=== PATIENT | male | born 1975 | race American Indian/Alaskan Native ===

== ENCOUNTER 2017-03-27 14:13 | Emergency (ER) | payer OTHER ==
[2017-03-27 14:26] VITALS: BP 176/108
--- NOTE | 2017-03-27 14:57 | Emergency Department Report ---
Chief Complaint: Chest Pain Stated Complaint: CP Time Seen by Provider: 03/27/17 14:56 - HPI History of Present Illness: Patient reports that he is having left sided chest pain that feels sharp that's worsening this morning. He said this is been going on for months. Patient said that he is out of his blood pressure medication for 6 months and he just moved here. I asked patient if he is here to have his blood pressure medication refill or if he is having chest pain and he laughed. Denies any nausea or vomiting. Denies any shortness of breath. Blood pressure today is 176/108 and denies any shortness of breath, swelling to lower extremities or recent travel for more than 3 hours. Denies any headache, blurred vision or dizziness. Pain to the chest is sharp and 5 out of 10. No radiation. - ROS Review of Systems: All systems are negative unless stated in HPI above - Exam Vital Signs: Vital Signs 03/27/17 14:22 Temperature 98.6 F Pulse Rate 49 L Respiratory 18 Rate Blood Pressure 176/108 O2 Sat by Pulse 98 Oximetry Physical Exam: Gen.: 41-year-old male well-nourished well-developed in no acute distress. CV: S1, S2. Regular rate and rhythm. No murmur. No chest wall tenderness. Blood pressure 176/108 EXT: No clubbing, cyanosis or edema. +2 pulses to all extremities. Lungs:CTAB. NL WOB MSE screening note: Focused history and physical exam performed. Due to findings the following was ordered: ED Medical Decision Making - Medical Decision Making MDM: Patient screened by provider in triage area. Appropriate protocol initiated and patient to be seen in main ED by ED Disposition for MSE Condition: Stable
[2017-03-27 15:36] LABS: Basophils % (Auto) 0.7 % (0.0-1.8); Eosinophils % (Auto) 4.3 % (0.0-4.3); Hematocrit 47.9 % (35.5-45.6); Hemoglobin 16.6 gm/dl (11.8-15.2); Mean Corpuscular HGB Conc 35 % (32-34); Mean Corpuscular Hemoglobin 30 pg (28-32); Mean Corpuscular Volume 86 fl (84-94); Platelet Count 243 K/mm3 (140-440); Red Blood Count 5.58 M/mm3 (3.65-5.03); White Blood Count 7.4 K/mm3 (4.5-11.0)
[2017-03-27 16:00] LABS: Alanine Aminotransferase 22 units/L (7-56); Albumin 4.4 g/dL (3.9-5); Albumin/Globulin Ratio 1.4 %; Alkaline Phosphatase 86 units/L (35-129); Anion Gap 19 mmol/L; BUN/Creatinine Ratio 8; Blood Urea Nitrogen 8 mg/dL (9-20); Calcium 9.2 mg/dL (8.4-10.2); Carbon Dioxide 26 mmol/L (22-30); Chloride 100.9 mmol/L (98-107); Glucose 95 mg/dL (75-100); Potassium 4.3 mmol/L (3.6-5.0); Sodium 142 mmol/L (137-145); Total Protein 7.5 g/dL (6.3-8.2)
[2017-03-27 16:01] LABS: Bilirubin,Direct < 0.2 mg/dL (0-0.2); Bilirubin,Indirect 0.3 mg/dL
== END 2017-03-27 17:00 | disposition left against medical advice (07) ==
LOC: ED 14:13
DX: R07.9 Chest pain, unspecified (principal); Z53.21 Procedure and treatment not carried out due to patient leaving prior to being seen by health care provider
CPT/HCPCS: 36415; 80048; 80074; 84484; 85025; 93005; 93010

== ENCOUNTER 2017-10-17 03:52 | Inpatient (IN) | payer OTHER ==
--- NOTE | 2017-10-17 04:12 | Cat Scan Report ---
FINAL REPORT EXAM: CT HEAD/BRAIN WO CON HISTORY: neuro deficits < 6hrs or sx present upon awakening TECHNIQUE: Routine axial imaging was obtained of the brain without IV contrast. FINDINGS: The ventricular system is appropriate in size and is symmetric. There is no evidence of acute stroke or hemorrhage. There are no extra-axial fluid collections. The basal cisterns appear normal. The sinuses reveal patchy mucosal thickening in the ethmoid air cells and left sphenoid sinus. The mastoid air cells are well pneumatized. The calvarium appears intact. IMPRESSION: No acute intracranial process. Mild sinusitis as described.
[2017-10-17] MEDS ORDERED: NACL 0.9% 1000 ML 1,000 ML IV ONE (04:14)
[2017-10-17 04:21] LABS: Basophils % (Auto) 0.5 % (0.0-1.8); Eosinophils # (Auto) 0.2 K/mm3 (0.0-0.4); Eosinophils % (Auto) 2.4 % (0.0-4.3); Hematocrit 48.1 % (35.5-45.6); Hemoglobin 16.7 gm/dl (11.8-15.2); Lymphocytes # (Auto) 2.6 K/mm3 (1.2-5.4); Lymphocytes % (Auto) 30.7 % (13.4-35.0); Mean Corpuscular HGB Conc 35 % (32-34); Mean Corpuscular Hemoglobin 30 pg (28-32); Mean Corpuscular Volume 87 fl (84-94); Monocytes # (Auto) 0.6 K/mm3 (0.0-0.8); Platelet Count 218 K/mm3 (140-440); Red Blood Count 5.56 M/mm3 (3.65-5.03)
[2017-10-17] MEDS ORDERED: ASPIRIN PR ONE (04:23)
--- NOTE | 2017-10-17 04:29 | Emergency Department Report ---
HPI - General Chief Complaint: Neuro Symptoms/Deficit Time Seen by Provider: 10/17/17 04:12 - HPI HPI: The patient is a 42-year-old male who presents for evaluation of strokelike symptoms. The patient arrives with his significant other, whom provides history present illness. She states that the patient awoke approximately one hour prior to arrival complaining of neuro deficits. The patient states that when he awoke he felt numbness of the right arm and leg, weakness in the right arm and leg, right facial droop, and difficulty swallowing. They approximate that the patient was last normal and went to sleep between 11-11:30 pm earlier tonight, approximately 5 hours prior to arrival, but they are unsure of the exact time that the patient was last normal. The patient also complains of a mild achy right-sided headache for the past one hours well. The patient denies fever, neck pain, chest pain, dyspnea, abdominal pain, seizure-like activity. ED Past Medical Hx - Past Medical History Previous Medical History?: Yes Hx Hypertension: Yes - Social History Smoking Status: Unknown if ever smoked Substance Use Type: None ED Review of Systems ROS: Stated complaint: POSSIBLE STROKE Other details as noted in HPI Constitutional: denies: fever ENT: denies: throat or neck pain Respiratory: denies: cough, shortness of breath Cardiovascular: denies: chest pain Endocrine: denies unexplained weight loss or gain Gastrointestinal: denies: abdominal pain, nausea Genitourinary: denies: dysuria Musculoskeletal: denies: leg swelling Skin: denies: rash Neurological: reports weakness and numbness Hematological/Lymphatic: denies: easy bleeding or easy bruising Psych: denies sadness or hopelessness Physical Exam - Physical Exam Vital Signs: Vital Signs 10/17/17 10/17/17 04:01 04:07 Pulse Rate 74 Respiratory 16 16 Rate Blood Pressure 131/81 O2 Sat by Pulse 96 96 Oximetry Physical Exam: General: well-nourished, well-developed, no acute distress Head: Normocephalic, atraumatic Eyes: normal sclera ENT: Mucous membranes are pale and dry Neck: trachea midline, neck supple, No neck stiffness, no cervical adenopathy Respiratory: Breath sounds equal bilaterally, no wheezing, rales, or rhonchi Cardio: S1 and S2 present, no murmurs, rubs, gallops, capillary refill is delayed Abdomen: Normoactive bowel sounds, soft abdomen, no rigidity, no guarding or rebound tenderness Chest WALL/Back: No tenderness to palpation of the chest wall, no CVA tenderness with percussion Musc: No pitting edema Skin: No rash Neuro: Alert oriented 3, gag reflex intact, minor right upper and lower facial drooping present, right upper extremity coordination deficit present, numbness to the right arm and leg present, no other appreciable motor deficits, reflexes 2+ symmetric on DTR testing, Babinski is downgoing Psych: Normal affect ED Course Vital Signs 10/17/17 10/17/17 04:01 04:07 Pulse Rate 74 Respiratory 16 16 Rate Blood Pressure 131/81 O2 Sat by Pulse 96 96 Oximetry ED Medical Decision Making - Lab Data Result diagrams: 10/17/17 04:06 10/17/17 04:06 - Medical Decision Making The patient was seen and examined by myself. The patient is placed on a cardiac nurse specialist and continuous pulse ox. On initial evaluation, the patient was found to be in no distress. Evaluation orders were placed and cultures stroke was called. The on-call telemetry neurologist Dr. Ramirez was contacted. She submitted that the patient is not a candidate for TPA as his last known normal is unknown, and at best, 5hours prior to arrival. CT scan the head is negative for acute ischemic stroke or intercranial hemorrhage. The patient is given rectal aspirin. Lab results reveal elevated RBC, hemoglobin, hematocrit, consistent with exam findings of dehydration, low pH, 7.2, and elevated PCO2 of 69. The patient was reevaluated and he remains responsive to verbal stimuli, oriented 3, and with intact gag reflex. The patient is placed on BiPAP for treatment of respiratory acidosis. The on-call hospitalist service was contacted. They agreed to admit the patient for further treatment and close monitoring. The ED admit order was placed. The patient was admitted in guarded condition. Critical Care Time: Yes Critical care time in (mins) excluding proc time.: 35 (35min) Critical care attestation.: Due to the critical nature of this patients presentation, which necessitated multiple bedside assessments, manipulation and supportive measures to prevent further life threatening deterioration, I would like to bill for a total of 35 minutes of critical care time. This was exclusive of any separately billable procedures. Critical Care Time: 35 min ED Disposition Clinical Impression: Acute ischemic stroke, Dehydration Respiratory failure with hypercapnia Qualifiers: Chronicity: acute Qualified Code(s): J96.02 - Acute respiratory failure with hypercapnia Disposition: OP ADMIT IP TO THIS HOSP Is pt being admited?: Yes Does the pt Need Aspirin: Yes Condition: Critical Referrals: PRIMARY CARE, [Primary Care Provider] - 3-5 Days Time of Disposition: 04:33 - Assessment Assessment Interval: Baseline - Level of Consciousness 1a. Level of Consciousness: alert - LOC Questions 1b. LOC Questions: answers correctly - LOC Command 1c. LOC Commands: performs tasks correctly - Best Gaze 2. Best Gaze: normal - Visual 3. Visual: no visual loss - Facial Palsy 4. Facial Palsy: minor paralysis - Motor Arm 5b. Motor Arm Right: drift 5a. Motor Arm Left: no drift - Motor Leg 6a. Motor Leg Left: no drift 6b. Motor Leg Right: no drift - Limb Ataxia 7. Limb Ataxia: present 1 limb - Sensory 8. Sensory: mild/moderate sensory loss - Best Language 9. Best Language: no aphasia - Dysarthria 10. Dysarthria: normal - Extinction and Inattention 11. Extinction/Inattention: no abnormality - Scoring Total Score: 4 Stroke Severity: Minor Stroke
[2017-10-17] MEDS ORDERED: ZOFRAN IV ONE ×2 (04:30→05:22)
[2017-10-17 04:34] LABS: INR 0.95 (0.87-1.13)
[2017-10-17 04:35] LABS: BUN/Creatinine Ratio 11; Blood Urea Nitrogen 12 mg/dL (9-20); Calcium 8.7 mg/dL (8.4-10.2); Hemolysis Index 19; Partial Thromboplastin Time 27.7 Sec. (24.2-36.6)
[2017-10-17] MEDS ORDERED: ZOFRAN ONE (04:36)
[2017-10-17] MEDS ORDERED: APRESOLINE ONE (05:37)
--- NOTE | 2017-10-17 05:38 | XRay Report ---
FINAL REPORT EXAM: XR CHEST 1V AP HISTORY: chest pain TECHNIQUE: A portable view of the chest was obtained. FINDINGS: The heart size is at the upper limits of normal. The lungs are not overtly congested. There are no localized infiltrates. There elevation the right hemidiaphragm. The skeletal structures do not show any acute changes. IMPRESSION: No acute process in the chest
[2017-10-17] MEDS ORDERED: APRESOLINE IV ONE (05:42)
[2017-10-17] MEDS ORDERED: PROTONIX IV ONE ×2 (06:00→10:29)
[2017-10-17 06:01] LABS: Bacteria,Urine 1+ /HPF (Negative); Bilirubin,Urine NEG (Negative); Blood,Urine NEG (Negative); Color,Urine Yellow (Yellow); Protein,Urine <15 mg/dL mg/dL (Negative); Urobilinogen,Urine < 2.0 mg/dL (<2.0)
--- NOTE | 2017-10-17 06:02 | History and Physical Report ---
History of Present Illness Date of examination: 10/17/17 History of present illness: 42-year-old man admitted history of hypertension, noncompliant with medication over the last 1 month comes emergency room with complaints of right-sided weakness. His last well-known time was 11:30, he woke up at 2:30 to use the bathroom, he fell to the floor a few times with several attempts. He also complained of slurred speech and decreased sensation on the right side. Patient also had episodes of nausea vomiting, [place] examining the patient, he had 1 episode of coffee-ground emesis. Her friend bedside stating he's been taking Motrin for tooth pain Review of systems Constitutional: no weight loss, chills, fever Ears, eyes, nose, mouth and throat: no nasal congestion, no nasal discharge, no sinus pressure, no vision change, no red eye. Neck: No neck pain or rigidity. Cardiovascular: no chest pain, palpitations Respiratory: no cough, shortness of breath Gastrointestinal: no abdominal pain hematochezia Genitourinary : no frequency , no hematuria Musculoskeletal: no joint swelling or muscle ache Integumentary: no rash, no pruritis Neurological:+ parathesias, focal weakness Endocrine: no cold or heat intolerance, no polyuria or polydipsia Hematologic/Lymphatic: no easy bruising, no easy bleeding, no gland swelling Allergic/Immunologic: no urticaria, no angioedema. PAST MEDICAL HISTORY: Hypertension PAST SURGICAL HISTORY: None SOCIAL HISTORY: No alcohol, no drugs, smokes half pack a day FAMILY HISTORY: Hypertension Medications and Allergies Allergies Allergy/AdvReac Type Severity Reaction Status Date / Time No Known Allergies Allergy Unverified 03/27/17 14:25 Home Medications Medication Instructions Recorded Confirmed Last Taken Type Ibuprofen [Ibuprofen Ib] 200 mg PO DAILY 10/17/17 10/17/17 10/16/17 History Lisinopril/Hydrochlorothiazide 1 mg PO DAILY 10/17/17 10/17/17 Unknown History [Zestoretic 20-12.5 mg] Active Meds: Active Medications Pantoprazole Sodium (Protonix) 40 mg IV ONCE ONE Stop: 10/17/17 06:01 Exam - Physical Exam Narrative exam: Gen. appearance: Patient lying in bed, no apparent distress HEENT: Normocephalic, atraumatic, pupils equally round and reactive to light, extraocular movement intact, and no sclericterus,. No JVD or thyromegaly or nodule,neck supple, no carotid bruit ,mucous membranes moist, no exudate or erythema Heart: S1, S2, regular rate and rhythm Lungs: Clear bilaterally, breathing comfortable Abdomen: Positive bowel sounds, non-tender, nondistended, no organomegaly Extremity:no edema cyanosis, clubbing Skin: no rash, dry, warm Neuro: Oriented 3, cranial nerves II-12 intact, speech is slurred, motor - right sidee 3/5, and decrease sensation on the right - Constitutional Vitals: Temp Pulse Resp BP Pulse Ox 97.7 F 72 32 H 176/105 94 10/17/17 04:28 10/17/17 05:43 10/17/17 05:30 10/17/17 05:43 10/17/17 05:30 Results - Labs CBC & Chem 7: 10/27/17 10:13 10/26/17 05:09 Labs: Abnormal lab results 10/17/17 10/17/17 10/17/17 Range/Units 04:06 04:06 04:23 RBC 5.56 H (3.65-5.03) M/mm3 Hgb 16.7 H (11.8-15.2) gm/dl Hct 48.1 H (35.5-45.6) % MCHC 35 H (32-34) % RDW 13.0 L (13.2-15.2) % POC ABG pH (7.35-7.45) POC ABG pCO2 (35-45) Glucose 141 H (75-100) mg/dL POC Glucose (70-105) Total Creatine Kinase 301 H (55-170) units/L 10/17/17 10/17/17 Range/Units 04:24 05:49 RBC (3.65-5.03) M/mm3 Hgb (11.8-15.2) gm/dl Hct (35.5-45.6) % MCHC (32-34) % RDW (13.2-15.2) % POC ABG pH 7.207 L (7.35-7.45) POC ABG pCO2 62.6 H (35-45) Glucose (75-100) mg/dL POC Glucose 132 H (70-105) Total Creatine Kinase (55-170) units/L - Imaging and Cardiology Chest x-ray: report reviewed CT Scan - head: report reviewed Assessment and Plan Assessment Acute CVA Upper GI bleed Hypertension Noncompliant Plan Admit to medicine Obtain MRI of the head, echo CTA is pending Consult neurology, physical, occupational speech therapy Hold aspirin, GIB, hold statin, is unable to swallow Gentle IV fluid, consult GI, serial hemoglobin DVT prophylaxis
[2017-10-17] MEDS ORDERED: APRESOLINE IV PRN (06:03)
[2017-10-17 06:04] LABS: Amphetamine Screen,Urine PRESUMPTIVE NEGATIVE; Benzodiazepines Screen,Urine PRESUMPTIVE NEGATIVE; Cannabinoid Screen,Urine PRESUMPTIVE NEGATIVE; Cocaine Screen,Urine PRESUMPTIVE NEGATIVE; Methadone Screen,Urine PRESUMPTIVE NEGATIVE; Opiate Screen,Urine PRESUMPTIVE NEGATIVE
[2017-10-17 06:05] LABS: RBC,Urine < 1.0 /HPF (0.0-6.0)
[2017-10-17] MEDS: REGLAN IV PRN (06:13)
[2017-10-17 06:46] LABS: Hematocrit 48.3 % (35.5-45.6); Hemoglobin 16.6 gm/dl (11.8-15.2)
[2017-10-17] MEDS ORDERED: NACL 0.45% 1000 ML 1,000 ML IV SCH (07:00)
--- NOTE | 2017-10-17 07:35 | Cat Scan Report ---
FINAL REPORT EXAM: CT ANGIO HEAD HISTORY: right sided numbness, weakness, and dysphagia TECHNIQUE: A CT angiogram was obtained of the neck and head following the intravenous injection of 100 cc of Omnipaque 350. MIP rotational, sagittal and coronal reconstructions were reviewed. FINDINGS: In the neck both common carotid arteries are widely patent with normal bifurcation into the internal and external carotid arteries. There is no evidence of plaque formation, stenosis, or dissection. Both vertebral arteries are also widely patent with the left being dominant. Intracranially both vertebral arteries are widely patent with normal visualization of the basilar artery. The basilar artery bifurcates normally into both posterior cerebral arteries. In the anterior circulation both cavernous and supraclinoid internal carotid arteries are widely patent with normal bifurcation into the anterior and middle cerebral arteries bilaterally. There is no evidence of arterial stenosis, thrombosis or aneurysm. The dural venous sinuses opacify normally. In the neck there is no evidence of adenopathy or soft tissue masses. The lung apices are clear. The thyroid gland appears normal. The airway is unremarkable. The sinuses reveal mild mucosal thickening in both maxillary sinuses. Additional mucosal thickening is seen the left sphenoid sinus. IMPRESSION: Normal CT angiogram of the arteries in the neck and head Mild sinusitis as described.
--- NOTE | 2017-10-17 07:41 | Cat Scan Report ---
FINAL REPORT EXAM: CT ANGIO NECK HISTORY: right sided numbness, weakness, and dysphagia TECHNIQUE: A CT angiogram was obtained of the arteries of the neck following the intravenous injection of 100 cc of Omnipaque 350. Rotational, sagittal, and coronal MIP reconstructions were reviewed. FINDINGS: Both common carotid arteries are widely patent with normal bifurcation into the internal and external carotid arteries bilaterally. Both vertebral arteries are widely patent with the left being dominant. There is no evidence of arterial stenosis, thrombosis or dissection within the neck. Lung apices are clear. The thyroid gland appears normal. The airway appears normal. There is no evidence of lymphadenopathy or masses. Along the skullbase there is mild mucosal thickening in the maxillary sinuses. The mastoid air cells are well pneumatized. The skeletal structures do not show any acute changes. IMPRESSION: Normal CTA of the neck. Very mild mucosal thickening in the maxillary sinuses noted.
[2017-10-17] MEDS ORDERED: VASELINE LIP THERAPY TP PRN (10:23)
[2017-10-17] MEDS ORDERED: ARTIFICIAL TEARS OPHTH OINT OU PRN (10:23)
[2017-10-17] MEDS ORDERED: NORMODYNE IV ONE ×2 (10:29→10:31)
--- NOTE | 2017-10-17 10:37 | Emergency Department Report ---
ED CPR HPI - General Chief Complaint: Neuro Symptoms/Deficit Stated Complaint: POSSIBLE STROKE Time Seen by Provider: 10/17/17 04:12 Source: EMS Mode of arrival: Stretcher Limitations: No Limitations - History of Present Illness Initial Comments: This is a 42-year-old admitted patient was previously unknown to me. I was summoned to the room when he vomited into his BiPAP mask. He had been admitted for a stroke workup and respiratory failure. I did briefly check his CT studies to include plain CT of the head CT angio of the head and neck which were interpreted as normal by the radiologist. A chest x-ray looked to me like it did have some diffusely increased markings but I believe they were nonspecific and also read as nondiagnostic by the radiologist. The patient was found in an obtunded condition with miotic pupils. Therefore nurses were instructed to obtain RSI medications and respiratory prepared for sedation. Physical examination Briefly this is an obtunded patient with miotic pupils which are roving. He is minimally responsive to stimuli. His sclerae is nonicteric. His airway is patent but there is secretions in his oropharynx. Bilaterally he has very loud and coarse rales. Abdomen is nondistended. Neurological exam is limited secondary to stupor. MD Complaint: found unresponsive Associated Symptoms: other (admitted for a neurological workup) - Related Data Allergies Allergy/AdvReac Type Severity Reaction Status Date / Time No Known Allergies Allergy Unverified 03/27/17 14:25 ED Review of Systems ROS: Stated complaint: POSSIBLE STROKE Other details as noted in HPI Comment: Unobtainable due to pts medical conditions ED Past Medical Hx - Past Medical History Previous Medical History?: Yes Hx Hypertension: Yes - Social History Smoking Status: Unknown if ever smoked Substance Use Type: None ED Physical Exam - General Limitations: Altered Mental Status General appearance: obtunded - Head Head exam: Present: atraumatic - Eye Eye exam: Absent: scleral icterus Pupils: Present: miosis - ENT ENT exam: Present: other (blood-tinged fluid in the oropharynx). Absent: normal exam (patient is partially edentulous with sharp upper incisor) - Neck Neck exam: Present: full ROM - Respiratory Respiratory exam: Present: rales - Cardiovascular Cardiovascular Exam: Present: regular rate - GI/Abdominal GI/Abdominal exam: Present: soft. Absent: distended - Extremities Exam Extremities exam: Present: normal inspection - Neurological Exam Neurological exam: Present: other (stuporous) - Skin Skin exam: Present: warm ED Course Vital Signs 10/17/17 10/17/17 10/17/17 04:01 04:07 04:15 Temperature Pulse Rate 74 56 L Respiratory 16 16 17 Rate Blood Pressure 131/81 139/95 Blood Pressure [Left] O2 Sat by Pulse 96 96 97 Oximetry 10/17/17 10/17/17 10/17/17 04:28 04:30 04:46 Temperature 97.7 F Pulse Rate 67 81 76 Respiratory 19 14 16 Rate Blood Pressure 132/106 132/106 Blood Pressure 139/95 [Left] O2 Sat by Pulse 95 99 92 Oximetry 10/17/17 10/17/17 10/17/17 05:00 05:16 05:30 Temperature Pulse Rate 63 56 L 65 Respiratory 10 L 26 H 32 H Rate Blood Pressure 153/106 161/94 176/105 Blood Pressure [Left] O2 Sat by Pulse 92 91 94 Oximetry 10/17/17 10/17/17 10/17/17 05:43 05:45 06:15 Temperature Pulse Rate 72 79 Respiratory 34 H Rate Blood Pressure 176/105 143/88 Blood Pressure [Left] O2 Sat by Pulse 95 94 Oximetry 10/17/17 10/17/17 06:16 06:30 Temperature Pulse Rate 89 93 H Respiratory 41 H 37 H Rate Blood Pressure 162/83 124/73 Blood Pressure [Left] O2 Sat by Pulse 94 90 Oximetry - Reevaluation(s) Reevaluation #1: I was successful under direct laryngoscopy single attempt. Pulse oximetry improved. Blood pressure was noted to be significantly elevated. A dose of labetalol was given. Patient will be worked up for possible sepsis. Empiric antibiotics. Repeat CT of the head. It did not appear that the patient obviously aspirated on passage of the endotracheal tube as there were no secretions forthcoming. Patient placed on a ventilator. I discussed this case with Dr. Herr who has seen the patient as well as Dr. Morel the position classification specialist. 10/17/17 10:42 ED Medical Decision Making - Lab Data Result diagrams: 10/17/17 06:26 10/17/17 04:06 Laboratory Results - last 24 hr 10/17/17 10/17/17 10/17/17 04:06 04:06 04:06 WBC 8.5 RBC 5.56 H Hgb 16.7 H Hct 48.1 H MCV 87 MCH 30 MCHC 35 H RDW 13.0 L Plt Count 218 Lymph % (Auto) 30.7 [place] % (Auto) 7.0 Eos % (Auto) 2.4 Baso % (Auto) 0.5 Lymph # 2.6 [place] # 0.6 Eos # 0.2 Baso # 0.0 Seg Neutrophils % 59.4 Seg Neutrophils # 5.0 PT 13.1 INR 0.95 APTT 27.7 Thrombin Time POC ABG pH POC ABG pCO2 POC ABG pO2 POC ABG HCO3 POC ABG Total CO2 POC ABG O2 Sat POC ABG Base Excess FiO2 Sodium 141 Potassium 3.7 Chloride 104.0 Carbon Dioxide 23 Anion Gap 18 BUN 12 Creatinine 1.1 Estimated GFR > 60 BUN/Creatinine Ratio 11 Glucose 141 H POC Glucose Calcium 8.7 Total Creatine Kinase Troponin T < 0.010 NT-Pro-B Natriuret Pep Urine Color Urine Turbidity Urine pH Ur Specific [place] Urine Protein Urine Glucose (UA) Urine Ketones Urine Blood Urine Nitrite Urine Bilirubin Urine Urobilinogen Ur Leukocyte Esterase Urine WBC (Auto) Urine RBC (Auto) U Epithel Cells (Auto) Urine Bacteria (Auto) Salicylates Urine Opiates Screen Urine Methadone Screen Ur Barbiturates Screen Ur Phencyclidine Scrn Ur Amphetamines Screen U Benzodiazepines Scrn Urine Cocaine Screen U Marijuana (THC) Screen Drugs of Abuse Note Plasma/Serum Alcohol 10/17/17 10/17/17 10/17/17 04:06 04:23 04:23 WBC RBC Hgb Hct MCV MCH MCHC RDW Plt Count Lymph % (Auto) [place] % (Auto) Eos % (Auto) Baso % (Auto) Lymph # [place] # Eos # Baso # Seg Neutrophils % Seg Neutrophils # PT INR APTT Thrombin Time 17.0 POC ABG pH POC ABG pCO2 POC ABG pO2 POC ABG HCO3 POC ABG Total CO2 POC ABG O2 Sat POC ABG Base Excess FiO2 Sodium Potassium Chloride Carbon Dioxide Anion Gap BUN Creatinine Estimated GFR BUN/Creatinine Ratio Glucose POC Glucose Calcium Total Creatine Kinase 301 H Troponin T NT-Pro-B Natriuret Pep 46.29 Urine Color Urine Turbidity Urine pH Ur Specific [place] Urine Protein Urine Glucose (UA) Urine Ketones Urine Blood Urine Nitrite Urine Bilirubin Urine Urobilinogen Ur Leukocyte Esterase Urine WBC (Auto) Urine RBC (Auto) U Epithel Cells (Auto) Urine Bacteria (Auto) Salicylates Urine Opiates Screen Urine Methadone Screen Ur Barbiturates Screen Ur Phencyclidine Scrn Ur Amphetamines Screen U Benzodiazepines Scrn Urine Cocaine Screen U Marijuana (THC) Screen Drugs of Abuse Note Plasma/Serum Alcohol < 0.01 10/17/17 10/17/17 10/17/17 04:23 04:24 04:35 WBC RBC Hgb Hct MCV MCH MCHC RDW Plt Count Lymph % (Auto) [place] % (Auto) Eos % (Auto) Baso % (Auto) Lymph # [place] # Eos # Baso # Seg Neutrophils % Seg Neutrophils # PT INR APTT Thrombin Time POC ABG pH POC ABG pCO2 POC ABG pO2 POC ABG HCO3 POC ABG Total CO2 POC ABG O2 Sat POC ABG Base Excess FiO2 Sodium Potassium Chloride Carbon Dioxide Anion Gap BUN Creatinine Estimated GFR BUN/Creatinine Ratio Glucose POC Glucose 132 H Calcium Total Creatine Kinase Troponin T NT-Pro-B Natriuret Pep Urine Color Yellow Urine Turbidity Clear Urine pH 8.0 H Ur Specific [place] 1.013 Urine Protein <15 mg/dl Urine Glucose (UA) 50 Urine Ketones Neg Urine Blood Neg Urine Nitrite Neg Urine Bilirubin Neg Urine Urobilinogen < 2.0 Ur Leukocyte Esterase Neg Urine WBC (Auto) 3.0 Urine RBC (Auto) < 1.0 U Epithel Cells (Auto) 1.0 Urine Bacteria (Auto) 1+ Salicylates < 0.3 L Urine Opiates Screen Urine Methadone Screen Ur Barbiturates Screen Ur Phencyclidine Scrn Ur Amphetamines Screen U Benzodiazepines Scrn Urine Cocaine Screen U Marijuana (THC) Screen Drugs of Abuse Note Plasma/Serum Alcohol 10/17/17 10/17/17 10/17/17 04:35 05:49 06:26 WBC RBC Hgb 16.6 H Hct 48.3 H MCV MCH MCHC RDW Plt Count Lymph % (Auto) [place] % (Auto) Eos % (Auto) Baso % (Auto) Lymph # [place] # Eos # Baso # Seg Neutrophils % Seg Neutrophils # PT INR APTT Thrombin Time POC ABG pH 7.207 L POC ABG pCO2 62.6 H POC ABG pO2 103 POC ABG HCO3 24.8 POC ABG Total CO2 27 POC ABG O2 Sat 96 POC ABG Base Excess -3 FiO2 100 Sodium Potassium Chloride Carbon Dioxide Anion Gap BUN Creatinine Estimated GFR BUN/Creatinine Ratio Glucose POC Glucose Calcium Total Creatine Kinase Troponin T NT-Pro-B Natriuret Pep Urine Color Urine Turbidity Urine pH Ur Specific [place] Urine Protein Urine Glucose (UA) Urine Ketones Urine Blood Urine Nitrite Urine Bilirubin Urine Urobilinogen Ur Leukocyte Esterase Urine WBC (Auto) Urine RBC (Auto) U Epithel Cells (Auto) Urine Bacteria (Auto) Salicylates Urine Opiates Screen Presumptive negative Urine Methadone Screen Presumptive negative Ur Barbiturates Screen Presumptive negative Ur Phencyclidine Scrn Presumptive negative Ur Amphetamines Screen Presumptive negative U Benzodiazepines Scrn Presumptive negative Urine Cocaine Screen Presumptive negative U Marijuana (THC) Screen Presumptive negative Drugs of Abuse Note Disclamer Plasma/Serum Alcohol Critical Care Time: Yes Critical care time in (mins) excluding proc time.: 60 Critical care attestation.: If time is entered above; I have spent that time in minutes in the direct care of this critically ill patient, excluding procedure time. ED Disposition Clinical Impression: Acute ischemic stroke, Dehydration Respiratory failure with hypercapnia Qualifiers: Chronicity: acute Qualified Code(s): J96.02 - Acute respiratory failure with hypercapnia Disposition: 09 OP ADMIT IP TO THIS HOSP Is pt being admited?: Yes Does the pt Need Aspirin: No (repeat CT will have to be cleared first) Condition: Critical Referrals: PRIMARY CARE, [Primary Care Provider] - 3-5 Days Time of Disposition: 10:45
[2017-10-17] MEDS: DIPRIVAN 10 MG/ML 1,000 MG/100 ML BOTTLE IV SCH ×2 (10:45→16:45)
--- NOTE | 2017-10-17 10:50 | Event Note ---
Date: 10/17/17 Patient admitted this morning, but was still in ED waiting for Tele bed. To r/o stroke, GI bleed. Patient vomited became more short of breath, therefore intubated. Upgrade to ICU.
--- NOTE | 2017-10-17 10:56 | Gastroenterology Consultation ---
History of Present Illness - Reason for Consult Consult date: 10/17/17 coffee ground emesis Requesting physician: SKY BLAKELY - History of Present Illness Mr Dickerson is a 42 yo AAM who presents from home following respiratory distress, ams, and weakness. History gathered from pt's fiance at bedside, chart review, and pt's nurse. pt's fiance reports symptoms started in the middle of the night as pt awoke from sleeping. He was brought to the ED after which he had multiple emesis episodes while on cpap with concern for aspiration which led to intubation. he reportedly had coffee ground emesis with output in NG tube. At the time of exam, pt intubated/sedated with NG tube which shows dark brown aspirate without juan blood. H/H normal on admission. No known prior h/o gi bleeding. Past History Past Medical History: other (unable to obtain) Past Surgical History: Other (unable to obtain) Social history: other (unable to obtain) Family history: other (unable to obtain) Medications and Allergies Allergies Allergy/AdvReac Type Severity Reaction Status Date / Time No Known Allergies Allergy Unverified 03/27/17 14:25 Active Meds: Active Medications Acetaminophen (Tylenol) 650 mg PO Q4H PRN PRN Reason: Pain, Mild (1-3) Etomidate (Amidate) 16 mg IV ONCE ONE Stop: 10/17/17 10:49 Hydralazine HCl (Apresoline) 5 mg IV Q6H PRN PRN Reason: Keep SBP between 160-185 mm Hg Hydrophilic Ointment (Vaseline Lip Therapy) 1 applic TP Q2HR PRN PRN Reason: Dry Lips Sodium Chloride (Nacl 0.45% 1000 Ml) 1,000 mls @ 75 mls/hr IV DIRECT JOSE MANUEL Propofol (Diprivan 10 Mg/Ml) 1,000 mg in 100 mls @ 2.574 mls/hr IV TITR JOSE MANUEL; Protocol Piperacillin Sod/Tazobactam Sod (Zosyn/Ns 4.5gm/100ml) 4.5 gm in 100 mls @ 200 mls/hr IV ONCE ONE Stop: 10/17/17 11:49 Metoclopramide HCl (Reglan) 10 mg IV Q6H PRN PRN Reason: Nausea And Vomiting Last Admin: 10/17/17 06:13 Dose: 10 mg Multi-Ingred Cream/Lotion/Oil/Oint (Artificial Tears Ophth Oint) 1 applic OU Q4HR PRN PRN Reason: Dry Eye(s) Ondansetron HCl (Zofran) 4 mg IV Q4H PRN PRN Reason: N/V unrelieved by Reglan Sodium Chloride (Sodium Chloride Flush Syringe 10 Ml) 10 ml IV PRN PRN PRN Reason: LINE FLUSH Sodium Chloride (Nacl 0.9% 500 Ml) 1 ml IV DIRECT JOSE MANUEL Succinylcholine Chloride (Quelicin) 200 mg IV ONCE ONE Stop: 10/17/17 10:49 Review of Systems - Review of Systems ROS unobtainable: due to endotracheal tube, due to mental status Exam - Exam Narrative Exam: Gen: intubated/sedated Head: nc/at Nose: + NG tube with dark brown output Mouth: + ET tube Heart: tachycardic, s1 and s2 Lungs: coarse bs bilaterally, non labored Abd: soft, nd, +bs Ext: no edema Neuro: intubated/sedated - Constitutional Vital Signs: Temp Pulse Resp BP Pulse Ox 97.7 F 93 H 37 H 124/73 90 10/17/17 04:28 10/17/17 06:30 10/17/17 06:30 10/17/17 06:30 10/17/17 06:30 - Labs CBC & Chem 7: 10/17/17 06:26 10/17/17 04:06 Lab Results: Laboratory Results - last 24 hr 10/17/17 10/17/17 10/17/17 04:06 04:06 04:06 WBC 8.5 RBC 5.56 H Hgb 16.7 H Hct 48.1 H MCV 87 MCH 30 MCHC 35 H RDW 13.0 L Plt Count 218 Lymph % (Auto) 30.7 [place] % (Auto) 7.0 Eos % (Auto) 2.4 Baso % (Auto) 0.5 Lymph # 2.6 [place] # 0.6 Eos # 0.2 Baso # 0.0 Seg Neutrophils % 59.4 Seg Neutrophils # 5.0 PT 13.1 INR 0.95 APTT 27.7 Thrombin Time POC ABG pH POC ABG pCO2 POC ABG pO2 POC ABG HCO3 POC ABG Total CO2 POC ABG O2 Sat POC ABG Base Excess FiO2 Sodium 141 Potassium 3.7 Chloride 104.0 Carbon Dioxide 23 Anion Gap 18 BUN 12 Creatinine 1.1 Estimated GFR > 60 BUN/Creatinine Ratio 11 Glucose 141 H POC Glucose Calcium 8.7 Total Creatine Kinase Troponin T < 0.010 NT-Pro-B Natriuret Pep Urine Color Urine Turbidity Urine pH Ur Specific [place] Urine Protein Urine Glucose (UA) Urine Ketones Urine Blood Urine Nitrite Urine Bilirubin Urine Urobilinogen Ur Leukocyte Esterase Urine WBC (Auto) Urine RBC (Auto) U Epithel Cells (Auto) Urine Bacteria (Auto) Salicylates Urine Opiates Screen Urine Methadone Screen Ur Barbiturates Screen Ur Phencyclidine Scrn Ur Amphetamines Screen U Benzodiazepines Scrn Urine Cocaine Screen U Marijuana (THC) Screen Drugs of Abuse Note Plasma/Serum Alcohol 10/17/17 10/17/17 10/17/17 04:06 04:23 04:23 WBC RBC Hgb Hct MCV MCH MCHC RDW Plt Count Lymph % (Auto) [place] % (Auto) Eos % (Auto) Baso % (Auto) Lymph # [place] # Eos # Baso # Seg Neutrophils % Seg Neutrophils # PT INR APTT Thrombin Time 17.0 POC ABG pH POC ABG pCO2 POC ABG pO2 POC ABG HCO3 POC ABG Total CO2 POC ABG O2 Sat POC ABG Base Excess FiO2 Sodium Potassium Chloride Carbon Dioxide Anion Gap BUN Creatinine Estimated GFR BUN/Creatinine Ratio Glucose POC Glucose Calcium Total Creatine Kinase 301 H Troponin T NT-Pro-B Natriuret Pep 46.29 Urine Color Urine Turbidity Urine pH Ur Specific [place] Urine Protein Urine Glucose (UA) Urine Ketones Urine Blood Urine Nitrite Urine Bilirubin Urine Urobilinogen Ur Leukocyte Esterase Urine WBC (Auto) Urine RBC (Auto) U Epithel Cells (Auto) Urine Bacteria (Auto) Salicylates Urine Opiates Screen Urine Methadone Screen Ur Barbiturates Screen Ur Phencyclidine Scrn Ur Amphetamines Screen U Benzodiazepines Scrn Urine Cocaine Screen U Marijuana (THC) Screen Drugs of Abuse Note Plasma/Serum Alcohol < 0.01 10/17/17 10/17/17 10/17/17 04:23 04:24 04:35 WBC RBC Hgb Hct MCV MCH MCHC RDW Plt Count Lymph % (Auto) [place] % (Auto) Eos % (Auto) Baso % (Auto) Lymph # [place] # Eos # Baso # Seg Neutrophils % Seg Neutrophils # PT INR APTT Thrombin Time POC ABG pH POC ABG pCO2 POC ABG pO2 POC ABG HCO3 POC ABG Total CO2 POC ABG O2 Sat POC ABG Base Excess FiO2 Sodium Potassium Chloride Carbon Dioxide Anion Gap BUN Creatinine Estimated GFR BUN/Creatinine Ratio Glucose POC Glucose 132 H Calcium Total Creatine Kinase Troponin T NT-Pro-B Natriuret Pep Urine Color Yellow Urine Turbidity Clear Urine pH 8.0 H Ur Specific [place] 1.013 Urine Protein <15 mg/dl Urine Glucose (UA) 50 Urine Ketones Neg Urine Blood Neg Urine Nitrite Neg Urine Bilirubin Neg Urine Urobilinogen < 2.0 Ur Leukocyte Esterase Neg Urine WBC (Auto) 3.0 Urine RBC (Auto) < 1.0 U Epithel Cells (Auto) 1.0 Urine Bacteria (Auto) 1+ Salicylates < 0.3 L Urine Opiates Screen Urine Methadone Screen Ur Barbiturates Screen Ur Phencyclidine Scrn Ur Amphetamines Screen U Benzodiazepines Scrn Urine Cocaine Screen U Marijuana (THC) Screen Drugs of Abuse Note Plasma/Serum Alcohol 10/17/17 10/17/17 10/17/17 04:35 05:49 06:26 WBC RBC Hgb 16.6 H Hct 48.3 H MCV MCH MCHC RDW Plt Count Lymph % (Auto) [place] % (Auto) Eos % (Auto) Baso % (Auto) Lymph # [place] # Eos # Baso # Seg Neutrophils % Seg Neutrophils # PT INR APTT Thrombin Time POC ABG pH 7.207 L POC ABG pCO2 62.6 H POC ABG pO2 103 POC ABG HCO3 24.8 POC ABG Total CO2 27 POC ABG O2 Sat 96 POC ABG Base Excess -3 FiO2 100 Sodium Potassium Chloride Carbon Dioxide Anion Gap BUN Creatinine Estimated GFR BUN/Creatinine Ratio Glucose POC Glucose Calcium Total Creatine Kinase Troponin T NT-Pro-B Natriuret Pep Urine Color Urine Turbidity Urine pH Ur Specific [place] Urine Protein Urine Glucose (UA) Urine Ketones Urine Blood Urine Nitrite Urine Bilirubin Urine Urobilinogen Ur Leukocyte Esterase Urine WBC (Auto) Urine RBC (Auto) U Epithel Cells (Auto) Urine Bacteria (Auto) Salicylates Urine Opiates Screen Presumptive negative Urine Methadone Screen Presumptive negative Ur Barbiturates Screen Presumptive negative Ur Phencyclidine Scrn Presumptive negative Ur Amphetamines Screen Presumptive negative U Benzodiazepines Scrn Presumptive negative Urine Cocaine Screen Presumptive negative U Marijuana (THC) Screen Presumptive negative Drugs of Abuse Note Disclamer Plasma/Serum Alcohol Assessment and Plan 1. ? UGI bleed - pt with dark brown output from NG without obvious blood/old appearing blood. H/H normal. Low suspicion for GI bleed at this time. He has other acute medical issues that are of priority at this time. Would place pt on PPI BID dosing for ppx purposes. If he develops signs of overt bleeding, can re-examine for possible egd. otherwise, conservative management from gi stand point. 2. Altered mental status 3. Respiratory failure Will s/o, please call as needed or with questions.
[2017-10-17] MEDS ORDERED: AMIDATE IV ONE (11:00)
[2017-10-17] MEDS ORDERED: QUELICIN IV ONE (11:00)
[2017-10-17] MEDS ORDERED: NACL 0.9% 500 ML IV SCH (11:00)
--- NOTE | 2017-10-17 11:11 | XRay Report ---
AP CHEST: HISTORY: Endotracheal tube placement Compared to 10/17/17 at 0515 hours. An endotracheal tube has been inserted which terminates 6.5 cm superior to the mavis. A nasogastric tube has been inserted which is followed to the mid to distal stomach. Heart and mediastinal structures remain unremarkable. There is a hazy opacity in the left lower lobe behind the heart which appears to be new since the exam earlier today. This probably represents segmental atelectasis. The remainder of the lungs are clear. No pleural effusion or pneumothorax. IMPRESSION: Endotracheal tube and nasogastric tube as described. Left lower lobe opacity. I favor segmental atelectasis.
[2017-10-17] MEDS ORDERED: VANCOMYCIN 1,750 MG in NACL 0.9% 500 ML 500 ML IV ONE (11:16)
[2017-10-17] MEDS ORDERED: ZOSYN/NS 4.5GM/100ML 4.5 GM/100 ML VIAL IV ONE (11:20)
--- NOTE | 2017-10-17 11:41 | Cat Scan Report ---
CT HEAD WITHOUT CONTRAST: HISTORY: Change in mental status, recent TPA therapy. TECHNIQUE: Sequential 2.5mm CT images. COMPARISON: CT head without contrast performed earlier today at 0350 hours. FINDINGS: Cerebral Parenchyma: Within normal limits. Cerebellum: Within normal limits. Brainstem: Within normal limits. Ventricles: Normal. [place]: Normal. Extra-axial spaces: Normal. Basal Cisterns: Normal. Intracranial Hemorrhage: None. Midline Shift: None. Calvarium: Normal. Sinuses: Normal. Mastoid Air Cells: Normal. Visualized Orbits: Normal. IMPRESSION: Cranial CT scan within normal limits. No change is demonstrated since earlier today at 0350 hours.
[2017-10-17] MEDS: PEPCID IV SCH ×2 (12:06→23:19)
[2017-10-17] MEDS: VANCOMYCIN 1,500 MG in NACL 0.9% 500 ML 500 ML IV SCH (13:15)
--- NOTE | 2017-10-17 15:00 | Consultation ---
History of Present Illness Consult date: 10/17/17 Requesting physician: BARTOLOME THOMSON Reason for Consult: Acute ischemic stroke History of present illness: This 42 year old right handed male presented to ER about 3 a.m. after awakening from sleep an noting weakness and numbness in the lower extremities. He attempted to walk to the bathroom several times and fell. On arrival to ER, CT and CT angio were performed, both unremarkable. On exam weakness involved right arm and leg. While in ER he developed nausea and vomiting. For this reason he was intubated. Risk factors include smoking and hypertension. The patient's significant other claims that he stopped taking lisinopril because he felt it was causing chest pain. He has not been taking it for a month. Past History Past Medical History: hypertension, other (unable to obtain) Past Surgical History: Other (unable to obtain) Social history: other (unable to obtain) Family history: diabetes, hypertension, other (unable to obtain) Medications and Allergies Allergies Allergy/AdvReac Type Severity Reaction Status Date / Time No Known Allergies Allergy Unverified 03/27/17 14:25 Home Medications Medication Instructions Recorded Confirmed Last Taken Type Ibuprofen [Ibuprofen Ib] 200 mg PO DAILY 10/17/17 10/17/17 10/16/17 History Lisinopril/Hydrochlorothiazide 1 mg PO DAILY 10/17/17 10/17/17 Unknown History [Zestoretic 20-12.5 mg] Active Meds: Active Medications Acetaminophen (Tylenol) 650 mg PO Q4H PRN PRN Reason: Pain, Mild (1-3) Famotidine (Pepcid) 20 mg IV BID JOSE MANUEL Last Admin: 10/17/17 12:06 Dose: 20 mg Hydralazine HCl (Apresoline) 5 mg IV Q6H PRN PRN Reason: Keep SBP between 160-185 mm Hg Hydrophilic Ointment (Vaseline Lip Therapy) 1 applic TP Q2HR PRN PRN Reason: Dry Lips Sodium Chloride (Nacl 0.45% 1000 Ml) 1,000 mls @ 75 mls/hr IV DIRECT JOSE MANUEL Propofol (Diprivan 10 Mg/Ml) 1,000 mg in 100 mls @ 2.574 mls/hr IV TITR JOSE MANUEL; Protocol Last Titration: 10/17/17 14:00 Dose: 35 mcg/kg/min, 18.018 mls/hr Dextrose/Sodium Chloride (D5/0.45ns) 1,000 mls @ 75 mls/hr IV DIRECT JOSE MANUEL Piperacillin Sod/Tazobactam Sod (Zosyn/Ns 4.5gm/100ml) 4.5 gm in 100 mls @ 200 mls/hr IV Q8HR JOSE MANUEL; Protocol Vancomycin HCl 1,500 mg/ (Sodium Chloride) 515 mls @ 257.5 mls/hr IV Q12H JOSE MANUEL Last Admin: 10/17/17 13:15 Dose: 257.5 mls/hr Metoclopramide HCl (Reglan) 10 mg IV Q6H PRN PRN Reason: Nausea And Vomiting Last Admin: 10/17/17 06:13 Dose: 10 mg Multi-Ingred Cream/Lotion/Oil/Oint (Artificial Tears Ophth Oint) 1 applic OU Q4HR PRN PRN Reason: Dry Eye(s) Ondansetron HCl (Zofran) 4 mg IV Q4H PRN PRN Reason: N/V unrelieved by Reglan Sodium Chloride (Sodium Chloride Flush Syringe 10 Ml) 10 ml IV PRN PRN PRN Reason: LINE FLUSH Sodium Chloride (Nacl 0.9% 500 Ml) 1 ml IV DIRECT JOSE MANUEL Review of Systems ROS unobtainable: due to endotracheal tube Physical Examination - Vital Signs Vital Signs: Vital Signs Pulse Resp BP Pulse Ox 74 16 131/81 96 10/17/17 04:01 10/17/17 04:01 10/17/17 04:01 10/17/17 04:01 - Physical Exam Narrative exam: HEENT - no evidence of inflammation or lesions. Sclera clear. Chest - clear to auscultation. Heart - reg. rate nl S-1 and S-2. Abdomen - soft, nontender. Extremities - without CCE. Neurological exam - Patient is sedated on the ventilator. tier in - eyes are midline Motor - flaccid, on propofol Sensation - not withdrawing because of sedation. - Assessment Assessment Interval: Baseline - Level of Consciousness 1a. Level of Consciousness: alert - LOC Questions 1b. LOC Questions: answers correctly - LOC Command 1c. LOC Commands: performs tasks correctly - Best Gaze 2. Best Gaze: normal - Visual 3. Visual: no visual loss - Facial Palsy 4. Facial Palsy: minor paralysis - Motor Arm 5b. Motor Arm Right: drift - Motor Leg 6a. Motor Leg Left: no drift - Limb Ataxia 7. Limb Ataxia: present 1 limb - Sensory 8. Sensory: mild/moderate sensory loss - Best Language 9. Best Language: no aphasia - Dysarthria 10. Dysarthria: normal - Extinction and Inattention 11. Extinction/Inattention: no abnormality Results - Laboratory Findings CBC and BMP: 10/17/17 06:26 10/17/17 04:06 Abnormal Lab Findings: Abnormal Labs 10/17/17 10/17/17 10/17/17 04:06 04:06 04:23 RBC 5.56 H Hgb 16.7 H Hct 48.1 H MCHC 35 H RDW 13.0 L POC ABG pH POC ABG pCO2 POC ABG pO2 Glucose 141 H POC Glucose Total Creatine Kinase 301 H Urine pH Salicylates 10/17/17 10/17/17 10/17/17 04:23 04:24 04:35 RBC Hgb Hct MCHC RDW POC ABG pH POC ABG pCO2 POC ABG pO2 Glucose POC Glucose 132 H Total Creatine Kinase Urine pH 8.0 H Salicylates < 0.3 L 10/17/17 10/17/17 10/17/17 05:49 06:26 10:39 RBC Hgb 16.6 H Hct 48.3 H MCHC RDW POC ABG pH 7.207 L 7.155 L POC ABG pCO2 62.6 H 72.8 H POC ABG pO2 155 H Glucose POC Glucose Total Creatine Kinase Urine pH Salicylates Assessment and Plan 42 year old male with hypertension and smoking history, presents with acute right sided weakness. He is intubated for airway protection after a spell of nausea and vomiting. CT is unremarkable. MRI is pending. This is most likely a subcortical small vessel ischemic event. Plan - lipid panel is ordered. Pt will require ASA daily and atorvastatin. If he continues on the ventilator, a dobhoff tube may be necessary. Echocardiogram is pending.
[2017-10-17 16:01] LABS: Hematocrit TNR % (35.5-45.6); Hemoglobin TNR gm/dl (11.8-15.2); Mean Corpuscular HGB Conc TNR % (32-34); Mean Corpuscular Hemoglobin TNR pg (28-32); Mean Corpuscular Volume TNR fl (84-94); Mean Platelet Volume TNR fl (6-12); Platelet Count TNR K/mm3 (140-440); Red Blood Count TNR M/mm3 (3.65-5.03); Red Cell Distribution Width TNR % (13.2-15.2)
[2017-10-17 16:03] LABS: Eosinophils % (Auto) TNR % (0.0-4.3); Lymphocytes % (Auto) TNR % (13.4-35.0); Monocytes % (Auto) TNR % (0.0-7.3)
[2017-10-17 16:04] LABS: Basophils # (Auto) TNR K/mm3 (0.0-0.1); Basophils % (Auto) TNR % (0.0-1.8); Eosinophils # (Auto) TNR K/mm3 (0.0-0.4); Lymphocytes # (Auto) TNR K/mm3 (1.2-5.4); Monocytes # (Auto) TNR K/mm3 (0.0-0.8)
[2017-10-17 16:13] LABS: BUN/Creatinine Ratio 11; Blood Urea Nitrogen 10 mg/dL (9-20); Calcium 8.3 mg/dL (8.4-10.2); Hemolysis Index 13
[2017-10-17 16:14] LABS: Creatine Kinase MB 6.8 ng/mL (0.0-4.0)
[2017-10-17 16:42] LABS: Basophils # (Auto) 0.1 K/mm3 (0.0-0.1); Basophils % (Auto) 0.3 % (0.0-1.8); Hematocrit 48.2 % (35.5-45.6); Hemoglobin 16.3 gm/dl (11.8-15.2); Lymphocytes # (Auto) 1.1 K/mm3 (1.2-5.4); Mean Corpuscular HGB Conc 34 % (32-34); Mean Corpuscular Hemoglobin 29 pg (28-32); Mean Corpuscular Volume 87 fl (84-94); Monocytes # (Auto) 1.1 K/mm3 (0.0-0.8); Monocytes % (Auto) 5.8 % (0.0-7.3); Platelet Count 233 K/mm3 (140-440); Red Blood Count 5.55 M/mm3 (3.65-5.03); Red Cell Distribution Width 12.9 % (13.2-15.2)
[2017-10-17 16:51] LABS: HDL Cholesterol 47 mg/dL (40-59); LDL Cholesterol,Direct 84 mg/dL (50-130)
[2017-10-17] MEDS: ZOSYN/NS 4.5GM/100ML 4.5 GM/100 ML VIAL IV SCH (23:48)
[2017-10-18] MEDS: VANCOMYCIN 1,500 MG in NACL 0.9% 500 ML 500 ML IV SCH (00:33)
[2017-10-18] MEDS: DIPRIVAN 10 MG/ML 1,000 MG/100 ML BOTTLE IV SCH ×2 (02:42→19:37)
--- NOTE | 2017-10-18 03:16 | XRay Report ---
FINAL REPORT EXAM: XR CHEST 1V AP HISTORY: follow up respiratory failure pt in 251 TECHNIQUE: A portable view of the chest was obtained and compared to the study of 10/17/2017. FINDINGS: There is now an NG tube in place with the tip directed well into the stomach. There an ET tube in place with the tip 5.5 cm above the mavis. The heart size is normal. The lungs are not overtly congested. There is mild atelectatic changes left lung base. Pleural fluid is not seen. The skeletal structures otherwise do not show any acute changes. IMPRESSION: Mild atelectatic changes left lung base. No evidence of congestion or effusion.
[2017-10-18] MEDS: ZOSYN/NS 4.5GM/100ML 4.5 GM/100 ML VIAL IV SCH (05:49)
--- NOTE | 2017-10-18 08:31 | Progress Note ---
Assessment and Plan Assessment and plan: Acute resp failure, Intubated,sedated GI bleed. GI following H/H stable Conservative management for now. Encephalopathy. to r/o stroke. MRI Brain ordered, not yet done because patient unstable. Elevated troponin. Cardiology consulted. Full code status Discussed with melvin at bedside History Interval history: Acute resp distress, intubated yesterday, still intubated, no fever Hospitalist Physical - Physical exam Narrative exam: Constitutional; Not in acute distress, intubated HEENT: Atraumatic, normocephalic Neck: supple, no lymphadenopathy, JVD or thyromegaly Lungs: Bilateral crackles CVS; S1-S2 regular, no murmurs, rubs or gallop, Abdomen; soft, non-tender, non distended,bowel sounds are normal, Musculoskeletal; No edema, no clubbing, no cyanosis REHABILITATION THERAPIST: Intubated, sedated - Constitutional Vitals: Temp Pulse Resp BP Pulse Ox 97.9 F 110 H 22 124/81 98 10/18/17 08:00 10/18/17 07:30 10/18/17 07:30 10/18/17 07:30 10/18/17 06:00 Results - Labs CBC & Chem 7: 10/18/17 10:39 10/17/17 15:01 Labs: Laboratory Last Values WBC 18.6 K/mm3 (4.5-11.0) H 10/17/17 16:30 RBC 5.55 M/mm3 (3.65-5.03) H 10/17/17 16:30 Hgb 16.3 gm/dl (11.8-15.2) H 10/17/17 16:30 Hct 48.2 % (35.5-45.6) H 10/17/17 16:30 MCV 87 fl (84-94) 10/17/17 16:30 MCH 29 pg (28-32) 10/17/17 16:30 MCHC 34 % (32-34) 10/17/17 16:30 RDW 12.9 % (13.2-15.2) L 10/17/17 16:30 Plt Count 233 K/mm3 (140-440) 10/17/17 16:30 Lymph % (Auto) 6.0 % (13.4-35.0) L 10/17/17 16:30 [place] % (Auto) 5.8 % (0.0-7.3) 10/17/17 16:30 Eos % (Auto) 0.0 % (0.0-4.3) 10/17/17 16:30 Baso % (Auto) 0.3 % (0.0-1.8) 10/17/17 16:30 Lymph # 1.1 K/mm3 (1.2-5.4) L 10/17/17 16:30 [place] # 1.1 K/mm3 (0.0-0.8) H 10/17/17 16:30 Eos # 0.0 K/mm3 (0.0-0.4) 10/17/17 16:30 Baso # 0.1 K/mm3 (0.0-0.1) 10/17/17 16:30 Add Manual Diff TNR 10/17/17 15:01 Seg Neutrophils % 87.9 % (40.0-70.0) H 10/17/17 16:30 Seg Neutrophils # 16.4 K/mm3 (1.8-7.7) H 10/17/17 16:30 PT 13.1 Sec. (12.2-14.9) 10/17/17 04:06 INR 0.95 (0.87-1.13) 10/17/17 04:06 APTT 27.7 Sec. (24.2-36.6) 10/17/17 04:06 Thrombin Time 17.0 Sec. (15.1-19.6) 10/17/17 04:06 POC ABG pH 7.354 (7.35-7.45) 10/18/17 05:33 POC ABG pCO2 46.9 (35-45) H 10/18/17 05:33 POC ABG pO2 107 (80-105) H 10/18/17 05:33 POC ABG HCO3 26.2 10/18/17 05:33 POC ABG Total CO2 28 10/18/17 05:33 POC ABG O2 Sat 98 10/18/17 05:33 POC ABG Base Excess 1 10/18/17 05:33 FiO2 50 % 10/18/17 05:33 Sodium 141 mmol/L (137-145) 10/17/17 15:01 Potassium 3.6 mmol/L (3.6-5.0) 10/17/17 15:01 Chloride 104.5 mmol/L (98-107) 10/17/17 15:01 Carbon Dioxide 21 mmol/L (22-30) L 10/17/17 15:01 Anion Gap 19 mmol/L 10/17/17 15:01 BUN 10 mg/dL (9-20) 10/17/17 15:01 Creatinine 0.9 mg/dL (0.8-1.5) 10/17/17 15:01 Estimated GFR > 60 ml/min 10/17/17 15:01 BUN/Creatinine Ratio 11 % 10/17/17 15:01 Glucose 134 mg/dL (75-100) H 10/17/17 15:01 POC Glucose 157 (70-105) H 10/18/17 05:46 Lactic Acid 1.70 mmol/L (0.7-2.0) 10/17/17 22:43 Calcium 8.3 mg/dL (8.4-10.2) L 10/17/17 15:01 Total Creatine Kinase 464 units/L (55-170) H 10/17/17 15:01 CK-MB (CK-2) 6.8 ng/mL (0.0-4.0) H 10/17/17 15:01 CK-MB (CK-2) Rel Index 1.4 (0-4) 10/17/17 15:01 Troponin T < 0.010 ng/mL (0.00-0.029) 10/17/17 22:43 NT-Pro-B Natriuret Pep 604.7 pg/mL (0-450) H 10/17/17 15:01 Triglycerides 57 mg/dL (2-149) 10/17/17 15:01 Cholesterol 132 mg/dL (50-199) 10/17/17 15:01 LDL Cholesterol Direct 84 mg/dL (50-130) 10/17/17 15:01 HDL Cholesterol 47 mg/dL (40-59) 10/17/17 15:01 Cholesterol/HDL Ratio 2.80 % 10/17/17 15:01 Urine Color Yellow (Yellow) 10/17/17 04:35 Urine Turbidity Clear (Clear) 10/17/17 04:35 Urine pH 8.0 (5.0-7.0) H 10/17/17 04:35 Ur Specific [place] 1.013 (1.003-1.030) 10/17/17 04:35 Urine Protein <15 mg/dl mg/dL (Negative) 10/17/17 04:35 Urine Glucose (UA) 50 mg/dL (Negative) 10/17/17 04:35 Urine Ketones Neg mg/dL (Negative) 10/17/17 04:35 Urine Blood Neg (Negative) 10/17/17 04:35 Urine Nitrite Neg (Negative) 10/17/17 04:35 Urine Bilirubin Neg (Negative) 10/17/17 04:35 Urine Urobilinogen < 2.0 mg/dL (<2.0) 10/17/17 04:35 Ur Leukocyte Esterase Neg (Negative) 10/17/17 04:35 Urine WBC (Auto) 3.0 /HPF (0.0-6.0) 10/17/17 04:35 Urine RBC (Auto) < 1.0 /HPF (0.0-6.0) 10/17/17 04:35 U Epithel Cells (Auto) 1.0 /HPF (0-13.0) 10/17/17 04:35 Urine Bacteria (Auto) 1+ /HPF (Negative) 10/17/17 04:35 Salicylates < 0.3 mg/dL (2.8-20.0) L 10/17/17 04:23 Urine Opiates Screen Presumptive negative 10/17/17 04:35 Urine Methadone Screen Presumptive negative 10/17/17 04:35 Ur Barbiturates Screen Presumptive negative 10/17/17 04:35 Ur Phencyclidine Scrn Presumptive negative 10/17/17 04:35 Ur Amphetamines Screen Presumptive negative 10/17/17 04:35 U Benzodiazepines Scrn Presumptive negative 10/17/17 04:35 Urine Cocaine Screen Presumptive negative 10/17/17 04:35 U Marijuana (THC) Screen Presumptive negative 10/17/17 04:35 Drugs of Abuse Note Disclamer 10/17/17 04:35 Plasma/Serum Alcohol < 0.01 % (0-0.07) 10/17/17 04:23
[2017-10-18 10:55] LABS: Basophils % (Auto) 0.1 % (0.0-1.8); Hematocrit 44.4 % (35.5-45.6); Hemoglobin 15.7 gm/dl (11.8-15.2); Lymphocytes # (Auto) 1.2 K/mm3 (1.2-5.4); Mean Corpuscular HGB Conc 35 % (32-34); Mean Corpuscular Hemoglobin 31 pg (28-32); Mean Corpuscular Volume 87 fl (84-94); Monocytes # (Auto) 0.8 K/mm3 (0.0-0.8); Monocytes % (Auto) 5.4 % (0.0-7.3); Platelet Count 230 K/mm3 (140-440); Red Blood Count 5.13 M/mm3 (3.65-5.03); Red Cell Distribution Width 13.5 % (13.2-15.2)
[2017-10-18] MEDS: PEPCID IV SCH (11:10)
--- NOTE | 2017-10-18 11:25 | Consultation ---
History of Present Illness Consult date: 10/18/17 Requesting physician: BRIDGET CAPONE Reason for consult: hypoxemia, other (Acute respiratory failure requiring intubation) History of present illness: 42 y/o male, originally admitted to through the ED with weakness and stroke like symptoms. Had some respiratory distress so was placed on bipap. Fiancee at bedside said that patient was having difficulty swallowing and not able to cough up mucous. Suction took place orally, and from there the patient began to vomit. There was concern for aspiration and given his mental status, he was electively intubated. Currently sedated with family at bedside. Past History Past Medical History: hypertension, other (unable to obtain) Past Surgical History: Other (unable to obtain) Social history: other (unable to obtain) Family history: diabetes, hypertension, other (unable to obtain) Medications and Allergies Allergies Allergy/AdvReac Type Severity Reaction Status Date / Time No Known Allergies Allergy Unverified 03/27/17 14:25 Home Medications Medication Instructions Recorded Confirmed Last Taken Type Ibuprofen [Ibuprofen Ib] 200 mg PO DAILY 10/17/17 10/17/17 10/16/17 History Lisinopril/Hydrochlorothiazide 1 mg PO DAILY 10/17/17 10/17/17 Unknown History [Zestoretic 20-12.5 mg] Active Meds: Active Medications Acetaminophen (Tylenol) 650 mg PO Q4H PRN PRN Reason: Pain, Mild (1-3) Aspirin (Aspirin) 325 mg PO QDAY@2200 JOSE MANUEL Atorvastatin Calcium (Lipitor) 40 mg PO QHS JOSE MANUEL Famotidine (Pepcid) 20 mg IV BID JOSE MANUEL Last Admin: 10/18/17 11:10 Dose: 20 mg Heparin Sodium (Porcine) (Heparin) 5,000 unit SUB-Q Q12HR JOSE MANUEL Hydralazine HCl (Apresoline) 5 mg IV Q6H PRN PRN Reason: Keep SBP between 160-185 mm Hg Hydrophilic Ointment (Vaseline Lip Therapy) 1 applic TP Q2HR PRN PRN Reason: Dry Lips Sodium Chloride (Nacl 0.45% 1000 Ml) 1,000 mls @ 75 mls/hr IV DIRECT JOSE MANUEL Propofol (Diprivan 10 Mg/Ml) 1,000 mg in 100 mls @ 2.574 mls/hr IV TITR JOSE MANUEL; Protocol Last Titration: 10/18/17 10:45 Dose: Infused Dextrose/Sodium Chloride (D5/0.45ns) 1,000 mls @ 75 mls/hr IV DIRECT JOSE MANUEL Metoclopramide HCl (Reglan) 10 mg IV Q6H PRN PRN Reason: Nausea And Vomiting Last Admin: 10/17/17 06:13 Dose: 10 mg Multi-Ingred Cream/Lotion/Oil/Oint (Artificial Tears Ophth Oint) 1 applic OU Q4HR PRN PRN Reason: Dry Eye(s) Ondansetron HCl (Zofran) 4 mg IV Q4H PRN PRN Reason: N/V unrelieved by Reglan Sodium Chloride (Sodium Chloride Flush Syringe 10 Ml) 10 ml IV PRN PRN PRN Reason: LINE FLUSH Sodium Chloride (Nacl 0.9% 500 Ml) 1 ml IV DIRECT JOSE MANUEL Review of Systems ROS unobtainable: due to endotracheal tube, due to mental status Physical Examination Vital signs: Vital Signs Pulse Resp BP Pulse Ox 74 16 131/81 96 10/17/17 04:01 10/17/17 04:01 10/17/17 04:01 10/17/17 04:01 General appearance: no acute distress, asleep Eyes: non-icteric ENT: other (orally intubated and sedated) Neck: supple Ascultation: Bilateral: clear, diminished breath sounds Percussion: Bilateral: not dull Cardiovascular: regular rate and rhythm Gastrointestinal: soft, non-tender Extremities: no cyanosis, no edema, pink and warm unable to assess Results - Laboratory Findings CBC and BMP: 10/18/17 10:39 10/17/17 15:01 ABG POC ABG pH 7.354 (7.35-7.45) 10/18/17 05:33 POC ABG pCO2 46.9 (35-45) H 10/18/17 05:33 POC ABG pO2 107 (80-105) H 10/18/17 05:33 POC ABG HCO3 26.2 10/18/17 05:33 POC ABG Total CO2 28 10/18/17 05:33 POC ABG O2 Sat 98 10/18/17 05:33 PT/INR, D-dimer PT 13.1 Sec. (12.2-14.9) 10/17/17 04:06 INR 0.95 (0.87-1.13) 10/17/17 04:06 Abnormal lab findings: Abnormal Labs 10/17/17 10/17/17 10/17/17 04:06 04:06 04:23 WBC RBC 5.56 H Hgb 16.7 H Hct 48.1 H MCHC 35 H RDW 13.0 L Lymph % (Auto) Lymph # [place] # Seg Neutrophils % Seg Neutrophils # POC ABG pH POC ABG pCO2 POC ABG pO2 Carbon Dioxide Glucose 141 H POC Glucose Lactic Acid Calcium Total Creatine Kinase 301 H CK-MB (CK-2) Troponin T NT-Pro-B Natriuret Pep Urine pH Salicylates 10/17/17 10/17/17 10/17/17 04:23 04:24 04:35 WBC RBC Hgb Hct MCHC RDW Lymph % (Auto) Lymph # [place] # Seg Neutrophils % Seg Neutrophils # POC ABG pH POC ABG pCO2 POC ABG pO2 Carbon Dioxide Glucose POC Glucose 132 H Lactic Acid Calcium Total Creatine Kinase CK-MB (CK-2) Troponin T NT-Pro-B Natriuret Pep Urine pH 8.0 H Salicylates < 0.3 L 10/17/17 10/17/17 10/17/17 05:49 06:26 10:39 WBC RBC Hgb 16.6 H Hct 48.3 H MCHC RDW Lymph % (Auto) Lymph # [place] # Seg Neutrophils % Seg Neutrophils # POC ABG pH 7.207 L 7.155 L POC ABG pCO2 62.6 H 72.8 H POC ABG pO2 155 H Carbon Dioxide Glucose POC Glucose Lactic Acid Calcium Total Creatine Kinase CK-MB (CK-2) Troponin T NT-Pro-B Natriuret Pep Urine pH Salicylates 10/17/17 10/17/17 10/17/17 15:01 15:01 16:26 WBC RBC Hgb Hct MCHC RDW Lymph % (Auto) Lymph # [place] # Seg Neutrophils % Seg Neutrophils # POC ABG pH POC ABG pCO2 POC ABG pO2 Carbon Dioxide 21 L Glucose 134 H POC Glucose Lactic Acid 2.60 H* 2.50 H* Calcium 8.3 L Total Creatine Kinase 464 H CK-MB (CK-2) 6.8 H Troponin T 0.102 H* D NT-Pro-B Natriuret Pep 604.7 H Urine pH Salicylates 10/17/17 10/17/17 10/17/17 16:30 18:36 18:51 WBC 18.6 H RBC 5.55 H Hgb 16.3 H Hct 48.2 H MCHC RDW 12.9 L Lymph % (Auto) 6.0 L Lymph # 1.1 L [place] # 1.1 H Seg Neutrophils % 87.9 H Seg Neutrophils # 16.4 H POC ABG pH POC ABG pCO2 POC ABG pO2 202 H Carbon Dioxide Glucose POC Glucose Lactic Acid 2.20 H* Calcium Total Creatine Kinase CK-MB (CK-2) Troponin T NT-Pro-B Natriuret Pep Urine pH Salicylates 10/17/17 10/18/17 10/18/17 22:06 02:31 05:33 WBC RBC Hgb Hct MCHC RDW Lymph % (Auto) Lymph # [place] # Seg Neutrophils % Seg Neutrophils # POC ABG pH POC ABG pCO2 46.9 H POC ABG pO2 107 H Carbon Dioxide Glucose POC Glucose 139 H 180 H Lactic Acid Calcium Total Creatine Kinase CK-MB (CK-2) Troponin T NT-Pro-B Natriuret Pep Urine pH Salicylates 10/18/17 10/18/17 05:46 10:39 WBC 14.5 H RBC 5.13 H Hgb 15.7 H Hct MCHC 35 H RDW Lymph % (Auto) 8.0 L Lymph # [place] # Seg Neutrophils % 86.5 H Seg Neutrophils # 12.6 H POC ABG pH POC ABG pCO2 POC ABG pO2 Carbon Dioxide Glucose POC Glucose 157 H Lactic Acid Calcium Total Creatine Kinase CK-MB (CK-2) Troponin T NT-Pro-B Natriuret Pep Urine pH Salicylates - Diagnostic Findings Chest x-ray: image reviewed (essentially clear, no lower lobe lung disease noted ) Assessment and Plan 42 y/o male, originally admitted with stroke like symptoms, subsequently had emesis and acute respiratory failure on bipap therapy. 1. Decrease PEEP 2. Stop sedation 3. Attempt PSV trial as tolerated 4. Stat CBC as last one was from yesterday, HgB was 16 5. If extubated will need speech evaluation, may need feeding tube for nutrition 6. Stop abx therapy for now with no fever, elevation in white count most likely stress related. CCT 31 minutes.
--- NOTE | 2017-10-18 11:41 | Consultation ---
History of Present Illness Consult date: 10/18/17 Consult reason: elevated troponin History of present illness: This is a 41yr old male with a history of hypertension who presented with right sided weakness, nausea, vomiting, subsequently requiring intubatation for airway protection. Head CT scan reports no acute intracranial abnormalities. Laboratory values shows a WBC of 18 and a lactic acid of 2.6. His cardiac enzymes were measured which resulted a troponin of 0.1 thus this cardiac consultation. Patient remains intubated and sedated on the vent. History is unobtainable. His 12 lead ECG is a sinus rhythm, no acute ischemic changes. Further evaluation with an echocardiogram documents a normal left ventricular systolic function, ejection fraction 55-60%. Past History Family history: diabetes, hypertension Medications and Allergies Allergies Allergy/AdvReac Type Severity Reaction Status Date / Time No Known Allergies Allergy Unverified 03/27/17 14:25 Home Medications Medication Instructions Recorded Confirmed Last Taken Type Ibuprofen [Ibuprofen Ib] 200 mg PO DAILY 10/17/17 10/17/17 10/16/17 History Lisinopril/Hydrochlorothiazide 1 mg PO DAILY 10/17/17 10/17/17 Unknown History [Zestoretic 20-12.5 mg] Active Meds: Active Medications Acetaminophen (Tylenol) 650 mg PO Q4H PRN PRN Reason: Pain, Mild (1-3) Aspirin (Aspirin) 325 mg PO QDAY@2200 JOSE MANUEL Atorvastatin Calcium (Lipitor) 40 mg PO QHS [facility] Famotidine (Pepcid) 20 mg IV BID [facility] Last Admin: 10/18/17 11:10 Dose: 20 mg Heparin Sodium (Porcine) (Heparin) 5,000 unit SUB-Q Q12HR JOSE MANUEL Hydralazine HCl (Apresoline) 5 mg IV Q6H PRN PRN Reason: Keep SBP between 160-185 mm Hg Hydrophilic Ointment (Vaseline Lip Therapy) 1 applic TP Q2HR PRN PRN Reason: Dry Lips Sodium Chloride (Nacl 0.45% 1000 Ml) 1,000 mls @ 75 mls/hr IV DIRECT JOSE MANUEL Propofol (Diprivan 10 Mg/Ml) 1,000 mg in 100 mls @ 2.574 mls/hr IV TITR JOSE MANUEL; Protocol Last Titration: 10/18/17 10:45 Dose: Infused Dextrose/Sodium Chloride (D5/0.45ns) 1,000 mls @ 75 mls/hr IV DIRECT JOSE MANUEL Metoclopramide HCl (Reglan) 10 mg IV Q6H PRN PRN Reason: Nausea And Vomiting Last Admin: 10/17/17 06:13 Dose: 10 mg Multi-Ingred Cream/Lotion/Oil/Oint (Artificial Tears Ophth Oint) 1 applic OU Q4HR PRN PRN Reason: Dry Eye(s) Ondansetron HCl (Zofran) 4 mg IV Q4H PRN PRN Reason: N/V unrelieved by Reglan Sodium Chloride (Sodium Chloride Flush Syringe 10 Ml) 10 ml IV PRN PRN PRN Reason: LINE FLUSH Sodium Chloride (Nacl 0.9% 500 Ml) 1 ml IV DIRECT JOSE MANUEL Physical Examination Vital Signs Pulse Resp BP Pulse Ox 74 16 131/81 96 10/17/17 04:01 10/17/17 04:01 10/17/17 04:01 10/17/17 04:01 General appearance: other (intubated on the vent) Cardiac: Positive: Reg Rate and Rhythm Results 10/18/17 10:39 10/17/17 15:01 Cardiac Enzymes 10/17/17 Range/Units 15:01 CK-MB (CK-2) 6.8 H (0.0-4.0) ng/mL Lipids 10/17/17 Range/Units 15:01 Triglycerides 57 (2-149) mg/dL Cholesterol 132 (50-199) mg/dL HDL Cholesterol 47 (40-59) mg/dL Cholesterol/HDL Ratio 2.80 % CBC 10/17/17 10/17/17 10/18/17 Range/Units 15:01 16:30 10:39 WBC TNR 18.6 H 14.5 H RBC TNR 5.55 H 5.13 H Hgb TNR 16.3 H 15.7 H Hct TNR 48.2 H 44.4 Plt Count TNR 233 230 Lymph # TNR 1.1 L 1.2 [place] # TNR 1.1 H 0.8 Eos # TNR 0.0 0.0 Baso # TNR 0.1 0.0 Comprehensive Metabolic Panel 10/17/17 Range/Units 15:01 Sodium 141 (137-145) mmol/L Potassium 3.6 (3.6-5.0) mmol/L Chloride 104.5 (98-107) mmol/L Carbon Dioxide 21 L (22-30) mmol/L BUN 10 (9-20) mg/dL Creatinine 0.9 (0.8-1.5) mg/dL Glucose 134 H (75-100) mg/dL Calcium 8.3 L (8.4-10.2) mg/dL Assessment and Plan Right sided weakness head CT reports no acute abnormalities Respiratory failure intubated on the vent Hypertension Elevated troponin, nonspecific Lactic acidosis Normal LVEF by echocardiogram
[2017-10-18] MEDS: TYLENOL PO PRN (12:37)
--- NOTE | 2017-10-18 14:18 | Progress Note ---
Assessment and Plan 42 year old with history of hypertension and smoking, presented with acute onset of right arm and leg weakness. CT, CTA head and neck unremarkable. Plan - MRI brain awaiting lipid panel results. TFTs Subjective Date of service: 10/18/17 Principal diagnosis: acute stroke Interval history: 42 year old male with history of acute onset of weakness on right side. Hx of hypertension and smoking. He has been extubated and is awake and alert. Objective - Exam Narrative Exam: Responding appropriately and following commands. 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 Motor - moving right lower and upper extremity spontaneously and to command. Sensory - still decreased on riight side. Echo with normal ejection fraction. - Vital Sign Vital Signs - 12hr 10/18/17 10/18/17 10/18/17 02:20 02:30 02:40 Temperature Pulse Rate 99 H 103 H 107 H Pulse Rate [ From Monitor] Respiratory 18 22 21 Rate Blood Pressure 137/82 130/83 130/83 O2 Sat by Pulse 98 99 Oximetry 10/18/17 10/18/17 10/18/17 03:00 03:30 04:00 Temperature 98.5 F Pulse Rate 107 H 110 H 112 H Pulse Rate [ From Monitor] Respiratory 22 22 22 Rate Blood Pressure 149/91 133/88 131/85 O2 Sat by Pulse 97 Oximetry 10/18/17 10/18/17 10/18/17 04:30 05:00 05:28 Temperature Pulse Rate 105 H 110 H 114 H Pulse Rate [ From Monitor] Respiratory 22 22 Rate Blood Pressure 137/82 130/84 130/89 O2 Sat by Pulse 97 99 Oximetry 10/18/17 10/18/17 10/18/17 05:30 06:00 06:30 Temperature Pulse Rate 103 H 107 H 106 H Pulse Rate [ 105 H From Monitor] Respiratory 22 22 22 Rate Blood Pressure 137/87 142/92 120/78 O2 Sat by Pulse 98 Oximetry 10/18/17 10/18/17 10/18/17 07:00 07:30 08:00 Temperature 97.9 F Pulse Rate 106 H 110 H 107 H Pulse Rate [ From Monitor] Respiratory 22 22 21 Rate Blood Pressure 121/78 124/81 128/87 O2 Sat by Pulse 99 Oximetry 10/18/17 10/18/17 10/18/17 08:30 08:36 08:45 Temperature Pulse Rate 106 H 104 H Pulse Rate [ 111 H From Monitor] Respiratory 21 22 Rate Blood Pressure 136/94 O2 Sat by Pulse 97 97 Oximetry 10/18/17 10/18/17 10/18/17 08:54 09:00 09:30 Temperature Pulse Rate 109 H 108 H 113 H Pulse Rate [ From Monitor] Respiratory 24 24 Rate Blood Pressure 128/87 133/85 126/79 O2 Sat by Pulse 99 96 Oximetry 10/18/17 10/18/17 10/18/17 10:00 10:30 11:00 Temperature Pulse Rate 120 H 115 H 111 H Pulse Rate [ 114 H 107 H From Monitor] Respiratory 24 23 11 L Rate Blood Pressure 126/83 114/82 132/93 O2 Sat by Pulse 97 97 96 Oximetry 10/18/17 10/18/17 11:30 11:45 Temperature 100.0 F H Pulse Rate 112 H Pulse Rate [ From Monitor] Respiratory 31 H Rate Blood Pressure 166/106 O2 Sat by Pulse 95 Oximetry - Laboratory Findings CBC and BMP: 10/18/17 10:39 10/17/17 15:01 Abnormal Lab Findings: Abnormal Labs 10/17/17 10/17/17 10/17/17 04:06 04:06 04:23 WBC RBC 5.56 H Hgb 16.7 H Hct 48.1 H MCHC 35 H RDW 13.0 L Lymph % (Auto) Lymph # [place] # Seg Neutrophils % Seg Neutrophils # POC ABG pH POC ABG pCO2 POC ABG pO2 Carbon Dioxide Glucose 141 H POC Glucose Lactic Acid Calcium Total Creatine Kinase 301 H CK-MB (CK-2) Troponin T NT-Pro-B Natriuret Pep Urine pH Salicylates 10/17/17 10/17/17 10/17/17 04:23 04:24 04:35 WBC RBC Hgb Hct MCHC RDW Lymph % (Auto) Lymph # [place] # Seg Neutrophils % Seg Neutrophils # POC ABG pH POC ABG pCO2 POC ABG pO2 Carbon Dioxide Glucose POC Glucose 132 H Lactic Acid Calcium Total Creatine Kinase CK-MB (CK-2) Troponin T NT-Pro-B Natriuret Pep Urine pH 8.0 H Salicylates < 0.3 L 10/17/17 10/17/17 10/17/17 05:49 06:26 10:39 WBC RBC Hgb 16.6 H Hct 48.3 H MCHC RDW Lymph % (Auto) Lymph # [place] # Seg Neutrophils % Seg Neutrophils # POC ABG pH 7.207 L 7.155 L POC ABG pCO2 62.6 H 72.8 H POC ABG pO2 155 H Carbon Dioxide Glucose POC Glucose Lactic Acid Calcium Total Creatine Kinase CK-MB (CK-2) Troponin T NT-Pro-B Natriuret Pep Urine pH Salicylates 10/17/17 10/17/17 10/17/17 15:01 15:01 16:26 WBC RBC Hgb Hct MCHC RDW Lymph % (Auto) Lymph # [place] # Seg Neutrophils % Seg Neutrophils # POC ABG pH POC ABG pCO2 POC ABG pO2 Carbon Dioxide 21 L Glucose 134 H POC Glucose Lactic Acid 2.60 H* 2.50 H* Calcium 8.3 L Total Creatine Kinase 464 H CK-MB (CK-2) 6.8 H Troponin T 0.102 H* D NT-Pro-B Natriuret Pep 604.7 H Urine pH Salicylates 10/17/17 10/17/17 10/17/17 16:30 18:36 18:51 WBC 18.6 H RBC 5.55 H Hgb 16.3 H Hct 48.2 H MCHC RDW 12.9 L Lymph % (Auto) 6.0 L Lymph # 1.1 L [place] # 1.1 H Seg Neutrophils % 87.9 H Seg Neutrophils # 16.4 H POC ABG pH POC ABG pCO2 POC ABG pO2 202 H Carbon Dioxide Glucose POC Glucose Lactic Acid 2.20 H* Calcium Total Creatine Kinase CK-MB (CK-2) Troponin T NT-Pro-B Natriuret Pep Urine pH Salicylates 10/17/17 10/18/17 10/18/17 22:06 02:31 05:33 WBC RBC Hgb Hct MCHC RDW Lymph % (Auto) Lymph # [place] # Seg Neutrophils % Seg Neutrophils # POC ABG pH POC ABG pCO2 46.9 H POC ABG pO2 107 H Carbon Dioxide Glucose POC Glucose 139 H 180 H Lactic Acid Calcium Total Creatine Kinase CK-MB (CK-2) Troponin T NT-Pro-B Natriuret Pep Urine pH Salicylates 10/18/17 10/18/17 10/18/17 05:46 10:17 10:39 WBC 14.5 H RBC 5.13 H Hgb 15.7 H Hct MCHC 35 H RDW Lymph % (Auto) 8.0 L Lymph # [place] # Seg Neutrophils % 86.5 H Seg Neutrophils # 12.6 H POC ABG pH POC ABG pCO2 POC ABG pO2 Carbon Dioxide Glucose POC Glucose 157 H 128 H Lactic Acid Calcium Total Creatine Kinase CK-MB (CK-2) Troponin T NT-Pro-B Natriuret Pep Urine pH Salicylates
[2017-10-18] MEDS ORDERED: QUELICIN ONE (14:42)
[2017-10-18] MEDS ORDERED: AMIDATE IV ONE (14:42)
[2017-10-18] MEDS ORDERED: LASIX IV ONE (15:11)
[2017-10-18] MEDS: PROVENTIL IH SCH ×4 (15:18→20:25)
[2017-10-18 16:58] LABS: Free T4 (Free Thyroxine) 1.1 ng/dL (0.76-1.46)
[2017-10-18] MEDS ORDERED: NITRO-BID 2% TP ONE (18:01)
[2017-10-18] MEDS ORDERED: NORMODYNE IV ONE (18:05)
--- NOTE | 2017-10-18 19:41 | Progress Note ---
Subjective Date of service: 10/18/17 Principal diagnosis: acute stroke Interval history: Called to bedside for emergency intubation. Patient was a know difficult intubation. [employer] ASA monitors in place and after preoxygenation with 100% 150 mg of propofol administered, followed by 100 mg of anectine. Glidescope used with a grade 1 view. ET tube placed with out diffuculty on first attempt. ET CO2 confirmed. B/L BS heard and equal. VSS throughout. Tube taped at 24 lip. Objective - Constitutional Vitals: Vital Signs - 12hr 10/18/17 10/18/17 10/18/17 08:00 08:30 08:36 Temperature 97.9 F Pulse Rate 107 H 106 H Pulse Rate [ Anterior Throughout] Pulse Rate [ 111 H From Monitor] Respiratory 21 21 22 Rate Respiratory Rate [Anterior Throughout] Blood Pressure 128/87 136/94 O2 Sat by Pulse 99 97 97 Oximetry 10/18/17 10/18/17 10/18/17 08:45 08:54 09:00 Temperature Pulse Rate 104 H 109 H 108 H Pulse Rate [ Anterior Throughout] Pulse Rate [ From Monitor] Respiratory 24 Rate Respiratory Rate [Anterior Throughout] Blood Pressure 128/87 133/85 O2 Sat by Pulse 99 Oximetry 10/18/17 10/18/17 10/18/17 09:30 10:00 10:30 Temperature Pulse Rate 113 H 120 H 115 H Pulse Rate [ Anterior Throughout] Pulse Rate [ 114 H From Monitor] Respiratory 24 24 23 Rate Respiratory Rate [Anterior Throughout] Blood Pressure 126/79 126/83 114/82 O2 Sat by Pulse 96 97 97 Oximetry 10/18/17 10/18/17 10/18/17 11:00 11:30 11:45 Temperature 100.0 F H Pulse Rate 111 H 112 H Pulse Rate [ Anterior Throughout] Pulse Rate [ 107 H From Monitor] Respiratory 11 L 31 H Rate Respiratory Rate [Anterior Throughout] Blood Pressure 132/93 166/106 O2 Sat by Pulse 96 95 Oximetry 10/18/17 10/18/17 10/18/17 12:00 12:30 13:00 Temperature Pulse Rate 107 H 103 H 95 H Pulse Rate [ Anterior Throughout] Pulse Rate [ From Monitor] Respiratory 30 H 30 H 28 H Rate Respiratory Rate [Anterior Throughout] Blood Pressure 172/105 178/112 167/109 O2 Sat by Pulse 97 97 98 Oximetry 10/18/17 10/18/17 10/18/17 13:30 14:01 14:31 Temperature Pulse Rate 96 H 108 H 100 H Pulse Rate [ Anterior Throughout] Pulse Rate [ From Monitor] Respiratory 34 H 20 22 Rate Respiratory Rate [Anterior Throughout] Blood Pressure 168/100 165/106 159/108 O2 Sat by Pulse 87 93 87 Oximetry 10/18/17 10/18/17 10/18/17 15:00 15:22 15:26 Temperature Pulse Rate 104 H 108 H Pulse Rate [ 95 H Anterior Throughout] Pulse Rate [ 115 H From Monitor] Respiratory 32 H 30 H Rate Respiratory 21 Rate [Anterior Throughout] Blood Pressure 165/104 164/108 O2 Sat by Pulse 78 L 98 Oximetry 10/18/17 10/18/17 10/18/17 15:30 16:00 16:20 Temperature 99.1 F Pulse Rate 111 H 118 H 119 H Pulse Rate [ Anterior Throughout] Pulse Rate [ From Monitor] Respiratory 26 H 26 H Rate Respiratory Rate [Anterior Throughout] Blood Pressure 164/112 177/112 178/118 O2 Sat by Pulse 93 97 Oximetry 10/18/17 10/18/17 10/18/17 16:30 17:00 18:39 Temperature Pulse Rate 127 H 120 H 128 H Pulse Rate [ Anterior Throughout] Pulse Rate [ From Monitor] Respiratory 29 H 23 Rate Respiratory Rate [Anterior Throughout] Blood Pressure 176/113 170/106 148/100 O2 Sat by Pulse 89 Oximetry - Labs CBC & Chem 7: 10/18/17 10:39 10/17/17 15:01 Labs: Abnormal lab results 10/17/17 10/18/17 10/18/17 Range/Units 22:06 02:31 05:33 WBC (4.5-11.0) K/mm3 RBC (3.65-5.03) M/mm3 Hgb (11.8-15.2) gm/dl MCHC (32-34) % Lymph % (Auto) (13.4-35.0) % Seg Neutrophils % (40.0-70.0) % Seg Neutrophils # (1.8-7.7) K/mm3 POC ABG pCO2 46.9 H (35-45) POC ABG pO2 107 H (80-105) POC Glucose 139 H 180 H (70-105) TSH (0.270-4.200) mlU/mL 10/18/17 10/18/17 10/18/17 Range/Units 05:46 10:17 10:39 WBC 14.5 H (4.5-11.0) K/mm3 RBC 5.13 H (3.65-5.03) M/mm3 Hgb 15.7 H (11.8-15.2) gm/dl MCHC 35 H (32-34) % Lymph % (Auto) 8.0 L (13.4-35.0) % Seg Neutrophils % 86.5 H (40.0-70.0) % Seg Neutrophils # 12.6 H (1.8-7.7) K/mm3 POC ABG pCO2 (35-45) POC ABG pO2 (80-105) POC Glucose 157 H 128 H (70-105) TSH (0.270-4.200) mlU/mL 10/18/17 10/18/17 10/18/17 Range/Units 14:32 15:58 17:47 WBC (4.5-11.0) K/mm3 RBC (3.65-5.03) M/mm3 Hgb (11.8-15.2) gm/dl MCHC (32-34) % Lymph % (Auto) (13.4-35.0) % Seg Neutrophils % (40.0-70.0) % Seg Neutrophils # (1.8-7.7) K/mm3 POC ABG pCO2 (35-45) POC ABG pO2 (80-105) POC Glucose 122 H 156 H (70-105) TSH 0.105 L (0.270-4.200) mlU/mL
--- NOTE | 2017-10-18 21:19 | XRay Report ---
FINAL REPORT EXAM: XR CHEST 1V AP HISTORY: ETT placement TECHNIQUE: AP portable view of the chest PRIORS: CXR 10/18/2017 at 652 hours FINDINGS: Lines, tubes, and devices: Endotracheal tube has been placed terminating 7.5 cm above the mavis in satisfactory position. Lungs and pleura: Trachea is normal in position. Mild linear atelectasis in the left base remains. Lungs are otherwise clear of consolidation, pleural effusion, vascular congestion, or pneumothorax. No change. Cardiomediastinal silhouette: Cardiac and mediastinal silhouettes are unremarkable. Other: Bony structures are intact. IMPRESSION: Satisfactory ETT placement. Left basilar atelectasis again noted
[2017-10-19] MEDS: PROVENTIL IH SCH ×8 (00:19→23:36)
--- NOTE | 2017-10-19 03:04 | XRay Report ---
FINAL REPORT EXAM: XR CHEST 1V AP HISTORY: follow up respiratory failure TECHNIQUE: A portable semi-upright view the chest was obtained and compared to the study of 10/18/2017. FINDINGS: The tip of the ET tube is 5.8 cm above the mavis. The lungs are hyperinflated. There is stable atelectatic changes left lung base. The heart size is normal. The lungs are not congested. Pleural fluid is not seen. The bones and soft tissues otherwise are unchanged. IMPRESSION: Stable mild atelectatic changes left lung base. Hyperinflation.
[2017-10-19] MEDS: ASPIRIN PO SCH ×2 (05:41→23:36)
[2017-10-19] MEDS: NORMODYNE IV SCH ×4 (05:42→17:44)
[2017-10-19] MEDS: D5/0.45NS 1,000 ML IV SCH ×2 (06:13→20:56)
[2017-10-19] MEDS: PEPCID IV SCH ×3 (06:18→23:36)
[2017-10-19] MEDS: HEPARIN SUB-Q SCH ×3 (06:19→23:37)
[2017-10-19 07:09] LABS: Hematocrit 45.3 % (35.5-45.6); Hemoglobin 15.4 gm/dl (11.8-15.2); Mean Corpuscular HGB Conc 34 % (32-34); Mean Corpuscular Hemoglobin 30 pg (28-32); Mean Corpuscular Volume 88 fl (84-94); Platelet Count 236 K/mm3 (140-440); Red Blood Count 5.14 M/mm3 (3.65-5.03); Red Cell Distribution Width 13.4 % (13.2-15.2)
[2017-10-19 07:31] LABS: Calcium 8.7 mg/dL (8.4-10.2)
--- NOTE | 2017-10-19 08:11 | Progress Note ---
Assessment and Plan Assessment and plan: Acute respiratory failure, Patient was extubated yesterday but re-Intubated later in evening. Still on ventilator Pulmonology following GI bleed. GI following H/H stable Conservative management for now. Encephalopathy. to r/o stroke. MRI Brain ordered, not yet done because patient unstable. Elevated troponin. Cardiology consulted. Full code status Discussed with melvin at bedside yesterday. 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 - Constitutional Vitals: Temp Pulse Resp BP Pulse Ox 100.4 F H 98 H 26 H 130/79 96 10/19/17 04:00 10/19/17 08:09 10/19/17 08:09 10/19/17 07:40 10/19/17 07:40 General appearance: Present: other (intubated on the vent) Results - Labs CBC & Chem 7: 10/19/17 06:51 10/19/17 06:51 Labs: Laboratory Last Values WBC 15.7 K/mm3 (4.5-11.0) H 10/19/17 06:51 RBC 5.14 M/mm3 (3.65-5.03) H 10/19/17 06:51 Hgb 15.4 gm/dl (11.8-15.2) H 10/19/17 06:51 Hct 45.3 % (35.5-45.6) 10/19/17 06:51 MCV 88 fl (84-94) 10/19/17 06:51 MCH 30 pg (28-32) 10/19/17 06:51 MCHC 34 % (32-34) 10/19/17 06:51 RDW 13.4 % (13.2-15.2) 10/19/17 06:51 Plt Count 236 K/mm3 (140-440) 10/19/17 06:51 Lymph % (Auto) 8.0 % (13.4-35.0) L 10/18/17 10:39 [place] % (Auto) 5.4 % (0.0-7.3) 10/18/17 10:39 Eos % (Auto) 0.0 % (0.0-4.3) 10/18/17 10:39 Baso % (Auto) 0.1 % (0.0-1.8) 10/18/17 10:39 Lymph # 1.2 K/mm3 (1.2-5.4) 10/18/17 10:39 [place] # 0.8 K/mm3 (0.0-0.8) 10/18/17 10:39 Eos # 0.0 K/mm3 (0.0-0.4) 10/18/17 10:39 Baso # 0.0 K/mm3 (0.0-0.1) 10/18/17 10:39 Add Manual Diff TNR 10/17/17 15:01 Seg Neutrophils % 86.5 % (40.0-70.0) H 10/18/17 10:39 Seg Neutrophils # 12.6 K/mm3 (1.8-7.7) H 10/18/17 10:39 PT 13.1 Sec. (12.2-14.9) 10/17/17 04:06 INR 0.95 (0.87-1.13) 10/17/17 04:06 APTT 27.7 Sec. (24.2-36.6) 10/17/17 04:06 Thrombin Time 17.0 Sec. (15.1-19.6) 10/17/17 04:06 POC ABG pH 7.329 (7.35-7.45) L 10/19/17 04:34 POC ABG pCO2 56.9 (35-45) H 10/19/17 04:34 POC ABG pO2 163 (80-105) H 10/19/17 04:34 POC ABG HCO3 29.9 10/19/17 04:34 POC ABG Total CO2 32 10/19/17 04:34 POC ABG O2 Sat 99 10/19/17 04:34 POC ABG Base Excess 4 10/19/17 04:34 FiO2 60 % 10/19/17 04:34 Sodium 144 mmol/L (137-145) 10/19/17 06:51 Potassium 4.2 mmol/L (3.6-5.0) 10/19/17 06:51 Chloride 100.8 mmol/L (98-107) 10/19/17 06:51 Carbon Dioxide 27 mmol/L (22-30) 10/19/17 06:51 Anion Gap 20 mmol/L 10/19/17 06:51 BUN 28 mg/dL (9-20) H 10/19/17 06:51 Creatinine 1.9 mg/dL (0.8-1.5) H D 10/19/17 06:51 Estimated GFR 47 ml/min 10/19/17 06:51 BUN/Creatinine Ratio 15 % 10/19/17 06:51 Glucose 182 mg/dL (75-100) H 10/19/17 06:51 POC Glucose 155 (70-105) H 10/19/17 06:55 Lactic Acid 1.70 mmol/L (0.7-2.0) 10/17/17 22:43 Calcium 8.7 mg/dL (8.4-10.2) 10/19/17 06:51 Total Creatine Kinase 464 units/L (55-170) H 10/17/17 15:01 CK-MB (CK-2) 6.8 ng/mL (0.0-4.0) H 10/17/17 15:01 CK-MB (CK-2) Rel Index 1.4 (0-4) 10/17/17 15:01 Troponin T < 0.010 ng/mL (0.00-0.029) 10/17/17 22:43 NT-Pro-B Natriuret Pep 604.7 pg/mL (0-450) H 10/17/17 15:01 Triglycerides 57 mg/dL (2-149) 10/17/17 15:01 Cholesterol 132 mg/dL (50-199) 10/17/17 15:01 LDL Cholesterol Direct 84 mg/dL (50-130) 10/17/17 15:01 HDL Cholesterol 47 mg/dL (40-59) 10/17/17 15:01 Cholesterol/HDL Ratio 2.80 % 10/17/17 15:01 TSH 0.105 mlU/mL (0.270-4.200) L 07/19/18 15:58 Free T4 1.10 ng/dL (0.76-1.46) 10/18/17 15:58 Urine Color Yellow (Yellow) 10/17/17 04:35 Urine Turbidity Clear (Clear) 10/17/17 04:35 Urine pH 8.0 (5.0-7.0) H 10/17/17 04:35 Ur Specific [place] 1.013 (1.003-1.030) 10/17/17 04:35 Urine Protein <15 mg/dl mg/dL (Negative) 10/17/17 04:35 Urine Glucose (UA) 50 mg/dL (Negative) 10/17/17 04:35 Urine Ketones Neg mg/dL (Negative) 10/17/17 04:35 Urine Blood Neg (Negative) 10/17/17 04:35 Urine Nitrite Neg (Negative) 10/17/17 04:35 Urine Bilirubin Neg (Negative) 10/17/17 04:35 Urine Urobilinogen < 2.0 mg/dL (<2.0) 10/17/17 04:35 Ur Leukocyte Esterase Neg (Negative) 10/17/17 04:35 Urine WBC (Auto) 3.0 /HPF (0.0-6.0) 10/17/17 04:35 Urine RBC (Auto) < 1.0 /HPF (0.0-6.0) 10/17/17 04:35 U Epithel Cells (Auto) 1.0 /HPF (0-13.0) 10/17/17 04:35 Urine Bacteria (Auto) 1+ /HPF (Negative) 10/17/17 04:35 Salicylates < 0.3 mg/dL (2.8-20.0) L 10/17/17 04:23 Urine Opiates Screen Presumptive negative 10/17/17 04:35 Urine Methadone Screen Presumptive negative 10/17/17 04:35 Ur Barbiturates Screen Presumptive negative 10/17/17 04:35 Ur Phencyclidine Scrn Presumptive negative 10/17/17 04:35 Ur Amphetamines Screen Presumptive negative 10/17/17 04:35 U Benzodiazepines Scrn Presumptive negative 10/17/17 04:35 Urine Cocaine Screen Presumptive negative 10/17/17 04:35 U Marijuana (THC) Screen Presumptive negative 10/17/17 04:35 Drugs of Abuse Note Disclamer 10/17/17 04:35 Plasma/Serum Alcohol < 0.01 % (0-0.07) 10/17/17 04:23
[2017-10-19] MEDS: DIPRIVAN 10 MG/ML 1,000 MG/100 ML BOTTLE IV SCH ×2 (10:22→17:49)
[2017-10-19] MEDS ORDERED: D50W (25GM) Syringe IV PRN (11:13)
[2017-10-19] MEDS: SODIUM CHLORIDE FLUSH SYRINGE 10 ML IV PRN ×3 (11:56→17:52)
[2017-10-19] MEDS: HumuLIN R SUB-Q SCH ×2 (12:29→17:53)
[2017-10-19] MEDS ORDERED: PANCREAZE DR 10,500 UNIT FEEDTUBE PRN (13:09)
[2017-10-19] MEDS ORDERED: SODIUM BICARBONATE FEEDTUBE PRN (13:09)
[2017-10-19] MEDS ORDERED: SIMPLE SYRUP FEEDTUBE PRN ×2 (13:09)
--- NOTE | 2017-10-19 14:51 | Magnetic Resonance Report ---
MRI OF THE BRAIN WITHOUT CONTRAST: HISTORY: CVA PROCEDURE: Multiplanar, multisequence MR imaging of the brain without IV contrast was performed. FINDINGS: Compared to the CT head dated 10/17/17. MRI reveals an approximate 1.3 cm area of diffusion restriction in the right side of the medulla oblongata. This area of ischemia appears to extend to the right inferior cerebellar peduncle. No other areas of diffusion restriction are identified. There is mild edema in these areas on the T2-weighted sequences but no evidence for mass effect, hemorrhage or mass. The remaining brain parenchyma is within normal limits on all sequences. The midline structures are central. The basal cisterns are patent. Normal ventricular size. The orbital cavities and sella turcica demonstrate no abnormality. The visualized paranasal sinuses and mastoid air cells are well aerated. IMPRESSION: 1.3 cm area of subacute ischemia in the right medulla oblongata as described.
--- NOTE | 2017-10-19 18:44 | XRay Report ---
FINAL REPORT EXAM: XR ABDOMEN 1V AP HISTORY: dobhoff placement TECHNIQUE: Supine views of the abdomen PRIORS: None. FINDINGS: Feeding tube terminates in the stomach. The bowel gas pattern is nonspecific. No free air is identified. Soft tissues have no evidence for mass shadows or calcifications. The bony structures are intact. IMPRESSION: Feeding tube terminates in the stomach.
[2017-10-20] MEDS: PROVENTIL IH SCH ×6 (04:04→23:32)
--- NOTE | 2017-10-20 04:04 | XRay Report ---
FINAL REPORT EXAM: XR CHEST 1V AP HISTORY: follow up respiratory failure TECHNIQUE: A portable semi-erect view of the chest was obtained and compared to the previous study 10/19/2017. FINDINGS: The tip of the ET tube is 4 cm above the mavis. There is now an NG tube placed with the tip deep into the stomach. The lungs reveal patchy airspace disease in left lung base. The lungs are not congested. The heart size is normal. The skeletal structures do not show any acute changes. IMPRESSION: Satisfactory position of the ET tube and NG tube. Stable patchy airspace disease in left lung base.
[2017-10-20 05:36] LABS: Hematocrit 43.8 % (35.5-45.6); Mean Corpuscular HGB Conc 34 % (32-34); Mean Corpuscular Hemoglobin 30 pg (28-32); Mean Corpuscular Volume 88 fl (84-94); Platelet Count 231 K/mm3 (140-440); Red Blood Count 4.99 M/mm3 (3.65-5.03); Red Cell Distribution Width 13.2 % (13.2-15.2)
[2017-10-20 05:54] LABS: BUN/Creatinine Ratio 23; Blood Urea Nitrogen 34 mg/dL (9-20); Hemolysis Index 8
[2017-10-20] MEDS: NORMODYNE IV SCH ×3 (05:56→19:24)
[2017-10-20] MEDS: HumuLIN R SUB-Q SCH ×3 (06:03→19:17)
[2017-10-20] MEDS: DIPRIVAN 10 MG/ML 1,000 MG/100 ML BOTTLE IV SCH (08:29)
[2017-10-20] MEDS: HEPARIN SUB-Q SCH ×2 (09:27→22:50)
[2017-10-20] MEDS: PEPCID IV SCH ×2 (09:34→22:47)
--- NOTE | 2017-10-20 10:02 | Progress Note ---
Assessment and Plan Assessment and plan: Acute respiratory failure, Patient was extubated 10/18 but re-Intubated later in evening. Still on ventilator Pulmonology following GI bleed. GI following H/H stable Conservative management for now. Acute to subacute ischemic stroke right medulla oblongata. Aspirin Neuro following. Fever. Will repeat blood cultures, r Elevated troponin. Cardiology following. Full code status Discussed with melvin at bedside today. 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 - Constitutional Vitals: Temp Pulse Resp BP Pulse Ox 98.3 F 65 21 162/96 96 10/20/17 08:00 10/20/17 09:00 10/20/17 09:00 10/20/17 09:00 10/20/17 09:00 General appearance: Present: other (intubated on the vent) Results - Labs CBC & Chem 7: 10/20/17 04:17 10/20/17 04:17 Labs: Laboratory Last Values WBC 13.2 K/mm3 (4.5-11.0) H 10/20/17 04:17 RBC 4.99 M/mm3 (3.65-5.03) 10/20/17 04:17 Hgb 15.0 gm/dl (11.8-15.2) 10/20/17 04:17 Hct 43.8 % (35.5-45.6) 10/20/17 04:17 MCV 88 fl (84-94) 10/20/17 04:17 MCH 30 pg (28-32) 10/20/17 04:17 MCHC 34 % (32-34) 10/20/17 04:17 RDW 13.2 % (13.2-15.2) 10/20/17 04:17 Plt Count 231 K/mm3 (140-440) 10/20/17 04:17 Lymph % (Auto) 8.0 % (13.4-35.0) L 10/18/17 10:39 [place] % (Auto) 5.4 % (0.0-7.3) 10/18/17 10:39 Eos % (Auto) 0.0 % (0.0-4.3) 10/18/17 10:39 Baso % (Auto) 0.1 % (0.0-1.8) 10/18/17 10:39 Lymph # 1.2 K/mm3 (1.2-5.4) 10/18/17 10:39 [place] # 0.8 K/mm3 (0.0-0.8) 10/18/17 10:39 Eos # 0.0 K/mm3 (0.0-0.4) 10/18/17 10:39 Baso # 0.0 K/mm3 (0.0-0.1) 10/18/17 10:39 Add Manual Diff TNR 10/17/17 15:01 Seg Neutrophils % 86.5 % (40.0-70.0) H 10/18/17 10:39 Seg Neutrophils # 12.6 K/mm3 (1.8-7.7) H 10/18/17 10:39 PT 13.1 Sec. (12.2-14.9) 10/17/17 04:06 INR 0.95 (0.87-1.13) 10/17/17 04:06 APTT 27.7 Sec. (24.2-36.6) 10/17/17 04:06 Thrombin Time 17.0 Sec. (15.1-19.6) 10/17/17 04:06 POC ABG pH 7.398 (7.35-7.45) 10/20/17 03:39 POC ABG pCO2 48.3 (35-45) H 10/20/17 03:39 POC ABG pO2 93 (80-105) 10/20/17 03:39 POC ABG HCO3 29.8 10/20/17 03:39 POC ABG Total CO2 31 10/20/17 03:39 POC ABG O2 Sat 97 10/20/17 03:39 POC ABG Base Excess 5 10/20/17 03:39 FiO2 40 % 10/20/17 03:39 Sodium 143 mmol/L (137-145) 10/20/17 04:17 Potassium 4.1 mmol/L (3.6-5.0) 10/20/17 04:17 Chloride 100.2 mmol/L (98-107) 10/20/17 04:17 Carbon Dioxide 27 mmol/L (22-30) 10/20/17 04:17 Anion Gap 20 mmol/L 10/20/17 04:17 BUN 34 mg/dL (9-20) H 10/20/17 04:17 Creatinine 1.5 mg/dL (0.8-1.5) 10/20/17 04:17 Estimated GFR > 60 ml/min 10/20/17 04:17 BUN/Creatinine Ratio 23 % 10/20/17 04:17 Glucose 230 mg/dL (75-100) H 10/20/17 04:17 POC Glucose 243 (70-105) H 10/20/17 05:36 Lactic Acid 1.70 mmol/L (0.7-2.0) 10/17/17 22:43 Calcium 9.0 mg/dL (8.4-10.2) 10/20/17 04:17 Total Creatine Kinase 464 units/L (55-170) H 10/17/17 15:01 CK-MB (CK-2) 6.8 ng/mL (0.0-4.0) H 10/17/17 15:01 CK-MB (CK-2) Rel Index 1.4 (0-4) 10/17/17 15:01 Troponin T < 0.010 ng/mL (0.00-0.029) 10/17/17 22:43 NT-Pro-B Natriuret Pep 604.7 pg/mL (0-450) H 10/17/17 15:01 Triglycerides 57 mg/dL (2-149) 10/17/17 15:01 Cholesterol 132 mg/dL (50-199) 10/17/17 15:01 LDL Cholesterol Direct 84 mg/dL (50-130) 10/17/17 15:01 HDL Cholesterol 47 mg/dL (40-59) 10/17/17 15:01 Cholesterol/HDL Ratio 2.80 % 10/17/17 15:01 TSH 0.105 mlU/mL (0.270-4.200) L 10/18/17 15:58 Free T4 1.10 ng/dL (0.76-1.46) 10/18/17 15:58 Urine Color Yellow (Yellow) 10/17/17 04:35 Urine Turbidity Clear (Clear) 10/17/17 04:35 Urine pH 8.0 (5.0-7.0) H 10/17/17 04:35 Ur Specific [place] 1.013 (1.003-1.030) 10/17/17 04:35 Urine Protein <15 mg/dl mg/dL (Negative) 10/17/17 04:35 Urine Glucose (UA) 50 mg/dL (Negative) 10/17/17 04:35 Urine Ketones Neg mg/dL (Negative) 10/17/17 04:35 Urine Blood Neg (Negative) 10/17/17 04:35 Urine Nitrite Neg (Negative) 10/17/17 04:35 Urine Bilirubin Neg (Negative) 10/17/17 04:35 Urine Urobilinogen < 2.0 mg/dL (<2.0) 10/17/17 04:35 Ur Leukocyte Esterase Neg (Negative) 10/17/17 04:35 Urine WBC (Auto) 3.0 /HPF (0.0-6.0) 10/17/17 04:35 Urine RBC (Auto) < 1.0 /HPF (0.0-6.0) 10/17/17 04:35 U Epithel Cells (Auto) 1.0 /HPF (0-13.0) 10/17/17 04:35 Urine Bacteria (Auto) 1+ /HPF (Negative) 10/17/17 04:35 Salicylates < 0.3 mg/dL (2.8-20.0) L 10/17/17 04:23 Urine Opiates Screen Presumptive negative 10/17/17 04:35 Urine Methadone Screen Presumptive negative 10/17/17 04:35 Ur Barbiturates Screen Presumptive negative 10/17/17 04:35 Ur Phencyclidine Scrn Presumptive negative 10/17/17 04:35 Ur Amphetamines Screen Presumptive negative 10/17/17 04:35 U Benzodiazepines Scrn Presumptive negative 10/17/17 04:35 Urine Cocaine Screen Presumptive negative 10/17/17 04:35 U Marijuana (THC) Screen Presumptive negative 10/17/17 04:35 Drugs of Abuse Note Disclamer 10/17/17 04:35 Plasma/Serum Alcohol < 0.01 % (0-0.07) 10/17/17 04:23
--- NOTE | 2017-10-20 10:56 | Progress Note ---
Assessment and Plan - Patient Problems (1) Accelerated hypertension Current Visit: Yes Status: Acute (2) Acute ischemic stroke Current Visit: Yes Status: Acute (3) Respiratory failure with hypercapnia Current Visit: Yes Status: Acute Qualifiers: Chronicity: acute Qualified Code(s): J96.02 - Acute respiratory failure with hypercapnia Subjective Date of service: 10/20/17 Principal diagnosis: acute stroke Interval history: ALERT,,,VENT' Objective Vital Signs Temp Pulse Pulse Pulse Resp Resp BP 10/20/17 09:00 65 21 162/96 10/20/17 08:30 62 22 126/80 10/20/17 08:00 98.3 F 67 22 143/86 10/20/17 07:58 64 22 10/20/17 07:49 63 164/98 10/20/17 07:48 63 22 10/20/17 07:30 75 21 164/98 10/20/17 07:00 74 64 22 130/76 10/20/17 06:30 65 22 130/76 10/20/17 06:00 65 22 123/77 10/20/17 05:56 64 118/74 10/20/17 05:30 66 22 118/74 10/20/17 05:00 68 22 128/75 10/20/17 04:30 77 18 145/84 10/20/17 04:20 72 26 H 10/20/17 04:07 69 22 10/20/17 04:00 67 18 134/81 10/20/17 03:30 76 20 145/84 10/20/17 03:13 99.7 F H 10/20/17 03:00 73 73 18 155/89 10/20/17 02:30 81 16 130/75 10/20/17 02:00 67 22 130/75 10/20/17 01:30 63 22 132/73 10/20/17 01:00 62 22 134/76 10/20/17 00:30 62 22 122/71 10/20/17 00:00 60 70 22 24 139/83 10/19/17 23:41 67 22 10/19/17 23:30 68 22 136/72 10/19/17 23:00 68 69 22 139/79 10/19/17 22:48 99.3 F 10/19/17 22:30 69 22 147/80 10/19/17 22:00 67 22 138/81 0718 21:30 68 22 136/82 18 21:20 67 22 18 21:00 68 22 160/92 18 20:30 66 16 139/88 18 20:00 65 22 135/75 18 19:57 100.6 F H 10/19/17 19:50 68 22 10/19/17 19:30 67 22 148/79 10/19/17 19:23 68 22 18 19:16 65 126/77 18 19:00 65 69 26 H 126/77 18 18:30 65 22 126/72 10/19/17 18:00 62 22 121/72 10/19/17 17:44 66 145/85 10/19/17 17:30 68 22 145/85 10/19/17 17:00 67 22 141/80 10/19/17 16:30 71 22 133/77 10/19/17 16:00 98.1 F 73 71 22 22 129/76 18 15:49 76 22 10/19/17 15:42 76 150/92 18 15:30 79 22 150/92 10/19/17 15:18 94 H 21 10/19/17 15:00 94 H 22 10/19/17 13:30 77 23 126/73 10/19/17 13:00 77 22 111/72 10/19/17 12:46 76 22 10/19/17 12:38 76 96 H 22 91/44 10/19/17 12:30 82 22 91/44 10/19/17 12:00 100.4 F H 88 25 H 113/68 10/19/17 11:54 99 H 135/93 10/19/17 11:30 96 H 23 135/93 10/19/17 11:00 105 H 105 H 26 H 112/66 Pulse Ox 10/20/17 09:00 96 10/20/17 08:30 97 10/20/17 08:00 95 10/20/17 07:58 10/20/17 07:49 98 10/20/17 07:48 10/20/17 07:30 99 10/20/17 07:00 98 10/20/17 06:30 96 07/21/18 06:00 96 10/20/17 05:56 10/20/17 05:30 95 10/20/17 05:00 95 10/20/17 04:30 98 10/20/17 04:20 10/20/17 04:07 10/20/17 04:00 98 10/20/17 03:30 98 10/20/17 03:13 10/20/17 03:00 98 10/20/17 02:30 99 10/20/17 02:00 98 10/20/17 01:30 97 10/20/17 01:00 97 10/20/17 00:30 96 10/20/17 00:00 97 10/19/17 23:41 10/19/17 23:30 97 10/19/17 23:00 97 10/19/17 22:48 10/19/17 22:30 98 10/19/17 22:00 98 10/19/17 21:30 99 10/19/17 21:20 98 10/19/17 21:00 99 10/19/17 20:30 98 10/19/17 20:00 98 10/19/17 19:57 10/19/17 19:50 10/19/17 19:30 99 10/19/17 19:23 10/19/17 19:16 95 10/19/17 19:00 99 10/19/17 18:30 96 10/19/17 18:00 95 10/19/17 17:44 10/19/17 17:30 96 10/19/17 17:00 97 10/19/17 16:30 97 10/19/17 16:00 95 10/19/17 15:49 10/19/17 15:42 98 10/19/17 15:30 98 10/19/17 15:18 10/19/17 15:00 98 10/19/17 13:30 96 10/19/17 13:00 96 10/19/17 12:46 10/19/17 12:38 97 10/19/17 12:30 97 10/19/17 12:00 96 10/19/17 11:54 10/19/17 11:30 96 10/19/17 11:00 95 - Physical Examination General: Other (VENT) Neck: Positive: neck supple Cardiac: Positive: Regular Rhythm Lungs: Positive: clear to auscultation Abdomen: Positive: Soft Skin: Positive: Clear Extremities: Present: edema (NO) - Labs and Meds CBC 10/20/17 Range/Units 04:17 WBC 13.2 H (4.5-11.0) K/mm3 RBC 4.99 (3.65-5.03) M/mm3 Hgb 15.0 (11.8-15.2) gm/dl Hct 43.8 (35.5-45.6) % Plt Count 231 (140-440) K/mm3 Comprehensive Metabolic Panel 10/20/17 Range/Units 04:17 Sodium 143 (137-145) mmol/L Potassium 4.1 (3.6-5.0) mmol/L Chloride 100.2 (98-107) mmol/L Carbon Dioxide 27 (22-30) mmol/L BUN 34 H (9-20) mg/dL Creatinine 1.5 (0.8-1.5) mg/dL Glucose 230 H (75-100) mg/dL Calcium 9.0 (8.4-10.2) mg/dL
[2017-10-20] MEDS: NACL 0.45% 1000 ML 1,000 ML IV SCH (11:33)
[2017-10-20] MEDS: SODIUM CHLORIDE FLUSH SYRINGE 10 ML IV PRN (11:51)
--- NOTE | 2017-10-20 13:40 | Progress Note ---
Assessment and Plan 42 y/o male, originally admitted with stroke like symptoms, subsequently had emesis and acute respiratory failure on bipap therapy. 1. Continue same vent settings 2. Stop sedation 3. Attempt PSV trial as tolerated 4. Patient does not have pneumonia, cardiology note is incorrect. 5. Need to discuss superintendent container terminal prognosis with neurology. Fear is that patient will be have exactly as he did on first attempt at extubation and require re- intubation. Trach and peg may be best step if oropharyngeal dysphagia and weakness are expected given area of brain effected. CCT 31 minutes. Subjective Date of service: 10/20/17 Principal diagnosis: acute stroke Interval history: Awake and alert, orally intubated. Fiancee at bedside. Follows commands. Minimal vent support. MRI shows stroke in the Medulla. Neuro, to my knowledge has not evaluated patient or seen the MRI yet. BP elevated but better. Objective Vital Signs - 12hr 10/20/17 10/20/17 10/20/17 02:00 02:30 03:00 Temperature Pulse Rate 67 81 73 Pulse Rate [ Anterior Throughout] Pulse Rate [ 73 From Monitor] Respiratory 22 16 18 Rate Respiratory Rate [Anterior Throughout] Blood Pressure 130/75 130/75 155/89 O2 Sat by Pulse 98 99 98 Oximetry 10/20/17 10/20/17 10/20/17 03:13 03:30 04:00 Temperature 99.7 F H Pulse Rate 76 67 Pulse Rate [ Anterior Throughout] Pulse Rate [ From Monitor] Respiratory 20 18 Rate Respiratory Rate [Anterior Throughout] Blood Pressure 145/84 134/81 O2 Sat by Pulse 98 98 Oximetry 10/20/17 10/20/17 10/20/17 04:07 04:20 04:30 Temperature Pulse Rate 77 Pulse Rate [ 69 72 Anterior Throughout] Pulse Rate [ From Monitor] Respiratory 18 Rate Respiratory 22 26 H Rate [Anterior Throughout] Blood Pressure 145/84 O2 Sat by Pulse 98 Oximetry 10/20/17 10/20/17 10/20/17 05:00 05:30 05:56 Temperature Pulse Rate 68 66 64 Pulse Rate [ Anterior Throughout] Pulse Rate [ From Monitor] Respiratory 22 22 Rate Respiratory Rate [Anterior Throughout] Blood Pressure 128/75 118/74 118/74 O2 Sat by Pulse 95 95 Oximetry 10/20/17 10/20/17 10/20/17 06:00 06:30 07:00 Temperature Pulse Rate 65 65 74 Pulse Rate [ Anterior Throughout] Pulse Rate [ 64 From Monitor] Respiratory 22 22 22 Rate Respiratory Rate [Anterior Throughout] Blood Pressure 123/77 130/76 130/76 O2 Sat by Pulse 96 96 98 Oximetry 10/20/17 10/20/17 10/20/17 07:30 07:48 07:49 Temperature Pulse Rate 75 63 Pulse Rate [ 63 Anterior Throughout] Pulse Rate [ From Monitor] Respiratory 21 Rate Respiratory 22 Rate [Anterior Throughout] Blood Pressure 164/98 164/98 O2 Sat by Pulse 99 98 Oximetry 10/20/17 10/20/17 10/20/17 07:58 08:00 08:30 Temperature 98.3 F Pulse Rate 67 62 Pulse Rate [ 64 Anterior Throughout] Pulse Rate [ From Monitor] Respiratory 22 22 Rate Respiratory 22 Rate [Anterior Throughout] Blood Pressure 143/86 126/80 O2 Sat by Pulse 95 97 Oximetry 10/20/17 10/20/17 10/20/17 09:00 09:30 10:00 Temperature Pulse Rate 65 59 L 63 Pulse Rate [ Anterior Throughout] Pulse Rate [ From Monitor] Respiratory 21 22 22 Rate Respiratory Rate [Anterior Throughout] Blood Pressure 162/96 151/83 153/79 O2 Sat by Pulse 96 93 93 Oximetry 10/20/17 10/20/17 10/20/17 10:30 11:00 11:30 Temperature Pulse Rate 69 66 64 Pulse Rate [ Anterior Throughout] Pulse Rate [ 64 From Monitor] Respiratory 21 19 22 Rate Respiratory Rate [Anterior Throughout] Blood Pressure 153/79 159/95 153/81 O2 Sat by Pulse 97 96 95 Oximetry 10/20/17 10/20/17 10/20/17 11:50 11:54 12:00 Temperature 99.0 F Pulse Rate 62 63 60 Pulse Rate [ 60 Anterior Throughout] Pulse Rate [ From Monitor] Respiratory 22 Rate Respiratory 22 Rate [Anterior Throughout] Blood Pressure 153/81 153/81 142/81 O2 Sat by Pulse 95 95 Oximetry 10/20/17 10/20/17 12:30 13:00 Temperature Pulse Rate 68 72 Pulse Rate [ Anterior Throughout] Pulse Rate [ From Monitor] Respiratory 16 15 Rate Respiratory Rate [Anterior Throughout] Blood Pressure 158/92 166/93 O2 Sat by Pulse 95 97 Oximetry Constitutional: no acute distress, alert Eyes: non-icteric ENT: other (orally intubated and sedated) Neck: supple Ascultation: Bilateral: clear, diminished breath sounds Percussion: Bilateral: not dull Cardiovascular: regular rate and rhythm Gastrointestinal: soft, non-tender Extremities: no cyanosis, no edema, pink and warm Neurologic: unable to assess CBC and BMP: 10/20/17 04:17 10/20/17 04:17 ABG, PT/INR, D-dimer: ABG POC ABG pH 7.398 (7.35-7.45) 10/20/17 03:39 POC ABG pCO2 48.3 (35-45) H 10/20/17 03:39 POC ABG pO2 93 (80-105) 10/20/17 03:39 POC ABG HCO3 29.8 10/20/17 03:39 POC ABG Total CO2 31 10/20/17 03:39 POC ABG O2 Sat 97 10/20/17 03:39 PT/INR, D-dimer PT 13.1 Sec. (12.2-14.9) 10/17/17 04:06 INR 0.95 (0.87-1.13) 10/17/17 04:06 Abnormal lab findings: Abnormal Labs 10/17/17 10/17/17 10/17/17 04:06 04:06 04:23 WBC RBC 5.56 H Hgb 16.7 H Hct 48.1 H MCHC 35 H RDW 13.0 L Lymph % (Auto) Lymph # [place] # Seg Neutrophils % Seg Neutrophils # POC ABG pH POC ABG pCO2 POC ABG pO2 Carbon Dioxide BUN Creatinine Glucose 141 H POC Glucose Hemoglobin A1c Lactic Acid Calcium Total Creatine Kinase 301 H CK-MB (CK-2) Troponin T NT-Pro-B Natriuret Pep TSH Urine pH Salicylates 10/17/17 10/17/17 10/17/17 04:23 04:24 04:35 WBC RBC Hgb Hct MCHC RDW Lymph % (Auto) Lymph # [place] # Seg Neutrophils % Seg Neutrophils # POC ABG pH POC ABG pCO2 POC ABG pO2 Carbon Dioxide BUN Creatinine Glucose POC Glucose 132 H Hemoglobin A1c Lactic Acid Calcium Total Creatine Kinase CK-MB (CK-2) Troponin T NT-Pro-B Natriuret Pep TSH Urine pH 8.0 H Salicylates < 0.3 L 10/17/17 10/17/17 10/17/17 05:49 06:26 10:39 WBC RBC Hgb 16.6 H Hct 48.3 H MCHC RDW Lymph % (Auto) Lymph # [place] # Seg Neutrophils % Seg Neutrophils # POC ABG pH 7.207 L 7.155 L POC ABG pCO2 62.6 H 72.8 H POC ABG pO2 155 H Carbon Dioxide BUN Creatinine Glucose POC Glucose Hemoglobin A1c Lactic Acid Calcium Total Creatine Kinase CK-MB (CK-2) Troponin T NT-Pro-B Natriuret Pep TSH Urine pH Salicylates 10/17/17 10/17/17 10/17/17 15:01 15:01 16:26 WBC RBC Hgb Hct MCHC RDW Lymph % (Auto) Lymph # [place] # Seg Neutrophils % Seg Neutrophils # POC ABG pH POC ABG pCO2 POC ABG pO2 Carbon Dioxide 21 L BUN Creatinine Glucose 134 H POC Glucose Hemoglobin A1c Lactic Acid 2.60 H* 2.50 H* Calcium 8.3 L Total Creatine Kinase 464 H CK-MB (CK-2) 6.8 H Troponin T 0.102 H* D NT-Pro-B Natriuret Pep 604.7 H TSH Urine pH Salicylates 10/17/17 10/17/17 10/17/17 16:30 18:36 18:51 WBC 18.6 H RBC 5.55 H Hgb 16.3 H Hct 48.2 H MCHC RDW 12.9 L Lymph % (Auto) 6.0 L Lymph # 1.1 L [place] # 1.1 H Seg Neutrophils % 87.9 H Seg Neutrophils # 16.4 H POC ABG pH POC ABG pCO2 POC ABG pO2 202 H Carbon Dioxide BUN Creatinine Glucose POC Glucose Hemoglobin A1c Lactic Acid 2.20 H* Calcium Total Creatine Kinase CK-MB (CK-2) Troponin T NT-Pro-B Natriuret Pep TSH Urine pH Salicylates 10/17/17 10/18/17 10/18/17 22:06 02:31 05:33 WBC RBC Hgb Hct MCHC RDW Lymph % (Auto) Lymph # [place] # Seg Neutrophils % Seg Neutrophils # POC ABG pH POC ABG pCO2 46.9 H POC ABG pO2 107 H Carbon Dioxide BUN Creatinine Glucose POC Glucose 139 H 180 H Hemoglobin A1c Lactic Acid Calcium Total Creatine Kinase CK-MB (CK-2) Troponin T NT-Pro-B Natriuret Pep TSH Urine pH Salicylates 0710/18/17 10/18/17 05:46 10:17 10:39 WBC 14.5 H RBC 5.13 H Hgb 15.7 H Hct MCHC 35 H RDW Lymph % (Auto) 8.0 L Lymph # [place] # Seg Neutrophils % 86.5 H Seg Neutrophils # 12.6 H POC ABG pH POC ABG pCO2 POC ABG pO2 Carbon Dioxide BUN Creatinine Glucose POC Glucose 157 H 128 H Hemoglobin A1c Lactic Acid Calcium Total Creatine Kinase CK-MB (CK-2) Troponin T NT-Pro-B Natriuret Pep TSH Urine pH Salicylates 10/18/17 10/18/17 10/18/17 14:32 15:58 17:47 WBC RBC Hgb Hct MCHC RDW Lymph % (Auto) Lymph # [place] # Seg Neutrophils % Seg Neutrophils # POC ABG pH POC ABG pCO2 POC ABG pO2 Carbon Dioxide BUN Creatinine Glucose POC Glucose 122 H 156 H Hemoglobin A1c Lactic Acid Calcium Total Creatine Kinase CK-MB (CK-2) Troponin T NT-Pro-B Natriuret Pep TSH 0.105 L Urine pH Salicylates 10/18/17 10/19/17 10/19/17 22:34 02:57 04:34 WBC RBC Hgb Hct MCHC RDW Lymph % (Auto) Lymph # [place] # Seg Neutrophils % Seg Neutrophils # POC ABG pH 7.329 L POC ABG pCO2 56.9 H POC ABG pO2 163 H Carbon Dioxide BUN Creatinine Glucose POC Glucose 154 H 155 H Hemoglobin A1c Lactic Acid Calcium Total Creatine Kinase CK-MB (CK-2) Troponin T NT-Pro-B Natriuret Pep TSH Urine pH Salicylates 10/19/17 10/19/17 10/19/17 06:51 06:51 06:55 WBC 15.7 H RBC 5.14 H Hgb 15.4 H Hct MCHC RDW Lymph % (Auto) Lymph # [place] # Seg Neutrophils % Seg Neutrophils # POC ABG pH POC ABG pCO2 POC ABG pO2 Carbon Dioxide BUN 28 H Creatinine 1.9 H D Glucose 182 H POC Glucose 155 H Hemoglobin A1c Lactic Acid Calcium Total Creatine Kinase CK-MB (CK-2) Troponin T NT-Pro-B Natriuret Pep TSH Urine pH Salicylates 10/19/17 10/19/17 10/19/17 10:19 12:26 17:15 WBC RBC Hgb Hct MCHC RDW Lymph % (Auto) Lymph # [place] # Seg Neutrophils % Seg Neutrophils # POC ABG pH POC ABG pCO2 POC ABG pO2 Carbon Dioxide BUN Creatinine Glucose POC Glucose 169 H 172 H 132 H Hemoglobin A1c Lactic Acid Calcium Total Creatine Kinase CK-MB (CK-2) Troponin T NT-Pro-B Natriuret Pep TSH Urine pH Salicylates 10/20/17 10/20/17 10/20/17 00:03 03:39 04:17 WBC 13.2 H RBC Hgb Hct MCHC RDW Lymph % (Auto) Lymph # [place] # Seg Neutrophils % Seg Neutrophils # POC ABG pH POC ABG pCO2 48.3 H POC ABG pO2 Carbon Dioxide BUN Creatinine Glucose POC Glucose 238 H Hemoglobin A1c Lactic Acid Calcium Total Creatine Kinase CK-MB (CK-2) Troponin T NT-Pro-B Natriuret Pep TSH Urine pH Salicylates 10/20/17 10/20/17 10/20/17 04:17 04:18 05:36 WBC RBC Hgb Hct MCHC RDW Lymph % (Auto) Lymph # [place] # Seg Neutrophils % Seg Neutrophils # POC ABG pH POC ABG pCO2 POC ABG pO2 Carbon Dioxide BUN 34 H Creatinine Glucose 230 H POC Glucose 243 H Hemoglobin A1c 6.4 H Lactic Acid Calcium Total Creatine Kinase CK-MB (CK-2) Troponin T NT-Pro-B Natriuret Pep TSH Urine pH Salicylates
[2017-10-20] MEDS: ASPIRIN PO SCH (22:48)
[2017-10-21] MEDS: PROVENTIL IH SCH ×6 (03:27→23:01)
--- NOTE | 2017-10-21 03:59 | XRay Report ---
FINAL REPORT EXAM: XR CHEST 1V AP HISTORY: follow up respiratory failure TECHNIQUE: A portable semi-upright view the chest was obtained and compared to the study of 10/20/2017. FINDINGS: The tip of the ET tube is 5 cm above the mavis. The NG tube is in good position in the stomach. The heart size is normal. There is stable patchy airspace disease in the left lung base. The lungs are not overtly congested. The bones and soft tissues otherwise are unchanged. IMPRESSION: Stable patchy airspace disease in left lung base. No evidence of congestion or effusion.
[2017-10-21 05:12] LABS: Hematocrit 43.2 % (35.5-45.6); Hemoglobin 14.6 gm/dl (11.8-15.2); Mean Corpuscular HGB Conc 34 % (32-34); Mean Corpuscular Hemoglobin 30 pg (28-32); Mean Corpuscular Volume 88 fl (84-94); Platelet Count 249 K/mm3 (140-440); Red Blood Count 4.92 M/mm3 (3.65-5.03)
[2017-10-21 05:36] LABS: BUN/Creatinine Ratio 32; Blood Urea Nitrogen 38 mg/dL (9-20); Calcium 9.1 mg/dL (8.4-10.2); Hemolysis Index 14
[2017-10-21] MEDS: HumuLIN R SUB-Q SCH ×4 (06:33→18:11)
[2017-10-21] MEDS: NACL 0.45% 1000 ML 1,000 ML IV SCH (06:35)
--- NOTE | 2017-10-21 08:30 | Progress Note ---
Assessment and Plan - Patient Problems (1) Accelerated hypertension Current Visit: Yes Status: Acute (2) Acute ischemic stroke Current Visit: Yes Status: Acute (3) Respiratory failure with hypercapnia Current Visit: Yes Status: Acute Qualifiers: Chronicity: acute Qualified Code(s): J96.02 - Acute respiratory failure with hypercapnia (4) Diabetes Current Visit: Yes Status: Acute Subjective Date of service: 10/21/17 Principal diagnosis: acute stroke Interval history: VENT' Objective Vital Signs Temp Pulse Pulse Pulse Resp Resp BP 10/21/17 07:30 55 L 56 L 22 155/97 10/21/17 07:01 52 L 21 175/82 10/21/17 07:00 56 L 20 10/21/17 06:31 52 L 12 158/89 10/21/17 06:00 165/102 10/21/17 05:30 53 L 22 165/102 10/21/17 05:00 58 L 12 165/102 10/21/17 04:30 56 L 18 175/90 10/21/17 04:00 98.2 F 55 L 18 175/90 10/21/17 03:34 55 L 22 10/21/17 03:30 61 20 148/97 10/21/17 03:27 55 L 22 10/21/17 03:11 54 L 148/97 10/21/17 03:00 53 L 63 23 147/94 10/21/17 02:30 58 L 22 147/87 10/21/17 02:00 55 L 22 147/87 10/21/17 01:30 57 L 22 145/80 10/21/17 01:00 60 21 161/93 10/21/17 00:30 66 20 175/97 10/21/17 00:00 99.2 F 64 16 185/98 10/20/17 23:42 73 22 10/20/17 23:32 60 22 10/20/17 23:30 61 23 152/90 10/20/17 23:00 60 67 22 152/90 10/20/17 22:30 61 22 155/87 10/20/17 22:00 63 22 173/98 10/20/17 21:30 64 15 182/99 10/20/17 21:00 66 23 179/98 10/20/17 20:30 62 15 174/98 10/20/17 20:14 70 22 07/21/18 20:04 64 22 10/20/17 20:01 64 171/95 10/20/17 20:00 97.2 F L 62 22 143/90 10/20/17 19:44 63 22 171/95 10/20/17 19:30 64 22 171/95 10/20/17 19:24 66 170/94 10/20/17 19:00 64 61 20 165/98 10/20/17 18:30 62 16 170/100 10/20/17 18:00 74 14 177/101 10/20/17 17:50 66 15 141/84 10/20/17 17:30 70 12 141/84 10/20/17 17:13 69 172/98 10/20/17 17:00 66 23 172/98 10/20/17 16:30 71 20 156/90 10/20/17 16:00 66 16 166/93 10/20/17 15:55 98.9 F 10/20/17 15:32 71 24 10/20/17 15:30 63 22 157/95 10/20/17 15:22 69 22 10/20/17 15:00 62 70 22 143/79 10/20/17 14:30 67 21 139/84 10/20/17 14:00 60 21 157/87 10/20/17 13:30 62 22 155/90 10/20/17 13:00 72 15 166/93 10/20/17 12:30 68 16 158/92 10/20/17 12:00 99.0 F 60 62 22 23 142/81 10/20/17 11:54 63 153/81 10/20/17 11:50 62 60 22 153/81 10/20/17 11:30 64 22 153/81 10/20/17 11:00 66 64 19 159/95 10/20/17 10:30 69 21 153/79 10/20/17 10:00 63 22 153/79 10/20/17 09:30 59 L 22 151/83 10/20/17 09:00 65 21 162/96 10/20/17 08:30 62 22 126/80 Pulse Ox 10/21/17 07:30 98 10/21/17 07:01 99 10/21/17 07:00 96 10/21/17 06:31 97 10/21/17 06:00 97 10/21/17 05:30 99 10/21/17 05:00 99 10/21/17 04:30 99 10/21/17 04:00 98 10/21/17 03:34 10/21/17 03:30 99 10/21/17 03:27 10/21/17 03:11 98 10/21/17 03:00 97 10/21/17 02:30 95 10/21/17 02:00 95 10/21/17 01:30 94 10/21/17 01:00 94 10/21/17 00:30 96 10/21/17 00:00 96 10/20/17 23:42 10/20/17 23:32 10/20/17 23:30 99 10/20/17 23:00 96 10/20/17 22:30 96 10/20/17 22:00 96 10/20/17 21:30 96 10/20/17 21:00 96 10/20/17 20:30 95 10/20/17 20:14 10/20/17 20:04 10/20/17 20:01 94 10/20/17 20:00 93 10/20/17 19:44 94 10/20/17 19:30 94 10/20/17 19:24 10/20/17 19:00 96 10/20/17 18:30 97 10/20/17 18:00 99 10/20/17 17:50 96 10/20/17 17:30 96 10/20/17 17:13 95 10/20/17 17:00 97 10/20/17 16:30 95 10/20/17 16:00 96 10/20/17 15:55 10/20/17 15:32 10/20/17 15:30 99 10/20/17 15:22 10/20/17 15:00 93 10/20/17 14:30 93 10/20/17 14:00 97 10/20/17 13:30 95 10/20/17 13:00 97 10/20/17 12:30 95 10/20/17 12:00 95 10/20/17 11:54 10/20/17 11:50 95 10/20/17 11:30 95 10/20/17 11:00 96 07/21/18 10:30 97 10/20/17 10:00 93 10/20/17 09:30 93 10/20/17 09:00 96 10/20/17 08:30 97 - Physical Examination General: Other (VENT) Neck: Positive: neck supple Cardiac: Positive: Regular Rhythm Lungs: Positive: clear to auscultation Abdomen: Positive: Soft Skin: Positive: Clear Extremities: Present: edema (NO) - Labs and Meds CBC 10/21/17 Range/Units 04:15 WBC 15.1 H (4.5-11.0) K/mm3 RBC 4.92 (3.65-5.03) M/mm3 Hgb 14.6 (11.8-15.2) gm/dl Hct 43.2 (35.5-45.6) % Plt Count 249 (140-440) K/mm3 Comprehensive Metabolic Panel 10/21/17 Range/Units 04:15 Sodium 143 (137-145) mmol/L Potassium 3.8 (3.6-5.0) mmol/L Chloride 100.7 (98-107) mmol/L Carbon Dioxide 26 (22-30) mmol/L BUN 38 H (9-20) mg/dL Creatinine 1.2 (0.8-1.5) mg/dL Glucose 248 H (75-100) mg/dL Calcium 9.1 (8.4-10.2) mg/dL
--- NOTE | 2017-10-21 09:01 | Progress Note ---
Assessment and Plan Assessment and plan: Acute respiratory failure, Patient was extubated 10/18 but re-Intubated later in evening. Still on ventilator Pulmonology following GI bleed. GI following H/H stable Conservative management for now. Acute to subacute ischemic stroke right medulla oblongata. Aspirin. Neuro following. Acute kidney injury, Improved, Cr 1.2 today Fever, low grade, 100.6 yesterday Repeat blood cultures, drawn Elevated troponin. Cardiology following. Encephalopathy. Now alert,follows commands Full code status Discussed with karen and melvin at bedside today. History Interval history: Acute resp distress, Still intubated More alert, mild right sided weakness Hospitalist Physical - Physical exam Narrative exam: Constitutional; Not in acute distress, intubated HEENT: Atraumatic, normocephalic Neck: supple, no lymphadenopathy, JVD or thyromegaly Lungs: Bilateral crackles CVS; S1-S2 regular, no murmurs, rubs or gallop, Abdomen; soft, non-tender, non distended,bowel sounds are normal, Musculoskeletal; No edema, no clubbing, no cyanosis MARKETING DESIGNER: Intubated, awake,alert,follows commands,moves all ext, mild weak on right - Constitutional Vitals: Temp Pulse Resp BP Pulse Ox 98.5 F 56 L 22 155/97 98 10/21/17 08:00 10/21/17 07:30 10/21/17 07:30 10/21/17 07:30 10/21/17 07:30 General appearance: Present: other (intubated on the vent) Results - Labs CBC & Chem 7: 10/21/17 04:15 10/21/17 04:15 Labs: Laboratory Last Values WBC 15.1 K/mm3 (4.5-11.0) H 10/21/17 04:15 RBC 4.92 M/mm3 (3.65-5.03) 10/21/17 04:15 Hgb 14.6 gm/dl (11.8-15.2) 10/21/17 04:15 Hct 43.2 % (35.5-45.6) 10/21/17 04:15 MCV 88 fl (84-94) 10/21/17 04:15 MCH 30 pg (28-32) 10/21/17 04:15 MCHC 34 % (32-34) 10/21/17 04:15 RDW 13.0 % (13.2-15.2) L 10/21/17 04:15 Plt Count 249 K/mm3 (140-440) 10/21/17 04:15 Lymph % (Auto) 8.0 % (13.4-35.0) L 10/18/17 10:39 [place] % (Auto) 5.4 % (0.0-7.3) 10/18/17 10:39 Eos % (Auto) 0.0 % (0.0-4.3) 10/18/17 10:39 Baso % (Auto) 0.1 % (0.0-1.8) 10/18/17 10:39 Lymph # 1.2 K/mm3 (1.2-5.4) 10/18/17 10:39 [place] # 0.8 K/mm3 (0.0-0.8) 10/18/17 10:39 Eos # 0.0 K/mm3 (0.0-0.4) 10/18/17 10:39 Baso # 0.0 K/mm3 (0.0-0.1) 10/18/17 10:39 Add Manual Diff TNR 10/17/17 15:01 Seg Neutrophils % 86.5 % (40.0-70.0) H 10/18/17 10:39 Seg Neutrophils # 12.6 K/mm3 (1.8-7.7) H 10/18/17 10:39 PT 13.1 Sec. (12.2-14.9) 10/17/17 04:06 INR 0.95 (0.87-1.13) 10/17/17 04:06 APTT 27.7 Sec. (24.2-36.6) 10/17/17 04:06 Thrombin Time 17.0 Sec. (15.1-19.6) 10/17/17 04:06 POC ABG pH 7.458 (7.35-7.45) H 10/21/17 03:36 POC ABG pCO2 42.4 (35-45) 10/21/17 03:36 POC ABG pO2 62 (80-105) L 10/21/17 03:36 POC ABG HCO3 30.0 10/21/17 03:36 POC ABG Total CO2 31 10/21/17 03:36 POC ABG O2 Sat 92 10/21/17 03:36 POC ABG Base Excess 6 10/21/17 03:36 FiO2 30 % 10/21/17 03:36 Sodium 143 mmol/L (137-145) 10/21/17 04:15 Potassium 3.8 mmol/L (3.6-5.0) 10/21/17 04:15 Chloride 100.7 mmol/L (98-107) 10/21/17 04:15 Carbon Dioxide 26 mmol/L (22-30) 10/21/17 04:15 Anion Gap 20 mmol/L 10/21/17 04:15 BUN 38 mg/dL (9-20) H 10/21/17 04:15 Creatinine 1.2 mg/dL (0.8-1.5) 10/21/17 04:15 Estimated GFR > 60 ml/min 10/21/17 04:15 BUN/Creatinine Ratio 32 % 10/21/17 04:15 Glucose 248 mg/dL (75-100) H 10/21/17 04:15 POC Glucose 225 (70-105) H 10/21/17 06:22 Hemoglobin A1c 6.4 % (4-6) H 10/20/17 04:18 Lactic Acid 1.70 mmol/L (0.7-2.0) 10/17/17 22:43 Calcium 9.1 mg/dL (8.4-10.2) 10/21/17 04:15 Total Creatine Kinase 464 units/L (55-170) H 10/17/17 15:01 CK-MB (CK-2) 6.8 ng/mL (0.0-4.0) H 10/17/17 15:01 CK-MB (CK-2) Rel Index 1.4 (0-4) 10/17/17 15:01 Troponin T < 0.010 ng/mL (0.00-0.029) 10/17/17 22:43 NT-Pro-B Natriuret Pep 604.7 pg/mL (0-450) H 10/17/17 15:01 Triglycerides 57 mg/dL (2-149) 10/17/17 15:01 Cholesterol 132 mg/dL (50-199) 10/17/17 15:01 LDL Cholesterol Direct 84 mg/dL (50-130) 10/17/17 15:01 HDL Cholesterol 47 mg/dL (40-59) 10/17/17 15:01 Cholesterol/HDL Ratio 2.80 % 10/17/17 15:01 TSH 0.105 mlU/mL (0.270-4.200) L 10/18/17 15:58 Free T4 1.10 ng/dL (0.76-1.46) 10/18/17 15:58 Urine Color Yellow (Yellow) 10/17/17 04:35 Urine Turbidity Clear (Clear) 10/17/17 04:35 Urine pH 8.0 (5.0-7.0) H 10/17/17 04:35 Ur Specific [place] 1.013 (1.003-1.030) 10/17/17 04:35 Urine Protein <15 mg/dl mg/dL (Negative) 10/17/17 04:35 Urine Glucose (UA) 50 mg/dL (Negative) 10/17/17 04:35 Urine Ketones Neg mg/dL (Negative) 10/17/17 04:35 Urine Blood Neg (Negative) 10/17/17 04:35 Urine Nitrite Neg (Negative) 10/17/17 04:35 Urine Bilirubin Neg (Negative) 10/17/17 04:35 Urine Urobilinogen < 2.0 mg/dL (<2.0) 10/17/17 04:35 Ur Leukocyte Esterase Neg (Negative) 10/17/17 04:35 Urine WBC (Auto) 3.0 /HPF (0.0-6.0) 10/17/17 04:35 Urine RBC (Auto) < 1.0 /HPF (0.0-6.0) 10/17/17 04:35 U Epithel Cells (Auto) 1.0 /HPF (0-13.0) 10/17/17 04:35 Urine Bacteria (Auto) 1+ /HPF (Negative) 10/17/17 04:35 Salicylates < 0.3 mg/dL (2.8-20.0) L 10/17/17 04:23 Urine Opiates Screen Presumptive negative 10/17/17 04:35 Urine Methadone Screen Presumptive negative 10/17/17 04:35 Ur Barbiturates Screen Presumptive negative 10/17/17 04:35 Ur Phencyclidine Scrn Presumptive negative 10/17/17 04:35 Ur Amphetamines Screen Presumptive negative 10/17/17 04:35 U Benzodiazepines Scrn Presumptive negative 10/17/17 04:35 Urine Cocaine Screen Presumptive negative 10/17/17 04:35 U Marijuana (THC) Screen Presumptive negative 10/17/17 04:35 Drugs of Abuse Note Disclamer 10/17/17 04:35 Plasma/Serum Alcohol < 0.01 % (0-0.07) 10/17/17 04:23
[2017-10-21] MEDS ORDERED: APRESOLINE IV PRN (09:05)
[2017-10-21] MEDS: HEPARIN SUB-Q SCH ×2 (09:25→22:27)
[2017-10-21] MEDS: PEPCID IV SCH ×2 (09:25→22:27)
[2017-10-21] MEDS: SODIUM CHLORIDE FLUSH SYRINGE 10 ML IV PRN ×3 (09:27→12:29)
--- NOTE | 2017-10-21 10:06 | Progress Note ---
Assessment and Plan 42 y/o male, originally admitted with stroke like symptoms, subsequently had emesis and acute respiratory failure on bipap therapy. 1. Continue same vent settings 2. Based upon neuro note, they request systolics be 160-180 3. Attempt PSV trial as tolerated, currently on 01/05 and tolerating. Awake and alert following commands. Nursing ask for scope patch to help with secretions 4. Patient does not have pneumonia, cardiology note is incorrect. 5. Need to discuss terminal operations manager prognosis with neurology. Fear is that patient will behave exactly as he did on first attempt at extubation and require re- intubation. Trach and peg may be best step if oropharyngeal dysphagia and weakness are expected given area of brain effected. No neurology over the weekend so please discuss this with them the first part of the week. Most likely he is going to need a trach and peg. CCT 31 minutes. Subjective Date of service: 10/21/17 Principal diagnosis: acute stroke Interval history: no acute changes overnight. CXR is stable. ABG is stable. No neurology follow up on yesterday. Objective Vital Signs - 12hr 10/20/17 10/20/17 10/20/17 22:30 23:00 23:30 Temperature Pulse Rate 61 60 61 Pulse Rate [ Anterior Throughout] Pulse Rate [ 67 From Monitor] Respiratory 22 22 23 Rate Respiratory Rate [Anterior Throughout] Blood Pressure 155/87 152/90 152/90 O2 Sat by Pulse 96 96 99 Oximetry 10/20/17 10/20/17 10/21/17 23:32 23:42 00:00 Temperature 99.2 F Pulse Rate 64 Pulse Rate [ 60 73 Anterior Throughout] Pulse Rate [ From Monitor] Respiratory 16 Rate Respiratory 22 22 Rate [Anterior Throughout] Blood Pressure 185/98 O2 Sat by Pulse 96 Oximetry 10/21/17 10/21/17 10/21/17 00:30 01:00 01:30 Temperature Pulse Rate 66 60 57 L Pulse Rate [ Anterior Throughout] Pulse Rate [ From Monitor] Respiratory 20 21 22 Rate Respiratory Rate [Anterior Throughout] Blood Pressure 175/97 161/93 145/80 O2 Sat by Pulse 96 94 94 Oximetry 10/21/17 10/21/17 10/21/17 02:00 02:30 03:00 Temperature Pulse Rate 55 L 58 L 53 L Pulse Rate [ Anterior Throughout] Pulse Rate [ 63 From Monitor] Respiratory 22 22 23 Rate Respiratory Rate [Anterior Throughout] Blood Pressure 147/87 147/87 147/94 O2 Sat by Pulse 95 95 97 Oximetry 10/21/17 10/21/17 10/21/17 03:11 03:27 03:30 Temperature Pulse Rate 54 L 61 Pulse Rate [ 55 L Anterior Throughout] Pulse Rate [ From Monitor] Respiratory 20 Rate Respiratory 22 Rate [Anterior Throughout] Blood Pressure 148/97 148/97 O2 Sat by Pulse 98 99 Oximetry 10/21/17 10/21/17 10/21/17 03:34 04:00 04:30 Temperature 98.2 F Pulse Rate 55 L 56 L Pulse Rate [ 55 L Anterior Throughout] Pulse Rate [ From Monitor] Respiratory 18 18 Rate Respiratory 22 Rate [Anterior Throughout] Blood Pressure 175/90 175/90 O2 Sat by Pulse 98 99 Oximetry 10/21/17 10/21/17 10/21/17 05:00 05:30 06:00 Temperature Pulse Rate 58 L 53 L Pulse Rate [ Anterior Throughout] Pulse Rate [ From Monitor] Respiratory 12 22 Rate Respiratory Rate [Anterior Throughout] Blood Pressure 165/102 165/102 165/102 O2 Sat by Pulse 99 99 97 Oximetry 10/21/17 10/21/17 10/21/17 06:31 07:00 07:01 Temperature Pulse Rate 52 L 52 L Pulse Rate [ Anterior Throughout] Pulse Rate [ 56 L From Monitor] Respiratory 12 20 21 Rate Respiratory Rate [Anterior Throughout] Blood Pressure 158/89 175/82 O2 Sat by Pulse 97 96 99 Oximetry 10/21/17 10/21/17 10/21/17 07:30 08:00 09:40 Temperature 98.5 F Pulse Rate 55 L 56 L Pulse Rate [ 56 L Anterior Throughout] Pulse Rate [ From Monitor] Respiratory 22 Rate Respiratory 22 Rate [Anterior Throughout] Blood Pressure 155/97 178/93 O2 Sat by Pulse 98 98 Oximetry Constitutional: no acute distress, alert Eyes: non-icteric ENT: other (orally intubated and sedated) Neck: supple Ascultation: Bilateral: clear, diminished breath sounds Percussion: Bilateral: not dull Cardiovascular: regular rate and rhythm Gastrointestinal: soft, non-tender Extremities: no cyanosis, no edema, pink and warm Neurologic: unable to assess CBC and BMP: 10/21/17 04:15 10/21/17 04:15 ABG, PT/INR, D-dimer: ABG POC ABG pH 7.458 (7.35-7.45) H 10/21/17 03:36 POC ABG pCO2 42.4 (35-45) 10/21/17 03:36 POC ABG pO2 62 (80-105) L 10/21/17 03:36 POC ABG HCO3 30.0 10/21/17 03:36 POC ABG Total CO2 31 10/21/17 03:36 POC ABG O2 Sat 92 10/21/17 03:36 PT/INR, D-dimer PT 13.1 Sec. (12.2-14.9) 10/17/17 04:06 INR 0.95 (0.87-1.13) 10/17/17 04:06 Abnormal lab findings: Abnormal Labs 10/17/17 10/17/17 10/17/17 04:06 04:06 04:23 WBC RBC 5.56 H Hgb 16.7 H Hct 48.1 H MCHC 35 H RDW 13.0 L Lymph % (Auto) Lymph # [place] # Seg Neutrophils % Seg Neutrophils # POC ABG pH POC ABG pCO2 POC ABG pO2 Carbon Dioxide BUN Creatinine Glucose 141 H POC Glucose Hemoglobin A1c Lactic Acid Calcium Total Creatine Kinase 301 H CK-MB (CK-2) Troponin T NT-Pro-B Natriuret Pep TSH Urine pH Salicylates 10/17/17 10/17/17 10/17/17 04:23 04:24 04:35 WBC RBC Hgb Hct MCHC RDW Lymph % (Auto) Lymph # [place] # Seg Neutrophils % Seg Neutrophils # POC ABG pH POC ABG pCO2 POC ABG pO2 Carbon Dioxide BUN Creatinine Glucose POC Glucose 132 H Hemoglobin A1c Lactic Acid Calcium Total Creatine Kinase CK-MB (CK-2) Troponin T NT-Pro-B Natriuret Pep TSH Urine pH 8.0 H Salicylates < 0.3 L 10/17/17 10/17/17 10/17/17 05:49 06:26 10:39 WBC RBC Hgb 16.6 H Hct 48.3 H MCHC RDW Lymph % (Auto) Lymph # [place] # Seg Neutrophils % Seg Neutrophils # POC ABG pH 7.207 L 7.155 L POC ABG pCO2 62.6 H 72.8 H POC ABG pO2 155 H Carbon Dioxide BUN Creatinine Glucose POC Glucose Hemoglobin A1c Lactic Acid Calcium Total Creatine Kinase CK-MB (CK-2) Troponin T NT-Pro-B Natriuret Pep TSH Urine pH Salicylates 10/17/17 10/17/17 10/17/17 15:01 15:01 16:26 WBC RBC Hgb Hct MCHC RDW Lymph % (Auto) Lymph # [place] # Seg Neutrophils % Seg Neutrophils # POC ABG pH POC ABG pCO2 POC ABG pO2 Carbon Dioxide 21 L BUN Creatinine Glucose 134 H POC Glucose Hemoglobin A1c Lactic Acid 2.60 H* 2.50 H* Calcium 8.3 L Total Creatine Kinase 464 H CK-MB (CK-2) 6.8 H Troponin T 0.102 H* D NT-Pro-B Natriuret Pep 604.7 H TSH Urine pH Salicylates 10/17/17 10/17/17 10/17/17 16:30 18:36 18:51 WBC 18.6 H RBC 5.55 H Hgb 16.3 H Hct 48.2 H MCHC RDW 12.9 L Lymph % (Auto) 6.0 L Lymph # 1.1 L [place] # 1.1 H Seg Neutrophils % 87.9 H Seg Neutrophils # 16.4 H POC ABG pH POC ABG pCO2 POC ABG pO2 202 H Carbon Dioxide BUN Creatinine Glucose POC Glucose Hemoglobin A1c Lactic Acid 2.20 H* Calcium Total Creatine Kinase CK-MB (CK-2) Troponin T NT-Pro-B Natriuret Pep TSH Urine pH Salicylates 10/17/17 10/18/17 10/18/17 22:06 02:31 05:33 WBC RBC Hgb Hct MCHC RDW Lymph % (Auto) Lymph # [place] # Seg Neutrophils % Seg Neutrophils # POC ABG pH POC ABG pCO2 46.9 H POC ABG pO2 107 H Carbon Dioxide BUN Creatinine Glucose POC Glucose 139 H 180 H Hemoglobin A1c Lactic Acid Calcium Total Creatine Kinase CK-MB (CK-2) Troponin T NT-Pro-B Natriuret Pep TSH Urine pH Salicylates 10/18/17 10/18/17 10/18/17 05:46 10:17 10:39 WBC 14.5 H RBC 5.13 H Hgb 15.7 H Hct MCHC 35 H RDW Lymph % (Auto) 8.0 L Lymph # [place] # Seg Neutrophils % 86.5 H Seg Neutrophils # 12.6 H POC ABG pH POC ABG pCO2 POC ABG pO2 Carbon Dioxide BUN Creatinine Glucose POC Glucose 157 H 128 H Hemoglobin A1c Lactic Acid Calcium Total Creatine Kinase CK-MB (CK-2) Troponin T NT-Pro-B Natriuret Pep TSH Urine pH Salicylates 10/18/17 10/18/17 10/18/17 14:32 15:58 17:47 WBC RBC Hgb Hct MCHC RDW Lymph % (Auto) Lymph # [place] # Seg Neutrophils % Seg Neutrophils # POC ABG pH POC ABG pCO2 POC ABG pO2 Carbon Dioxide BUN Creatinine Glucose POC Glucose 122 H 156 H Hemoglobin A1c Lactic Acid Calcium Total Creatine Kinase CK-MB (CK-2) Troponin T NT-Pro-B Natriuret Pep TSH 0.105 L Urine pH Salicylates 10/18/17 10/19/17 10/19/17 22:34 02:57 04:34 WBC RBC Hgb Hct MCHC RDW Lymph % (Auto) Lymph # [place] # Seg Neutrophils % Seg Neutrophils # POC ABG pH 7.329 L POC ABG pCO2 56.9 H POC ABG pO2 163 H Carbon Dioxide BUN Creatinine Glucose POC Glucose 154 H 155 H Hemoglobin A1c Lactic Acid Calcium Total Creatine Kinase CK-MB (CK-2) Troponin T NT-Pro-B Natriuret Pep TSH Urine pH Salicylates 10/19/17 10/19/17 10/19/17 06:51 06:51 06:55 WBC 15.7 H RBC 5.14 H Hgb 15.4 H Hct MCHC RDW Lymph % (Auto) Lymph # [place] # Seg Neutrophils % Seg Neutrophils # POC ABG pH POC ABG pCO2 POC ABG pO2 Carbon Dioxide BUN 28 H Creatinine 1.9 H D Glucose 182 H POC Glucose 155 H Hemoglobin A1c Lactic Acid Calcium Total Creatine Kinase CK-MB (CK-2) Troponin T NT-Pro-B Natriuret Pep TSH Urine pH Salicylates 10/19/17 10/19/17 10/19/17 10:19 12:26 17:15 WBC RBC Hgb Hct MCHC RDW Lymph % (Auto) Lymph # [place] # Seg Neutrophils % Seg Neutrophils # POC ABG pH POC ABG pCO2 POC ABG pO2 Carbon Dioxide BUN Creatinine Glucose POC Glucose 169 H 172 H 132 H Hemoglobin A1c Lactic Acid Calcium Total Creatine Kinase CK-MB (CK-2) Troponin T NT-Pro-B Natriuret Pep TSH Urine pH Salicylates 10/20/17 10/20/17 10/20/17 00:03 03:39 04:17 WBC 13.2 H RBC Hgb Hct MCHC RDW Lymph % (Auto) Lymph # [place] # Seg Neutrophils % Seg Neutrophils # POC ABG pH POC ABG pCO2 48.3 H POC ABG pO2 Carbon Dioxide BUN Creatinine Glucose POC Glucose 238 H Hemoglobin A1c Lactic Acid Calcium Total Creatine Kinase CK-MB (CK-2) Troponin T NT-Pro-B Natriuret Pep TSH Urine pH Salicylates 10/20/17 10/20/17 10/20/17 04:17 04:18 05:36 WBC RBC Hgb Hct MCHC RDW Lymph % (Auto) Lymph # [place] # Seg Neutrophils % Seg Neutrophils # POC ABG pH POC ABG pCO2 POC ABG pO2 Carbon Dioxide BUN 34 H Creatinine Glucose 230 H POC Glucose 243 H Hemoglobin A1c 6.4 H Lactic Acid Calcium Total Creatine Kinase CK-MB (CK-2) Troponin T NT-Pro-B Natriuret Pep TSH Urine pH Salicylates 10/20/17 10/20/17 10/21/17 11:44 18:35 00:08 WBC RBC Hgb Hct MCHC RDW Lymph % (Auto) Lymph # [place] # Seg Neutrophils % Seg Neutrophils # POC ABG pH POC ABG pCO2 POC ABG pO2 Carbon Dioxide BUN Creatinine Glucose POC Glucose 215 H 217 H 215 H Hemoglobin A1c Lactic Acid Calcium Total Creatine Kinase CK-MB (CK-2) Troponin T NT-Pro-B Natriuret Pep TSH Urine pH Salicylates 10/21/17 10/21/17 10/21/17 03:36 04:15 04:15 WBC 15.1 H RBC Hgb Hct MCHC RDW 13.0 L Lymph % (Auto) Lymph # [place] # Seg Neutrophils % Seg Neutrophils # POC ABG pH 7.458 H POC ABG pCO2 POC ABG pO2 62 L Carbon Dioxide BUN 38 H Creatinine Glucose 248 H POC Glucose Hemoglobin A1c Lactic Acid Calcium Total Creatine Kinase CK-MB (CK-2) Troponin T NT-Pro-B Natriuret Pep TSH Urine pH Salicylates 10/21/17 06:22 WBC RBC Hgb Hct MCHC RDW Lymph % (Auto) Lymph # [place] # Seg Neutrophils % Seg Neutrophils # POC ABG pH POC ABG pCO2 POC ABG pO2 Carbon Dioxide BUN Creatinine Glucose POC Glucose 225 H Hemoglobin A1c Lactic Acid Calcium Total Creatine Kinase CK-MB (CK-2) Troponin T NT-Pro-B Natriuret Pep TSH Urine pH Salicylates
[2017-10-21] MEDS: TRANSDERM-SCOP TD SCH (12:22)
[2017-10-21] MEDS: BROVANA NEBU IH SCH ×2 (12:28→19:31)
[2017-10-21] MEDS: PULMICORT IH SCH ×2 (12:28→19:31)
[2017-10-21] MEDS: ASPIRIN PO SCH (22:28)
[2017-10-22] MEDS: HumuLIN R SUB-Q SCH ×5 (00:43→18:04)
--- NOTE | 2017-10-22 03:03 | XRay Report ---
FINAL REPORT EXAM: XR CHEST 1V AP HISTORY: follow up respiratory failure TECHNIQUE: A portable upright view the chest was obtained and compared to the study of 10/21/2017. FINDINGS: The ET tube and nasogastric tube appear in good position. The heart size is normal. The lungs are not congested. The left lung base has cleared. Pleural fluid is not seen. The skeletal structures do not show any acute changes. IMPRESSION: Interval clearance of the left lung base since the previous study. No evidence of congestion.
[2017-10-22] MEDS: NACL 0.45% 1000 ML 1,000 ML IV SCH (03:07)
[2017-10-22] MEDS: PROVENTIL IH SCH ×6 (03:15→23:30)
[2017-10-22] MEDS: NORMODYNE IV SCH (07:51)
[2017-10-22 08:03] LABS: Hematocrit 46.2 % (35.5-45.6); Hemoglobin 15.5 gm/dl (11.8-15.2); Mean Corpuscular HGB Conc 34 % (32-34); Mean Corpuscular Hemoglobin 30 pg (28-32); Mean Corpuscular Volume 89 fl (84-94); Platelet Count 253 K/mm3 (140-440)
[2017-10-22] MEDS: PULMICORT IH SCH ×2 (08:06→19:41)
[2017-10-22] MEDS: BROVANA NEBU IH SCH ×2 (08:06→19:41)
[2017-10-22 08:23] LABS: BUN/Creatinine Ratio 35; Blood Urea Nitrogen 39 mg/dL (9-20); Calcium 9.1 mg/dL (8.4-10.2); Hemolysis Index 46
--- NOTE | 2017-10-22 08:40 | Progress Note ---
Assessment and Plan Assessment and plan: Acute respiratory failure, Patient was extubated 10/18 but re-Intubated later in evening. Still on ventilator Pulmonology following GI bleed. GI following H/H stable Conservative management for now. Acute to subacute ischemic stroke right medulla oblongata. Aspirin. Neuro following. Acute kidney injury, Improved, Cr 1.1 today Prediabetes a1c 6.4. blood glucose uncontrolled. Start Novolin 70/30 Fever, low grade, 100.6 on 10/21 Repeat blood cultures, drawn Elevated troponin. Cardiology following. Encephalopathy. Now alert,follows commands Full code status Discussed with patient and fiance at bedside. History Interval history: Still intubated More alert, mild right sided weakness Hospitalist Physical - Physical exam Narrative exam: Constitutional; Not in acute distress, intubated HEENT: Atraumatic, normocephalic Neck: supple, no lymphadenopathy, JVD or thyromegaly Lungs: Bilateral crackles CVS; S1-S2 regular, no murmurs, rubs or gallop, Abdomen; soft, non-tender, non distended,bowel sounds are normal, Musculoskeletal; No edema, no clubbing, no cyanosis PRODUCTION HAND: Intubated, awake,alert,follows commands,moves all ext, mild weakness on right - Constitutional Vitals: Temp Pulse Resp BP Pulse Ox 98.5 F 67 22 184/99 100 10/22/17 08:00 10/22/17 08:06 10/22/17 08:06 10/22/17 08:00 10/22/17 08:00 General appearance: Present: other (intubated on the vent) Results - Labs CBC & Chem 7: 10/22/17 07:18 10/22/17 07:18 Labs: Laboratory Last Values WBC 12.6 K/mm3 (4.5-11.0) H 10/22/17 07:18 RBC 5.20 M/mm3 (3.65-5.03) H 10/22/17 07:18 Hgb 15.5 gm/dl (11.8-15.2) H 10/22/17 07:18 Hct 46.2 % (35.5-45.6) H 10/22/17 07:18 MCV 89 fl (84-94) 10/22/17 07:18 MCH 30 pg (28-32) 10/22/17 07:18 MCHC 34 % (32-34) 10/22/17 07:18 RDW 13.0 % (13.2-15.2) L 10/22/17 07:18 Plt Count 253 K/mm3 (140-440) 10/22/17 07:18 Lymph % (Auto) 8.0 % (13.4-35.0) L 10/18/17 10:39 [place] % (Auto) 5.4 % (0.0-7.3) 10/18/17 10:39 Eos % (Auto) 0.0 % (0.0-4.3) 10/18/17 10:39 Baso % (Auto) 0.1 % (0.0-1.8) 10/18/17 10:39 Lymph # 1.2 K/mm3 (1.2-5.4) 10/18/17 10:39 [place] # 0.8 K/mm3 (0.0-0.8) 10/18/17 10:39 Eos # 0.0 K/mm3 (0.0-0.4) 10/18/17 10:39 Baso # 0.0 K/mm3 (0.0-0.1) 10/18/17 10:39 Add Manual Diff TNR 10/17/17 15:01 Seg Neutrophils % 86.5 % (40.0-70.0) H 10/18/17 10:39 Seg Neutrophils # 12.6 K/mm3 (1.8-7.7) H 10/18/17 10:39 PT 13.1 Sec. (12.2-14.9) 10/17/17 04:06 INR 0.95 (0.87-1.13) 10/17/17 04:06 APTT 27.7 Sec. (24.2-36.6) 10/17/17 04:06 Thrombin Time 17.0 Sec. (15.1-19.6) 10/17/17 04:06 POC ABG pH 7.458 (7.35-7.45) H 10/21/17 03:36 POC ABG pCO2 42.4 (35-45) 10/21/17 03:36 POC ABG pO2 62 (80-105) L 10/21/17 03:36 POC ABG HCO3 30.0 10/21/17 03:36 POC ABG Total CO2 31 10/21/17 03:36 POC ABG O2 Sat 92 10/21/17 03:36 POC ABG Base Excess 6 10/21/17 03:36 FiO2 30 % 10/21/17 03:36 Sodium 144 mmol/L (137-145) 10/22/17 07:18 Potassium 3.8 mmol/L (3.6-5.0) 10/21/17 04:15 Chloride 102.0 mmol/L (98-107) 10/22/17 07:18 Carbon Dioxide 28 mmol/L (22-30) 10/22/17 07:18 Anion Gap 19 mmol/L 10/22/17 07:18 BUN 39 mg/dL (9-20) H 10/22/17 07:18 Creatinine 1.1 mg/dL (0.8-1.5) 10/22/17 07:18 Estimated GFR > 60 ml/min 10/22/17 07:18 BUN/Creatinine Ratio 35 % 10/22/17 07:18 Glucose 308 mg/dL (75-100) H 10/22/17 07:18 POC Glucose 334 (70-105) H 10/22/17 05:20 Hemoglobin A1c 6.4 % (4-6) H 10/20/17 04:18 Lactic Acid 1.70 mmol/L (0.7-2.0) 10/17/17 22:43 Calcium 9.1 mg/dL (8.4-10.2) 10/22/17 07:18 Total Creatine Kinase 464 units/L (55-170) H 10/17/17 15:01 CK-MB (CK-2) 6.8 ng/mL (0.0-4.0) H 10/17/17 15:01 CK-MB (CK-2) Rel Index 1.4 (0-4) 10/17/17 15:01 Troponin T < 0.010 ng/mL (0.00-0.029) 10/17/17 22:43 NT-Pro-B Natriuret Pep 604.7 pg/mL (0-450) H 10/17/17 15:01 Triglycerides 57 mg/dL (2-149) 10/17/17 15:01 Cholesterol 132 mg/dL (50-199) 10/17/17 15:01 LDL Cholesterol Direct 84 mg/dL (50-130) 10/17/17 15:01 HDL Cholesterol 47 mg/dL (40-59) 10/17/17 15:01 Cholesterol/HDL Ratio 2.80 % 10/17/17 15:01 TSH 0.105 mlU/mL (0.270-4.200) L 10/18/17 15:58 Free T4 1.10 ng/dL (0.76-1.46) 10/18/17 15:58 Urine Color Yellow (Yellow) 10/17/17 04:35 Urine Turbidity Clear (Clear) 10/17/17 04:35 Urine pH 8.0 (5.0-7.0) H 10/17/17 04:35 Ur Specific [place] 1.013 (1.003-1.030) 10/17/17 04:35 Urine Protein <15 mg/dl mg/dL (Negative) 10/17/17 04:35 Urine Glucose (UA) 50 mg/dL (Negative) 10/17/17 04:35 Urine Ketones Neg mg/dL (Negative) 10/17/17 04:35 Urine Blood Neg (Negative) 10/17/17 04:35 Urine Nitrite Neg (Negative) 10/17/17 04:35 Urine Bilirubin Neg (Negative) 10/17/17 04:35 Urine Urobilinogen < 2.0 mg/dL (<2.0) 10/17/17 04:35 Ur Leukocyte Esterase Neg (Negative) 10/17/17 04:35 Urine WBC (Auto) 3.0 /HPF (0.0-6.0) 10/17/17 04:35 Urine RBC (Auto) < 1.0 /HPF (0.0-6.0) 10/17/17 04:35 U Epithel Cells (Auto) 1.0 /HPF (0-13.0) 10/17/17 04:35 Urine Bacteria (Auto) 1+ /HPF (Negative) 10/17/17 04:35 Salicylates < 0.3 mg/dL (2.8-20.0) L 10/17/17 04:23 Urine Opiates Screen Presumptive negative 10/17/17 04:35 Urine Methadone Screen Presumptive negative 10/17/17 04:35 Ur Barbiturates Screen Presumptive negative 10/17/17 04:35 Ur Phencyclidine Scrn Presumptive negative 10/17/17 04:35 Ur Amphetamines Screen Presumptive negative 10/17/17 04:35 U Benzodiazepines Scrn Presumptive negative 10/17/17 04:35 Urine Cocaine Screen Presumptive negative 10/17/17 04:35 U Marijuana (THC) Screen Presumptive negative 10/17/17 04:35 Drugs of Abuse Note Disclamer 10/17/17 04:35 Plasma/Serum Alcohol < 0.01 % (0-0.07) 10/17/17 04:23
--- NOTE | 2017-10-22 09:05 | Progress Note ---
Assessment and Plan stroke GIB emesis acute respiratory failure failed extubation HTN Recommendations f/u hospital ventilator bundle, Set tidal Volume set initially at 6-8 cm PBW for ROSALINA protection Keep PIP < 30 Maintain extubation precautions Daily morning sedation vacation and initiate SBT if deemed appropriate. We'll continue pressure support/CPAP at this point. The patient rapid shallow breathing index was 45, so we'll continue to monitor for hypoventilation DVT prophylaxis PPI prophylaxis Discontinued and IV steroids if no longer needed Discussed with patient and family at the bedside. All questions answered. Critical care time was 31 minutes of [id number] evaluation and coordination of care Subjective Date of service: 10/22/17 Principal diagnosis: acute stroke, respiratory failure/MV support Interval history: Awake. No shortness of breath. Objective Vital Signs - 12hr 10/21/17 10/21/17 10/21/17 21:31 22:00 22:30 Temperature Pulse Rate 76 70 67 Pulse Rate [ Anterior Throughout] Pulse Rate [ From Monitor] Pulse Rate [ Right Radial] Respiratory 17 22 22 Rate Respiratory Rate [Anterior Throughout] Blood Pressure 168/106 159/99 157/93 O2 Sat by Pulse 96 96 96 Oximetry 10/21/17 10/21/17 10/21/17 22:58 23:00 23:01 Temperature Pulse Rate 93 H 67 Pulse Rate [ 75 Anterior Throughout] Pulse Rate [ 62 From Monitor] Pulse Rate [ Right Radial] Respiratory 14 20 Rate Respiratory 29 H Rate [Anterior Throughout] Blood Pressure 157/93 176/101 O2 Sat by Pulse 99 99 97 Oximetry 10/21/17 10/21/17 10/21/17 23:12 23:30 23:49 Temperature 98.3 F Pulse Rate Pulse Rate [ 65 Anterior Throughout] Pulse Rate [ From Monitor] Pulse Rate [ Right Radial] Respiratory Rate Respiratory 22 Rate [Anterior Throughout] Blood Pressure 175/103 O2 Sat by Pulse 97 Oximetry 10/22/17 10/22/17 10/22/17 00:00 00:30 01:00 Temperature Pulse Rate 63 66 63 Pulse Rate [ Anterior Throughout] Pulse Rate [ From Monitor] Pulse Rate [ Right Radial] Respiratory 17 22 13 Rate Respiratory Rate [Anterior Throughout] Blood Pressure 160/98 146/93 145/96 O2 Sat by Pulse 97 97 97 Oximetry 10/22/17 10/22/17 10/22/17 01:30 02:00 02:30 Temperature Pulse Rate 60 74 63 Pulse Rate [ Anterior Throughout] Pulse Rate [ From Monitor] Pulse Rate [ Right Radial] Respiratory 23 18 23 Rate Respiratory Rate [Anterior Throughout] Blood Pressure 153/98 153/98 142/96 O2 Sat by Pulse 97 99 98 Oximetry 10/22/17 10/22/17 10/22/17 03:00 03:12 03:15 Temperature Pulse Rate 61 63 Pulse Rate [ 64 Anterior Throughout] Pulse Rate [ 65 From Monitor] Pulse Rate [ Right Radial] Respiratory 19 Rate Respiratory 27 H Rate [Anterior Throughout] Blood Pressure 154/103 154/103 O2 Sat by Pulse 97 98 Oximetry 10/22/17 10/22/17 10/22/17 03:25 03:30 03:43 Temperature 99 F Pulse Rate 61 Pulse Rate [ 66 Anterior Throughout] Pulse Rate [ From Monitor] Pulse Rate [ Right Radial] Respiratory 20 Rate Respiratory 23 Rate [Anterior Throughout] Blood Pressure 165/98 O2 Sat by Pulse 97 Oximetry 10/22/17 10/22/17 10/22/17 04:00 04:30 05:00 Temperature Pulse Rate 67 58 L 60 Pulse Rate [ Anterior Throughout] Pulse Rate [ From Monitor] Pulse Rate [ Right Radial] Respiratory 20 22 17 Rate Respiratory Rate [Anterior Throughout] Blood Pressure 175/106 160/99 153/96 O2 Sat by Pulse 98 97 98 Oximetry 10/22/17 10/22/17 10/22/17 05:31 06:01 06:30 Temperature Pulse Rate 58 L 57 L Pulse Rate [ Anterior Throughout] Pulse Rate [ From Monitor] Pulse Rate [ Right Radial] Respiratory 18 23 Rate Respiratory Rate [Anterior Throughout] Blood Pressure 153/96 174/92 150/91 O2 Sat by Pulse 99 99 100 Oximetry 10/22/17 10/22/17 10/22/17 07:00 07:30 08:00 Temperature 98.5 F Pulse Rate 55 L 57 L 59 L Pulse Rate [ Anterior Throughout] Pulse Rate [ 58 L From Monitor] Pulse Rate [ 58 L Right Radial] Respiratory 23 22 14 Rate Respiratory Rate [Anterior Throughout] Blood Pressure 162/96 184/99 184/99 O2 Sat by Pulse 100 100 100 Oximetry 10/22/17 08:06 Temperature Pulse Rate Pulse Rate [ 67 Anterior Throughout] Pulse Rate [ From Monitor] Pulse Rate [ Right Radial] Respiratory Rate Respiratory 22 Rate [Anterior Throughout] Blood Pressure O2 Sat by Pulse Oximetry Constitutional: no acute distress, alert Eyes: non-icteric ENT: other (orally intubated ) Neck: supple Ascultation: Bilateral: clear, diminished breath sounds Percussion: Bilateral: not dull Cardiovascular: regular rate and rhythm Gastrointestinal: soft, non-tender Extremities: no cyanosis, no edema, pink and warm Neurologic: unable to assess CBC and BMP: 10/22/17 07:18 10/22/17 07:18 ABG, PT/INR, D-dimer: ABG POC ABG pH 7.458 (7.35-7.45) H 10/21/17 03:36 POC ABG pCO2 42.4 (35-45) 10/21/17 03:36 POC ABG pO2 62 (80-105) L 10/21/17 03:36 POC ABG HCO3 30.0 10/21/17 03:36 POC ABG Total CO2 31 10/21/17 03:36 POC ABG O2 Sat 92 10/21/17 03:36 PT/INR, D-dimer PT 13.1 Sec. (12.2-14.9) 10/17/17 04:06 INR 0.95 (0.87-1.13) 10/17/17 04:06 Abnormal lab findings: Abnormal Labs 10/17/17 10/17/17 10/17/17 04:06 04:06 04:23 WBC RBC 5.56 H Hgb 16.7 H Hct 48.1 H MCHC 35 H RDW 13.0 L Lymph % (Auto) Lymph # [place] # Seg Neutrophils % Seg Neutrophils # POC ABG pH POC ABG pCO2 POC ABG pO2 Carbon Dioxide BUN Creatinine Glucose 141 H POC Glucose Hemoglobin A1c Lactic Acid Calcium Total Creatine Kinase 301 H CK-MB (CK-2) Troponin T NT-Pro-B Natriuret Pep TSH Urine pH Salicylates 10/17/17 10/17/17 10/17/17 04:23 04:24 04:35 WBC RBC Hgb Hct MCHC RDW Lymph % (Auto) Lymph # [place] # Seg Neutrophils % Seg Neutrophils # POC ABG pH POC ABG pCO2 POC ABG pO2 Carbon Dioxide BUN Creatinine Glucose POC Glucose 132 H Hemoglobin A1c Lactic Acid Calcium Total Creatine Kinase CK-MB (CK-2) Troponin T NT-Pro-B Natriuret Pep TSH Urine pH 8.0 H Salicylates < 0.3 L 10/17/17 10/17/17 10/17/17 05:49 06:26 10:39 WBC RBC Hgb 16.6 H Hct 48.3 H MCHC RDW Lymph % (Auto) Lymph # [place] # Seg Neutrophils % Seg Neutrophils # POC ABG pH 7.207 L 7.155 L POC ABG pCO2 62.6 H 72.8 H POC ABG pO2 155 H Carbon Dioxide BUN Creatinine Glucose POC Glucose Hemoglobin A1c Lactic Acid Calcium Total Creatine Kinase CK-MB (CK-2) Troponin T NT-Pro-B Natriuret Pep TSH Urine pH Salicylates 10/17/17 10/17/17 10/17/17 15:01 15:01 16:26 WBC RBC Hgb Hct MCHC RDW Lymph % (Auto) Lymph # [place] # Seg Neutrophils % Seg Neutrophils # POC ABG pH POC ABG pCO2 POC ABG pO2 Carbon Dioxide 21 L BUN Creatinine Glucose 134 H POC Glucose Hemoglobin A1c Lactic Acid 2.60 H* 2.50 H* Calcium 8.3 L Total Creatine Kinase 464 H CK-MB (CK-2) 6.8 H Troponin T 0.102 H* D NT-Pro-B Natriuret Pep 604.7 H TSH Urine pH Salicylates 10/17/17 10/17/17 10/17/17 16:30 18:36 18:51 WBC 18.6 H RBC 5.55 H Hgb 16.3 H Hct 48.2 H MCHC RDW 12.9 L Lymph % (Auto) 6.0 L Lymph # 1.1 L [place] # 1.1 H Seg Neutrophils % 87.9 H Seg Neutrophils # 16.4 H POC ABG pH POC ABG pCO2 POC ABG pO2 202 H Carbon Dioxide BUN Creatinine Glucose POC Glucose Hemoglobin A1c Lactic Acid 2.20 H* Calcium Total Creatine Kinase CK-MB (CK-2) Troponin T NT-Pro-B Natriuret Pep TSH Urine pH Salicylates 10/17/17 10/18/17 10/18/17 22:06 02:31 05:33 WBC RBC Hgb Hct MCHC RDW Lymph % (Auto) Lymph # [place] # Seg Neutrophils % Seg Neutrophils # POC ABG pH POC ABG pCO2 46.9 H POC ABG pO2 107 H Carbon Dioxide BUN Creatinine Glucose POC Glucose 139 H 180 H Hemoglobin A1c Lactic Acid Calcium Total Creatine Kinase CK-MB (CK-2) Troponin T NT-Pro-B Natriuret Pep TSH Urine pH Salicylates 10/18/17 10/18/17 10/18/17 05:46 10:17 10:39 WBC 14.5 H RBC 5.13 H Hgb 15.7 H Hct MCHC 35 H RDW Lymph % (Auto) 8.0 L Lymph # [place] # Seg Neutrophils % 86.5 H Seg Neutrophils # 12.6 H POC ABG pH POC ABG pCO2 POC ABG pO2 Carbon Dioxide BUN Creatinine Glucose POC Glucose 157 H 128 H Hemoglobin A1c Lactic Acid Calcium Total Creatine Kinase CK-MB (CK-2) Troponin T NT-Pro-B Natriuret Pep TSH Urine pH Salicylates 10/18/17 10/18/17 10/18/17 14:32 15:58 17:47 WBC RBC Hgb Hct MCHC RDW Lymph % (Auto) Lymph # [place] # Seg Neutrophils % Seg Neutrophils # POC ABG pH POC ABG pCO2 POC ABG pO2 Carbon Dioxide BUN Creatinine Glucose POC Glucose 122 H 156 H Hemoglobin A1c Lactic Acid Calcium Total Creatine Kinase CK-MB (CK-2) Troponin T NT-Pro-B Natriuret Pep TSH 0.105 L Urine pH Salicylates 10/18/17 10/19/17 10/19/17 22:34 02:57 04:34 WBC RBC Hgb Hct MCHC RDW Lymph % (Auto) Lymph # [place] # Seg Neutrophils % Seg Neutrophils # POC ABG pH 7.329 L POC ABG pCO2 56.9 H POC ABG pO2 163 H Carbon Dioxide BUN Creatinine Glucose POC Glucose 154 H 155 H Hemoglobin A1c Lactic Acid Calcium Total Creatine Kinase CK-MB (CK-2) Troponin T NT-Pro-B Natriuret Pep TSH Urine pH Salicylates 10/19/17 10/19/17 10/19/17 06:51 06:51 06:55 WBC 15.7 H RBC 5.14 H Hgb 15.4 H Hct MCHC RDW Lymph % (Auto) Lymph # [place] # Seg Neutrophils % Seg Neutrophils # POC ABG pH POC ABG pCO2 POC ABG pO2 Carbon Dioxide BUN 28 H Creatinine 1.9 H D Glucose 182 H POC Glucose 155 H Hemoglobin A1c Lactic Acid Calcium Total Creatine Kinase CK-MB (CK-2) Troponin T NT-Pro-B Natriuret Pep TSH Urine pH Salicylates 0710/19/17 10/19/17 10:19 12:26 17:15 WBC RBC Hgb Hct MCHC RDW Lymph % (Auto) Lymph # [place] # Seg Neutrophils % Seg Neutrophils # POC ABG pH POC ABG pCO2 POC ABG pO2 Carbon Dioxide BUN Creatinine Glucose POC Glucose 169 H 172 H 132 H Hemoglobin A1c Lactic Acid Calcium Total Creatine Kinase CK-MB (CK-2) Troponin T NT-Pro-B Natriuret Pep TSH Urine pH Salicylates 10/20/17 10/20/17 10/20/17 00:03 03:39 04:17 WBC 13.2 H RBC Hgb Hct MCHC RDW Lymph % (Auto) Lymph # [place] # Seg Neutrophils % Seg Neutrophils # POC ABG pH POC ABG pCO2 48.3 H POC ABG pO2 Carbon Dioxide BUN Creatinine Glucose POC Glucose 238 H Hemoglobin A1c Lactic Acid Calcium Total Creatine Kinase CK-MB (CK-2) Troponin T NT-Pro-B Natriuret Pep TSH Urine pH Salicylates 10/20/17 10/20/17 10/20/17 04:17 04:18 05:36 WBC RBC Hgb Hct MCHC RDW Lymph % (Auto) Lymph # [place] # Seg Neutrophils % Seg Neutrophils # POC ABG pH POC ABG pCO2 POC ABG pO2 Carbon Dioxide BUN 34 H Creatinine Glucose 230 H POC Glucose 243 H Hemoglobin A1c 6.4 H Lactic Acid Calcium Total Creatine Kinase CK-MB (CK-2) Troponin T NT-Pro-B Natriuret Pep TSH Urine pH Salicylates 10/20/17 10/20/17 10/21/17 11:44 18:35 00:08 WBC RBC Hgb Hct MCHC RDW Lymph % (Auto) Lymph # [place] # Seg Neutrophils % Seg Neutrophils # POC ABG pH POC ABG pCO2 POC ABG pO2 Carbon Dioxide BUN Creatinine Glucose POC Glucose 215 H 217 H 215 H Hemoglobin A1c Lactic Acid Calcium Total Creatine Kinase CK-MB (CK-2) Troponin T NT-Pro-B Natriuret Pep TSH Urine pH Salicylates 10/21/17 10/21/17 10/21/17 03:36 04:15 04:15 WBC 15.1 H RBC Hgb Hct MCHC RDW 13.0 L Lymph % (Auto) Lymph # [place] # Seg Neutrophils % Seg Neutrophils # POC ABG pH 7.458 H POC ABG pCO2 POC ABG pO2 62 L Carbon Dioxide BUN 38 H Creatinine Glucose 248 H POC Glucose Hemoglobin A1c Lactic Acid Calcium Total Creatine Kinase CK-MB (CK-2) Troponin T NT-Pro-B Natriuret Pep TSH Urine pH Salicylates 10/21/17 10/21/17 10/21/17 06:22 12:16 17:39 WBC RBC Hgb Hct MCHC RDW Lymph % (Auto) Lymph # [place] # Seg Neutrophils % Seg Neutrophils # POC ABG pH POC ABG pCO2 POC ABG pO2 Carbon Dioxide BUN Creatinine Glucose POC Glucose 225 H 237 H 268 H Hemoglobin A1c Lactic Acid Calcium Total Creatine Kinase CK-MB (CK-2) Troponin T NT-Pro-B Natriuret Pep TSH Urine pH Salicylates 10/21/17 10/22/17 10/22/17 17:51 00:13 05:20 WBC RBC Hgb Hct MCHC RDW Lymph % (Auto) Lymph # [place] # Seg Neutrophils % Seg Neutrophils # POC ABG pH POC ABG pCO2 POC ABG pO2 Carbon Dioxide BUN Creatinine Glucose POC Glucose 263 H 257 H 334 H Hemoglobin A1c Lactic Acid Calcium Total Creatine Kinase CK-MB (CK-2) Troponin T NT-Pro-B Natriuret Pep TSH Urine pH Salicylates 10/22/17 10/22/17 07:18 07:18 WBC 12.6 H RBC 5.20 H Hgb 15.5 H Hct 46.2 H MCHC RDW 13.0 L Lymph % (Auto) Lymph # [place] # Seg Neutrophils % Seg Neutrophils # POC ABG pH POC ABG pCO2 POC ABG pO2 Carbon Dioxide BUN 39 H Creatinine Glucose 308 H POC Glucose Hemoglobin A1c Lactic Acid Calcium Total Creatine Kinase CK-MB (CK-2) Troponin T NT-Pro-B Natriuret Pep TSH Urine pH Salicylates Chest x-ray: report reviewed, image reviewed
[2017-10-22] MEDS: PEPCID PO SCH ×2 (09:57→22:12)
[2017-10-22] MEDS: HEPARIN SUB-Q SCH ×2 (09:58→22:09)
[2017-10-22] MEDS: HCTZ PO SCH (12:03)
--- NOTE | 2017-10-22 12:13 | Progress Note ---
Assessment and Plan Right sided weakness head CT reports no acute abnormalities Respiratory failure intubated on the vent Hypertension Elevated troponin, nonspecific Lactic acidosis Normal LVEF by echocardiogram Conservative cardiac management. Subjective Date of service: 10/22/17 Principal diagnosis: acute stroke, respiratory failure/MV support Interval history: Patient remains intubated on the vent. Objective Vital Signs Temp Pulse Pulse Pulse Pulse Resp Resp 10/22/17 11:00 57 L 23 10/22/17 10:30 55 L 13 10/22/17 10:01 62 12 10/22/17 10:00 60 60 14 10/22/17 09:30 62 12 10/22/17 09:05 98.5 F 10/22/17 09:01 62 23 10/22/17 09:00 57 L 10/22/17 08:31 61 21 10/22/17 08:06 67 22 10/22/17 08:00 98.5 F 58 L 58 L 58 L 19 10/22/17 07:30 57 L 22 10/22/17 07:00 55 L 23 10/22/17 06:30 57 L 23 10/22/17 06:01 58 L 18 10/22/17 05:31 10/22/17 05:00 60 17 10/22/17 04:30 58 L 22 10/22/17 04:00 67 20 10/22/17 03:43 99 F 10/22/17 03:30 61 20 10/22/17 03:25 66 23 10/22/17 03:15 64 27 H 10/22/17 03:12 63 10/22/17 03:00 61 65 19 10/22/17 02:30 63 23 10/22/17 02:00 74 18 10/22/17 01:30 60 23 10/22/17 01:00 63 13 10/22/17 00:30 66 22 10/22/17 00:00 63 17 10/21/17 23:49 98.3 F 10/21/17 23:30 10/21/17 23:12 65 22 10/21/17 23:01 67 75 20 29 H 10/21/17 23:00 62 14 10/21/17 22:58 93 H 10/21/17 22:30 67 22 10/21/17 22:00 70 22 10/21/17 21:31 76 17 10/21/17 21:00 76 19 10/21/17 20:30 90 19 10/21/17 20:00 79 17 10/21/17 19:51 99.6 F 10/21/17 19:41 72 22 10/21/17 19:31 62 23 10/21/17 19:30 58 L 12 10/21/17 19:25 59 L 26 H 10/21/17 19:00 60 71 13 10/21/17 18:30 62 17 10/21/17 18:03 61 17 10/21/17 18:00 65 12 10/21/17 17:30 60 13 10/21/17 17:00 65 13 10/21/17 16:31 59 L 12 10/21/17 16:10 61 11 L 10/21/17 16:00 98.7 F 65 9 L 10/21/17 15:53 68 18 10/21/17 15:43 71 18 10/21/17 15:30 58 L 15 10/21/17 15:00 58 L 58 L 14 10/21/17 14:31 71 10 L 10/21/17 14:00 55 L 10 L 10/21/17 13:30 62 11 L 10/21/17 13:00 68 13 10/21/17 12:38 62 20 10/21/17 12:30 63 10 L 10/21/17 12:28 64 20 BP Pulse Ox 10/22/17 11:00 160/97 99 10/22/17 10:30 160/94 97 10/22/17 10:01 146/96 98 10/22/17 10:00 100 10/22/17 09:30 184/99 10/22/17 09:05 10/22/17 09:01 184/99 100 10/22/17 09:00 10/22/17 08:31 184/99 100 10/22/17 08:06 10/22/17 08:00 146/96 100 10/22/17 07:30 184/99 100 10/22/17 07:00 162/96 100 10/22/17 06:30 150/91 100 10/22/17 06:01 174/92 99 10/22/17 05:31 153/96 99 10/22/17 05:00 153/96 98 10/22/17 04:30 160/99 97 10/22/17 04:00 175/106 98 18 03:43 18 03:30 165/98 97 18 03:25 10/22/17 03:15 18 03:12 154/103 98 18 03:00 154/103 97 18 02:30 142/96 98 10/22/17 02:00 153/98 99 10/22/17 01:30 153/98 97 10/22/17 01:00 145/96 97 18 00:30 146/93 97 10/22/17 00:00 160/98 97 10/21/17 23:49 10/21/17 23:30 175/103 97 10/21/17 23:12 10/21/17 23:01 176/101 97 10/21/17 23:00 99 10/21/17 22:58 157/93 99 10/21/17 22:30 157/93 96 10/21/17 22:00 159/99 96 10/21/17 21:31 168/106 96 10/21/17 21:00 192/108 97 10/21/17 20:30 178/113 97 18 20:00 179/112 97 10/21/17 19:51 10/21/17 19:41 10/21/17 19:31 18 19:30 191/102 98 18 19:25 174/91 100 18 19:00 175/102 99 18 18:30 175/102 97 10/21/17 18:03 166/97 99 18 18:00 166/97 97 18 17:30 175/95 97 18 17:00 169/93 96 18 16:31 185/94 97 18 16:10 162/99 100 18 16:00 162/99 98 18 15:53 10/21/17 15:43 18 15:30 182/95 98 18 15:00 173/90 98 18 14:31 188/100 97 18 14:00 153/84 97 10/21/17 13:30 188/97 97 10/21/17 13:00 189/100 99 10/21/17 12:38 10/21/17 12:30 179/84 98 10/21/17 12:28 - Physical Examination General: Other (on the vent) Cardiac: Positive: Reg Rate and Rhythm Extremities: Absent: edema - Labs and Meds CBC 10/22/17 Range/Units 07:18 WBC 12.6 H (4.5-11.0) K/mm3 RBC 5.20 H (3.65-5.03) M/mm3 Hgb 15.5 H (11.8-15.2) gm/dl Hct 46.2 H (35.5-45.6) % Plt Count 253 (140-440) K/mm3 Comprehensive Metabolic Panel 10/22/17 Range/Units 07:18 Sodium 144 (137-145) mmol/L Potassium 4.7 D (3.6-5.0) mmol/L Chloride 102.0 (98-107) mmol/L Carbon Dioxide 28 (22-30) mmol/L BUN 39 H (9-20) mg/dL Creatinine 1.1 (0.8-1.5) mg/dL Glucose 308 H (75-100) mg/dL Calcium 9.1 (8.4-10.2) mg/dL
--- NOTE | 2017-10-22 17:00 | Progress Note ---
Subjective Date of service: 10/22/17 Principal diagnosis: acute stroke, respiratory failure/MV support Interval history: NEURO FOLLOW UP NOTE Hx in all notes reviewed including notes of Dr Rice (Neurology) of 10/17. Hx of right sided weakness onset some 5 hours before arrival here. No tPA given. Head CT unremarkable. MRI images reviewed and show an acute (by DWI) infarct in the right lateral medulla and another small lesion in the the meduallary pyramid. Echo shows no sig abn, with EF of 50 - 60%. He is now extubated (was intubated because of intractable vomiting on admission to protect airway). On exam, he has multiple tatoos, appears trim and very muscular. Salient findings are: awake, alert, cooperative, speech slurred somewhat, volnteers no speech, follows commands fairly quickly and accurately. Right sided ptosis and mild meiosis, with full EOM, without nystagmus. left pupil 4mm diam, right pupil 3mm diam. clumbsy right arm on fnf testing without any weakness. normal strength in both legs prox and distally and in left arm prox and dist. DTRS 1+ at both biceps, 1+ knees, and trace ankles bilat, both great toes downgoing to plantar stim DX IMP: 1. 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 In a muscular male with multiple tatoos, vertebral dissection as cause must be ruled out. 2. HTN, as yet not controlled 3. Tobacco abuse 4. Elevated BUN, with now normalized creat RECC: 1. Need to image his posterior circulation in neck and brain, with MRA head and neck or CTA head and neck. Please consult Radiology for best stude and if OK with BUN elevation. This is [place] because if there is a dissection, then he needs anti-coag Rx for three months. 2. Pursue rest of mgt and move to control BP more rigorously now with systolic upper limit 160 mm Hg. Louis Del Angel MD Objective - Vital Sign Vital Signs - 12hr 10/22/17 10/22/17 10/22/17 05:00 05:31 06:01 Temperature Pulse Rate 60 58 L Pulse Rate [ Anterior Throughout] Pulse Rate [ From Monitor] Pulse Rate [ Right Radial] Respiratory 17 18 Rate Respiratory Rate [Anterior Throughout] Blood Pressure 153/96 153/96 174/92 O2 Sat by Pulse 98 99 99 Oximetry 10/22/17 10/22/17 10/22/17 06:30 07:00 07:30 Temperature Pulse Rate 57 L 55 L 57 L Pulse Rate [ Anterior Throughout] Pulse Rate [ From Monitor] Pulse Rate [ Right Radial] Respiratory 23 23 22 Rate Respiratory Rate [Anterior Throughout] Blood Pressure 150/91 162/96 184/99 O2 Sat by Pulse 100 100 100 Oximetry 10/22/17 10/22/17 10/22/17 08:00 08:06 08:16 Temperature 98.5 F Pulse Rate 58 L Pulse Rate [ 67 63 Anterior Throughout] Pulse Rate [ 58 L From Monitor] Pulse Rate [ 58 L Right Radial] Respiratory 19 Rate Respiratory 22 22 Rate [Anterior Throughout] Blood Pressure 146/96 O2 Sat by Pulse 100 Oximetry 10/22/17 10/22/17 10/22/17 08:31 09:00 09:01 Temperature Pulse Rate 61 57 L 62 Pulse Rate [ Anterior Throughout] Pulse Rate [ From Monitor] Pulse Rate [ Right Radial] Respiratory 21 23 Rate Respiratory Rate [Anterior Throughout] Blood Pressure 184/99 184/99 O2 Sat by Pulse 100 100 Oximetry 10/22/17 10/22/17 10/22/17 09:05 09:30 10:00 Temperature 98.5 F Pulse Rate 62 Pulse Rate [ Anterior Throughout] Pulse Rate [ 60 From Monitor] Pulse Rate [ 60 Right Radial] Respiratory 12 14 Rate Respiratory Rate [Anterior Throughout] Blood Pressure 184/99 O2 Sat by Pulse 100 Oximetry 10/22/17 10/22/17 10/22/17 10:01 10:30 11:00 Temperature Pulse Rate 62 55 L 57 L Pulse Rate [ Anterior Throughout] Pulse Rate [ From Monitor] Pulse Rate [ Right Radial] Respiratory 12 13 23 Rate Respiratory Rate [Anterior Throughout] Blood Pressure 146/96 160/94 160/97 O2 Sat by Pulse 98 97 99 Oximetry 10/22/17 10/22/17 10/22/17 11:31 12:00 12:01 Temperature 99.3 F Pulse Rate 66 66 64 Pulse Rate [ 64 Anterior Throughout] Pulse Rate [ 68 From Monitor] Pulse Rate [ 68 Right Radial] Respiratory 13 12 20 Rate Respiratory 20 Rate [Anterior Throughout] Blood Pressure 160/97 168/99 168/99 O2 Sat by Pulse 98 99 99 Oximetry 10/22/17 10/22/17 10/22/17 12:12 12:31 13:00 Temperature Pulse Rate 71 70 Pulse Rate [ 68 Anterior Throughout] Pulse Rate [ From Monitor] Pulse Rate [ Right Radial] Respiratory 14 13 Rate Respiratory 18 Rate [Anterior Throughout] Blood Pressure 160/97 160/97 O2 Sat by Pulse 98 99 Oximetry 10/22/17 10/22/17 10/22/17 13:30 14:00 14:30 Temperature Pulse Rate 60 58 L 55 L Pulse Rate [ Anterior Throughout] Pulse Rate [ 58 L From Monitor] Pulse Rate [ 58 L Right Radial] Respiratory 12 9 L 14 Rate Respiratory Rate [Anterior Throughout] Blood Pressure 157/95 153/91 175/91 O2 Sat by Pulse 99 99 95 Oximetry 10/22/17 10/22/17 10/22/17 15:00 15:30 16:00 Temperature 99.3 F Pulse Rate 61 59 L 63 Pulse Rate [ Anterior Throughout] Pulse Rate [ 68 From Monitor] Pulse Rate [ 68 Right Radial] Respiratory 13 13 12 Rate Respiratory Rate [Anterior Throughout] Blood Pressure 181/95 164/91 164/91 O2 Sat by Pulse 97 97 96 Oximetry - Laboratory Findings CBC and BMP: 10/22/17 07:18 10/22/17 07:18 Abnormal Lab Findings: Abnormal Labs 10/17/17 10/17/17 10/17/17 04:06 04:06 04:23 WBC RBC 5.56 H Hgb 16.7 H Hct 48.1 H MCHC 35 H RDW 13.0 L Lymph % (Auto) Lymph # [place] # Seg Neutrophils % Seg Neutrophils # POC ABG pH POC ABG pCO2 POC ABG pO2 Carbon Dioxide BUN Creatinine Glucose 141 H POC Glucose Hemoglobin A1c Lactic Acid Calcium Total Creatine Kinase 301 H CK-MB (CK-2) Troponin T NT-Pro-B Natriuret Pep TSH Urine pH Salicylates 10/17/17 10/17/17 10/17/17 04:23 04:24 04:35 WBC RBC Hgb Hct MCHC RDW Lymph % (Auto) Lymph # [place] # Seg Neutrophils % Seg Neutrophils # POC ABG pH POC ABG pCO2 POC ABG pO2 Carbon Dioxide BUN Creatinine Glucose POC Glucose 132 H Hemoglobin A1c Lactic Acid Calcium Total Creatine Kinase CK-MB (CK-2) Troponin T NT-Pro-B Natriuret Pep TSH Urine pH 8.0 H Salicylates < 0.3 L 10/17/17 10/17/17 10/17/17 05:49 06:26 10:39 WBC RBC Hgb 16.6 H Hct 48.3 H MCHC RDW Lymph % (Auto) Lymph # [place] # Seg Neutrophils % Seg Neutrophils # POC ABG pH 7.207 L 7.155 L POC ABG pCO2 62.6 H 72.8 H POC ABG pO2 155 H Carbon Dioxide BUN Creatinine Glucose POC Glucose Hemoglobin A1c Lactic Acid Calcium Total Creatine Kinase CK-MB (CK-2) Troponin T NT-Pro-B Natriuret Pep TSH Urine pH Salicylates 10/17/17 10/17/17 10/17/17 15:01 15:01 16:26 WBC RBC Hgb Hct MCHC RDW Lymph % (Auto) Lymph # [place] # Seg Neutrophils % Seg Neutrophils # POC ABG pH POC ABG pCO2 POC ABG pO2 Carbon Dioxide 21 L BUN Creatinine Glucose 134 H POC Glucose Hemoglobin A1c Lactic Acid 2.60 H* 2.50 H* Calcium 8.3 L Total Creatine Kinase 464 H CK-MB (CK-2) 6.8 H Troponin T 0.102 H* D NT-Pro-B Natriuret Pep 604.7 H TSH Urine pH Salicylates 10/17/17 10/17/17 10/17/17 16:30 18:36 18:51 WBC 18.6 H RBC 5.55 H Hgb 16.3 H Hct 48.2 H MCHC RDW 12.9 L Lymph % (Auto) 6.0 L Lymph # 1.1 L [place] # 1.1 H Seg Neutrophils % 87.9 H Seg Neutrophils # 16.4 H POC ABG pH POC ABG pCO2 POC ABG pO2 202 H Carbon Dioxide BUN Creatinine Glucose POC Glucose Hemoglobin A1c Lactic Acid 2.20 H* Calcium Total Creatine Kinase CK-MB (CK-2) Troponin T NT-Pro-B Natriuret Pep TSH Urine pH Salicylates 10/17/17 10/18/17 10/18/17 22:06 02:31 05:33 WBC RBC Hgb Hct MCHC RDW Lymph % (Auto) Lymph # [place] # Seg Neutrophils % Seg Neutrophils # POC ABG pH POC ABG pCO2 46.9 H POC ABG pO2 107 H Carbon Dioxide BUN Creatinine Glucose POC Glucose 139 H 180 H Hemoglobin A1c Lactic Acid Calcium Total Creatine Kinase CK-MB (CK-2) Troponin T NT-Pro-B Natriuret Pep TSH Urine pH Salicylates 10/18/17 10/18/17 10/18/17 05:46 10:17 10:39 WBC 14.5 H RBC 5.13 H Hgb 15.7 H Hct MCHC 35 H RDW Lymph % (Auto) 8.0 L Lymph # [place] # Seg Neutrophils % 86.5 H Seg Neutrophils # 12.6 H POC ABG pH POC ABG pCO2 POC ABG pO2 Carbon Dioxide BUN Creatinine Glucose POC Glucose 157 H 128 H Hemoglobin A1c Lactic Acid Calcium Total Creatine Kinase CK-MB (CK-2) Troponin T NT-Pro-B Natriuret Pep TSH Urine pH Salicylates 10/18/17 10/18/17 10/18/17 14:32 15:58 17:47 WBC RBC Hgb Hct MCHC RDW Lymph % (Auto) Lymph # [place] # Seg Neutrophils % Seg Neutrophils # POC ABG pH POC ABG pCO2 POC ABG pO2 Carbon Dioxide BUN Creatinine Glucose POC Glucose 122 H 156 H Hemoglobin A1c Lactic Acid Calcium Total Creatine Kinase CK-MB (CK-2) Troponin T NT-Pro-B Natriuret Pep TSH 0.105 L Urine pH Salicylates 10/18/17 10/19/17 10/19/17 22:34 02:57 04:34 WBC RBC Hgb Hct MCHC RDW Lymph % (Auto) Lymph # [place] # Seg Neutrophils % Seg Neutrophils # POC ABG pH 7.329 L POC ABG pCO2 56.9 H POC ABG pO2 163 H Carbon Dioxide BUN Creatinine Glucose POC Glucose 154 H 155 H Hemoglobin A1c Lactic Acid Calcium Total Creatine Kinase CK-MB (CK-2) Troponin T NT-Pro-B Natriuret Pep TSH Urine pH Salicylates 10/19/17 10/19/17 10/19/17 06:51 06:51 06:55 WBC 15.7 H RBC 5.14 H Hgb 15.4 H Hct MCHC RDW Lymph % (Auto) Lymph # [place] # Seg Neutrophils % Seg Neutrophils # POC ABG pH POC ABG pCO2 POC ABG pO2 Carbon Dioxide BUN 28 H Creatinine 1.9 H D Glucose 182 H POC Glucose 155 H Hemoglobin A1c Lactic Acid Calcium Total Creatine Kinase CK-MB (CK-2) Troponin T NT-Pro-B Natriuret Pep TSH Urine pH Salicylates 10/19/17 10/19/17 10/19/17 10:19 12:26 17:15 WBC RBC Hgb Hct MCHC RDW Lymph % (Auto) Lymph # [place] # Seg Neutrophils % Seg Neutrophils # POC ABG pH POC ABG pCO2 POC ABG pO2 Carbon Dioxide BUN Creatinine Glucose POC Glucose 169 H 172 H 132 H Hemoglobin A1c Lactic Acid Calcium Total Creatine Kinase CK-MB (CK-2) Troponin T NT-Pro-B Natriuret Pep TSH Urine pH Salicylates 10/20/17 10/20/17 10/20/17 00:03 03:39 04:17 WBC 13.2 H RBC Hgb Hct MCHC RDW Lymph % (Auto) Lymph # [place] # Seg Neutrophils % Seg Neutrophils # POC ABG pH POC ABG pCO2 48.3 H POC ABG pO2 Carbon Dioxide BUN Creatinine Glucose POC Glucose 238 H Hemoglobin A1c Lactic Acid Calcium Total Creatine Kinase CK-MB (CK-2) Troponin T NT-Pro-B Natriuret Pep TSH Urine pH Salicylates 10/20/17 10/20/17 10/20/17 04:17 04:18 05:36 WBC RBC Hgb Hct MCHC RDW Lymph % (Auto) Lymph # [place] # Seg Neutrophils % Seg Neutrophils # POC ABG pH POC ABG pCO2 POC ABG pO2 Carbon Dioxide BUN 34 H Creatinine Glucose 230 H POC Glucose 243 H Hemoglobin A1c 6.4 H Lactic Acid Calcium Total Creatine Kinase CK-MB (CK-2) Troponin T NT-Pro-B Natriuret Pep TSH Urine pH Salicylates 10/20/17 10/20/17 10/21/17 11:44 18:35 00:08 WBC RBC Hgb Hct MCHC RDW Lymph % (Auto) Lymph # [place] # Seg Neutrophils % Seg Neutrophils # POC ABG pH POC ABG pCO2 POC ABG pO2 Carbon Dioxide BUN Creatinine Glucose POC Glucose 215 H 217 H 215 H Hemoglobin A1c Lactic Acid Calcium Total Creatine Kinase CK-MB (CK-2) Troponin T NT-Pro-B Natriuret Pep TSH Urine pH Salicylates 10/21/17 10/21/17 10/21/17 03:36 04:15 04:15 WBC 15.1 H RBC Hgb Hct MCHC RDW 13.0 L Lymph % (Auto) Lymph # [place] # Seg Neutrophils % Seg Neutrophils # POC ABG pH 7.458 H POC ABG pCO2 POC ABG pO2 62 L Carbon Dioxide BUN 38 H Creatinine Glucose 248 H POC Glucose Hemoglobin A1c Lactic Acid Calcium Total Creatine Kinase CK-MB (CK-2) Troponin T NT-Pro-B Natriuret Pep TSH Urine pH Salicylates 10/21/17 10/21/17 10/21/17 06:22 12:16 17:39 WBC RBC Hgb Hct MCHC RDW Lymph % (Auto) Lymph # [place] # Seg Neutrophils % Seg Neutrophils # POC ABG pH POC ABG pCO2 POC ABG pO2 Carbon Dioxide BUN Creatinine Glucose POC Glucose 225 H 237 H 268 H Hemoglobin A1c Lactic Acid Calcium Total Creatine Kinase CK-MB (CK-2) Troponin T NT-Pro-B Natriuret Pep TSH Urine pH Salicylates 10/21/17 10/22/17 10/22/17 17:51 00:13 05:20 WBC RBC Hgb Hct MCHC RDW Lymph % (Auto) Lymph # [place] # Seg Neutrophils % Seg Neutrophils # POC ABG pH POC ABG pCO2 POC ABG pO2 Carbon Dioxide BUN Creatinine Glucose POC Glucose 263 H 257 H 334 H Hemoglobin A1c Lactic Acid Calcium Total Creatine Kinase CK-MB (CK-2) Troponin T NT-Pro-B Natriuret Pep TSH Urine pH Salicylates 10/22/17 10/22/17 10/22/17 07:18 07:18 11:58 WBC 12.6 H RBC 5.20 H Hgb 15.5 H Hct 46.2 H MCHC RDW 13.0 L Lymph % (Auto) Lymph # [place] # Seg Neutrophils % Seg Neutrophils # POC ABG pH POC ABG pCO2 POC ABG pO2 Carbon Dioxide BUN 39 H Creatinine Glucose 308 H POC Glucose 281 H Hemoglobin A1c Lactic Acid Calcium Total Creatine Kinase CK-MB (CK-2) Troponin T NT-Pro-B Natriuret Pep TSH Urine pH Salicylates 10/22/17 15:30 WBC RBC Hgb Hct MCHC RDW Lymph % (Auto) Lymph # [place] # Seg Neutrophils % Seg Neutrophils # POC ABG pH 7.487 H POC ABG pCO2 46.2 H POC ABG pO2 136 H Carbon Dioxide BUN Creatinine Glucose POC Glucose Hemoglobin A1c Lactic Acid Calcium Total Creatine Kinase CK-MB (CK-2) Troponin T NT-Pro-B Natriuret Pep TSH Urine pH Salicylates
[2017-10-22] MEDS ORDERED: APRESOLINE PO PRN (18:12)
[2017-10-22] MEDS ORDERED: NORMODYNE IV ONE (18:24)
[2017-10-22] MEDS: ASPIRIN PO SCH (22:09)
[2017-10-23] MEDS: HumuLIN R SUB-Q SCH ×4 (00:07→18:55)
[2017-10-23] MEDS: PROVENTIL IH SCH ×5 (03:34→21:20)
--- NOTE | 2017-10-23 03:58 | XRay Report ---
FINAL REPORT EXAM: XR CHEST 1V AP HISTORY: follow up respiratory failure TECHNIQUE: A portable upright view the chest was obtained and compared the study of 10/22/2017. FINDINGS: The tip of the ET tube is 4 cm above the mavis. The nasogastric tube is directed into the stomach. The heart size is normal. The lungs are not congested. There are no localized infiltrates or effusions. The skeletal structures are well-maintained. IMPRESSION: No acute infiltrates or congestion identified.
[2017-10-23 04:44] LABS: Hematocrit 44.5 % (35.5-45.6); Hemoglobin 15.1 gm/dl (11.8-15.2); Mean Corpuscular HGB Conc 34 % (32-34); Mean Corpuscular Hemoglobin 30 pg (28-32); Mean Corpuscular Volume 88 fl (84-94); Platelet Count 271 K/mm3 (140-440); Red Blood Count 5.07 M/mm3 (3.65-5.03); Red Cell Distribution Width 13.1 % (13.2-15.2)
[2017-10-23 05:02] LABS: BUN/Creatinine Ratio 39; Blood Urea Nitrogen 39 mg/dL (9-20); Calcium 9.3 mg/dL (8.4-10.2); Hemolysis Index 9
[2017-10-23] MEDS: PULMICORT IH SCH ×2 (09:30→21:20)
[2017-10-23] MEDS: BROVANA NEBU IH SCH ×2 (09:31→21:20)
--- NOTE | 2017-10-23 09:58 | Progress Note ---
Assessment and Plan Stroke GIB emesis acute respiratory failure failed extubation HTN Recommendations f/u hospital ventilator bundle, Maintain extubation precautions SBT,pressure support/CPAP tolerated at this point. The patient rapid shallow breathing index ~ 45-70 , likely con proceed with extubation to BPAP/NIV, in view of prior problems Discussed with patient and family at the bedside. All questions answered. Critical care time was 31 minutes of [id number] evaluation and coordination of care Subjective Date of service: 10/23/17 Principal diagnosis: acute stroke, respiratory failure/MV support Interval history: Intubated but awake, following commands Objective Vital Signs - 12hr 10/22/17 10/22/17 10/22/17 22:00 22:30 23:00 Temperature Pulse Rate 62 63 62 Pulse Rate [ Anterior Throughout] Pulse Rate [ From Monitor] Pulse Rate [ Right Radial] Respiratory 22 23 23 Rate Respiratory Rate [Anterior Throughout] Blood Pressure 139/88 157/89 158/95 O2 Sat by Pulse 99 96 97 Oximetry 10/22/17 10/22/17 10/22/17 23:02 23:30 23:45 Temperature Pulse Rate 80 71 Pulse Rate [ 62 64 Anterior Throughout] Pulse Rate [ From Monitor] Pulse Rate [ Right Radial] Respiratory 21 22 Rate Respiratory 22 22 Rate [Anterior Throughout] Blood Pressure 158/95 154/91 O2 Sat by Pulse 99 97 Oximetry 10/22/17 10/23/17 10/23/17 23:52 00:00 00:30 Temperature 98.3 F Pulse Rate 63 63 62 Pulse Rate [ Anterior Throughout] Pulse Rate [ From Monitor] Pulse Rate [ Right Radial] Respiratory 18 22 Rate Respiratory Rate [Anterior Throughout] Blood Pressure 158/95 158/97 173/98 O2 Sat by Pulse 97 97 94 Oximetry 10/23/17 10/23/17 10/23/17 01:00 01:01 01:30 Temperature Pulse Rate 78 67 64 Pulse Rate [ Anterior Throughout] Pulse Rate [ From Monitor] Pulse Rate [ Right Radial] Respiratory 20 22 Rate Respiratory Rate [Anterior Throughout] Blood Pressure 157/94 138/89 O2 Sat by Pulse 94 97 Oximetry 10/23/17 10/23/17 10/23/17 02:00 02:30 03:00 Temperature Pulse Rate 63 64 65 Pulse Rate [ Anterior Throughout] Pulse Rate [ From Monitor] Pulse Rate [ Right Radial] Respiratory 19 22 22 Rate Respiratory Rate [Anterior Throughout] Blood Pressure 133/87 156/98 132/90 O2 Sat by Pulse 97 96 97 Oximetry 10/23/17 10/23/17 10/23/17 03:30 03:34 03:40 Temperature Pulse Rate 65 66 Pulse Rate [ 62 Anterior Throughout] Pulse Rate [ From Monitor] Pulse Rate [ Right Radial] Respiratory 22 Rate Respiratory 22 Rate [Anterior Throughout] Blood Pressure 141/92 141/92 O2 Sat by Pulse 98 Oximetry 10/23/17 10/23/17 10/23/17 04:00 04:30 05:00 Temperature 98.6 F Pulse Rate 65 68 64 Pulse Rate [ Anterior Throughout] Pulse Rate [ From Monitor] Pulse Rate [ Right Radial] Respiratory 21 22 22 Rate Respiratory Rate [Anterior Throughout] Blood Pressure 157/95 126/82 153/88 O2 Sat by Pulse 93 95 93 Oximetry 10/23/17 10/23/17 10/23/17 05:30 06:00 06:30 Temperature Pulse Rate 68 69 65 Pulse Rate [ Anterior Throughout] Pulse Rate [ From Monitor] Pulse Rate [ Right Radial] Respiratory 18 25 H 22 Rate Respiratory Rate [Anterior Throughout] Blood Pressure 162/88 146/90 151/85 O2 Sat by Pulse 92 90 94 Oximetry 10/23/17 10/23/17 10/23/17 07:00 07:30 08:00 Temperature 98.4 F Pulse Rate 65 85 69 Pulse Rate [ Anterior Throughout] Pulse Rate [ 68 From Monitor] Pulse Rate [ 68 Right Radial] Respiratory 23 14 22 Rate Respiratory Rate [Anterior Throughout] Blood Pressure 167/92 167/92 153/94 O2 Sat by Pulse 91 92 92 Oximetry 10/23/17 10/23/17 10/23/17 09:25 09:28 09:31 Temperature Pulse Rate 77 80 Pulse Rate [ 77 Anterior Throughout] Pulse Rate [ From Monitor] Pulse Rate [ Right Radial] Respiratory 11 L Rate Respiratory 13 Rate [Anterior Throughout] Blood Pressure 158/100 158/100 O2 Sat by Pulse 98 99 Oximetry 10/23/17 09:43 Temperature Pulse Rate Pulse Rate [ 78 Anterior Throughout] Pulse Rate [ From Monitor] Pulse Rate [ Right Radial] Respiratory Rate Respiratory 13 Rate [Anterior Throughout] Blood Pressure O2 Sat by Pulse Oximetry Constitutional: no acute distress, alert Eyes: non-icteric ENT: other (orally intubated ) Neck: supple, no JVD Ascultation: Bilateral: clear, diminished breath sounds Percussion: Bilateral: not dull Cardiovascular: regular rate and rhythm Gastrointestinal: soft, non-tender Extremities: no cyanosis, no edema, pink and warm Neurologic: unable to assess CBC and BMP: 10/23/17 03:31 10/23/17 03:31 ABG, PT/INR, D-dimer: ABG POC ABG pH 7.486 (7.35-7.45) H 10/23/17 03:47 POC ABG pCO2 42.0 (35-45) 10/23/17 03:47 POC ABG pO2 164 (80-105) H 10/23/17 03:47 POC ABG HCO3 31.7 10/23/17 03:47 POC ABG Total CO2 33 10/23/17 03:47 POC ABG O2 Sat 100 10/23/17 03:47 PT/INR, D-dimer PT 13.1 Sec. (12.2-14.9) 10/17/17 04:06 INR 0.95 (0.87-1.13) 10/17/17 04:06 Abnormal lab findings: Abnormal Labs 10/17/17 10/17/17 10/17/17 04:06 04:06 04:23 WBC RBC 5.56 H Hgb 16.7 H Hct 48.1 H MCHC 35 H RDW 13.0 L Lymph % (Auto) Lymph # Mcpherson # Seg Neutrophils % Seg Neutrophils # POC ABG pH POC ABG pCO2 POC ABG pO2 Carbon Dioxide BUN Creatinine Glucose 141 H POC Glucose Hemoglobin A1c Lactic Acid Calcium Total Creatine Kinase 301 H CK-MB (CK-2) Troponin T NT-Pro-B Natriuret Pep TSH Urine pH Salicylates 10/17/17 10/17/17 10/17/17 04:23 04:24 04:35 WBC RBC Hgb Hct MCHC RDW Lymph % (Auto) Lymph # Mcpherson # Seg Neutrophils % Seg Neutrophils # POC ABG pH POC ABG pCO2 POC ABG pO2 Carbon Dioxide BUN Creatinine Glucose POC Glucose 132 H Hemoglobin A1c Lactic Acid Calcium Total Creatine Kinase CK-MB (CK-2) Troponin T NT-Pro-B Natriuret Pep TSH Urine pH 8.0 H Salicylates < 0.3 L 10/17/17 10/17/17 10/17/17 05:49 06:26 10:39 WBC RBC Hgb 16.6 H Hct 48.3 H MCHC RDW Lymph % (Auto) Lymph # Mcpherson # Seg Neutrophils % Seg Neutrophils # POC ABG pH 7.207 L 7.155 L POC ABG pCO2 62.6 H 72.8 H POC ABG pO2 155 H Carbon Dioxide BUN Creatinine Glucose POC Glucose Hemoglobin A1c Lactic Acid Calcium Total Creatine Kinase CK-MB (CK-2) Troponin T NT-Pro-B Natriuret Pep TSH Urine pH Salicylates 10/17/17 10/17/17 10/17/17 15:01 15:01 16:26 WBC RBC Hgb Hct MCHC RDW Lymph % (Auto) Lymph # Mcpherson # Seg Neutrophils % Seg Neutrophils # POC ABG pH POC ABG pCO2 POC ABG pO2 Carbon Dioxide 21 L BUN Creatinine Glucose 134 H POC Glucose Hemoglobin A1c Lactic Acid 2.60 H* 2.50 H* Calcium 8.3 L Total Creatine Kinase 464 H CK-MB (CK-2) 6.8 H Troponin T 0.102 H* D NT-Pro-B Natriuret Pep 604.7 H TSH Urine pH Salicylates 10/17/17 10/17/17 10/17/17 16:30 18:36 18:51 WBC 18.6 H RBC 5.55 H Hgb 16.3 H Hct 48.2 H MCHC RDW 12.9 L Lymph % (Auto) 6.0 L Lymph # 1.1 L Mcpherson # 1.1 H Seg Neutrophils % 87.9 H Seg Neutrophils # 16.4 H POC ABG pH POC ABG pCO2 POC ABG pO2 202 H Carbon Dioxide BUN Creatinine Glucose POC Glucose Hemoglobin A1c Lactic Acid 2.20 H* Calcium Total Creatine Kinase CK-MB (CK-2) Troponin T NT-Pro-B Natriuret Pep TSH Urine pH Salicylates 10/17/17 10/18/17 10/18/17 22:06 02:31 05:33 WBC RBC Hgb Hct MCHC RDW Lymph % (Auto) Lymph # Mcpherson # Seg Neutrophils % Seg Neutrophils # POC ABG pH POC ABG pCO2 46.9 H POC ABG pO2 107 H Carbon Dioxide BUN Creatinine Glucose POC Glucose 139 H 180 H Hemoglobin A1c Lactic Acid Calcium Total Creatine Kinase CK-MB (CK-2) Troponin T NT-Pro-B Natriuret Pep TSH Urine pH Salicylates 10/18/17 10/18/17 10/18/17 05:46 10:17 10:39 WBC 14.5 H RBC 5.13 H Hgb 15.7 H Hct MCHC 35 H RDW Lymph % (Auto) 8.0 L Lymph # Mcpherson # Seg Neutrophils % 86.5 H Seg Neutrophils # 12.6 H POC ABG pH POC ABG pCO2 POC ABG pO2 Carbon Dioxide BUN Creatinine Glucose POC Glucose 157 H 128 H Hemoglobin A1c Lactic Acid Calcium Total Creatine Kinase CK-MB (CK-2) Troponin T NT-Pro-B Natriuret Pep TSH Urine pH Salicylates 10/18/17 10/18/17 10/18/17 14:32 15:58 17:47 WBC RBC Hgb Hct MCHC RDW Lymph % (Auto) Lymph # Mcpherson # Seg Neutrophils % Seg Neutrophils # POC ABG pH POC ABG pCO2 POC ABG pO2 Carbon Dioxide BUN Creatinine Glucose POC Glucose 122 H 156 H Hemoglobin A1c Lactic Acid Calcium Total Creatine Kinase CK-MB (CK-2) Troponin T NT-Pro-B Natriuret Pep TSH 0.105 L Urine pH Salicylates 10/18/17 10/19/17 10/19/17 22:34 02:57 04:34 WBC RBC Hgb Hct MCHC RDW Lymph % (Auto) Lymph # Mcpherson # Seg Neutrophils % Seg Neutrophils # POC ABG pH 7.329 L POC ABG pCO2 56.9 H POC ABG pO2 163 H Carbon Dioxide BUN Creatinine Glucose POC Glucose 154 H 155 H Hemoglobin A1c Lactic Acid Calcium Total Creatine Kinase CK-MB (CK-2) Troponin T NT-Pro-B Natriuret Pep TSH Urine pH Salicylates 10/19/17 10/19/17 10/19/17 06:51 06:51 06:55 WBC 15.7 H RBC 5.14 H Hgb 15.4 H Hct MCHC RDW Lymph % (Auto) Lymph # Mcpherson # Seg Neutrophils % Seg Neutrophils # POC ABG pH POC ABG pCO2 POC ABG pO2 Carbon Dioxide BUN 28 H Creatinine 1.9 H D Glucose 182 H POC Glucose 155 H Hemoglobin A1c Lactic Acid Calcium Total Creatine Kinase CK-MB (CK-2) Troponin T NT-Pro-B Natriuret Pep TSH Urine pH Salicylates 10/19/17 10/19/17 10/19/17 10:19 12:26 17:15 WBC RBC Hgb Hct MCHC RDW Lymph % (Auto) Lymph # Mcpherson # Seg Neutrophils % Seg Neutrophils # POC ABG pH POC ABG pCO2 POC ABG pO2 Carbon Dioxide BUN Creatinine Glucose POC Glucose 169 H 172 H 132 H Hemoglobin A1c Lactic Acid Calcium Total Creatine Kinase CK-MB (CK-2) Troponin T NT-Pro-B Natriuret Pep TSH Urine pH Salicylates 10/20/17 10/20/17 10/20/17 00:03 03:39 04:17 WBC 13.2 H RBC Hgb Hct MCHC RDW Lymph % (Auto) Lymph # Mcpherson # Seg Neutrophils % Seg Neutrophils # POC ABG pH POC ABG pCO2 48.3 H POC ABG pO2 Carbon Dioxide BUN Creatinine Glucose POC Glucose 238 H Hemoglobin A1c Lactic Acid Calcium Total Creatine Kinase CK-MB (CK-2) Troponin T NT-Pro-B Natriuret Pep TSH Urine pH Salicylates 10/20/17 10/20/17 10/20/17 04:17 04:18 05:36 WBC RBC Hgb Hct MCHC RDW Lymph % (Auto) Lymph # Mcpherson # Seg Neutrophils % Seg Neutrophils # POC ABG pH POC ABG pCO2 POC ABG pO2 Carbon Dioxide BUN 34 H Creatinine Glucose 230 H POC Glucose 243 H Hemoglobin A1c 6.4 H Lactic Acid Calcium Total Creatine Kinase CK-MB (CK-2) Troponin T NT-Pro-B Natriuret Pep TSH Urine pH Salicylates 10/20/17 10/20/17 10/21/17 11:44 18:35 00:08 WBC RBC Hgb Hct MCHC RDW Lymph % (Auto) Lymph # Mcpherson # Seg Neutrophils % Seg Neutrophils # POC ABG pH POC ABG pCO2 POC ABG pO2 Carbon Dioxide BUN Creatinine Glucose POC Glucose 215 H 217 H 215 H Hemoglobin A1c Lactic Acid Calcium Total Creatine Kinase CK-MB (CK-2) Troponin T NT-Pro-B Natriuret Pep TSH Urine pH Salicylates 10/21/17 10/21/17 10/21/17 03:36 04:15 04:15 WBC 15.1 H RBC Hgb Hct MCHC RDW 13.0 L Lymph % (Auto) Lymph # Mcpherson # Seg Neutrophils % Seg Neutrophils # POC ABG pH 7.458 H POC ABG pCO2 POC ABG pO2 62 L Carbon Dioxide BUN 38 H Creatinine Glucose 248 H POC Glucose Hemoglobin A1c Lactic Acid Calcium Total Creatine Kinase CK-MB (CK-2) Troponin T NT-Pro-B Natriuret Pep TSH Urine pH Salicylates 10/21/17 10/21/17 10/21/17 06:22 12:16 17:39 WBC RBC Hgb Hct MCHC RDW Lymph % (Auto) Lymph # Mcpherson # Seg Neutrophils % Seg Neutrophils # POC ABG pH POC ABG pCO2 POC ABG pO2 Carbon Dioxide BUN Creatinine Glucose POC Glucose 225 H 237 H 268 H Hemoglobin A1c Lactic Acid Calcium Total Creatine Kinase CK-MB (CK-2) Troponin T NT-Pro-B Natriuret Pep TSH Urine pH Salicylates 10/21/17 10/22/17 10/22/17 17:51 00:13 05:20 WBC RBC Hgb Hct MCHC RDW Lymph % (Auto) Lymph # Mcpherson # Seg Neutrophils % Seg Neutrophils # POC ABG pH POC ABG pCO2 POC ABG pO2 Carbon Dioxide BUN Creatinine Glucose POC Glucose 263 H 257 H 334 H Hemoglobin A1c Lactic Acid Calcium Total Creatine Kinase CK-MB (CK-2) Troponin T NT-Pro-B Natriuret Pep TSH Urine pH Salicylates 10/22/17 10/22/17 10/22/17 07:18 07:18 11:58 WBC 12.6 H RBC 5.20 H Hgb 15.5 H Hct 46.2 H MCHC RDW 13.0 L Lymph % (Auto) Lymph # Mcpherson # Seg Neutrophils % Seg Neutrophils # POC ABG pH POC ABG pCO2 POC ABG pO2 Carbon Dioxide BUN 39 H Creatinine Glucose 308 H POC Glucose 281 H Hemoglobin A1c Lactic Acid Calcium Total Creatine Kinase CK-MB (CK-2) Troponin T NT-Pro-B Natriuret Pep TSH Urine pH Salicylates 10/22/17 10/22/17 10/23/17 15:30 17:45 03:31 WBC 13.9 H RBC 5.07 H Hgb Hct MCHC RDW 13.1 L Lymph % (Auto) Lymph # Mcpherson # Seg Neutrophils % Seg Neutrophils # POC ABG pH 7.487 H POC ABG pCO2 46.2 H POC ABG pO2 136 H Carbon Dioxide BUN Creatinine Glucose POC Glucose 236 H Hemoglobin A1c Lactic Acid Calcium Total Creatine Kinase CK-MB (CK-2) Troponin T NT-Pro-B Natriuret Pep TSH Urine pH Salicylates 10/23/17 10/23/17 03:31 03:47 WBC RBC Hgb Hct MCHC RDW Lymph % (Auto) Lymph # Mcpherson # Seg Neutrophils % Seg Neutrophils # POC ABG pH 7.486 H POC ABG pCO2 POC ABG pO2 164 H Carbon Dioxide BUN 39 H Creatinine Glucose 218 H POC Glucose Hemoglobin A1c Lactic Acid Calcium Total Creatine Kinase CK-MB (CK-2) Troponin T NT-Pro-B Natriuret Pep TSH Urine pH Salicylates
[2017-10-23] MEDS: HEPARIN SUB-Q SCH ×2 (10:50→22:30)
[2017-10-23] MEDS: PEPCID PO SCH ×2 (10:50→22:08)
[2017-10-23] MEDS: HCTZ PO SCH (10:50)
[2017-10-23] MEDS: NORMODYNE PO SCH ×2 (10:50→22:09)
[2017-10-23] MEDS ORDERED: LANTUS SUB-Q SCH (11:00)
--- NOTE | 2017-10-23 11:06 | Progress Note ---
Assessment and Plan /Acute respiratory failure, Patient was extubated 10/18 but re-Intubated later in evening. Still on ventilator, Pulmonology following Plan for extubation soon /GI bleed. GI following, H/H stable Conservative management for now. /Acute to subacute ischemic stroke right medulla oblongata. cont Aspirin, statin. Neuro following. /Acute kidney injury, Improved, Cr stable /Prediabetes a1c 6.4. blood glucose uncontrolled. Started on Novolin 70/30 /Fever, low grade, 100.6 on 10/21 Repeat blood cultures drawn, to date negative /Elevated troponin. Cardiology following. /Encephalopathy, likely from acute CVA. Now alert,follows commands Full code status Discussed with patient and fiance at bedside. Brief History: 42-year-old man admitted history of hypertension, noncompliant with medication over the last 1 month comes emergency room with complaints of right-sided weakness and slurred speech. His last well-known time was 11:30, he woke up at 2:30 to use the bathroom, he fell to the floor a few times with several attempts. He was admitted with stroke protocol. Later on intubated on the day of admission for increase effort of breathing. He was weaned off from the vent on 10/18 and was extubated but required ti reintubate later in the evening. Radiological data: head CT: Cranial CT scan within normal limits. No change is demonstrated. CTA head/neck: Normal CT angiogram of the arteries in the neck and head MRI brain: 1.3 cm area of subacute ischemia in the right medulla oblongata as described. Hospitalist Physical Constitutional; Not in acute distress, intubated HEENT: Atraumatic, normocephalic Neck: supple, no lymphadenopathy, JVD or thyromegaly Lungs: Bilateral crackles CVS; S1-S2 regular, no murmurs, rubs or gallop, Abdomen; soft, non-tender, non distended,bowel sounds are normal, Musculoskeletal; No edema, no clubbing, no cyanosis [employer]: Intubated, awake,alert,follows commands,moves all ext, mild weakness on right Subjective Date of service: 10/23/17 Principal diagnosis: acute stroke, respiratory failure/MV support Interval history: Still intubated More alert, Plan for extubation mild right sided weakness Objective - Constitutional Vitals: Vital Signs - 12hr 10/22/17 10/22/17 10/22/17 23:30 23:45 23:52 Temperature Pulse Rate 71 63 Pulse Rate [ 62 64 Anterior Throughout] Pulse Rate [ From Monitor] Pulse Rate [ Right Radial] Respiratory 22 Rate Respiratory 22 22 Rate [Anterior Throughout] Blood Pressure 154/91 158/95 O2 Sat by Pulse 97 97 Oximetry 10/23/17 10/23/17 10/23/17 00:00 00:30 01:00 Temperature 98.3 F Pulse Rate 63 62 78 Pulse Rate [ Anterior Throughout] Pulse Rate [ From Monitor] Pulse Rate [ Right Radial] Respiratory 18 22 Rate Respiratory Rate [Anterior Throughout] Blood Pressure 158/97 173/98 O2 Sat by Pulse 97 94 Oximetry 10/23/17 10/23/17 10/23/17 01:01 01:30 02:00 Temperature Pulse Rate 67 64 63 Pulse Rate [ Anterior Throughout] Pulse Rate [ From Monitor] Pulse Rate [ Right Radial] Respiratory 20 22 19 Rate Respiratory Rate [Anterior Throughout] Blood Pressure 157/94 138/89 133/87 O2 Sat by Pulse 94 97 97 Oximetry 10/23/17 10/23/17 10/23/17 02:30 03:00 03:30 Temperature Pulse Rate 64 65 65 Pulse Rate [ Anterior Throughout] Pulse Rate [ From Monitor] Pulse Rate [ Right Radial] Respiratory 22 22 22 Rate Respiratory Rate [Anterior Throughout] Blood Pressure 156/98 132/90 141/92 O2 Sat by Pulse 96 97 Oximetry 10/23/17 10/23/17 10/23/17 03:34 03:40 04:00 Temperature 98.6 F Pulse Rate 66 65 Pulse Rate [ 62 Anterior Throughout] Pulse Rate [ From Monitor] Pulse Rate [ Right Radial] Respiratory 21 Rate Respiratory 22 Rate [Anterior Throughout] Blood Pressure 141/92 157/95 O2 Sat by Pulse 98 93 Oximetry 10/23/17 10/23/17 10/23/17 04:30 05:00 05:30 Temperature Pulse Rate 68 64 68 Pulse Rate [ Anterior Throughout] Pulse Rate [ From Monitor] Pulse Rate [ Right Radial] Respiratory 22 22 18 Rate Respiratory Rate [Anterior Throughout] Blood Pressure 126/82 153/88 162/88 O2 Sat by Pulse 95 93 92 Oximetry 10/23/17 10/23/17 10/23/17 06:00 06:30 07:00 Temperature Pulse Rate 69 65 65 Pulse Rate [ Anterior Throughout] Pulse Rate [ From Monitor] Pulse Rate [ Right Radial] Respiratory 25 H 22 23 Rate Respiratory Rate [Anterior Throughout] Blood Pressure 146/90 151/85 167/92 O2 Sat by Pulse 90 94 91 Oximetry 10/23/17 10/23/17 10/23/17 07:30 08:00 09:25 Temperature 98.4 F Pulse Rate 85 69 77 Pulse Rate [ Anterior Throughout] Pulse Rate [ 68 From Monitor] Pulse Rate [ 68 Right Radial] Respiratory 14 22 Rate Respiratory Rate [Anterior Throughout] Blood Pressure 167/92 153/94 158/100 O2 Sat by Pulse 92 92 98 Oximetry 10/23/17 10/23/17 10/23/17 09:28 09:31 09:43 Temperature Pulse Rate 80 Pulse Rate [ 77 78 Anterior Throughout] Pulse Rate [ From Monitor] Pulse Rate [ Right Radial] Respiratory 11 L Rate Respiratory 13 13 Rate [Anterior Throughout] Blood Pressure 158/100 O2 Sat by Pulse 99 Oximetry 10/23/17 10:50 Temperature Pulse Rate 76 Pulse Rate [ Anterior Throughout] Pulse Rate [ From Monitor] Pulse Rate [ Right Radial] Respiratory Rate Respiratory Rate [Anterior Throughout] Blood Pressure 153/96 O2 Sat by Pulse Oximetry - Labs CBC & Chem 7: 10/23/17 03:31 10/24/17 08:51 Labs: Abnormal lab results 10/22/17 10/22/17 10/22/17 Range/Units 11:58 15:30 17:45 WBC (4.5-11.0) K/mm3 RBC (3.65-5.03) M/mm3 RDW (13.2-15.2) % POC ABG pH 7.487 H (7.35-7.45) POC ABG pCO2 46.2 H (35-45) POC ABG pO2 136 H (80-105) BUN (9-20) mg/dL Glucose (75-100) mg/dL POC Glucose 281 H 236 H (70-105) 10/23/17 10/23/17 10/23/17 Range/Units 03:31 03:31 03:47 WBC 13.9 H (4.5-11.0) K/mm3 RBC 5.07 H (3.65-5.03) M/mm3 RDW 13.1 L (13.2-15.2) % POC ABG pH 7.486 H (7.35-7.45) POC ABG pCO2 (35-45) POC ABG pO2 164 H (80-105) BUN 39 H (9-20) mg/dL Glucose 218 H (75-100) mg/dL POC Glucose (70-105)
--- NOTE | 2017-10-23 12:29 | Progress Note ---
Assessment and Plan Right sided weakness head CT reports no acute abnormalities Respiratory failure intubated on the vent Hypertension Elevated troponin, nonspecific Lactic acidosis Normal LVEF by echocardiogram Conservative cardiac management. We will follow intermittently. Subjective Date of service: 10/23/17 Principal diagnosis: acute stroke, respiratory failure/MV support Interval history: Patient remains intubated on the vent. Objective Vital Signs Temp Pulse Pulse Pulse Pulse Resp Resp 10/23/17 11:43 70 12 10/23/17 10:50 76 10/23/17 09:43 78 13 10/23/17 09:31 77 13 10/23/17 09:28 80 11 L 10/23/17 09:25 77 10/23/17 08:00 98.4 F 69 68 68 22 10/23/17 07:30 85 14 10/23/17 07:00 65 23 10/23/17 06:30 65 22 10/23/17 06:00 69 25 H 10/23/17 05:30 68 18 10/23/17 05:00 64 22 10/23/17 04:30 68 22 10/23/17 04:00 98.6 F 65 21 10/23/17 03:40 66 10/23/17 03:34 62 22 10/23/17 03:30 65 22 10/23/17 03:00 65 22 10/23/17 02:30 64 22 10/23/17 02:00 63 19 10/23/17 01:30 64 22 10/23/17 01:01 67 20 10/23/17 01:00 78 10/23/17 00:30 62 22 10/23/17 00:00 98.3 F 63 18 10/22/17 23:52 63 10/22/17 23:45 64 22 10/22/17 23:30 71 62 22 22 10/22/17 23:02 80 21 10/22/17 23:00 62 23 10/22/17 22:30 63 23 10/22/17 22:00 62 22 10/22/17 21:30 61 22 10/22/17 21:00 65 20 10/22/17 20:30 73 22 10/22/17 20:00 99.6 F 63 22 10/22/17 19:57 65 23 10/22/17 19:42 63 63 23 10/22/17 19:30 71 20 10/22/17 19:00 62 23 10/22/17 18:55 63 10/22/17 18:30 66 23 10/22/17 18:00 65 64 64 22 10/22/17 17:55 97.8 F 10/22/17 17:50 67 24 10/22/17 17:31 63 21 10/22/17 17:15 61 20 10/22/17 17:03 57 L 58 L 10 L 22 10/22/17 17:00 59 L 11 L 10/22/17 16:30 58 L 13 10/22/17 16:00 99.3 F 63 68 68 12 10/22/17 15:30 59 L 13 10/22/17 15:00 61 13 10/22/17 14:30 55 L 14 10/22/17 14:00 58 L 58 L 58 L 9 L 10/22/17 13:30 60 12 10/22/17 13:00 70 13 10/22/17 12:31 71 14 BP Pulse Ox 10/23/17 11:43 139/94 93 10/23/17 10:50 153/96 10/23/17 09:43 10/23/17 09:31 10/23/17 09:28 158/100 99 10/23/17 09:25 158/100 98 10/23/17 08:00 153/94 92 10/23/17 07:30 167/92 92 10/23/17 07:00 167/92 91 10/23/17 06:30 151/85 94 10/23/17 06:00 146/90 90 10/23/17 05:30 162/88 92 10/23/17 05:00 153/88 93 10/23/17 04:30 126/82 95 10/23/17 04:00 157/95 93 10/23/17 03:40 141/92 98 10/23/17 03:34 10/23/17 03:30 141/92 10/23/17 03:00 132/90 97 10/23/17 02:30 156/98 96 10/23/17 02:00 133/87 97 10/23/17 01:30 138/89 97 10/23/17 01:01 157/94 94 10/23/17 01:00 10/23/17 00:30 173/98 94 10/23/17 00:00 158/97 97 10/22/17 23:52 158/95 97 10/22/17 23:45 10/22/17 23:30 154/91 97 10/22/17 23:02 158/95 99 10/22/17 23:00 158/95 97 10/22/17 22:30 157/89 96 10/22/17 22:00 139/88 99 10/22/17 21:30 139/87 98 10/22/17 21:00 159/94 97 10/22/17 20:30 159/105 94 10/22/17 20:00 155/99 99 10/22/17 19:57 10/22/17 19:42 164/95 98 10/22/17 19:30 164/95 95 10/22/17 19:00 154/85 95 10/22/17 18:55 155/92 10/22/17 18:30 155/92 97 10/22/17 18:00 160/96 100 10/22/17 17:55 10/22/17 17:50 155/92 97 10/22/17 17:31 147/83 95 10/22/17 17:15 10/22/17 17:03 180/99 99 10/22/17 17:00 180/99 98 10/22/17 16:30 169/98 95 10/22/17 16:00 164/91 96 10/22/17 15:30 164/91 97 10/22/17 15:00 181/95 97 10/22/17 14:30 175/91 95 10/22/17 14:00 153/91 99 10/22/17 13:30 157/95 99 10/22/17 13:00 160/97 99 10/22/17 12:31 160/97 98 - Physical Examination General: Other (on the vent) Cardiac: Positive: Reg Rate and Rhythm - Labs and Meds CBC 10/23/17 Range/Units 03:31 WBC 13.9 H (4.5-11.0) K/mm3 RBC 5.07 H (3.65-5.03) M/mm3 Hgb 15.1 (11.8-15.2) gm/dl Hct 44.5 (35.5-45.6) % Plt Count 271 (140-440) K/mm3 Comprehensive Metabolic Panel 07/24/18 Range/Units 03:31 Sodium 143 (137-145) mmol/L Potassium 4.1 (3.6-5.0) mmol/L Chloride 100.5 (98-107) mmol/L Carbon Dioxide 28 (22-30) mmol/L BUN 39 H (9-20) mg/dL Creatinine 1.0 (0.8-1.5) mg/dL Glucose 218 H (75-100) mg/dL Calcium 9.3 (8.4-10.2) mg/dL
[2017-10-23] MEDS: ASPIRIN PO SCH (22:08)
[2017-10-24] MEDS: HumuLIN R SUB-Q SCH ×4 (00:37→18:00)
[2017-10-24] MEDS: PROVENTIL IH SCH ×6 (01:15→22:55)
--- NOTE | 2017-10-24 04:50 | XRay Report ---
FINAL REPORT PROCEDURE: XR CHEST 1V AP TECHNIQUE: Chest radiograph anteroposterior view. CPT 40173 HISTORY: follow up respiratory failure COMPARISON: No prior studies are available for comparison. FINDINGS: Heart: Normal. Mediastinum/Vessels: Normal. Lungs/Pleural space: Lungs are expanded. There are no infiltrates, effusions or pneumothoraces.. Bony thorax: No acute osseous abnormality. Life support devices: There is a feeding tube in the stomach.. IMPRESSION: No acute cardiopulmonary abnormality. Feeding tube is in the stomach.
--- NOTE | 2017-10-24 06:11 | XRay Report ---
FINAL REPORT PROCEDURE: XR ABDOMEN 1V AP TECHNIQUE: Abdominal radiograph, single supine AP view. HISTORY: Dobhoff placement. COMPARISON: No prior studies are available for comparison. FINDINGS: Bowel gas pattern:Nonobstructive. Masses or calcifications:None. Bony structures:No significant abnormality. Other:NG tube is in the stomach.. IMPRESSION: No acute abnormality. The NG tube is in the stomach.
[2017-10-24] MEDS: BROVANA NEBU IH SCH ×2 (08:01→21:24)
[2017-10-24] MEDS: PULMICORT IH SCH ×2 (08:01→21:24)
--- NOTE | 2017-10-24 08:53 | Progress Note ---
Assessment and Plan Stroke GIB emesis acute respiratory failure failed extubation HTN Recommendations Continue oxygen support. Maintain aspiration precautions. Currently on [place] feeding to We'll continue nebulizer therapy as necessary If oxygen is stable and blood pressure control during the morning, the patient will be transferred out for medical [place] monitoring Physical therapy Critical care time was 31 minutes of [id number] evaluation and coordination of care Subjective Date of service: 10/24/17 Principal diagnosis: acute stroke, respiratory failure/MV support Interval history: No complaints neurologically. No shortness of breath. On nasal cannula oxygen. Objective Vital Signs - 12hr 10/23/17 10/23/17 10/23/17 21:00 21:15 21:20 Temperature Pulse Rate 72 Pulse Rate [ 74 Anterior Throughout] Pulse Rate [ From Monitor] Pulse Rate [ Right Radial] Respiratory 13 Rate Respiratory 16 Rate [Anterior Throughout] Blood Pressure 149/91 O2 Sat by Pulse 95 97 Oximetry 10/23/17 10/23/17 10/23/17 21:25 21:30 22:00 Temperature Pulse Rate 76 79 Pulse Rate [ 75 Anterior Throughout] Pulse Rate [ From Monitor] Pulse Rate [ Right Radial] Respiratory 14 15 Rate Respiratory 13 Rate [Anterior Throughout] Blood Pressure 156/97 156/97 O2 Sat by Pulse 98 98 Oximetry 10/23/17 10/23/17 10/23/17 22:09 22:26 22:30 Temperature Pulse Rate 81 77 81 Pulse Rate [ Anterior Throughout] Pulse Rate [ From Monitor] Pulse Rate [ Right Radial] Respiratory 12 15 Rate Respiratory Rate [Anterior Throughout] Blood Pressure 174/141 174/141 151/95 O2 Sat by Pulse 99 92 Oximetry 10/23/17 10/23/17 10/23/17 22:36 23:00 23:30 Temperature Pulse Rate 75 74 93 H Pulse Rate [ Anterior Throughout] Pulse Rate [ From Monitor] Pulse Rate [ Right Radial] Respiratory 14 10 L 14 Rate Respiratory Rate [Anterior Throughout] Blood Pressure 151/95 136/88 174/141 O2 Sat by Pulse 93 95 94 Oximetry 10/24/17 10/24/17 10/24/17 00:00 00:30 01:00 Temperature 99.0 F Pulse Rate 79 78 65 Pulse Rate [ 70 Anterior Throughout] Pulse Rate [ 81 From Monitor] Pulse Rate [ 81 Right Radial] Respiratory 20 16 15 Rate Respiratory 18 Rate [Anterior Throughout] Blood Pressure 130/90 136/73 121/79 O2 Sat by Pulse 91 91 94 Oximetry 10/24/17 10/24/17 10/24/17 01:10 01:30 02:00 Temperature Pulse Rate 67 69 Pulse Rate [ 74 Anterior Throughout] Pulse Rate [ From Monitor] Pulse Rate [ Right Radial] Respiratory 15 16 Rate Respiratory 15 Rate [Anterior Throughout] Blood Pressure 119/78 119/78 O2 Sat by Pulse 96 94 Oximetry 10/24/17 10/24/17 10/24/17 02:30 03:00 03:30 Temperature Pulse Rate 69 68 71 Pulse Rate [ Anterior Throughout] Pulse Rate [ From Monitor] Pulse Rate [ Right Radial] Respiratory 13 15 14 Rate Respiratory Rate [Anterior Throughout] Blood Pressure 129/81 132/81 128/80 O2 Sat by Pulse 95 96 95 Oximetry 10/24/17 10/24/17 10/24/17 04:00 04:08 04:30 Temperature 98.9 F Pulse Rate 71 72 Pulse Rate [ 73 77 Anterior Throughout] Pulse Rate [ 71 From Monitor] Pulse Rate [ 71 Right Radial] Respiratory 15 16 Rate Respiratory 16 16 Rate [Anterior Throughout] Blood Pressure 133/81 151/87 O2 Sat by Pulse 97 92 Oximetry 10/24/17 10/24/17 10/24/17 05:00 05:30 06:00 Temperature Pulse Rate 87 82 82 Pulse Rate [ Anterior Throughout] Pulse Rate [ From Monitor] Pulse Rate [ Right Radial] Respiratory 15 20 16 Rate Respiratory Rate [Anterior Throughout] Blood Pressure 151/87 130/83 146/86 O2 Sat by Pulse 87 100 Oximetry 10/24/17 10/24/17 10/24/17 06:30 07:00 08:00 Temperature Pulse Rate 81 74 Pulse Rate [ 75 Anterior Throughout] Pulse Rate [ From Monitor] Pulse Rate [ Right Radial] Respiratory 20 15 Rate Respiratory 18 Rate [Anterior Throughout] Blood Pressure 143/89 128/80 O2 Sat by Pulse 97 Oximetry 10/24/17 08:21 Temperature Pulse Rate Pulse Rate [ 76 Anterior Throughout] Pulse Rate [ From Monitor] Pulse Rate [ Right Radial] Respiratory Rate Respiratory 14 Rate [Anterior Throughout] Blood Pressure O2 Sat by Pulse Oximetry Constitutional: no acute distress, alert Eyes: non-icteric Neck: supple, no JVD Ascultation: Bilateral: clear, diminished breath sounds Percussion: Bilateral: not dull Cardiovascular: regular rate and rhythm Gastrointestinal: soft, non-tender Extremities: no cyanosis, no edema, pink and warm Neurologic: unable to assess CBC and BMP: 10/25/17 01:21 10/25/17 01:21 ABG, PT/INR, D-dimer: ABG POC ABG pH 7.446 (7.35-7.45) 10/23/17 11:46 POC ABG pCO2 48.0 (35-45) H 10/23/17 11:46 POC ABG pO2 73 (80-105) L 10/23/17 11:46 POC ABG HCO3 33.0 10/23/17 11:46 POC ABG Total CO2 34 10/23/17 11:46 POC ABG O2 Sat 95 10/23/17 11:46 PT/INR, D-dimer PT 13.1 Sec. (12.2-14.9) 10/17/17 04:06 INR 0.95 (0.87-1.13) 10/17/17 04:06 Abnormal lab findings: Abnormal Labs 10/17/17 10/17/17 10/17/17 04:06 04:06 04:23 WBC RBC 5.56 H Hgb 16.7 H Hct 48.1 H MCHC 35 H RDW 13.0 L Lymph % (Auto) Lymph # [place] # Seg Neutrophils % Seg Neutrophils # POC ABG pH POC ABG pCO2 POC ABG pO2 Carbon Dioxide BUN Creatinine Glucose 141 H POC Glucose Hemoglobin A1c Lactic Acid Calcium Total Creatine Kinase 301 H CK-MB (CK-2) Troponin T NT-Pro-B Natriuret Pep TSH Urine pH Salicylates 10/17/17 10/17/17 10/17/17 04:23 04:24 04:35 WBC RBC Hgb Hct MCHC RDW Lymph % (Auto) Lymph # [place] # Seg Neutrophils % Seg Neutrophils # POC ABG pH POC ABG pCO2 POC ABG pO2 Carbon Dioxide BUN Creatinine Glucose POC Glucose 132 H Hemoglobin A1c Lactic Acid Calcium Total Creatine Kinase CK-MB (CK-2) Troponin T NT-Pro-B Natriuret Pep TSH Urine pH 8.0 H Salicylates < 0.3 L 10/17/17 10/17/17 10/17/17 05:49 06:26 10:39 WBC RBC Hgb 16.6 H Hct 48.3 H MCHC RDW Lymph % (Auto) Lymph # [place] # Seg Neutrophils % Seg Neutrophils # POC ABG pH 7.207 L 7.155 L POC ABG pCO2 62.6 H 72.8 H POC ABG pO2 155 H Carbon Dioxide BUN Creatinine Glucose POC Glucose Hemoglobin A1c Lactic Acid Calcium Total Creatine Kinase CK-MB (CK-2) Troponin T NT-Pro-B Natriuret Pep TSH Urine pH Salicylates 10/17/17 10/17/17 10/17/17 15:01 15:01 16:26 WBC RBC Hgb Hct MCHC RDW Lymph % (Auto) Lymph # [place] # Seg Neutrophils % Seg Neutrophils # POC ABG pH POC ABG pCO2 POC ABG pO2 Carbon Dioxide 21 L BUN Creatinine Glucose 134 H POC Glucose Hemoglobin A1c Lactic Acid 2.60 H* 2.50 H* Calcium 8.3 L Total Creatine Kinase 464 H CK-MB (CK-2) 6.8 H Troponin T 0.102 H* D NT-Pro-B Natriuret Pep 604.7 H TSH Urine pH Salicylates 10/17/17 10/17/17 10/17/17 16:30 18:36 18:51 WBC 18.6 H RBC 5.55 H Hgb 16.3 H Hct 48.2 H MCHC RDW 12.9 L Lymph % (Auto) 6.0 L Lymph # 1.1 L [place] # 1.1 H Seg Neutrophils % 87.9 H Seg Neutrophils # 16.4 H POC ABG pH POC ABG pCO2 POC ABG pO2 202 H Carbon Dioxide BUN Creatinine Glucose POC Glucose Hemoglobin A1c Lactic Acid 2.20 H* Calcium Total Creatine Kinase CK-MB (CK-2) Troponin T NT-Pro-B Natriuret Pep TSH Urine pH Salicylates 10/17/17 10/18/17 10/18/17 22:06 02:31 05:33 WBC RBC Hgb Hct MCHC RDW Lymph % (Auto) Lymph # [place] # Seg Neutrophils % Seg Neutrophils # POC ABG pH POC ABG pCO2 46.9 H POC ABG pO2 107 H Carbon Dioxide BUN Creatinine Glucose POC Glucose 139 H 180 H Hemoglobin A1c Lactic Acid Calcium Total Creatine Kinase CK-MB (CK-2) Troponin T NT-Pro-B Natriuret Pep TSH Urine pH Salicylates 10/18/17 10/18/17 10/18/17 05:46 10:17 10:39 WBC 14.5 H RBC 5.13 H Hgb 15.7 H Hct MCHC 35 H RDW Lymph % (Auto) 8.0 L Lymph # [place] # Seg Neutrophils % 86.5 H Seg Neutrophils # 12.6 H POC ABG pH POC ABG pCO2 POC ABG pO2 Carbon Dioxide BUN Creatinine Glucose POC Glucose 157 H 128 H Hemoglobin A1c Lactic Acid Calcium Total Creatine Kinase CK-MB (CK-2) Troponin T NT-Pro-B Natriuret Pep TSH Urine pH Salicylates 10/18/17 10/18/17 10/18/17 14:32 15:58 17:47 WBC RBC Hgb Hct MCHC RDW Lymph % (Auto) Lymph # [place] # Seg Neutrophils % Seg Neutrophils # POC ABG pH POC ABG pCO2 POC ABG pO2 Carbon Dioxide BUN Creatinine Glucose POC Glucose 122 H 156 H Hemoglobin A1c Lactic Acid Calcium Total Creatine Kinase CK-MB (CK-2) Troponin T NT-Pro-B Natriuret Pep TSH 0.105 L Urine pH Salicylates 10/18/17 10/19/17 10/19/17 22:34 02:57 04:34 WBC RBC Hgb Hct MCHC RDW Lymph % (Auto) Lymph # [place] # Seg Neutrophils % Seg Neutrophils # POC ABG pH 7.329 L POC ABG pCO2 56.9 H POC ABG pO2 163 H Carbon Dioxide BUN Creatinine Glucose POC Glucose 154 H 155 H Hemoglobin A1c Lactic Acid Calcium Total Creatine Kinase CK-MB (CK-2) Troponin T NT-Pro-B Natriuret Pep TSH Urine pH Salicylates 10/19/17 10/19/17 10/19/17 06:51 06:51 06:55 WBC 15.7 H RBC 5.14 H Hgb 15.4 H Hct MCHC RDW Lymph % (Auto) Lymph # [place] # Seg Neutrophils % Seg Neutrophils # POC ABG pH POC ABG pCO2 POC ABG pO2 Carbon Dioxide BUN 28 H Creatinine 1.9 H D Glucose 182 H POC Glucose 155 H Hemoglobin A1c Lactic Acid Calcium Total Creatine Kinase CK-MB (CK-2) Troponin T NT-Pro-B Natriuret Pep TSH Urine pH Salicylates 10/19/17 10/19/17 10/19/17 10:19 12:26 17:15 WBC RBC Hgb Hct MCHC RDW Lymph % (Auto) Lymph # [place] # Seg Neutrophils % Seg Neutrophils # POC ABG pH POC ABG pCO2 POC ABG pO2 Carbon Dioxide BUN Creatinine Glucose POC Glucose 169 H 172 H 132 H Hemoglobin A1c Lactic Acid Calcium Total Creatine Kinase CK-MB (CK-2) Troponin T NT-Pro-B Natriuret Pep TSH Urine pH Salicylates 10/20/17 10/20/17 10/20/17 00:03 03:39 04:17 WBC 13.2 H RBC Hgb Hct MCHC RDW Lymph % (Auto) Lymph # [place] # Seg Neutrophils % Seg Neutrophils # POC ABG pH POC ABG pCO2 48.3 H POC ABG pO2 Carbon Dioxide BUN Creatinine Glucose POC Glucose 238 H Hemoglobin A1c Lactic Acid Calcium Total Creatine Kinase CK-MB (CK-2) Troponin T NT-Pro-B Natriuret Pep TSH Urine pH Salicylates 10/20/17 10/20/17 10/20/17 04:17 04:18 05:36 WBC RBC Hgb Hct MCHC RDW Lymph % (Auto) Lymph # [place] # Seg Neutrophils % Seg Neutrophils # POC ABG pH POC ABG pCO2 POC ABG pO2 Carbon Dioxide BUN 34 H Creatinine Glucose 230 H POC Glucose 243 H Hemoglobin A1c 6.4 H Lactic Acid Calcium Total Creatine Kinase CK-MB (CK-2) Troponin T NT-Pro-B Natriuret Pep TSH Urine pH Salicylates 10/20/17 10/20/17 10/21/17 11:44 18:35 00:08 WBC RBC Hgb Hct MCHC RDW Lymph % (Auto) Lymph # [place] # Seg Neutrophils % Seg Neutrophils # POC ABG pH POC ABG pCO2 POC ABG pO2 Carbon Dioxide BUN Creatinine Glucose POC Glucose 215 H 217 H 215 H Hemoglobin A1c Lactic Acid Calcium Total Creatine Kinase CK-MB (CK-2) Troponin T NT-Pro-B Natriuret Pep TSH Urine pH Salicylates 10/21/17 10/21/17 10/21/17 03:36 04:15 04:15 WBC 15.1 H RBC Hgb Hct MCHC RDW 13.0 L Lymph % (Auto) Lymph # [place] # Seg Neutrophils % Seg Neutrophils # POC ABG pH 7.458 H POC ABG pCO2 POC ABG pO2 62 L Carbon Dioxide BUN 38 H Creatinine Glucose 248 H POC Glucose Hemoglobin A1c Lactic Acid Calcium Total Creatine Kinase CK-MB (CK-2) Troponin T NT-Pro-B Natriuret Pep TSH Urine pH Salicylates 07/10/21/17 10/21/17 06:22 12:16 17:39 WBC RBC Hgb Hct MCHC RDW Lymph % (Auto) Lymph # [place] # Seg Neutrophils % Seg Neutrophils # POC ABG pH POC ABG pCO2 POC ABG pO2 Carbon Dioxide BUN Creatinine Glucose POC Glucose 225 H 237 H 268 H Hemoglobin A1c Lactic Acid Calcium Total Creatine Kinase CK-MB (CK-2) Troponin T NT-Pro-B Natriuret Pep TSH Urine pH Salicylates 10/21/17 10/22/17 10/22/17 17:51 00:13 05:20 WBC RBC Hgb Hct MCHC RDW Lymph % (Auto) Lymph # [place] # Seg Neutrophils % Seg Neutrophils # POC ABG pH POC ABG pCO2 POC ABG pO2 Carbon Dioxide BUN Creatinine Glucose POC Glucose 263 H 257 H 334 H Hemoglobin A1c Lactic Acid Calcium Total Creatine Kinase CK-MB (CK-2) Troponin T NT-Pro-B Natriuret Pep TSH Urine pH Salicylates 10/22/17 10/22/17 10/22/17 07:18 07:18 11:58 WBC 12.6 H RBC 5.20 H Hgb 15.5 H Hct 46.2 H MCHC RDW 13.0 L Lymph % (Auto) Lymph # [place] # Seg Neutrophils % Seg Neutrophils # POC ABG pH POC ABG pCO2 POC ABG pO2 Carbon Dioxide BUN 39 H Creatinine Glucose 308 H POC Glucose 281 H Hemoglobin A1c Lactic Acid Calcium Total Creatine Kinase CK-MB (CK-2) Troponin T NT-Pro-B Natriuret Pep TSH Urine pH Salicylates 10/22/17 10/22/17 10/22/17 15:30 17:45 23:57 WBC RBC Hgb Hct MCHC RDW Lymph % (Auto) Lymph # [place] # Seg Neutrophils % Seg Neutrophils # POC ABG pH 7.487 H POC ABG pCO2 46.2 H POC ABG pO2 136 H Carbon Dioxide BUN Creatinine Glucose POC Glucose 236 H 249 H Hemoglobin A1c Lactic Acid Calcium Total Creatine Kinase CK-MB (CK-2) Troponin T NT-Pro-B Natriuret Pep TSH Urine pH Salicylates 10/23/17 10/23/17 10/23/17 03:31 03:31 03:47 WBC 13.9 H RBC 5.07 H Hgb Hct MCHC RDW 13.1 L Lymph % (Auto) Lymph # [place] # Seg Neutrophils % Seg Neutrophils # POC ABG pH 7.486 H POC ABG pCO2 POC ABG pO2 164 H Carbon Dioxide BUN 39 H Creatinine Glucose 218 H POC Glucose Hemoglobin A1c Lactic Acid Calcium Total Creatine Kinase CK-MB (CK-2) Troponin T NT-Pro-B Natriuret Pep TSH Urine pH Salicylates 10/23/17 10/23/17 10/23/17 06:01 08:54 11:46 WBC RBC Hgb Hct MCHC RDW Lymph % (Auto) Lymph # [place] # Seg Neutrophils % Seg Neutrophils # POC ABG pH POC ABG pCO2 48.0 H POC ABG pO2 73 L Carbon Dioxide BUN Creatinine Glucose POC Glucose 291 H 213 H Hemoglobin A1c Lactic Acid Calcium Total Creatine Kinase CK-MB (CK-2) Troponin T NT-Pro-B Natriuret Pep TSH Urine pH Salicylates 10/23/17 10/23/17 10/23/17 12:43 12:56 17:52 WBC RBC Hgb Hct MCHC RDW Lymph % (Auto) Lymph # [place] # Seg Neutrophils % Seg Neutrophils # POC ABG pH POC ABG pCO2 POC ABG pO2 Carbon Dioxide BUN Creatinine Glucose POC Glucose 210 H 237 H 185 H Hemoglobin A1c Lactic Acid Calcium Total Creatine Kinase CK-MB (CK-2) Troponin T NT-Pro-B Natriuret Pep TSH Urine pH Salicylates 10/23/17 10/24/17 23:51 06:02 WBC RBC Hgb Hct MCHC RDW Lymph % (Auto) Lymph # [place] # Seg Neutrophils % Seg Neutrophils # POC ABG pH POC ABG pCO2 POC ABG pO2 Carbon Dioxide BUN Creatinine Glucose POC Glucose 161 H 142 H Hemoglobin A1c Lactic Acid Calcium Total Creatine Kinase CK-MB (CK-2) Troponin T NT-Pro-B Natriuret Pep TSH Urine pH Salicylates
[2017-10-24] MEDS: HEPARIN SUB-Q SCH ×2 (11:32→22:27)
[2017-10-24] MEDS: HCTZ PO SCH (11:32)
[2017-10-24] MEDS: PEPCID PO SCH ×2 (11:32→22:09)
[2017-10-24] MEDS: NORMODYNE PO SCH ×2 (11:33→22:09)
[2017-10-24 13:12] LABS: Hematocrit 47.8 % (35.5-45.6); Hemoglobin 16.3 gm/dl (11.8-15.2); Mean Corpuscular HGB Conc 34 % (32-34); Mean Corpuscular Hemoglobin 30 pg (28-32); Mean Corpuscular Volume 88 fl (84-94); Platelet Count 301 K/mm3 (140-440); Red Blood Count 5.44 M/mm3 (3.65-5.03); Red Cell Distribution Width 12.8 % (13.2-15.2)
[2017-10-24] MEDS: TRANSDERM-SCOP TD SCH (13:22)
--- NOTE | 2017-10-24 17:36 | Progress Note ---
Assessment and Plan /Acute respiratory failure, Patient was extubated 10/18 but re-Intubated later in evening. Pulmonology following s/p extubation yesterday cont O2 n/c and as needed nebs /GI bleed. GI following, H/H stable Conservative management for now. /Acute to subacute ischemic stroke right medulla oblongata. cont Aspirin, statin. Neuro following. /Acute kidney injury, Improved, Cr stable /Prediabetes a1c 6.4. blood glucose uncontrolled. Started on Novolin 70/30 /Fever, low grade, 100.6 on 10/21 Repeat blood cultures drawn, to date negative /Elevated troponin. Cardiology following. /Encephalopathy, likely from acute CVA. Now alert,follows commands /Dysphagia, cont TF, speech eval Full code status Discussed with patient and fiance at bedside. Brief History: 42-year-old man admitted history of hypertension, noncompliant with medication over the last 1 month comes emergency room with complaints of right-sided weakness and slurred speech. His last well-known time was 11:30, he woke up at 2:30 to use the bathroom, he fell to the floor a few times with several attempts. He was admitted with stroke protocol. Later on intubated on the day of admission for increase effort of breathing. He was weaned off from the vent on 10/18 and was extubated but required to reintubate later in the evening. He is now weaned off from vent and extubated again yesterday. Radiological data: head CT: Cranial CT scan within normal limits. No change is demonstrated. CTA head/neck: Normal CT angiogram of the arteries in the neck and head MRI brain: 1.3 cm area of subacute ischemia in the right medulla oblongata as described. MRA neck: normal study Hospitalist Physical Constitutional; Not in acute distress, HEENT: Atraumatic, normocephalic Neck: supple, no lymphadenopathy, JVD or thyromegaly Lungs: Bilateral crackles CVS; S1-S2 regular, no murmurs, rubs or gallop, Abdomen; soft, non-tender, non distended,bowel sounds are normal, Musculoskeletal; No edema, no clubbing, no cyanosis IVORY CARVER: Intubated, awake,alert,follows commands,moves all ext, mild weakness on right Subjective Date of service: 10/24/17 Principal diagnosis: acute stroke, respiratory failure/MV support Interval history: More alert, s/p extubation yesterday mild right sided weakness Failed bedside swallow study Objective - Constitutional Vitals: Vital Signs - 12hr 10/24/17 10/24/17 10/24/17 06:00 06:30 07:00 Temperature Pulse Rate 82 81 74 Pulse Rate [ Anterior Throughout] Respiratory 16 20 15 Rate Respiratory Rate [Anterior Throughout] Blood Pressure 146/86 143/89 128/80 O2 Sat by Pulse 100 Oximetry 10/24/17 10/24/17 10/24/17 07:30 08:00 08:21 Temperature 99 F Pulse Rate 81 75 Pulse Rate [ 75 76 Anterior Throughout] Respiratory 19 18 Rate Respiratory 18 14 Rate [Anterior Throughout] Blood Pressure 147/88 147/88 O2 Sat by Pulse 95 98 Oximetry 10/24/17 10/24/17 10/24/17 08:30 09:00 09:30 Temperature Pulse Rate 75 75 Pulse Rate [ Anterior Throughout] Respiratory 15 17 Rate Respiratory Rate [Anterior Throughout] Blood Pressure 130/86 130/86 124/71 O2 Sat by Pulse 98 97 94 Oximetry 10/24/17 10/24/17 10/24/17 10:00 10:30 11:00 Temperature Pulse Rate 98 H 102 H 100 H Pulse Rate [ Anterior Throughout] Respiratory 19 14 17 Rate Respiratory Rate [Anterior Throughout] Blood Pressure 114/77 130/81 127/83 O2 Sat by Pulse 97 Oximetry 10/24/17 10/24/17 10/24/17 11:30 11:33 12:00 Temperature 98.9 F Pulse Rate 75 76 75 Pulse Rate [ Anterior Throughout] Respiratory 13 15 Rate Respiratory Rate [Anterior Throughout] Blood Pressure 130/81 127/83 113/75 O2 Sat by Pulse 97 97 Oximetry 10/24/17 10/24/17 10/24/17 12:30 12:52 13:00 Temperature Pulse Rate 73 79 Pulse Rate [ 76 Anterior Throughout] Respiratory 21 12 Rate Respiratory 14 Rate [Anterior Throughout] Blood Pressure 113/75 113/75 O2 Sat by Pulse 95 96 Oximetry 10/24/17 10/24/17 10/24/17 13:02 13:30 14:00 Temperature Pulse Rate 73 75 Pulse Rate [ 73 Anterior Throughout] Respiratory 12 14 Rate Respiratory 16 Rate [Anterior Throughout] Blood Pressure 113/75 110/67 O2 Sat by Pulse 97 97 Oximetry 10/24/17 14:30 Temperature Pulse Rate Pulse Rate [ Anterior Throughout] Respiratory Rate Respiratory Rate [Anterior Throughout] Blood Pressure 110/67 O2 Sat by Pulse 97 Oximetry - Labs CBC & Chem 7: 10/24/17 12:58 10/24/17 08:51 Labs: Abnormal lab results 10/23/17 10/23/17 10/24/17 Range/Units 17:52 23:51 06:02 WBC (4.5-11.0) K/mm3 RBC (3.65-5.03) M/mm3 Hgb (11.8-15.2) gm/dl Hct (35.5-45.6) % RDW (13.2-15.2) % BUN (9-20) mg/dL POC Glucose 185 H 161 H 142 H (70-105) 10/24/17 10/24/17 10/24/17 Range/Units 08:51 12:58 13:20 WBC 14.9 H (4.5-11.0) K/mm3 RBC 5.44 H (3.65-5.03) M/mm3 Hgb 16.3 H (11.8-15.2) gm/dl Hct 47.8 H (35.5-45.6) % RDW 12.8 L (13.2-15.2) % BUN 33 H (9-20) mg/dL POC Glucose 185 H (70-105)
--- NOTE | 2017-10-24 18:41 | Magnetic Resonance Report ---
FINAL REPORT PROCEDURE: Magnetic resonance angiogram of the neck without contrast. TECHNIQUE: MR angiography of the cervical carotid and vertebral arteries was performed. The source images were reconstructed in various views using maximum intensity projection. HISTORY: Posterior circulation infarct, rule out vertebral artery dissection. COMPARISON: No prior studies are available for comparison. FINDINGS: The origins of the innominate artery, left common carotid artery and left subclavian artery are widely patent. The left vertebral artery has a direct origin from the aortic arch between the left common carotid artery and the left subclavian artery. Both common carotid arteries are widely patent. Both carotid artery bifurcations are widely patent. The internal carotid and external carotid arteries appear normal. Both vertebral arteries are patent. The left vertebral artery is dominant. There are no signs of a vertebral artery dissection. IMPRESSION: Normal study.
[2017-10-24] MEDS: ASPIRIN PO SCH (22:09)
[2017-10-25] MEDS: PROVENTIL IH SCH ×6 (00:29→20:06)
[2017-10-25] MEDS: HumuLIN R SUB-Q SCH ×4 (01:10→19:03)
[2017-10-25 01:41] LABS: Hematocrit 47.6 % (35.5-45.6); Hemoglobin 15.9 gm/dl (11.8-15.2); Mean Corpuscular HGB Conc 33 % (32-34); Mean Corpuscular Hemoglobin 30 pg (28-32); Mean Corpuscular Volume 89 fl (84-94); Platelet Count 289 K/mm3 (140-440); Red Blood Count 5.35 M/mm3 (3.65-5.03); Red Cell Distribution Width 13.1 % (13.2-15.2)
[2017-10-25 02:30] LABS: BUN/Creatinine Ratio 39; Blood Urea Nitrogen 43 mg/dL (9-20); Hemolysis Index 9
[2017-10-25] MEDS: PULMICORT IH SCH ×2 (07:23→20:05)
[2017-10-25] MEDS: BROVANA NEBU IH SCH ×2 (07:23→20:05)
--- NOTE | 2017-10-25 09:05 | Progress Note ---
Subjective Date of service: 10/25/17 Principal diagnosis: acute stroke, respiratory failure/MV support Interval history: NEUROLOGY FOLLOW UP NOTE; Patient stable. No new neuro sx. Difficulty swallowing persists Neuro exam unchanged. R Isiah's syndrome still evident. MRI neck shows no evidence of vertebral artery dissection. IMP: 1. Right medullary infarct, with right Horners Syndrome and swallowing impairment 2. HTN, uncontrolled RECC: 1. He should recover most or all function with time, less than 6 mos. 2. Neuro work up complete 3. Pursue current mgt, call as needed Louis Del Angel MD Objective - Vital Sign Vital Signs - 12hr 10/24/17 10/24/17 10/24/17 21:04 21:24 21:30 Temperature 98.8 F Pulse Rate 73 Pulse Rate [ 86 Anterior Throughout] Pulse Rate [ Right Radial] Respiratory 18 Rate Respiratory 20 Rate [Anterior Throughout] Blood Pressure 135/88 O2 Sat by Pulse 92 96 Oximetry 10/24/17 10/24/17 10/24/17 21:34 21:38 21:40 Temperature Pulse Rate Pulse Rate [ 89 Anterior Throughout] Pulse Rate [ Right Radial] Respiratory 22 Rate Respiratory 20 Rate [Anterior Throughout] Blood Pressure O2 Sat by Pulse 100 100 Oximetry 10/24/17 10/25/17 10/25/17 22:00 00:21 00:29 Temperature 98.6 F Pulse Rate 69 Pulse Rate [ 66 Anterior Throughout] Pulse Rate [ 74 Right Radial] Respiratory 18 18 Rate Respiratory 20 Rate [Anterior Throughout] Blood Pressure 115/76 O2 Sat by Pulse 94 Oximetry 10/25/17 10/25/17 10/25/17 00:39 04:50 05:01 Temperature Pulse Rate Pulse Rate [ 68 72 74 Anterior Throughout] Pulse Rate [ Right Radial] Respiratory Rate Respiratory 20 20 20 Rate [Anterior Throughout] Blood Pressure O2 Sat by Pulse Oximetry 10/25/17 10/25/17 10/25/17 07:24 07:28 07:35 Temperature Pulse Rate Pulse Rate [ 70 74 Anterior Throughout] Pulse Rate [ Right Radial] Respiratory Rate Respiratory 18 20 Rate [Anterior Throughout] Blood Pressure O2 Sat by Pulse 100 Oximetry - Laboratory Findings CBC and BMP: 10/25/17 01:21 10/25/17 01:21 Abnormal Lab Findings: Abnormal Labs 10/17/17 10/17/17 10/17/17 04:06 04:06 04:23 WBC RBC 5.56 H Hgb 16.7 H Hct 48.1 H MCHC 35 H RDW 13.0 L Lymph % (Auto) Lymph # [place] # Seg Neutrophils % Seg Neutrophils # POC ABG pH POC ABG pCO2 POC ABG pO2 Carbon Dioxide BUN Creatinine Glucose 141 H POC Glucose Hemoglobin A1c Lactic Acid Calcium Total Creatine Kinase 301 H CK-MB (CK-2) Troponin T NT-Pro-B Natriuret Pep TSH Urine pH Salicylates 10/17/17 10/17/17 10/17/17 04:23 04:24 04:35 WBC RBC Hgb Hct MCHC RDW Lymph % (Auto) Lymph # [place] # Seg Neutrophils % Seg Neutrophils # POC ABG pH POC ABG pCO2 POC ABG pO2 Carbon Dioxide BUN Creatinine Glucose POC Glucose 132 H Hemoglobin A1c Lactic Acid Calcium Total Creatine Kinase CK-MB (CK-2) Troponin T NT-Pro-B Natriuret Pep TSH Urine pH 8.0 H Salicylates < 0.3 L 10/17/17 10/17/17 10/17/17 05:49 06:26 10:39 WBC RBC Hgb 16.6 H Hct 48.3 H MCHC RDW Lymph % (Auto) Lymph # [place] # Seg Neutrophils % Seg Neutrophils # POC ABG pH 7.207 L 7.155 L POC ABG pCO2 62.6 H 72.8 H POC ABG pO2 155 H Carbon Dioxide BUN Creatinine Glucose POC Glucose Hemoglobin A1c Lactic Acid Calcium Total Creatine Kinase CK-MB (CK-2) Troponin T NT-Pro-B Natriuret Pep TSH Urine pH Salicylates 10/17/17 10/17/17 10/17/17 15:01 15:01 16:26 WBC RBC Hgb Hct MCHC RDW Lymph % (Auto) Lymph # [place] # Seg Neutrophils % Seg Neutrophils # POC ABG pH POC ABG pCO2 POC ABG pO2 Carbon Dioxide 21 L BUN Creatinine Glucose 134 H POC Glucose Hemoglobin A1c Lactic Acid 2.60 H* 2.50 H* Calcium 8.3 L Total Creatine Kinase 464 H CK-MB (CK-2) 6.8 H Troponin T 0.102 H* D NT-Pro-B Natriuret Pep 604.7 H TSH Urine pH Salicylates 10/17/17 10/17/17 10/17/17 16:30 18:36 18:51 WBC 18.6 H RBC 5.55 H Hgb 16.3 H Hct 48.2 H MCHC RDW 12.9 L Lymph % (Auto) 6.0 L Lymph # 1.1 L [place] # 1.1 H Seg Neutrophils % 87.9 H Seg Neutrophils # 16.4 H POC ABG pH POC ABG pCO2 POC ABG pO2 202 H Carbon Dioxide BUN Creatinine Glucose POC Glucose Hemoglobin A1c Lactic Acid 2.20 H* Calcium Total Creatine Kinase CK-MB (CK-2) Troponin T NT-Pro-B Natriuret Pep TSH Urine pH Salicylates 10/17/17 10/18/17 10/18/17 22:06 02:31 05:33 WBC RBC Hgb Hct MCHC RDW Lymph % (Auto) Lymph # [place] # Seg Neutrophils % Seg Neutrophils # POC ABG pH POC ABG pCO2 46.9 H POC ABG pO2 107 H Carbon Dioxide BUN Creatinine Glucose POC Glucose 139 H 180 H Hemoglobin A1c Lactic Acid Calcium Total Creatine Kinase CK-MB (CK-2) Troponin T NT-Pro-B Natriuret Pep TSH Urine pH Salicylates 10/18/17 10/18/17 10/18/17 05:46 10:17 10:39 WBC 14.5 H RBC 5.13 H Hgb 15.7 H Hct MCHC 35 H RDW Lymph % (Auto) 8.0 L Lymph # [place] # Seg Neutrophils % 86.5 H Seg Neutrophils # 12.6 H POC ABG pH POC ABG pCO2 POC ABG pO2 Carbon Dioxide BUN Creatinine Glucose POC Glucose 157 H 128 H Hemoglobin A1c Lactic Acid Calcium Total Creatine Kinase CK-MB (CK-2) Troponin T NT-Pro-B Natriuret Pep TSH Urine pH Salicylates 10/18/17 10/18/17 10/18/17 14:32 15:58 17:47 WBC RBC Hgb Hct MCHC RDW Lymph % (Auto) Lymph # [place] # Seg Neutrophils % Seg Neutrophils # POC ABG pH POC ABG pCO2 POC ABG pO2 Carbon Dioxide BUN Creatinine Glucose POC Glucose 122 H 156 H Hemoglobin A1c Lactic Acid Calcium Total Creatine Kinase CK-MB (CK-2) Troponin T NT-Pro-B Natriuret Pep TSH 0.105 L Urine pH Salicylates 10/18/17 10/19/17 10/19/17 22:34 02:57 04:34 WBC RBC Hgb Hct MCHC RDW Lymph % (Auto) Lymph # [place] # Seg Neutrophils % Seg Neutrophils # POC ABG pH 7.329 L POC ABG pCO2 56.9 H POC ABG pO2 163 H Carbon Dioxide BUN Creatinine Glucose POC Glucose 154 H 155 H Hemoglobin A1c Lactic Acid Calcium Total Creatine Kinase CK-MB (CK-2) Troponin T NT-Pro-B Natriuret Pep TSH Urine pH Salicylates 10/19/17 10/19/17 10/19/17 06:51 06:51 06:55 WBC 15.7 H RBC 5.14 H Hgb 15.4 H Hct MCHC RDW Lymph % (Auto) Lymph # [place] # Seg Neutrophils % Seg Neutrophils # POC ABG pH POC ABG pCO2 POC ABG pO2 Carbon Dioxide BUN 28 H Creatinine 1.9 H D Glucose 182 H POC Glucose 155 H Hemoglobin A1c Lactic Acid Calcium Total Creatine Kinase CK-MB (CK-2) Troponin T NT-Pro-B Natriuret Pep TSH Urine pH Salicylates 10/19/17 10/19/17 10/19/17 10:19 12:26 17:15 WBC RBC Hgb Hct MCHC RDW Lymph % (Auto) Lymph # [place] # Seg Neutrophils % Seg Neutrophils # POC ABG pH POC ABG pCO2 POC ABG pO2 Carbon Dioxide BUN Creatinine Glucose POC Glucose 169 H 172 H 132 H Hemoglobin A1c Lactic Acid Calcium Total Creatine Kinase CK-MB (CK-2) Troponin T NT-Pro-B Natriuret Pep TSH Urine pH Salicylates 10/20/17 10/20/17 10/20/17 00:03 03:39 04:17 WBC 13.2 H RBC Hgb Hct MCHC RDW Lymph % (Auto) Lymph # [place] # Seg Neutrophils % Seg Neutrophils # POC ABG pH POC ABG pCO2 48.3 H POC ABG pO2 Carbon Dioxide BUN Creatinine Glucose POC Glucose 238 H Hemoglobin A1c Lactic Acid Calcium Total Creatine Kinase CK-MB (CK-2) Troponin T NT-Pro-B Natriuret Pep TSH Urine pH Salicylates 10/20/17 10/20/17 10/20/17 04:17 04:18 05:36 WBC RBC Hgb Hct MCHC RDW Lymph % (Auto) Lymph # [place] # Seg Neutrophils % Seg Neutrophils # POC ABG pH POC ABG pCO2 POC ABG pO2 Carbon Dioxide BUN 34 H Creatinine Glucose 230 H POC Glucose 243 H Hemoglobin A1c 6.4 H Lactic Acid Calcium Total Creatine Kinase CK-MB (CK-2) Troponin T NT-Pro-B Natriuret Pep TSH Urine pH Salicylates 10/20/17 10/20/17 10/21/17 11:44 18:35 00:08 WBC RBC Hgb Hct MCHC RDW Lymph % (Auto) Lymph # [place] # Seg Neutrophils % Seg Neutrophils # POC ABG pH POC ABG pCO2 POC ABG pO2 Carbon Dioxide BUN Creatinine Glucose POC Glucose 215 H 217 H 215 H Hemoglobin A1c Lactic Acid Calcium Total Creatine Kinase CK-MB (CK-2) Troponin T NT-Pro-B Natriuret Pep TSH Urine pH Salicylates 10/21/17 10/21/17 10/21/17 03:36 04:15 04:15 WBC 15.1 H RBC Hgb Hct MCHC RDW 13.0 L Lymph % (Auto) Lymph # [place] # Seg Neutrophils % Seg Neutrophils # POC ABG pH 7.458 H POC ABG pCO2 POC ABG pO2 62 L Carbon Dioxide BUN 38 H Creatinine Glucose 248 H POC Glucose Hemoglobin A1c Lactic Acid Calcium Total Creatine Kinase CK-MB (CK-2) Troponin T NT-Pro-B Natriuret Pep TSH Urine pH Salicylates 10/21/17 10/21/17 10/21/17 06:22 12:16 17:39 WBC RBC Hgb Hct MCHC RDW Lymph % (Auto) Lymph # [place] # Seg Neutrophils % Seg Neutrophils # POC ABG pH POC ABG pCO2 POC ABG pO2 Carbon Dioxide BUN Creatinine Glucose POC Glucose 225 H 237 H 268 H Hemoglobin A1c Lactic Acid Calcium Total Creatine Kinase CK-MB (CK-2) Troponin T NT-Pro-B Natriuret Pep TSH Urine pH Salicylates 10/21/17 10/22/17 10/22/17 17:51 00:13 05:20 WBC RBC Hgb Hct MCHC RDW Lymph % (Auto) Lymph # [place] # Seg Neutrophils % Seg Neutrophils # POC ABG pH POC ABG pCO2 POC ABG pO2 Carbon Dioxide BUN Creatinine Glucose POC Glucose 263 H 257 H 334 H Hemoglobin A1c Lactic Acid Calcium Total Creatine Kinase CK-MB (CK-2) Troponin T NT-Pro-B Natriuret Pep TSH Urine pH Salicylates 10/22/17 10/22/17 10/22/17 07:18 07:18 11:58 WBC 12.6 H RBC 5.20 H Hgb 15.5 H Hct 46.2 H MCHC RDW 13.0 L Lymph % (Auto) Lymph # [place] # Seg Neutrophils % Seg Neutrophils # POC ABG pH POC ABG pCO2 POC ABG pO2 Carbon Dioxide BUN 39 H Creatinine Glucose 308 H POC Glucose 281 H Hemoglobin A1c Lactic Acid Calcium Total Creatine Kinase CK-MB (CK-2) Troponin T NT-Pro-B Natriuret Pep TSH Urine pH Salicylates 10/22/17 10/22/17 10/22/17 15:30 17:45 23:57 WBC RBC Hgb Hct MCHC RDW Lymph % (Auto) Lymph # [place] # Seg Neutrophils % Seg Neutrophils # POC ABG pH 7.487 H POC ABG pCO2 46.2 H POC ABG pO2 136 H Carbon Dioxide BUN Creatinine Glucose POC Glucose 236 H 249 H Hemoglobin A1c Lactic Acid Calcium Total Creatine Kinase CK-MB (CK-2) Troponin T NT-Pro-B Natriuret Pep TSH Urine pH Salicylates 10/23/17 10/23/17 10/23/17 03:31 03:31 03:47 WBC 13.9 H RBC 5.07 H Hgb Hct MCHC RDW 13.1 L Lymph % (Auto) Lymph # [place] # Seg Neutrophils % Seg Neutrophils # POC ABG pH 7.486 H POC ABG pCO2 POC ABG pO2 164 H Carbon Dioxide BUN 39 H Creatinine Glucose 218 H POC Glucose Hemoglobin A1c Lactic Acid Calcium Total Creatine Kinase CK-MB (CK-2) Troponin T NT-Pro-B Natriuret Pep TSH Urine pH Salicylates 10/23/17 10/23/17 10/23/17 06:01 08:54 11:46 WBC RBC Hgb Hct MCHC RDW Lymph % (Auto) Lymph # [place] # Seg Neutrophils % Seg Neutrophils # POC ABG pH POC ABG pCO2 48.0 H POC ABG pO2 73 L Carbon Dioxide BUN Creatinine Glucose POC Glucose 291 H 213 H Hemoglobin A1c Lactic Acid Calcium Total Creatine Kinase CK-MB (CK-2) Troponin T NT-Pro-B Natriuret Pep TSH Urine pH Salicylates 10/23/17 10/23/17 10/23/17 12:43 12:56 17:52 WBC RBC Hgb Hct MCHC RDW Lymph % (Auto) Lymph # [place] # Seg Neutrophils % Seg Neutrophils # POC ABG pH POC ABG pCO2 POC ABG pO2 Carbon Dioxide BUN Creatinine Glucose POC Glucose 210 H 237 H 185 H Hemoglobin A1c Lactic Acid Calcium Total Creatine Kinase CK-MB (CK-2) Troponin T NT-Pro-B Natriuret Pep TSH Urine pH Salicylates 10/23/17 10/24/17 10/24/17 23:51 06:02 08:51 WBC RBC Hgb Hct MCHC RDW Lymph % (Auto) Lymph # [place] # Seg Neutrophils % Seg Neutrophils # POC ABG pH POC ABG pCO2 POC ABG pO2 Carbon Dioxide BUN 33 H Creatinine Glucose POC Glucose 161 H 142 H Hemoglobin A1c Lactic Acid Calcium Total Creatine Kinase CK-MB (CK-2) Troponin T NT-Pro-B Natriuret Pep TSH Urine pH Salicylates 10/24/17 10/24/17 10/24/17 12:58 13:20 17:54 WBC 14.9 H RBC 5.44 H Hgb 16.3 H Hct 47.8 H MCHC RDW 12.8 L Lymph % (Auto) Lymph # [place] # Seg Neutrophils % Seg Neutrophils # POC ABG pH POC ABG pCO2 POC ABG pO2 Carbon Dioxide BUN Creatinine Glucose POC Glucose 185 H 141 H Hemoglobin A1c Lactic Acid Calcium Total Creatine Kinase CK-MB (CK-2) Troponin T NT-Pro-B Natriuret Pep TSH Urine pH Salicylates 10/25/17 10/25/17 10/25/17 00:59 01:21 01:21 WBC 12.7 H RBC 5.35 H Hgb 15.9 H Hct 47.6 H MCHC RDW 13.1 L Lymph % (Auto) Lymph # [place] # Seg Neutrophils % Seg Neutrophils # POC ABG pH POC ABG pCO2 POC ABG pO2 Carbon Dioxide BUN 43 H Creatinine Glucose 201 H POC Glucose 181 H Hemoglobin A1c Lactic Acid Calcium Total Creatine Kinase CK-MB (CK-2) Troponin T NT-Pro-B Natriuret Pep TSH Urine pH Salicylates 10/25/17 06:21 WBC RBC Hgb Hct MCHC RDW Lymph % (Auto) Lymph # [place] # Seg Neutrophils % Seg Neutrophils # POC ABG pH POC ABG pCO2 POC ABG pO2 Carbon Dioxide BUN Creatinine Glucose POC Glucose 194 H Hemoglobin A1c Lactic Acid Calcium Total Creatine Kinase CK-MB (CK-2) Troponin T NT-Pro-B Natriuret Pep TSH Urine pH Salicylates
[2017-10-25] MEDS: HEPARIN SUB-Q SCH ×2 (13:20→23:09)
[2017-10-25] MEDS: PEPCID PO SCH ×2 (13:20→23:08)
[2017-10-25] MEDS: HCTZ PO SCH (13:20)
[2017-10-25] MEDS: NORMODYNE PO SCH ×2 (13:20→23:08)
--- NOTE | 2017-10-25 16:15 | Progress Note ---
Assessment and Plan /Acute respiratory failure, Patient was extubated 10/18 but re-Intubated later in evening. Pulmonology following s/p extubation 10/23 cont O2 n/c and as needed nebs /GI bleed. GI following, H/H stable Conservative management for now. /Acute to subacute ischemic stroke right medulla oblongata. Right medullary infarct, with right Horners Syndrome and swallowing impairment cont Aspirin, statin. Neuro following. Need rehab per PT but pt unfunded /Acute kidney injury, Improved, Cr stable /Prediabetes a1c 6.4. blood glucose uncontrolled. Started on Novolin 70/30 /Fever, low grade, 100.6 on 10/21 Repeat blood cultures drawn, to date negative /Elevated troponin. Cardiology following. /Encephalopathy, likely from acute CVA. Now alert,follows commands /Dysphagia, cont TF, speech eval Full code status Discussed with patient and fiance at bedside. Brief History: 42-year-old man admitted history of hypertension, noncompliant with medication over the last 1 month comes emergency room with complaints of right-sided weakness and slurred speech. His last well-known time was 11:30, he woke up at 2:30 to use the bathroom, he fell to the floor a few times with several attempts. He was admitted with stroke protocol. Later on intubated on the day of admission for increase effort of breathing. He was weaned off from the vent on 10/18 and was extubated but required to reintubate later in the evening. He is now weaned off from vent and extubated again 10/23/17. Radiological data: head CT: Cranial CT scan within normal limits. No change is demonstrated. CTA head/neck: Normal CT angiogram of the arteries in the neck and head MRI brain: 1.3 cm area of subacute ischemia in the right medulla oblongata as described. MRA neck: normal study Hospitalist Physical Constitutional; Not in acute distress, HEENT: Atraumatic, normocephalic Neck: supple, no lymphadenopathy, JVD or thyromegaly Lungs: Bilateral crackles CVS; S1-S2 regular, no murmurs, rubs or gallop, Abdomen; soft, non-tender, non distended,bowel sounds are normal, Musculoskeletal; No edema, no clubbing, no cyanosis [employer]: Intubated, awake,alert,follows commands,moves all ext, mild weakness on right Subjective Date of service: 10/25/17 Principal diagnosis: acute stroke, respiratory failure/MV support Interval history: mild right sided weakness Failed bedside swallow study Formal ST eval done, report pending Objective - Constitutional Vitals: Vital Signs - 12hr 10/25/17 10/25/17 10/25/17 04:31 04:50 05:01 Temperature 98.3 F Pulse Rate 78 Pulse Rate [ 72 74 Anterior Throughout] Respiratory 18 Rate Respiratory 20 20 Rate [Anterior Throughout] Blood Pressure 138/66 O2 Sat by Pulse 97 Oximetry 10/25/17 10/25/17 10/25/17 07:24 07:28 07:35 Temperature Pulse Rate Pulse Rate [ 70 74 Anterior Throughout] Respiratory Rate Respiratory 18 20 Rate [Anterior Throughout] Blood Pressure O2 Sat by Pulse 100 Oximetry 10/25/17 10/25/17 10/25/17 07:44 12:24 12:34 Temperature 98.2 F Pulse Rate 70 Pulse Rate [ 78 76 Anterior Throughout] Respiratory 18 Rate Respiratory 18 20 Rate [Anterior Throughout] Blood Pressure 122/80 O2 Sat by Pulse 99 Oximetry 10/25/17 10/25/17 10/25/17 12:35 15:45 15:55 Temperature 97.9 F Pulse Rate 71 Pulse Rate [ 72 74 Anterior Throughout] Respiratory 18 Rate Respiratory 20 20 Rate [Anterior Throughout] Blood Pressure 137/84 O2 Sat by Pulse 98 Oximetry - Labs CBC & Chem 7: 10/26/17 05:09 10/26/17 05:09 Labs: Abnormal lab results 10/24/17 10/25/17 10/25/17 Range/Units 17:54 00:59 01:21 WBC 12.7 H (4.5-11.0) K/mm3 RBC 5.35 H (3.65-5.03) M/mm3 Hgb 15.9 H (11.8-15.2) gm/dl Hct 47.6 H (35.5-45.6) % RDW 13.1 L (13.2-15.2) % BUN (9-20) mg/dL Glucose (75-100) mg/dL POC Glucose 141 H 181 H (70-105) 10/25/17 10/25/17 10/25/17 Range/Units 01:21 06:21 11:33 WBC (4.5-11.0) K/mm3 RBC (3.65-5.03) M/mm3 Hgb (11.8-15.2) gm/dl Hct (35.5-45.6) % RDW (13.2-15.2) % BUN 43 H (9-20) mg/dL Glucose 201 H (75-100) mg/dL POC Glucose 194 H 178 H (70-105)
[2017-10-25] MEDS: ASPIRIN PO SCH (23:08)
[2017-10-26] MEDS: PROVENTIL IH SCH ×6 (00:09→20:15)
[2017-10-26] MEDS: HumuLIN R SUB-Q SCH ×3 (01:20→12:00)
[2017-10-26 06:57] LABS: Basophils % (Auto) 0.1 % (0.0-1.8); Eosinophils # (Auto) 0.4 K/mm3 (0.0-0.4); Eosinophils % (Auto) 2.2 % (0.0-4.3); Hematocrit 49.8 % (35.5-45.6); Hemoglobin 16.4 gm/dl (11.8-15.2); Lymphocytes # (Auto) 1.6 K/mm3 (1.2-5.4); Lymphocytes % (Auto) 9.5 % (13.4-35.0); Mean Corpuscular HGB Conc 33 % (32-34); Mean Corpuscular Hemoglobin 30 pg (28-32); Mean Corpuscular Volume 90 fl (84-94); Platelet Count 305 K/mm3 (140-440); Red Blood Count 5.55 M/mm3 (3.65-5.03)
[2017-10-26 07:30] LABS: BUN/Creatinine Ratio 38; Blood Urea Nitrogen 45 mg/dL (9-20); Calcium 9.1 mg/dL (8.4-10.2); Hemolysis Index 10
[2017-10-26] MEDS: BROVANA NEBU IH SCH ×2 (08:14→20:15)
[2017-10-26] MEDS: PULMICORT IH SCH ×2 (08:15→20:15)
[2017-10-26] MEDS: HCTZ PO SCH (10:32)
[2017-10-26] MEDS: NORMODYNE PO SCH ×2 (10:32→22:53)
[2017-10-26] MEDS: PEPCID PO SCH ×2 (10:32→22:53)
[2017-10-26] MEDS: HEPARIN SUB-Q SCH ×2 (10:33→22:54)
--- NOTE | 2017-10-26 11:38 | Progress Note ---
Assessment and Plan Stroke Dysphagia GIB emesis .Controlled Acute respiratory failure ,resolved HTN Recommendations Continue oxygen support. Maintain aspiration precautions. Monitor fever,WBC Free PO water,monitor electrolytes,BUN/Creat We'll continue nebulizer therapy as necessary Subjective Date of service: 10/26/17 Principal diagnosis: acute stroke, respiratory failure/MV support Interval history: Alert, Objective Vital Signs - 12hr 10/26/17 10/26/17 10/26/17 00:10 00:22 01:04 Temperature 97.3 F L Pulse Rate 69 Pulse Rate [ 75 76 Anterior Throughout] Respiratory 18 Rate Respiratory 20 20 Rate [Anterior Throughout] Blood Pressure 115/67 Blood Pressure [Left] O2 Sat by Pulse 85 Oximetry 10/26/17 10/26/17 10/26/17 01:08 03:14 03:27 Temperature Pulse Rate 67 Pulse Rate [ 75 74 Anterior Throughout] Respiratory Rate Respiratory 18 18 Rate [Anterior Throughout] Blood Pressure Blood Pressure [Left] O2 Sat by Pulse 87 Oximetry 10/26/17 10/26/17 10/26/17 05:15 08:00 08:19 Temperature 97.3 F L 97.5 F L Pulse Rate 71 76 74 Pulse Rate [ Anterior Throughout] Respiratory 18 17 Rate Respiratory Rate [Anterior Throughout] Blood Pressure 130/82 Blood Pressure 123/60 [Left] O2 Sat by Pulse 92 94 Oximetry 10/26/17 10:32 Temperature Pulse Rate 76 Pulse Rate [ Anterior Throughout] Respiratory Rate Respiratory Rate [Anterior Throughout] Blood Pressure 124/60 Blood Pressure [Left] O2 Sat by Pulse Oximetry Constitutional: no acute distress, alert Eyes: non-icteric ENT: other (orally intubated ) Neck: supple, no JVD Ascultation: Bilateral: clear, diminished breath sounds Percussion: Bilateral: not dull Cardiovascular: regular rate and rhythm Gastrointestinal: soft, non-tender Extremities: no cyanosis, no edema, pink and warm Neurologic: unable to assess CBC and BMP: 10/26/17 05:09 10/26/17 05:09 ABG, PT/INR, D-dimer: ABG POC ABG pH 7.446 (7.35-7.45) 10/23/17 11:46 POC ABG pCO2 48.0 (35-45) H 10/23/17 11:46 POC ABG pO2 73 (80-105) L 10/23/17 11:46 POC ABG HCO3 33.0 10/23/17 11:46 POC ABG Total CO2 34 10/23/17 11:46 POC ABG O2 Sat 95 10/23/17 11:46 PT/INR, D-dimer PT 13.1 Sec. (12.2-14.9) 10/17/17 04:06 INR 0.95 (0.87-1.13) 10/17/17 04:06 Abnormal lab findings: Abnormal Labs 10/17/17 10/17/17 10/17/17 04:06 04:06 04:23 WBC RBC 5.56 H Hgb 16.7 H Hct 48.1 H MCHC 35 H RDW 13.0 L Lymph % (Auto) Lymph # [place] # Seg Neutrophils % Seg Neutrophils # POC ABG pH POC ABG pCO2 POC ABG pO2 Chloride Carbon Dioxide BUN Creatinine Glucose 141 H POC Glucose Hemoglobin A1c Lactic Acid Calcium Total Creatine Kinase 301 H CK-MB (CK-2) Troponin T NT-Pro-B Natriuret Pep TSH Urine pH Salicylates 10/17/17 10/17/17 10/17/17 04:23 04:24 04:35 WBC RBC Hgb Hct MCHC RDW Lymph % (Auto) Lymph # [place] # Seg Neutrophils % Seg Neutrophils # POC ABG pH POC ABG pCO2 POC ABG pO2 Chloride Carbon Dioxide BUN Creatinine Glucose POC Glucose 132 H Hemoglobin A1c Lactic Acid Calcium Total Creatine Kinase CK-MB (CK-2) Troponin T NT-Pro-B Natriuret Pep TSH Urine pH 8.0 H Salicylates < 0.3 L 10/17/17 10/17/17 10/17/17 05:49 06:26 10:39 WBC RBC Hgb 16.6 H Hct 48.3 H MCHC RDW Lymph % (Auto) Lymph # [place] # Seg Neutrophils % Seg Neutrophils # POC ABG pH 7.207 L 7.155 L POC ABG pCO2 62.6 H 72.8 H POC ABG pO2 155 H Chloride Carbon Dioxide BUN Creatinine Glucose POC Glucose Hemoglobin A1c Lactic Acid Calcium Total Creatine Kinase CK-MB (CK-2) Troponin T NT-Pro-B Natriuret Pep TSH Urine pH Salicylates 10/17/17 10/17/17 10/17/17 15:01 15:01 16:26 WBC RBC Hgb Hct MCHC RDW Lymph % (Auto) Lymph # [place] # Seg Neutrophils % Seg Neutrophils # POC ABG pH POC ABG pCO2 POC ABG pO2 Chloride Carbon Dioxide 21 L BUN Creatinine Glucose 134 H POC Glucose Hemoglobin A1c Lactic Acid 2.60 H* 2.50 H* Calcium 8.3 L Total Creatine Kinase 464 H CK-MB (CK-2) 6.8 H Troponin T 0.102 H* D NT-Pro-B Natriuret Pep 604.7 H TSH Urine pH Salicylates 10/17/17 10/17/17 10/17/17 16:30 18:36 18:51 WBC 18.6 H RBC 5.55 H Hgb 16.3 H Hct 48.2 H MCHC RDW 12.9 L Lymph % (Auto) 6.0 L Lymph # 1.1 L [place] # 1.1 H Seg Neutrophils % 87.9 H Seg Neutrophils # 16.4 H POC ABG pH POC ABG pCO2 POC ABG pO2 202 H Chloride Carbon Dioxide BUN Creatinine Glucose POC Glucose Hemoglobin A1c Lactic Acid 2.20 H* Calcium Total Creatine Kinase CK-MB (CK-2) Troponin T NT-Pro-B Natriuret Pep TSH Urine pH Salicylates 10/17/17 10/18/17 10/18/17 22:06 02:31 05:33 WBC RBC Hgb Hct MCHC RDW Lymph % (Auto) Lymph # [place] # Seg Neutrophils % Seg Neutrophils # POC ABG pH POC ABG pCO2 46.9 H POC ABG pO2 107 H Chloride Carbon Dioxide BUN Creatinine Glucose POC Glucose 139 H 180 H Hemoglobin A1c Lactic Acid Calcium Total Creatine Kinase CK-MB (CK-2) Troponin T NT-Pro-B Natriuret Pep TSH Urine pH Salicylates 10/18/17 10/18/17 10/18/17 05:46 10:17 10:39 WBC 14.5 H RBC 5.13 H Hgb 15.7 H Hct MCHC 35 H RDW Lymph % (Auto) 8.0 L Lymph # [place] # Seg Neutrophils % 86.5 H Seg Neutrophils # 12.6 H POC ABG pH POC ABG pCO2 POC ABG pO2 Chloride Carbon Dioxide BUN Creatinine Glucose POC Glucose 157 H 128 H Hemoglobin A1c Lactic Acid Calcium Total Creatine Kinase CK-MB (CK-2) Troponin T NT-Pro-B Natriuret Pep TSH Urine pH Salicylates 10/18/17 10/18/1718 14:32 15:58 17:47 WBC RBC Hgb Hct MCHC RDW Lymph % (Auto) Lymph # [place] # Seg Neutrophils % Seg Neutrophils # POC ABG pH POC ABG pCO2 POC ABG pO2 Chloride Carbon Dioxide BUN Creatinine Glucose POC Glucose 122 H 156 H Hemoglobin A1c Lactic Acid Calcium Total Creatine Kinase CK-MB (CK-2) Troponin T NT-Pro-B Natriuret Pep TSH 0.105 L Urine pH Salicylates 10/18/17 10/19/17 10/19/17 22:34 02:57 04:34 WBC RBC Hgb Hct MCHC RDW Lymph % (Auto) Lymph # [place] # Seg Neutrophils % Seg Neutrophils # POC ABG pH 7.329 L POC ABG pCO2 56.9 H POC ABG pO2 163 H Chloride Carbon Dioxide BUN Creatinine Glucose POC Glucose 154 H 155 H Hemoglobin A1c Lactic Acid Calcium Total Creatine Kinase CK-MB (CK-2) Troponin T NT-Pro-B Natriuret Pep TSH Urine pH Salicylates 10/19/17 10/19/17 10/19/17 06:51 06:51 06:55 WBC 15.7 H RBC 5.14 H Hgb 15.4 H Hct MCHC RDW Lymph % (Auto) Lymph # [place] # Seg Neutrophils % Seg Neutrophils # POC ABG pH POC ABG pCO2 POC ABG pO2 Chloride Carbon Dioxide BUN 28 H Creatinine 1.9 H D Glucose 182 H POC Glucose 155 H Hemoglobin A1c Lactic Acid Calcium Total Creatine Kinase CK-MB (CK-2) Troponin T NT-Pro-B Natriuret Pep TSH Urine pH Salicylates 10/19/17 10/19/17 10/19/17 10:19 12:26 17:15 WBC RBC Hgb Hct MCHC RDW Lymph % (Auto) Lymph # [place] # Seg Neutrophils % Seg Neutrophils # POC ABG pH POC ABG pCO2 POC ABG pO2 Chloride Carbon Dioxide BUN Creatinine Glucose POC Glucose 169 H 172 H 132 H Hemoglobin A1c Lactic Acid Calcium Total Creatine Kinase CK-MB (CK-2) Troponin T NT-Pro-B Natriuret Pep TSH Urine pH Salicylates 10/20/17 10/20/17 10/20/17 00:03 03:39 04:17 WBC 13.2 H RBC Hgb Hct MCHC RDW Lymph % (Auto) Lymph # [place] # Seg Neutrophils % Seg Neutrophils # POC ABG pH POC ABG pCO2 48.3 H POC ABG pO2 Chloride Carbon Dioxide BUN Creatinine Glucose POC Glucose 238 H Hemoglobin A1c Lactic Acid Calcium Total Creatine Kinase CK-MB (CK-2) Troponin T NT-Pro-B Natriuret Pep TSH Urine pH Salicylates 10/20/17 10/20/17 10/20/17 04:17 04:18 05:36 WBC RBC Hgb Hct MCHC RDW Lymph % (Auto) Lymph # [place] # Seg Neutrophils % Seg Neutrophils # POC ABG pH POC ABG pCO2 POC ABG pO2 Chloride Carbon Dioxide BUN 34 H Creatinine Glucose 230 H POC Glucose 243 H Hemoglobin A1c 6.4 H Lactic Acid Calcium Total Creatine Kinase CK-MB (CK-2) Troponin T NT-Pro-B Natriuret Pep TSH Urine pH Salicylates 10/20/17 10/20/17 10/21/17 11:44 18:35 00:08 WBC RBC Hgb Hct MCHC RDW Lymph % (Auto) Lymph # [place] # Seg Neutrophils % Seg Neutrophils # POC ABG pH POC ABG pCO2 POC ABG pO2 Chloride Carbon Dioxide BUN Creatinine Glucose POC Glucose 215 H 217 H 215 H Hemoglobin A1c Lactic Acid Calcium Total Creatine Kinase CK-MB (CK-2) Troponin T NT-Pro-B Natriuret Pep TSH Urine pH Salicylates 10/21/17 10/21/17 10/21/17 03:36 04:15 04:15 WBC 15.1 H RBC Hgb Hct MCHC RDW 13.0 L Lymph % (Auto) Lymph # [place] # Seg Neutrophils % Seg Neutrophils # POC ABG pH 7.458 H POC ABG pCO2 POC ABG pO2 62 L Chloride Carbon Dioxide BUN 38 H Creatinine Glucose 248 H POC Glucose Hemoglobin A1c Lactic Acid Calcium Total Creatine Kinase CK-MB (CK-2) Troponin T NT-Pro-B Natriuret Pep TSH Urine pH Salicylates 10/21/17 10/21/17 10/21/17 06:22 12:16 17:39 WBC RBC Hgb Hct MCHC RDW Lymph % (Auto) Lymph # [place] # Seg Neutrophils % Seg Neutrophils # POC ABG pH POC ABG pCO2 POC ABG pO2 Chloride Carbon Dioxide BUN Creatinine Glucose POC Glucose 225 H 237 H 268 H Hemoglobin A1c Lactic Acid Calcium Total Creatine Kinase CK-MB (CK-2) Troponin T NT-Pro-B Natriuret Pep TSH Urine pH Salicylates 10/21/17 10/22/17 10/22/17 17:51 00:13 05:20 WBC RBC Hgb Hct MCHC RDW Lymph % (Auto) Lymph # [place] # Seg Neutrophils % Seg Neutrophils # POC ABG pH POC ABG pCO2 POC ABG pO2 Chloride Carbon Dioxide BUN Creatinine Glucose POC Glucose 263 H 257 H 334 H Hemoglobin A1c Lactic Acid Calcium Total Creatine Kinase CK-MB (CK-2) Troponin T NT-Pro-B Natriuret Pep TSH Urine pH Salicylates 10/22/17 10/22/17 10/22/17 07:18 07:18 11:58 WBC 12.6 H RBC 5.20 H Hgb 15.5 H Hct 46.2 H MCHC RDW 13.0 L Lymph % (Auto) Lymph # [place] # Seg Neutrophils % Seg Neutrophils # POC ABG pH POC ABG pCO2 POC ABG pO2 Chloride Carbon Dioxide BUN 39 H Creatinine Glucose 308 H POC Glucose 281 H Hemoglobin A1c Lactic Acid Calcium Total Creatine Kinase CK-MB (CK-2) Troponin T NT-Pro-B Natriuret Pep TSH Urine pH Salicylates 10/22/17 10/22/17 10/22/17 15:30 17:45 23:57 WBC RBC Hgb Hct MCHC RDW Lymph % (Auto) Lymph # [place] # Seg Neutrophils % Seg Neutrophils # POC ABG pH 7.487 H POC ABG pCO2 46.2 H POC ABG pO2 136 H Chloride Carbon Dioxide BUN Creatinine Glucose POC Glucose 236 H 249 H Hemoglobin A1c Lactic Acid Calcium Total Creatine Kinase CK-MB (CK-2) Troponin T NT-Pro-B Natriuret Pep TSH Urine pH Salicylates 10/23/17 10/23/17 10/23/17 03:31 03:31 03:47 WBC 13.9 H RBC 5.07 H Hgb Hct MCHC RDW 13.1 L Lymph % (Auto) Lymph # [place] # Seg Neutrophils % Seg Neutrophils # POC ABG pH 7.486 H POC ABG pCO2 POC ABG pO2 164 H Chloride Carbon Dioxide BUN 39 H Creatinine Glucose 218 H POC Glucose Hemoglobin A1c Lactic Acid Calcium Total Creatine Kinase CK-MB (CK-2) Troponin T NT-Pro-B Natriuret Pep TSH Urine pH Salicylates 10/23/17 10/23/17 10/23/17 06:01 08:54 11:46 WBC RBC Hgb Hct MCHC RDW Lymph % (Auto) Lymph # [place] # Seg Neutrophils % Seg Neutrophils # POC ABG pH POC ABG pCO2 48.0 H POC ABG pO2 73 L Chloride Carbon Dioxide BUN Creatinine Glucose POC Glucose 291 H 213 H Hemoglobin A1c Lactic Acid Calcium Total Creatine Kinase CK-MB (CK-2) Troponin T NT-Pro-B Natriuret Pep TSH Urine pH Salicylates 10/23/17 10/23/17 10/23/17 12:43 12:56 17:52 WBC RBC Hgb Hct MCHC RDW Lymph % (Auto) Lymph # [place] # Seg Neutrophils % Seg Neutrophils # POC ABG pH POC ABG pCO2 POC ABG pO2 Chloride Carbon Dioxide BUN Creatinine Glucose POC Glucose 210 H 237 H 185 H Hemoglobin A1c Lactic Acid Calcium Total Creatine Kinase CK-MB (CK-2) Troponin T NT-Pro-B Natriuret Pep TSH Urine pH Salicylates 10/23/17 10/24/17 10/24/17 23:51 06:02 08:51 WBC RBC Hgb Hct MCHC RDW Lymph % (Auto) Lymph # [place] # Seg Neutrophils % Seg Neutrophils # POC ABG pH POC ABG pCO2 POC ABG pO2 Chloride Carbon Dioxide BUN 33 H Creatinine Glucose POC Glucose 161 H 142 H Hemoglobin A1c Lactic Acid Calcium Total Creatine Kinase CK-MB (CK-2) Troponin T NT-Pro-B Natriuret Pep TSH Urine pH Salicylates 10/24/17 10/24/17 10/24/17 12:58 13:20 17:54 WBC 14.9 H RBC 5.44 H Hgb 16.3 H Hct 47.8 H MCHC RDW 12.8 L Lymph % (Auto) Lymph # [place] # Seg Neutrophils % Seg Neutrophils # POC ABG pH POC ABG pCO2 POC ABG pO2 Chloride Carbon Dioxide BUN Creatinine Glucose POC Glucose 185 H 141 H Hemoglobin A1c Lactic Acid Calcium Total Creatine Kinase CK-MB (CK-2) Troponin T NT-Pro-B Natriuret Pep TSH Urine pH Salicylates 10/25/17 10/25/17 10/25/17 00:59 01:21 01:21 WBC 12.7 H RBC 5.35 H Hgb 15.9 H Hct 47.6 H MCHC RDW 13.1 L Lymph % (Auto) Lymph # [place] # Seg Neutrophils % Seg Neutrophils # POC ABG pH POC ABG pCO2 POC ABG pO2 Chloride Carbon Dioxide BUN 43 H Creatinine Glucose 201 H POC Glucose 181 H Hemoglobin A1c Lactic Acid Calcium Total Creatine Kinase CK-MB (CK-2) Troponin T NT-Pro-B Natriuret Pep TSH Urine pH Salicylates 10/25/17 10/25/17 10/25/17 06:21 11:33 17:28 WBC RBC Hgb Hct MCHC RDW Lymph % (Auto) Lymph # [place] # Seg Neutrophils % Seg Neutrophils # POC ABG pH POC ABG pCO2 POC ABG pO2 Chloride Carbon Dioxide BUN Creatinine Glucose POC Glucose 194 H 178 H 180 H Hemoglobin A1c Lactic Acid Calcium Total Creatine Kinase CK-MB (CK-2) Troponin T NT-Pro-B Natriuret Pep TSH Urine pH Salicylates 10/26/17 10/26/17 10/26/17 01:18 05:09 05:09 WBC 16.9 H RBC 5.55 H Hgb 16.4 H Hct 49.8 H MCHC RDW 13.0 L Lymph % (Auto) 9.5 L Lymph # [place] # 1.0 H Seg Neutrophils % 82.2 H Seg Neutrophils # 13.9 H POC ABG pH POC ABG pCO2 POC ABG pO2 Chloride 97.4 L Carbon Dioxide 31 H BUN 45 H Creatinine Glucose 162 H POC Glucose 134 H Hemoglobin A1c Lactic Acid Calcium Total Creatine Kinase CK-MB (CK-2) Troponin T NT-Pro-B Natriuret Pep TSH Urine pH Salicylates 10/26/17 06:11 WBC RBC Hgb Hct MCHC RDW Lymph % (Auto) Lymph # [place] # Seg Neutrophils % Seg Neutrophils # POC ABG pH POC ABG pCO2 POC ABG pO2 Chloride Carbon Dioxide BUN Creatinine Glucose POC Glucose 181 H Hemoglobin A1c Lactic Acid Calcium Total Creatine Kinase CK-MB (CK-2) Troponin T NT-Pro-B Natriuret Pep TSH Urine pH Salicylates
--- NOTE | 2017-10-26 15:23 | Progress Note ---
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 Right medullary infarct, with right Horners Syndrome and swallowing impairment cont Aspirin, statin. Neuro following. Need rehab per PT but pt unfunded /Acute respiratory failure, likely from acute CVA, resolved Patient was extubated 10/18 but re-Intubated later in evening. Pulmonology following s/p extubation 10/23 cont O2 n/c and as needed nebs /GI bleed. GI following, H/H stable Conservative management for now. /Acute kidney injury, Improved, Cr stable /Prediabetes a1c 6.4. blood glucose uncontrolled. Started on Novolin 70/30 /Fever, low grade, 100.6 on 10/21 Repeat blood cultures drawn, to date negative /Elevated troponin. Cardiology following. /Encephalopathy, likely from acute CVA. Now alert,follows commands /Dysphagia, cont TF, repeat speech eval Full code status Discussed with patient and RN at bedside. Need Rehab, failed swallow study. Patient is unfunded. d/c planning when can olerate po otherwise may need PEG tube. Brief History: 42-year-old man admitted history of hypertension, noncompliant with medication over the last 1 month comes emergency room with complaints of right-sided weakness and slurred speech. His last well-known time was 11:30, he woke up at 2:30 to use the bathroom, he fell to the floor a few times with several attempts. He was admitted with stroke protocol. Later on intubated on the day of admission for increase effort of breathing. He was weaned off from the vent on 10/18 and was extubated but required to reintubate later in the evening. He is now weaned off from vent and extubated again 10/23/17. Failed swallow eval following extubation, PT recommended acute rehab. Radiological data: head CT: Cranial CT scan within normal limits. No change is demonstrated. CTA head/neck: Normal CT angiogram of the arteries in the neck and head MRI brain: 1.3 cm area of subacute ischemia in the right medulla oblongata as described. 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,moves all ext, mild weakness on right Subjective Date of service: 10/26/17 Principal diagnosis: acute stroke, respiratory failure/MV support Interval history: mild right sided weakness Failed bedside swallow study and also with speech Plan for repeat speech eval soon Objective - Constitutional Vitals: Vital Signs - 12hr 10/26/17 10/26/17 10/26/17 03:27 05:15 08:00 Temperature 97.3 F L Pulse Rate 71 76 Pulse Rate [ 74 Anterior Throughout] Respiratory 18 Rate Respiratory 18 Rate [Anterior Throughout] Blood Pressure 130/82 Blood Pressure [Left] O2 Sat by Pulse 92 Oximetry 10/26/17 10/26/17 10/26/17 08:19 10:00 10:32 Temperature 97.5 F L Pulse Rate 74 76 Pulse Rate [ Anterior Throughout] Respiratory 17 20 Rate Respiratory Rate [Anterior Throughout] Blood Pressure 124/60 Blood Pressure 123/60 [Left] O2 Sat by Pulse 94 Oximetry 10/26/17 11:46 Temperature 97.2 F L Pulse Rate 67 Pulse Rate [ Anterior Throughout] Respiratory 20 Rate Respiratory Rate [Anterior Throughout] Blood Pressure 134/75 Blood Pressure [Left] O2 Sat by Pulse 95 Oximetry - Labs CBC & Chem 7: 10/26/17 05:09 10/26/17 05:09 Labs: Abnormal lab results 10/25/17 10/26/17 10/26/17 Range/Units 17:28 01:18 05:09 WBC 16.9 H (4.5-11.0) K/mm3 RBC 5.55 H (3.65-5.03) M/mm3 Hgb 16.4 H (11.8-15.2) gm/dl Hct 49.8 H (35.5-45.6) % RDW 13.0 L (13.2-15.2) % Lymph % (Auto) 9.5 L (13.4-35.0) % [place] # 1.0 H (0.0-0.8) K/mm3 Seg Neutrophils % 82.2 H (40.0-70.0) % Seg Neutrophils # 13.9 H (1.8-7.7) K/mm3 Chloride (98-107) mmol/L Carbon Dioxide (22-30) mmol/L BUN (9-20) mg/dL Glucose (75-100) mg/dL POC Glucose 180 H 134 H (70-105) 10/26/17 10/26/17 10/26/17 Range/Units 05:09 06:11 14:09 WBC (4.5-11.0) K/mm3 RBC (3.65-5.03) M/mm3 Hgb (11.8-15.2) gm/dl Hct (35.5-45.6) % RDW (13.2-15.2) % Lymph % (Auto) (13.4-35.0) % [place] # (0.0-0.8) K/mm3 Seg Neutrophils % (40.0-70.0) % Seg Neutrophils # (1.8-7.7) K/mm3 Chloride 97.4 L (98-107) mmol/L Carbon Dioxide 31 H (22-30) mmol/L BUN 45 H (9-20) mg/dL Glucose 162 H (75-100) mg/dL POC Glucose 181 H 185 H (70-105)
[2017-10-26] MEDS: TYLENOL PO PRN (16:47)
[2017-10-26] MEDS: ASPIRIN PO SCH (22:53)
[2017-10-27] MEDS: PROVENTIL IH SCH ×7 (00:02→23:42)
[2017-10-27] MEDS: HumuLIN R SUB-Q SCH ×3 (01:45→18:33)
[2017-10-27] MEDS: BROVANA NEBU IH SCH ×2 (07:31→19:54)
[2017-10-27] MEDS: PULMICORT IH SCH ×2 (07:31→19:54)
[2017-10-27] MEDS: NORMODYNE PO SCH ×2 (10:00→22:59)
[2017-10-27] MEDS: HCTZ PO SCH (10:00)
[2017-10-27] MEDS: PEPCID PO SCH ×2 (10:00→22:59)
[2017-10-27 10:58] LABS: Hematocrit 50.5 % (35.5-45.6); Hemoglobin 17.3 gm/dl (11.8-15.2); Mean Corpuscular HGB Conc 34 % (32-34); Mean Corpuscular Hemoglobin 30 pg (28-32); Mean Corpuscular Volume 88 fl (84-94); Platelet Count 294 K/mm3 (140-440); Red Blood Count 5.72 M/mm3 (3.65-5.03); Red Cell Distribution Width 12.7 % (13.2-15.2)
--- NOTE | 2017-10-27 12:26 | Progress Note ---
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 Right medullary infarct, with right Horners Syndrome and swallowing impairment cont Aspirin, statin. Neuro following. Need rehab per PT but pt unfunded /Dysphagia, due to recent CVA repeat speech eval, refusing TF, start on D5NS /Acute respiratory failure, likely from acute CVA, resolved Patient was extubated 10/18 but re-Intubated later in evening. Pulmonology following s/p extubation 10/23 cont O2 n/c and as needed nebs /GI bleed. GI following, H/H stable Conservative management for now. /Acute kidney injury, Improved, Cr stable /Prediabetes a1c 6.4. blood glucose uncontrolled. Started on Novolin 70/30 /Fever, low grade, 100.6 on 10/21 Repeat blood cultures drawn, to date negative /Elevated troponin. Cardiology following. /Encephalopathy, likely from acute CVA. Now alert,follows commands Full code status Discussed with patient and RN at bedside. Need Rehab, failed swallow study. Patient is unfunded. d/c planning when can olerate po otherwise may need PEG tube. Brief History: 42-year-old man admitted history of hypertension, noncompliant with medication over the last 1 month comes emergency room with complaints of right-sided weakness and slurred speech. His last well-known time was 11:30, he woke up at 2:30 to use the bathroom, he fell to the floor a few times with several attempts. He was admitted with stroke protocol. Later on intubated on the day of admission for increase effort of breathing. He was weaned off from the vent on 10/18 and was extubated but required to reintubate later in the evening. He is now weaned off from vent and extubated again 10/23/17. Failed swallow eval following extubation, PT recommended acute rehab. Radiological data: head CT: Cranial CT scan within normal limits. No change is demonstrated. CTA head/neck: Normal CT angiogram of the arteries in the neck and head MRI brain: 1.3 cm area of subacute ischemia in the right medulla oblongata as described. 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,moves all ext, mild weakness on right Subjective Date of service: 10/27/17 Principal diagnosis: acute stroke, respiratory failure/MV support Interval history: Patient seen and examined Mild right sided weakness Failed bedside swallow study and also with speech Plan for repeat speech eval soon His NG tube came off last night and he is refusing new one Objective - Constitutional Vitals: Vital Signs - 12hr 10/27/17 10/27/17 10/27/17 03:05 03:15 04:00 Temperature 98.2 F Pulse Rate 80 Pulse Rate [ 84 76 Anterior Throughout] Respiratory 18 Rate Respiratory 17 16 Rate [Anterior Throughout] Blood Pressure Blood Pressure 120/76 [Left] O2 Sat by Pulse 100 Oximetry 10/27/17 10/27/17 10/27/17 07:33 07:36 07:41 Temperature 97.9 F Pulse Rate 75 Pulse Rate [ 80 84 Anterior Throughout] Respiratory 18 Rate Respiratory 18 18 Rate [Anterior Throughout] Blood Pressure 119/80 Blood Pressure [Left] O2 Sat by Pulse 95 97 Oximetry 10/27/17 11:44 Temperature 97.9 F Pulse Rate 76 Pulse Rate [ Anterior Throughout] Respiratory 20 Rate Respiratory Rate [Anterior Throughout] Blood Pressure 133/90 Blood Pressure [Left] O2 Sat by Pulse 97 Oximetry - Labs CBC & Chem 7: 10/28/17 06:53 10/28/17 06:53 Labs: Abnormal lab results 10/26/17 10/27/17 10/27/17 Range/Units 14:09 00:02 06:29 WBC (4.5-11.0) K/mm3 RBC (3.65-5.03) M/mm3 Hgb (11.8-15.2) gm/dl Hct (35.5-45.6) % RDW (13.2-15.2) % POC Glucose 185 H 173 H 141 H (70-105) 10/27/17 Range/Units 10:13 WBC 22.7 H (4.5-11.0) K/mm3 RBC 5.72 H (3.65-5.03) M/mm3 Hgb 17.3 H (11.8-15.2) gm/dl Hct 50.5 H (35.5-45.6) % RDW 12.7 L (13.2-15.2) % POC Glucose (70-105)
[2017-10-27] MEDS ORDERED: NACL 0.9% 1000 ML 1,000 ML IV SCH (13:00)
--- NOTE | 2017-10-27 13:20 | Progress Note ---
Assessment and Plan Stroke. Clinically improving Dysphagia GIB emesis .Controlled Acute respiratory failure ,resolved HTN Leukocytosis. Reason unclear, the patient has no fever and chest is clear. May need gentle volume expansion, in view of her elevated BUN/creatinine ratio Recommendations Continue oxygen support. Maintain aspiration precautions. Monitor fever,WBC and remove unnecessary lines Free PO water,monitor electrolytes,BUN/Creat Speech therapy evaluation and follow-up We'll continue nebulizer therapy as necessary Subjective Date of service: 10/27/17 Principal diagnosis: acute stroke, respiratory failure/MV support Interval history: No respiratory complaints. States, upper arm strength appears to be improving Objective Vital Signs - 12hr 10/27/17 10/27/17 10/27/17 03:05 03:15 04:00 Temperature 98.2 F Pulse Rate 80 Pulse Rate [ 84 76 Anterior Throughout] Respiratory 18 Rate Respiratory 17 16 Rate [Anterior Throughout] Blood Pressure Blood Pressure 120/76 [Left] O2 Sat by Pulse 100 Oximetry 10/27/17 10/27/17 10/27/17 07:33 07:36 07:41 Temperature 97.9 F Pulse Rate 75 Pulse Rate [ 80 84 Anterior Throughout] Respiratory 18 Rate Respiratory 18 18 Rate [Anterior Throughout] Blood Pressure 119/80 Blood Pressure [Left] O2 Sat by Pulse 95 97 Oximetry 10/27/17 10/27/17 10/27/17 08:00 10:00 11:44 Temperature 97.9 F Pulse Rate 80 76 Pulse Rate [ Anterior Throughout] Respiratory 18 20 Rate Respiratory Rate [Anterior Throughout] Blood Pressure 133/90 Blood Pressure [Left] O2 Sat by Pulse 97 Oximetry 10/27/17 13:10 Temperature Pulse Rate Pulse Rate [ 88 Anterior Throughout] Respiratory Rate Respiratory 20 Rate [Anterior Throughout] Blood Pressure Blood Pressure [Left] O2 Sat by Pulse Oximetry Constitutional: no acute distress, alert Eyes: non-icteric Neck: supple, no JVD Ascultation: Bilateral: clear, diminished breath sounds Percussion: Bilateral: not dull Cardiovascular: regular rate and rhythm Gastrointestinal: soft, non-tender Extremities: no cyanosis, no edema, pink and warm Neurologic: unable to assess CBC and BMP: 10/27/17 10:13 10/26/17 05:09 ABG, PT/INR, D-dimer: ABG POC ABG pH 7.446 (7.35-7.45) 10/23/17 11:46 POC ABG pCO2 48.0 (35-45) H 10/23/17 11:46 POC ABG pO2 73 (80-105) L 10/23/17 11:46 POC ABG HCO3 33.0 10/23/17 11:46 POC ABG Total CO2 34 10/23/17 11:46 POC ABG O2 Sat 95 10/23/17 11:46 PT/INR, D-dimer PT 13.1 Sec. (12.2-14.9) 10/17/17 04:06 INR 0.95 (0.87-1.13) 10/17/17 04:06 Abnormal lab findings: Abnormal Labs 10/17/17 10/17/17 10/17/17 04:06 04:06 04:23 WBC RBC 5.56 H Hgb 16.7 H Hct 48.1 H MCHC 35 H RDW 13.0 L Lymph % (Auto) Lymph # [place] # Seg Neutrophils % Seg Neutrophils # POC ABG pH POC ABG pCO2 POC ABG pO2 Chloride Carbon Dioxide BUN Creatinine Glucose 141 H POC Glucose Hemoglobin A1c Lactic Acid Calcium Total Creatine Kinase 301 H CK-MB (CK-2) Troponin T NT-Pro-B Natriuret Pep TSH Urine pH Salicylates 10/17/17 10/17/17 10/17/17 04:23 04:24 04:35 WBC RBC Hgb Hct MCHC RDW Lymph % (Auto) Lymph # [place] # Seg Neutrophils % Seg Neutrophils # POC ABG pH POC ABG pCO2 POC ABG pO2 Chloride Carbon Dioxide BUN Creatinine Glucose POC Glucose 132 H Hemoglobin A1c Lactic Acid Calcium Total Creatine Kinase CK-MB (CK-2) Troponin T NT-Pro-B Natriuret Pep TSH Urine pH 8.0 H Salicylates < 0.3 L 10/17/17 10/17/17 10/17/17 05:49 06:26 10:39 WBC RBC Hgb 16.6 H Hct 48.3 H MCHC RDW Lymph % (Auto) Lymph # [place] # Seg Neutrophils % Seg Neutrophils # POC ABG pH 7.207 L 7.155 L POC ABG pCO2 62.6 H 72.8 H POC ABG pO2 155 H Chloride Carbon Dioxide BUN Creatinine Glucose POC Glucose Hemoglobin A1c Lactic Acid Calcium Total Creatine Kinase CK-MB (CK-2) Troponin T NT-Pro-B Natriuret Pep TSH Urine pH Salicylates 10/17/17 10/17/17 10/17/17 15:01 15:01 16:26 WBC RBC Hgb Hct MCHC RDW Lymph % (Auto) Lymph # [place] # Seg Neutrophils % Seg Neutrophils # POC ABG pH POC ABG pCO2 POC ABG pO2 Chloride Carbon Dioxide 21 L BUN Creatinine Glucose 134 H POC Glucose Hemoglobin A1c Lactic Acid 2.60 H* 2.50 H* Calcium 8.3 L Total Creatine Kinase 464 H CK-MB (CK-2) 6.8 H Troponin T 0.102 H* D NT-Pro-B Natriuret Pep 604.7 H TSH Urine pH Salicylates 10/17/17 10/17/17 10/17/17 16:30 18:36 18:51 WBC 18.6 H RBC 5.55 H Hgb 16.3 H Hct 48.2 H MCHC RDW 12.9 L Lymph % (Auto) 6.0 L Lymph # 1.1 L [place] # 1.1 H Seg Neutrophils % 87.9 H Seg Neutrophils # 16.4 H POC ABG pH POC ABG pCO2 POC ABG pO2 202 H Chloride Carbon Dioxide BUN Creatinine Glucose POC Glucose Hemoglobin A1c Lactic Acid 2.20 H* Calcium Total Creatine Kinase CK-MB (CK-2) Troponin T NT-Pro-B Natriuret Pep TSH Urine pH Salicylates 10/17/17 10/18/17 10/18/17 22:06 02:31 05:33 WBC RBC Hgb Hct MCHC RDW Lymph % (Auto) Lymph # [place] # Seg Neutrophils % Seg Neutrophils # POC ABG pH POC ABG pCO2 46.9 H POC ABG pO2 107 H Chloride Carbon Dioxide BUN Creatinine Glucose POC Glucose 139 H 180 H Hemoglobin A1c Lactic Acid Calcium Total Creatine Kinase CK-MB (CK-2) Troponin T NT-Pro-B Natriuret Pep TSH Urine pH Salicylates 10/18/17 10/18/17 10/18/17 05:46 10:17 10:39 WBC 14.5 H RBC 5.13 H Hgb 15.7 H Hct MCHC 35 H RDW Lymph % (Auto) 8.0 L Lymph # [place] # Seg Neutrophils % 86.5 H Seg Neutrophils # 12.6 H POC ABG pH POC ABG pCO2 POC ABG pO2 Chloride Carbon Dioxide BUN Creatinine Glucose POC Glucose 157 H 128 H Hemoglobin A1c Lactic Acid Calcium Total Creatine Kinase CK-MB (CK-2) Troponin T NT-Pro-B Natriuret Pep TSH Urine pH Salicylates 10/18/17 10/18/17 10/18/17 14:32 15:58 17:47 WBC RBC Hgb Hct MCHC RDW Lymph % (Auto) Lymph # [place] # Seg Neutrophils % Seg Neutrophils # POC ABG pH POC ABG pCO2 POC ABG pO2 Chloride Carbon Dioxide BUN Creatinine Glucose POC Glucose 122 H 156 H Hemoglobin A1c Lactic Acid Calcium Total Creatine Kinase CK-MB (CK-2) Troponin T NT-Pro-B Natriuret Pep TSH 0.105 L Urine pH Salicylates 10/18/17 10/19/17 10/19/17 22:34 02:57 04:34 WBC RBC Hgb Hct MCHC RDW Lymph % (Auto) Lymph # [place] # Seg Neutrophils % Seg Neutrophils # POC ABG pH 7.329 L POC ABG pCO2 56.9 H POC ABG pO2 163 H Chloride Carbon Dioxide BUN Creatinine Glucose POC Glucose 154 H 155 H Hemoglobin A1c Lactic Acid Calcium Total Creatine Kinase CK-MB (CK-2) Troponin T NT-Pro-B Natriuret Pep TSH Urine pH Salicylates 10/19/17 10/19/17 10/19/17 06:51 06:51 06:55 WBC 15.7 H RBC 5.14 H Hgb 15.4 H Hct MCHC RDW Lymph % (Auto) Lymph # [place] # Seg Neutrophils % Seg Neutrophils # POC ABG pH POC ABG pCO2 POC ABG pO2 Chloride Carbon Dioxide BUN 28 H Creatinine 1.9 H D Glucose 182 H POC Glucose 155 H Hemoglobin A1c Lactic Acid Calcium Total Creatine Kinase CK-MB (CK-2) Troponin T NT-Pro-B Natriuret Pep TSH Urine pH Salicylates 10/19/17 10/19/17 10/19/17 10:19 12:26 17:15 WBC RBC Hgb Hct MCHC RDW Lymph % (Auto) Lymph # [place] # Seg Neutrophils % Seg Neutrophils # POC ABG pH POC ABG pCO2 POC ABG pO2 Chloride Carbon Dioxide BUN Creatinine Glucose POC Glucose 169 H 172 H 132 H Hemoglobin A1c Lactic Acid Calcium Total Creatine Kinase CK-MB (CK-2) Troponin T NT-Pro-B Natriuret Pep TSH Urine pH Salicylates 10/20/17 10/20/17 10/20/17 00:03 03:39 04:17 WBC 13.2 H RBC Hgb Hct MCHC RDW Lymph % (Auto) Lymph # [place] # Seg Neutrophils % Seg Neutrophils # POC ABG pH POC ABG pCO2 48.3 H POC ABG pO2 Chloride Carbon Dioxide BUN Creatinine Glucose POC Glucose 238 H Hemoglobin A1c Lactic Acid Calcium Total Creatine Kinase CK-MB (CK-2) Troponin T NT-Pro-B Natriuret Pep TSH Urine pH Salicylates 10/20/17 10/20/17 10/20/17 04:17 04:18 05:36 WBC RBC Hgb Hct MCHC RDW Lymph % (Auto) Lymph # [place] # Seg Neutrophils % Seg Neutrophils # POC ABG pH POC ABG pCO2 POC ABG pO2 Chloride Carbon Dioxide BUN 34 H Creatinine Glucose 230 H POC Glucose 243 H Hemoglobin A1c 6.4 H Lactic Acid Calcium Total Creatine Kinase CK-MB (CK-2) Troponin T NT-Pro-B Natriuret Pep TSH Urine pH Salicylates 10/20/17 10/20/17 10/21/17 11:44 18:35 00:08 WBC RBC Hgb Hct MCHC RDW Lymph % (Auto) Lymph # [place] # Seg Neutrophils % Seg Neutrophils # POC ABG pH POC ABG pCO2 POC ABG pO2 Chloride Carbon Dioxide BUN Creatinine Glucose POC Glucose 215 H 217 H 215 H Hemoglobin A1c Lactic Acid Calcium Total Creatine Kinase CK-MB (CK-2) Troponin T NT-Pro-B Natriuret Pep TSH Urine pH Salicylates 10/21/17 10/21/17 10/21/17 03:36 04:15 04:15 WBC 15.1 H RBC Hgb Hct MCHC RDW 13.0 L Lymph % (Auto) Lymph # [place] # Seg Neutrophils % Seg Neutrophils # POC ABG pH 7.458 H POC ABG pCO2 POC ABG pO2 62 L Chloride Carbon Dioxide BUN 38 H Creatinine Glucose 248 H POC Glucose Hemoglobin A1c Lactic Acid Calcium Total Creatine Kinase CK-MB (CK-2) Troponin T NT-Pro-B Natriuret Pep TSH Urine pH Salicylates 10/21/17 10/21/17 10/21/17 06:22 12:16 17:39 WBC RBC Hgb Hct MCHC RDW Lymph % (Auto) Lymph # [place] # Seg Neutrophils % Seg Neutrophils # POC ABG pH POC ABG pCO2 POC ABG pO2 Chloride Carbon Dioxide BUN Creatinine Glucose POC Glucose 225 H 237 H 268 H Hemoglobin A1c Lactic Acid Calcium Total Creatine Kinase CK-MB (CK-2) Troponin T NT-Pro-B Natriuret Pep TSH Urine pH Salicylates 10/21/17 10/22/17 10/22/17 17:51 00:13 05:20 WBC RBC Hgb Hct MCHC RDW Lymph % (Auto) Lymph # [place] # Seg Neutrophils % Seg Neutrophils # POC ABG pH POC ABG pCO2 POC ABG pO2 Chloride Carbon Dioxide BUN Creatinine Glucose POC Glucose 263 H 257 H 334 H Hemoglobin A1c Lactic Acid Calcium Total Creatine Kinase CK-MB (CK-2) Troponin T NT-Pro-B Natriuret Pep TSH Urine pH Salicylates 10/22/17 10/22/17 10/22/17 07:18 07:18 11:58 WBC 12.6 H RBC 5.20 H Hgb 15.5 H Hct 46.2 H MCHC RDW 13.0 L Lymph % (Auto) Lymph # [place] # Seg Neutrophils % Seg Neutrophils # POC ABG pH POC ABG pCO2 POC ABG pO2 Chloride Carbon Dioxide BUN 39 H Creatinine Glucose 308 H POC Glucose 281 H Hemoglobin A1c Lactic Acid Calcium Total Creatine Kinase CK-MB (CK-2) Troponin T NT-Pro-B Natriuret Pep TSH Urine pH Salicylates 10/22/17 10/22/17 10/22/17 15:30 17:45 23:57 WBC RBC Hgb Hct MCHC RDW Lymph % (Auto) Lymph # [place] # Seg Neutrophils % Seg Neutrophils # POC ABG pH 7.487 H POC ABG pCO2 46.2 H POC ABG pO2 136 H Chloride Carbon Dioxide BUN Creatinine Glucose POC Glucose 236 H 249 H Hemoglobin A1c Lactic Acid Calcium Total Creatine Kinase CK-MB (CK-2) Troponin T NT-Pro-B Natriuret Pep TSH Urine pH Salicylates 10/23/17 10/23/17 10/23/17 03:31 03:31 03:47 WBC 13.9 H RBC 5.07 H Hgb Hct MCHC RDW 13.1 L Lymph % (Auto) Lymph # [place] # Seg Neutrophils % Seg Neutrophils # POC ABG pH 7.486 H POC ABG pCO2 POC ABG pO2 164 H Chloride Carbon Dioxide BUN 39 H Creatinine Glucose 218 H POC Glucose Hemoglobin A1c Lactic Acid Calcium Total Creatine Kinase CK-MB (CK-2) Troponin T NT-Pro-B Natriuret Pep TSH Urine pH Salicylates 10/23/17 10/23/17 10/23/17 06:01 08:54 11:46 WBC RBC Hgb Hct MCHC RDW Lymph % (Auto) Lymph # [place] # Seg Neutrophils % Seg Neutrophils # POC ABG pH POC ABG pCO2 48.0 H POC ABG pO2 73 L Chloride Carbon Dioxide BUN Creatinine Glucose POC Glucose 291 H 213 H Hemoglobin A1c Lactic Acid Calcium Total Creatine Kinase CK-MB (CK-2) Troponin T NT-Pro-B Natriuret Pep TSH Urine pH Salicylates 10/23/17 10/23/17 10/23/17 12:43 12:56 17:52 WBC RBC Hgb Hct MCHC RDW Lymph % (Auto) Lymph # [place] # Seg Neutrophils % Seg Neutrophils # POC ABG pH POC ABG pCO2 POC ABG pO2 Chloride Carbon Dioxide BUN Creatinine Glucose POC Glucose 210 H 237 H 185 H Hemoglobin A1c Lactic Acid Calcium Total Creatine Kinase CK-MB (CK-2) Troponin T NT-Pro-B Natriuret Pep TSH Urine pH Salicylates 10/23/17 10/24/17 10/24/17 23:51 06:02 08:51 WBC RBC Hgb Hct MCHC RDW Lymph % (Auto) Lymph # [place] # Seg Neutrophils % Seg Neutrophils # POC ABG pH POC ABG pCO2 POC ABG pO2 Chloride Carbon Dioxide BUN 33 H Creatinine Glucose POC Glucose 161 H 142 H Hemoglobin A1c Lactic Acid Calcium Total Creatine Kinase CK-MB (CK-2) Troponin T NT-Pro-B Natriuret Pep TSH Urine pH Salicylates 10/24/17 10/24/17 10/24/17 12:58 13:20 17:54 WBC 14.9 H RBC 5.44 H Hgb 16.3 H Hct 47.8 H MCHC RDW 12.8 L Lymph % (Auto) Lymph # [place] # Seg Neutrophils % Seg Neutrophils # POC ABG pH POC ABG pCO2 POC ABG pO2 Chloride Carbon Dioxide BUN Creatinine Glucose POC Glucose 185 H 141 H Hemoglobin A1c Lactic Acid Calcium Total Creatine Kinase CK-MB (CK-2) Troponin T NT-Pro-B Natriuret Pep TSH Urine pH Salicylates 10/25/17 10/25/17 10/25/17 00:59 01:21 01:21 WBC 12.7 H RBC 5.35 H Hgb 15.9 H Hct 47.6 H MCHC RDW 13.1 L Lymph % (Auto) Lymph # [place] # Seg Neutrophils % Seg Neutrophils # POC ABG pH POC ABG pCO2 POC ABG pO2 Chloride Carbon Dioxide BUN 43 H Creatinine Glucose 201 H POC Glucose 181 H Hemoglobin A1c Lactic Acid Calcium Total Creatine Kinase CK-MB (CK-2) Troponin T NT-Pro-B Natriuret Pep TSH Urine pH Salicylates 10/25/17 10/25/17 10/25/17 06:21 11:33 17:28 WBC RBC Hgb Hct MCHC RDW Lymph % (Auto) Lymph # [place] # Seg Neutrophils % Seg Neutrophils # POC ABG pH POC ABG pCO2 POC ABG pO2 Chloride Carbon Dioxide BUN Creatinine Glucose POC Glucose 194 H 178 H 180 H Hemoglobin A1c Lactic Acid Calcium Total Creatine Kinase CK-MB (CK-2) Troponin T NT-Pro-B Natriuret Pep TSH Urine pH Salicylates 10/26/17 10/26/17 10/26/17 01:18 05:09 05:09 WBC 16.9 H RBC 5.55 H Hgb 16.4 H Hct 49.8 H MCHC RDW 13.0 L Lymph % (Auto) 9.5 L Lymph # [place] # 1.0 H Seg Neutrophils % 82.2 H Seg Neutrophils # 13.9 H POC ABG pH POC ABG pCO2 POC ABG pO2 Chloride 97.4 L Carbon Dioxide 31 H BUN 45 H Creatinine Glucose 162 H POC Glucose 134 H Hemoglobin A1c Lactic Acid Calcium Total Creatine Kinase CK-MB (CK-2) Troponin T NT-Pro-B Natriuret Pep TSH Urine pH Salicylates 10/26/17 10/26/17 10/27/17 06:11 14:09 00:02 WBC RBC Hgb Hct MCHC RDW Lymph % (Auto) Lymph # [place] # Seg Neutrophils % Seg Neutrophils # POC ABG pH POC ABG pCO2 POC ABG pO2 Chloride Carbon Dioxide BUN Creatinine Glucose POC Glucose 181 H 185 H 173 H Hemoglobin A1c Lactic Acid Calcium Total Creatine Kinase CK-MB (CK-2) Troponin T NT-Pro-B Natriuret Pep TSH Urine pH Salicylates 10/27/17 10/27/17 06:29 10:13 WBC 22.7 H RBC 5.72 H Hgb 17.3 H Hct 50.5 H MCHC RDW 12.7 L Lymph % (Auto) Lymph # [place] # Seg Neutrophils % Seg Neutrophils # POC ABG pH POC ABG pCO2 POC ABG pO2 Chloride Carbon Dioxide BUN Creatinine Glucose POC Glucose 141 H Hemoglobin A1c Lactic Acid Calcium Total Creatine Kinase CK-MB (CK-2) Troponin T NT-Pro-B Natriuret Pep TSH Urine pH Salicylates
[2017-10-27] MEDS: HEPARIN SUB-Q SCH ×2 (16:18→21:35)
[2017-10-27] MEDS: TRANSDERM-SCOP TD SCH (16:18)
[2017-10-27] MEDS ORDERED: D5NS 1,000 ML IV SCH (19:00)
[2017-10-27] MEDS: ZOFRAN IV PRN (21:35)
[2017-10-27] MEDS: SODIUM CHLORIDE FLUSH SYRINGE 10 ML IV PRN (21:39)
[2017-10-27] MEDS: ASPIRIN PO SCH (22:59)
[2017-10-28] MEDS: PROVENTIL IH SCH ×4 (03:53→20:47)
[2017-10-28 08:08] LABS: Basophils % (Auto) 0.1 % (0.0-1.8); Eosinophils # (Auto) 0.2 K/mm3 (0.0-0.4); Hematocrit 48.3 % (35.5-45.6); Hemoglobin 16.4 gm/dl (11.8-15.2); Lymphocytes % (Auto) 11.5 % (13.4-35.0); Mean Corpuscular HGB Conc 34 % (32-34); Mean Corpuscular Hemoglobin 30 pg (28-32); Mean Corpuscular Volume 88 fl (84-94); Monocytes # (Auto) 1.1 K/mm3 (0.0-0.8); Monocytes % (Auto) 6.6 % (0.0-7.3); Platelet Count 354 K/mm3 (140-440); Red Blood Count 5.47 M/mm3 (3.65-5.03); Red Cell Distribution Width 12.5 % (13.2-15.2)
[2017-10-28 08:24] LABS: BUN/Creatinine Ratio 33; Blood Urea Nitrogen 40 mg/dL (9-20); Calcium 9.3 mg/dL (8.4-10.2); Hemolysis Index 10
[2017-10-28] MEDS: BROVANA NEBU IH SCH ×2 (08:25→20:44)
[2017-10-28] MEDS: PULMICORT IH SCH ×2 (08:25→20:44)
[2017-10-28] MEDS: PEPCID PO SCH ×2 (10:00→21:26)
[2017-10-28] MEDS: NORMODYNE PO SCH ×2 (10:00→22:00)
[2017-10-28] MEDS ORDERED: D5NS 1,000 ML IV SCH (12:00)
--- NOTE | 2017-10-28 13:16 | XRay Report ---
FINAL REPORT EXAM: XR ABDOMEN 1V AP HISTORY: ngt placement. TECHNIQUE: Supine abdomen PRIORS: 10/24/2017 FINDINGS: A feeding tube terminates in the stomach. The gas pattern is nonspecific and nonobstructive. There is air and stool in normal caliber colon. IMPRESSION: Feeding tube terminates in the stomach.
--- NOTE | 2017-10-28 13:17 | Progress Note ---
Assessment and Plan Stroke. Clinically improving Dysphagia. Currently taking by mouth fluids reportedly without complaints Leukocytosis. No fever reported no bleeding episodes. Last x-rays appeared to be okay GIB emesis .Controlled Acute respiratory failure ,resolved HTN Recommendations Continue oxygen support. Maintain aspiration precautions. We'll add incentive spirometry Monitor fever,WBC and remove unnecessary lines Free PO water,monitor electrolytes,BUN/Creat Speech therapy evaluation and follow-up We'll continue nebulizer therapy as necessary Discussed with patient following detail. All questions answered. Subjective Date of service: 10/28/17 Principal diagnosis: acute stroke, respiratory failure/MV support Interval history: Some cough, appears to be minimal. No shortness of breath. Denies fever Objective Vital Signs - 12hr 10/28/17 10/28/17 10/28/17 03:54 04:04 07:26 Temperature 97.6 F Pulse Rate 73 Pulse Rate [ 74 78 Anterior Throughout] Respiratory 19 Rate Respiratory 18 18 Rate [Anterior Throughout] Blood Pressure 151/91 O2 Sat by Pulse 93 Oximetry 10/28/17 10/28/17 08:26 12:01 Temperature Pulse Rate 71 Pulse Rate [ Anterior Throughout] Respiratory 20 Rate Respiratory Rate [Anterior Throughout] Blood Pressure 147/95 O2 Sat by Pulse 96 96 Oximetry Constitutional: no acute distress, alert Eyes: non-icteric Neck: supple, no JVD Ascultation: Bilateral: clear, diminished breath sounds Percussion: Bilateral: not dull Cardiovascular: regular rate and rhythm Gastrointestinal: soft, non-tender Extremities: no cyanosis, no edema, pink and warm Neurologic: unable to assess CBC and BMP: 10/28/17 06:53 10/28/17 06:53 ABG, PT/INR, D-dimer: ABG POC ABG pH 7.446 (7.35-7.45) 10/23/17 11:46 POC ABG pCO2 48.0 (35-45) H 10/23/17 11:46 POC ABG pO2 73 (80-105) L 10/23/17 11:46 POC ABG HCO3 33.0 10/23/17 11:46 POC ABG Total CO2 34 10/23/17 11:46 POC ABG O2 Sat 95 10/23/17 11:46 PT/INR, D-dimer PT 13.1 Sec. (12.2-14.9) 10/17/17 04:06 INR 0.95 (0.87-1.13) 10/17/17 04:06 Abnormal lab findings: Abnormal Labs 10/17/17 10/17/17 10/17/17 04:06 04:06 04:23 WBC RBC 5.56 H Hgb 16.7 H Hct 48.1 H MCHC 35 H RDW 13.0 L Lymph % (Auto) Lymph # Menard # Seg Neutrophils % Seg Neutrophils # POC ABG pH POC ABG pCO2 POC ABG pO2 Chloride Carbon Dioxide BUN Creatinine Glucose 141 H POC Glucose Hemoglobin A1c Lactic Acid Calcium Total Creatine Kinase 301 H CK-MB (CK-2) Troponin T NT-Pro-B Natriuret Pep TSH Urine pH Salicylates 10/17/17 10/17/17 10/17/17 04:23 04:24 04:35 WBC RBC Hgb Hct MCHC RDW Lymph % (Auto) Lymph # Menard # Seg Neutrophils % Seg Neutrophils # POC ABG pH POC ABG pCO2 POC ABG pO2 Chloride Carbon Dioxide BUN Creatinine Glucose POC Glucose 132 H Hemoglobin A1c Lactic Acid Calcium Total Creatine Kinase CK-MB (CK-2) Troponin T NT-Pro-B Natriuret Pep TSH Urine pH 8.0 H Salicylates < 0.3 L 10/17/17 10/17/17 10/17/17 05:49 06:26 10:39 WBC RBC Hgb 16.6 H Hct 48.3 H MCHC RDW Lymph % (Auto) Lymph # Menard # Seg Neutrophils % Seg Neutrophils # POC ABG pH 7.207 L 7.155 L POC ABG pCO2 62.6 H 72.8 H POC ABG pO2 155 H Chloride Carbon Dioxide BUN Creatinine Glucose POC Glucose Hemoglobin A1c Lactic Acid Calcium Total Creatine Kinase CK-MB (CK-2) Troponin T NT-Pro-B Natriuret Pep TSH Urine pH Salicylates 10/17/17 10/17/17 10/17/17 15:01 15:01 16:26 WBC RBC Hgb Hct MCHC RDW Lymph % (Auto) Lymph # Menard # Seg Neutrophils % Seg Neutrophils # POC ABG pH POC ABG pCO2 POC ABG pO2 Chloride Carbon Dioxide 21 L BUN Creatinine Glucose 134 H POC Glucose Hemoglobin A1c Lactic Acid 2.60 H* 2.50 H* Calcium 8.3 L Total Creatine Kinase 464 H CK-MB (CK-2) 6.8 H Troponin T 0.102 H* D NT-Pro-B Natriuret Pep 604.7 H TSH Urine pH Salicylates 10/17/17 10/17/17 10/17/17 16:30 18:36 18:51 WBC 18.6 H RBC 5.55 H Hgb 16.3 H Hct 48.2 H MCHC RDW 12.9 L Lymph % (Auto) 6.0 L Lymph # 1.1 L Menard # 1.1 H Seg Neutrophils % 87.9 H Seg Neutrophils # 16.4 H POC ABG pH POC ABG pCO2 POC ABG pO2 202 H Chloride Carbon Dioxide BUN Creatinine Glucose POC Glucose Hemoglobin A1c Lactic Acid 2.20 H* Calcium Total Creatine Kinase CK-MB (CK-2) Troponin T NT-Pro-B Natriuret Pep TSH Urine pH Salicylates 10/17/17 10/18/17 10/18/17 22:06 02:31 05:33 WBC RBC Hgb Hct MCHC RDW Lymph % (Auto) Lymph # Menard # Seg Neutrophils % Seg Neutrophils # POC ABG pH POC ABG pCO2 46.9 H POC ABG pO2 107 H Chloride Carbon Dioxide BUN Creatinine Glucose POC Glucose 139 H 180 H Hemoglobin A1c Lactic Acid Calcium Total Creatine Kinase CK-MB (CK-2) Troponin T NT-Pro-B Natriuret Pep TSH Urine pH Salicylates 10/18/17 10/18/17 10/18/17 05:46 10:17 10:39 WBC 14.5 H RBC 5.13 H Hgb 15.7 H Hct MCHC 35 H RDW Lymph % (Auto) 8.0 L Lymph # Menard # Seg Neutrophils % 86.5 H Seg Neutrophils # 12.6 H POC ABG pH POC ABG pCO2 POC ABG pO2 Chloride Carbon Dioxide BUN Creatinine Glucose POC Glucose 157 H 128 H Hemoglobin A1c Lactic Acid Calcium Total Creatine Kinase CK-MB (CK-2) Troponin T NT-Pro-B Natriuret Pep TSH Urine pH Salicylates 10/18/17 10/18/17 10/18/17 14:32 15:58 17:47 WBC RBC Hgb Hct MCHC RDW Lymph % (Auto) Lymph # Menard # Seg Neutrophils % Seg Neutrophils # POC ABG pH POC ABG pCO2 POC ABG pO2 Chloride Carbon Dioxide BUN Creatinine Glucose POC Glucose 122 H 156 H Hemoglobin A1c Lactic Acid Calcium Total Creatine Kinase CK-MB (CK-2) Troponin T NT-Pro-B Natriuret Pep TSH 0.105 L Urine pH Salicylates 10/18/17 10/19/17 10/19/17 22:34 02:57 04:34 WBC RBC Hgb Hct MCHC RDW Lymph % (Auto) Lymph # Menard # Seg Neutrophils % Seg Neutrophils # POC ABG pH 7.329 L POC ABG pCO2 56.9 H POC ABG pO2 163 H Chloride Carbon Dioxide BUN Creatinine Glucose POC Glucose 154 H 155 H Hemoglobin A1c Lactic Acid Calcium Total Creatine Kinase CK-MB (CK-2) Troponin T NT-Pro-B Natriuret Pep TSH Urine pH Salicylates 10/19/17 10/19/17 10/19/17 06:51 06:51 06:55 WBC 15.7 H RBC 5.14 H Hgb 15.4 H Hct MCHC RDW Lymph % (Auto) Lymph # Menard # Seg Neutrophils % Seg Neutrophils # POC ABG pH POC ABG pCO2 POC ABG pO2 Chloride Carbon Dioxide BUN 28 H Creatinine 1.9 H D Glucose 182 H POC Glucose 155 H Hemoglobin A1c Lactic Acid Calcium Total Creatine Kinase CK-MB (CK-2) Troponin T NT-Pro-B Natriuret Pep TSH Urine pH Salicylates 10/19/17 10/19/17 10/19/17 10:19 12:26 17:15 WBC RBC Hgb Hct MCHC RDW Lymph % (Auto) Lymph # Menard # Seg Neutrophils % Seg Neutrophils # POC ABG pH POC ABG pCO2 POC ABG pO2 Chloride Carbon Dioxide BUN Creatinine Glucose POC Glucose 169 H 172 H 132 H Hemoglobin A1c Lactic Acid Calcium Total Creatine Kinase CK-MB (CK-2) Troponin T NT-Pro-B Natriuret Pep TSH Urine pH Salicylates 10/20/17 10/20/17 10/20/17 00:03 03:39 04:17 WBC 13.2 H RBC Hgb Hct MCHC RDW Lymph % (Auto) Lymph # Menard # Seg Neutrophils % Seg Neutrophils # POC ABG pH POC ABG pCO2 48.3 H POC ABG pO2 Chloride Carbon Dioxide BUN Creatinine Glucose POC Glucose 238 H Hemoglobin A1c Lactic Acid Calcium Total Creatine Kinase CK-MB (CK-2) Troponin T NT-Pro-B Natriuret Pep TSH Urine pH Salicylates 10/20/17 10/20/17 10/20/17 04:17 04:18 05:36 WBC RBC Hgb Hct MCHC RDW Lymph % (Auto) Lymph # Menard # Seg Neutrophils % Seg Neutrophils # POC ABG pH POC ABG pCO2 POC ABG pO2 Chloride Carbon Dioxide BUN 34 H Creatinine Glucose 230 H POC Glucose 243 H Hemoglobin A1c 6.4 H Lactic Acid Calcium Total Creatine Kinase CK-MB (CK-2) Troponin T NT-Pro-B Natriuret Pep TSH Urine pH Salicylates 10/20/17 10/20/17 10/21/17 11:44 18:35 00:08 WBC RBC Hgb Hct MCHC RDW Lymph % (Auto) Lymph # Menard # Seg Neutrophils % Seg Neutrophils # POC ABG pH POC ABG pCO2 POC ABG pO2 Chloride Carbon Dioxide BUN Creatinine Glucose POC Glucose 215 H 217 H 215 H Hemoglobin A1c Lactic Acid Calcium Total Creatine Kinase CK-MB (CK-2) Troponin T NT-Pro-B Natriuret Pep TSH Urine pH Salicylates 10/21/17 10/21/17 10/21/17 03:36 04:15 04:15 WBC 15.1 H RBC Hgb Hct MCHC RDW 13.0 L Lymph % (Auto) Lymph # Menard # Seg Neutrophils % Seg Neutrophils # POC ABG pH 7.458 H POC ABG pCO2 POC ABG pO2 62 L Chloride Carbon Dioxide BUN 38 H Creatinine Glucose 248 H POC Glucose Hemoglobin A1c Lactic Acid Calcium Total Creatine Kinase CK-MB (CK-2) Troponin T NT-Pro-B Natriuret Pep TSH Urine pH Salicylates 10/21/17 10/21/17 10/21/17 06:22 12:16 17:39 WBC RBC Hgb Hct MCHC RDW Lymph % (Auto) Lymph # Menard # Seg Neutrophils % Seg Neutrophils # POC ABG pH POC ABG pCO2 POC ABG pO2 Chloride Carbon Dioxide BUN Creatinine Glucose POC Glucose 225 H 237 H 268 H Hemoglobin A1c Lactic Acid Calcium Total Creatine Kinase CK-MB (CK-2) Troponin T NT-Pro-B Natriuret Pep TSH Urine pH Salicylates 10/21/17 10/22/17 10/22/17 17:51 00:13 05:20 WBC RBC Hgb Hct MCHC RDW Lymph % (Auto) Lymph # Menard # Seg Neutrophils % Seg Neutrophils # POC ABG pH POC ABG pCO2 POC ABG pO2 Chloride Carbon Dioxide BUN Creatinine Glucose POC Glucose 263 H 257 H 334 H Hemoglobin A1c Lactic Acid Calcium Total Creatine Kinase CK-MB (CK-2) Troponin T NT-Pro-B Natriuret Pep TSH Urine pH Salicylates 10/22/17 10/22/17 10/22/17 07:18 07:18 11:58 WBC 12.6 H RBC 5.20 H Hgb 15.5 H Hct 46.2 H MCHC RDW 13.0 L Lymph % (Auto) Lymph # Menard # Seg Neutrophils % Seg Neutrophils # POC ABG pH POC ABG pCO2 POC ABG pO2 Chloride Carbon Dioxide BUN 39 H Creatinine Glucose 308 H POC Glucose 281 H Hemoglobin A1c Lactic Acid Calcium Total Creatine Kinase CK-MB (CK-2) Troponin T NT-Pro-B Natriuret Pep TSH Urine pH Salicylates 10/22/17 10/22/17 10/22/17 15:30 17:45 23:57 WBC RBC Hgb Hct MCHC RDW Lymph % (Auto) Lymph # Menard # Seg Neutrophils % Seg Neutrophils # POC ABG pH 7.487 H POC ABG pCO2 46.2 H POC ABG pO2 136 H Chloride Carbon Dioxide BUN Creatinine Glucose POC Glucose 236 H 249 H Hemoglobin A1c Lactic Acid Calcium Total Creatine Kinase CK-MB (CK-2) Troponin T NT-Pro-B Natriuret Pep TSH Urine pH Salicylates 10/23/17 10/23/17 10/23/17 03:31 03:31 03:47 WBC 13.9 H RBC 5.07 H Hgb Hct MCHC RDW 13.1 L Lymph % (Auto) Lymph # Menard # Seg Neutrophils % Seg Neutrophils # POC ABG pH 7.486 H POC ABG pCO2 POC ABG pO2 164 H Chloride Carbon Dioxide BUN 39 H Creatinine Glucose 218 H POC Glucose Hemoglobin A1c Lactic Acid Calcium Total Creatine Kinase CK-MB (CK-2) Troponin T NT-Pro-B Natriuret Pep TSH Urine pH Salicylates 10/23/17 10/23/17 10/23/17 06:01 08:54 11:46 WBC RBC Hgb Hct MCHC RDW Lymph % (Auto) Lymph # Menard # Seg Neutrophils % Seg Neutrophils # POC ABG pH POC ABG pCO2 48.0 H POC ABG pO2 73 L Chloride Carbon Dioxide BUN Creatinine Glucose POC Glucose 291 H 213 H Hemoglobin A1c Lactic Acid Calcium Total Creatine Kinase CK-MB (CK-2) Troponin T NT-Pro-B Natriuret Pep TSH Urine pH Salicylates 10/23/17 10/23/17 10/23/17 12:43 12:56 17:52 WBC RBC Hgb Hct MCHC RDW Lymph % (Auto) Lymph # Menard # Seg Neutrophils % Seg Neutrophils # POC ABG pH POC ABG pCO2 POC ABG pO2 Chloride Carbon Dioxide BUN Creatinine Glucose POC Glucose 210 H 237 H 185 H Hemoglobin A1c Lactic Acid Calcium Total Creatine Kinase CK-MB (CK-2) Troponin T NT-Pro-B Natriuret Pep TSH Urine pH Salicylates 10/23/17 10/24/17 10/24/17 23:51 06:02 08:51 WBC RBC Hgb Hct MCHC RDW Lymph % (Auto) Lymph # Menard # Seg Neutrophils % Seg Neutrophils # POC ABG pH POC ABG pCO2 POC ABG pO2 Chloride Carbon Dioxide BUN 33 H Creatinine Glucose POC Glucose 161 H 142 H Hemoglobin A1c Lactic Acid Calcium Total Creatine Kinase CK-MB (CK-2) Troponin T NT-Pro-B Natriuret Pep TSH Urine pH Salicylates 10/24/17 10/24/17 10/24/17 12:58 13:20 17:54 WBC 14.9 H RBC 5.44 H Hgb 16.3 H Hct 47.8 H MCHC RDW 12.8 L Lymph % (Auto) Lymph # Menard # Seg Neutrophils % Seg Neutrophils # POC ABG pH POC ABG pCO2 POC ABG pO2 Chloride Carbon Dioxide BUN Creatinine Glucose POC Glucose 185 H 141 H Hemoglobin A1c Lactic Acid Calcium Total Creatine Kinase CK-MB (CK-2) Troponin T NT-Pro-B Natriuret Pep TSH Urine pH Salicylates 10/25/17 10/25/17 10/25/17 00:59 01:21 01:21 WBC 12.7 H RBC 5.35 H Hgb 15.9 H Hct 47.6 H MCHC RDW 13.1 L Lymph % (Auto) Lymph # Menard # Seg Neutrophils % Seg Neutrophils # POC ABG pH POC ABG pCO2 POC ABG pO2 Chloride Carbon Dioxide BUN 43 H Creatinine Glucose 201 H POC Glucose 181 H Hemoglobin A1c Lactic Acid Calcium Total Creatine Kinase CK-MB (CK-2) Troponin T NT-Pro-B Natriuret Pep TSH Urine pH Salicylates 10/25/17 10/25/17 10/25/17 06:21 11:33 17:28 WBC RBC Hgb Hct MCHC RDW Lymph % (Auto) Lymph # Menard # Seg Neutrophils % Seg Neutrophils # POC ABG pH POC ABG pCO2 POC ABG pO2 Chloride Carbon Dioxide BUN Creatinine Glucose POC Glucose 194 H 178 H 180 H Hemoglobin A1c Lactic Acid Calcium Total Creatine Kinase CK-MB (CK-2) Troponin T NT-Pro-B Natriuret Pep TSH Urine pH Salicylates 10/26/17 10/26/17 10/26/17 01:18 05:09 05:09 WBC 16.9 H RBC 5.55 H Hgb 16.4 H Hct 49.8 H MCHC RDW 13.0 L Lymph % (Auto) 9.5 L Lymph # Menard # 1.0 H Seg Neutrophils % 82.2 H Seg Neutrophils # 13.9 H POC ABG pH POC ABG pCO2 POC ABG pO2 Chloride 97.4 L Carbon Dioxide 31 H BUN 45 H Creatinine Glucose 162 H POC Glucose 134 H Hemoglobin A1c Lactic Acid Calcium Total Creatine Kinase CK-MB (CK-2) Troponin T NT-Pro-B Natriuret Pep TSH Urine pH Salicylates 10/26/17 10/26/17 10/27/17 06:11 14:09 00:02 WBC RBC Hgb Hct MCHC RDW Lymph % (Auto) Lymph # Menard # Seg Neutrophils % Seg Neutrophils # POC ABG pH POC ABG pCO2 POC ABG pO2 Chloride Carbon Dioxide BUN Creatinine Glucose POC Glucose 181 H 185 H 173 H Hemoglobin A1c Lactic Acid Calcium Total Creatine Kinase CK-MB (CK-2) Troponin T NT-Pro-B Natriuret Pep TSH Urine pH Salicylates 10/27/17 10/27/17 10/27/17 06:29 10:13 11:54 WBC 22.7 H RBC 5.72 H Hgb 17.3 H Hct 50.5 H MCHC RDW 12.7 L Lymph % (Auto) Lymph # Menard # Seg Neutrophils % Seg Neutrophils # POC ABG pH POC ABG pCO2 POC ABG pO2 Chloride Carbon Dioxide BUN Creatinine Glucose POC Glucose 141 H 158 H Hemoglobin A1c Lactic Acid Calcium Total Creatine Kinase CK-MB (CK-2) Troponin T NT-Pro-B Natriuret Pep TSH Urine pH Salicylates 10/27/17 10/27/17 10/28/17 18:58 23:05 06:53 WBC 17.3 H RBC 5.47 H Hgb 16.4 H Hct 48.3 H MCHC RDW 12.5 L Lymph % (Auto) 11.5 L Lymph # Menard # 1.1 H Seg Neutrophils % 80.8 H Seg Neutrophils # 14.0 H POC ABG pH POC ABG pCO2 POC ABG pO2 Chloride Carbon Dioxide BUN Creatinine Glucose POC Glucose 177 H 157 H Hemoglobin A1c Lactic Acid Calcium Total Creatine Kinase CK-MB (CK-2) Troponin T NT-Pro-B Natriuret Pep TSH Urine pH Salicylates 10/28/17 10/28/17 10/28/17 06:53 07:44 12:11 WBC RBC Hgb Hct MCHC RDW Lymph % (Auto) Lymph # Menard # Seg Neutrophils % Seg Neutrophils # POC ABG pH POC ABG pCO2 POC ABG pO2 Chloride 96.8 L Carbon Dioxide BUN 40 H Creatinine Glucose 174 H POC Glucose 169 H 152 H Hemoglobin A1c Lactic Acid Calcium Total Creatine Kinase CK-MB (CK-2) Troponin T NT-Pro-B Natriuret Pep TSH Urine pH Salicylates
[2017-10-28] MEDS ORDERED: PANCREAZE DR 10,500 UNIT FEEDTUBE PRN (16:22)
[2017-10-28] MEDS ORDERED: SODIUM BICARBONATE FEEDTUBE PRN (16:22)
[2017-10-28] MEDS ORDERED: SIMPLE SYRUP FEEDTUBE PRN ×2 (16:22)
--- NOTE | 2017-10-28 16:23 | Progress Note ---
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 Right medullary infarct, with right Horners Syndrome and swallowing impairment cont Aspirin, statin. Neuro following. Need rehab per PT but pt unfunded /Dysphagia, due to recent CVA failed repeat speech eval, cont TF for now /Acute respiratory failure, likely from acute CVA, resolved Patient was extubated 10/18 but re-Intubated later in evening. Pulmonology following s/p extubation 10/23 cont O2 n/c and as needed nebs /GI bleed. GI following, H/H stable Conservative management for now. /Acute kidney injury, Improved, Cr stable /Prediabetes a1c 6.4. cont on Novolin 70/30 /Fever, low grade, 100.6 on 10/21 Repeat blood cultures drawn, to date negative /Elevated troponin. Cardiology following. Normal LVEF by echocardiogram Conservative cardiac management. /Encephalopathy, likely from acute CVA. Now alert,follows commands Full code status Discussed with patient and RN at bedside. Need Rehab, failed swallow study. Patient is unfunded. d/c planning when can tolerate po otherwise may need PEG tube. Brief History: 42-year-old man admitted history of hypertension, noncompliant with medication over the last 1 month comes emergency room with complaints of right-sided weakness and slurred speech. His last well-known time was 11:30, he woke up at 2:30 to use the bathroom, he fell to the floor a few times with several attempts. He was admitted with stroke protocol. Later on intubated on the day of admission for increase effort of breathing. He was weaned off from the vent on 10/18 and was extubated but required to reintubate later in the evening. He is now weaned off from vent and extubated again 10/23/17. Failed swallow eval following extubation, PT recommended acute rehab. Radiological data: head CT: Cranial CT scan within normal limits. No change is demonstrated. CTA head/neck: Normal CT angiogram of the arteries in the neck and head MRI brain: 1.3 cm area of subacute ischemia in the right medulla oblongata as described. 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 commands,moves all ext, mild weakness on right Subjective Date of service: 10/28/17 Principal diagnosis: acute stroke, respiratory failure/MV support Interval history: Patient seen and examined Mild right sided weakness Failed swallow study with speech therapy today Placed on dobhoff tube today Objective - Constitutional Vitals: Vital Signs - 12hr 10/28/17 10/28/17 10/28/17 07:26 08:25 08:26 Temperature 97.6 F Pulse Rate 73 Pulse Rate [ 84 Anterior Throughout] Respiratory 19 Rate Respiratory 18 Rate [Anterior Throughout] Blood Pressure 151/91 O2 Sat by Pulse 93 96 Oximetry 10/28/17 10/28/17 10/28/17 08:37 12:01 14:25 Temperature Pulse Rate 71 Pulse Rate [ 86 88 Anterior Throughout] Respiratory 20 Rate Respiratory 18 18 Rate [Anterior Throughout] Blood Pressure 147/95 O2 Sat by Pulse 96 Oximetry 10/28/17 15:31 Temperature 97.6 F Pulse Rate 87 Pulse Rate [ Anterior Throughout] Respiratory 14 Rate Respiratory Rate [Anterior Throughout] Blood Pressure 149/89 O2 Sat by Pulse 94 Oximetry - Labs CBC & Chem 7: 10/28/17 06:53 10/28/17 06:53 Labs: Abnormal lab results 10/27/17 10/27/17 10/27/17 Range/Units 11:54 18:58 23:05 WBC (4.5-11.0) K/mm3 RBC (3.65-5.03) M/mm3 Hgb (11.8-15.2) gm/dl Hct (35.5-45.6) % RDW (13.2-15.2) % Lymph % (Auto) (13.4-35.0) % Crosby # (0.0-0.8) K/mm3 Seg Neutrophils % (40.0-70.0) % Seg Neutrophils # (1.8-7.7) K/mm3 Chloride (98-107) mmol/L BUN (9-20) mg/dL Glucose (75-100) mg/dL POC Glucose 158 H 177 H 157 H (70-105) 10/28/17 10/28/17 10/28/17 Range/Units 06:53 06:53 07:44 WBC 17.3 H (4.5-11.0) K/mm3 RBC 5.47 H (3.65-5.03) M/mm3 Hgb 16.4 H (11.8-15.2) gm/dl Hct 48.3 H (35.5-45.6) % RDW 12.5 L (13.2-15.2) % Lymph % (Auto) 11.5 L (13.4-35.0) % Crosby # 1.1 H (0.0-0.8) K/mm3 Seg Neutrophils % 80.8 H (40.0-70.0) % Seg Neutrophils # 14.0 H (1.8-7.7) K/mm3 Chloride 96.8 L (98-107) mmol/L BUN 40 H (9-20) mg/dL Glucose 174 H (75-100) mg/dL POC Glucose 169 H (70-105) 10/28/17 Range/Units 12:11 WBC (4.5-11.0) K/mm3 RBC (3.65-5.03) M/mm3 Hgb (11.8-15.2) gm/dl Hct (35.5-45.6) % RDW (13.2-15.2) % Lymph % (Auto) (13.4-35.0) % Crosby # (0.0-0.8) K/mm3 Seg Neutrophils % (40.0-70.0) % Seg Neutrophils # (1.8-7.7) K/mm3 Chloride (98-107) mmol/L BUN (9-20) mg/dL Glucose (75-100) mg/dL POC Glucose 152 H (70-105)
[2017-10-28] MEDS: HEPARIN SUB-Q SCH ×2 (18:00→21:26)
[2017-10-28] MEDS: HumuLIN R SUB-Q SCH (18:01)
[2017-10-28] MEDS: HCTZ PO SCH (18:02)
[2017-10-28] MEDS: ASPIRIN PO SCH (21:26)
[2017-10-29] MEDS: PROVENTIL IH SCH ×6 (00:20→20:01)
[2017-10-29] MEDS: HumuLIN R SUB-Q SCH ×4 (06:59→18:18)
[2017-10-29] MEDS: PULMICORT IH SCH ×2 (07:38→20:01)
[2017-10-29] MEDS: BROVANA NEBU IH SCH ×2 (07:38→20:01)
[2017-10-29] MEDS: TYLENOL PO PRN (13:12)
[2017-10-29] MEDS: HCTZ PO SCH (13:12)
[2017-10-29] MEDS: NORMODYNE PO SCH ×2 (13:13→22:52)
[2017-10-29] MEDS: PEPCID PO SCH ×2 (13:14→22:52)
[2017-10-29] MEDS: HEPARIN SUB-Q SCH ×2 (13:22→22:53)
--- NOTE | 2017-10-29 13:55 | Progress Note ---
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 Right medullary infarct, with right Horners Syndrome and swallowing impairment cont Aspirin, statin. Neuro following. Need rehab per PT but pt unfunded /Dysphagia, due to recent CVA failed repeat speech eval, cont TF for now plan for MBS tomorrow, may need PEG tube /Acute respiratory failure, likely from acute CVA, resolved Patient was extubated 10/18 but re-Intubated later in evening. Pulmonology following s/p extubation 10/23 cont O2 n/c and as needed nebs /GI bleed. GI following, H/H stable Conservative management for now. /Acute kidney injury, Improved, Cr stable /Prediabetes a1c 6.4. cont on Novolin /30 /Fever, low grade, 100.6 on 10/21 Repeat blood cultures drawn, to date negative /Elevated troponin. Cardiology following. Normal LVEF by echocardiogram Conservative cardiac management. /Encephalopathy, likely from acute CVA. Now alert,follows commands Full code status Discussed with patient and RN at bedside. Need Rehab, failed swallow study. Patient is unfunded. d/c planning when can tolerate po otherwise may need PEG tube. Brief History: 42-year-old man admitted history of hypertension, noncompliant with medication over the last 1 month comes emergency room with complaints of right-sided weakness and slurred speech. His last well-known time was 11:30, he woke up at 2:30 to use the bathroom, he fell to the floor a few times with several attempts. He was admitted with stroke protocol. Later on intubated on the day of admission for increase effort of breathing. He was weaned off from the vent on 10/18 and was extubated but required to reintubate later in the evening. He is now weaned off from vent and extubated again 10/23/17. Failed swallow eval following extubation, PT recommended acute rehab. Radiological data: head CT: Cranial CT scan within normal limits. No change is demonstrated. CTA head/neck: Normal CT angiogram of the arteries in the neck and head MRI brain: 1.3 cm area of subacute ischemia in the right medulla oblongata as described. 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 commands,moves all ext, mild weakness on right Subjective Date of service: 10/29/17 Principal diagnosis: acute stroke, respiratory failure/MV support Interval history: Patient seen and examined Mild right sided weakness Failed swallow study with speech therapy tolerating TF, repeat speech eval pending Objective - Constitutional Vitals: Vital Signs - 12hr 10/29/17 10/29/17 10/29/17 06:21 07:38 07:48 Temperature 98.4 F Pulse Rate 71 Pulse Rate [ 75 77 Anterior Bilateral Throughout] Respiratory 18 Rate Respiratory 18 20 Rate [Anterior Bilateral Throughout] Blood Pressure 134/89 O2 Sat by Pulse 95 Oximetry 10/29/17 10/29/17 10/29/17 08:28 11:47 11:52 Temperature 98.1 F 97.6 F Pulse Rate 76 Pulse Rate [ 81 Anterior Bilateral Throughout] Respiratory 18 18 Rate Respiratory 18 Rate [Anterior Bilateral Throughout] Blood Pressure 145/94 130/85 O2 Sat by Pulse 99 Oximetry 10/29/17 10/29/17 12:08 13:13 Temperature Pulse Rate 78 Pulse Rate [ 85 Anterior Bilateral Throughout] Respiratory Rate Respiratory 20 Rate [Anterior Bilateral Throughout] Blood Pressure O2 Sat by Pulse Oximetry - Labs CBC & Chem 7: 10/28/17 06:53 10/28/17 06:53 Labs: Abnormal lab results 10/29/17 10/29/17 10/29/17 Range/Units 00:22 07:03 11:59 POC Glucose 262 H 163 H 189 H (70-105)
[2017-10-29] MEDS ORDERED: PANCREAZE DR 10,500 UNIT FEEDTUBE PRN (16:01)
[2017-10-29] MEDS ORDERED: SODIUM BICARBONATE FEEDTUBE PRN (16:01)
[2017-10-29] MEDS ORDERED: SIMPLE SYRUP FEEDTUBE PRN ×2 (16:01)
[2017-10-29] MEDS: REGLAN IV PRN (18:04)
--- NOTE | 2017-10-29 19:44 | Progress Note ---
Assessment and Plan 42 year old with history of hypertension and smoking, presented with acute onset of right arm and leg weakness. CT, CTA head and neck unremarkable. MRI with right medullary infarct. Working with PT. Swallowing study tomorrow. ( Barium) Plan - Continue vigorous PT. Hypertension control. Subjective Principal diagnosis: acute stroke, respiratory failure/MV support Interval history: 42 year old male with history of acute onset of weakness on right side. Hx of hypertension and smoking. MRI with right medullary infarct. Still with difficulty swallowing. Right weakness improving. Numbness improved. Objective - Exam Narrative Exam: Speech fluent. Soft, hoarse voice. 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 No nystagmus. Face symmetric V-1 thru V-3 intact. Tongue midline, hearing intact. Motor - 4/5 in all groups om right. Cerebellar - right dysmetria, intact fine finger movements, [place] down on the right. Sensory - intact on right. symmetric. - Vital Sign Vital Signs - 12hr 10/29/17 10/29/17 10/29/17 07:38 07:48 08:28 Temperature 98.1 F Pulse Rate 76 Pulse Rate [ 75 77 Anterior Bilateral Throughout] Respiratory 18 Rate Respiratory 18 20 Rate [Anterior Bilateral Throughout] Blood Pressure 145/94 O2 Sat by Pulse 99 Oximetry 10/29/17 10/29/17 10/29/17 11:47 11:52 12:08 Temperature 97.6 F Pulse Rate Pulse Rate [ 81 85 Anterior Bilateral Throughout] Respiratory 18 Rate Respiratory 18 20 Rate [Anterior Bilateral Throughout] Blood Pressure 130/85 O2 Sat by Pulse Oximetry 10/29/17 10/29/17 10/29/17 13:13 16:15 16:25 Temperature Pulse Rate 78 Pulse Rate [ 67 69 Anterior Bilateral Throughout] Respiratory Rate Respiratory 20 20 Rate [Anterior Bilateral Throughout] Blood Pressure O2 Sat by Pulse Oximetry - Laboratory Findings CBC and BMP: 10/28/17 06:53 10/28/17 06:53 Abnormal Lab Findings: Abnormal Labs 10/17/17 10/17/17 10/17/17 04:06 04:06 04:23 WBC RBC 5.56 H Hgb 16.7 H Hct 48.1 H MCHC 35 H RDW 13.0 L Lymph % (Auto) Lymph # [place] # Seg Neutrophils % Seg Neutrophils # POC ABG pH POC ABG pCO2 POC ABG pO2 Chloride Carbon Dioxide BUN Creatinine Glucose 141 H POC Glucose Hemoglobin A1c Lactic Acid Calcium Total Creatine Kinase 301 H CK-MB (CK-2) Troponin T NT-Pro-B Natriuret Pep TSH Urine pH Salicylates 10/17/17 10/17/17 10/17/17 04:23 04:24 04:35 WBC RBC Hgb Hct MCHC RDW Lymph % (Auto) Lymph # [place] # Seg Neutrophils % Seg Neutrophils # POC ABG pH POC ABG pCO2 POC ABG pO2 Chloride Carbon Dioxide BUN Creatinine Glucose POC Glucose 132 H Hemoglobin A1c Lactic Acid Calcium Total Creatine Kinase CK-MB (CK-2) Troponin T NT-Pro-B Natriuret Pep TSH Urine pH 8.0 H Salicylates < 0.3 L 10/17/17 10/17/17 10/17/17 05:49 06:26 10:39 WBC RBC Hgb 16.6 H Hct 48.3 H MCHC RDW Lymph % (Auto) Lymph # [place] # Seg Neutrophils % Seg Neutrophils # POC ABG pH 7.207 L 7.155 L POC ABG pCO2 62.6 H 72.8 H POC ABG pO2 155 H Chloride Carbon Dioxide BUN Creatinine Glucose POC Glucose Hemoglobin A1c Lactic Acid Calcium Total Creatine Kinase CK-MB (CK-2) Troponin T NT-Pro-B Natriuret Pep TSH Urine pH Salicylates 10/17/17 10/17/17 10/17/17 15:01 15:01 16:26 WBC RBC Hgb Hct MCHC RDW Lymph % (Auto) Lymph # [place] # Seg Neutrophils % Seg Neutrophils # POC ABG pH POC ABG pCO2 POC ABG pO2 Chloride Carbon Dioxide 21 L BUN Creatinine Glucose 134 H POC Glucose Hemoglobin A1c Lactic Acid 2.60 H* 2.50 H* Calcium 8.3 L Total Creatine Kinase 464 H CK-MB (CK-2) 6.8 H Troponin T 0.102 H* D NT-Pro-B Natriuret Pep 604.7 H TSH Urine pH Salicylates 10/17/17 10/17/17 10/17/17 16:30 18:36 18:51 WBC 18.6 H RBC 5.55 H Hgb 16.3 H Hct 48.2 H MCHC RDW 12.9 L Lymph % (Auto) 6.0 L Lymph # 1.1 L [place] # 1.1 H Seg Neutrophils % 87.9 H Seg Neutrophils # 16.4 H POC ABG pH POC ABG pCO2 POC ABG pO2 202 H Chloride Carbon Dioxide BUN Creatinine Glucose POC Glucose Hemoglobin A1c Lactic Acid 2.20 H* Calcium Total Creatine Kinase CK-MB (CK-2) Troponin T NT-Pro-B Natriuret Pep TSH Urine pH Salicylates 10/17/17 10/18/17 10/18/17 22:06 02:31 05:33 WBC RBC Hgb Hct MCHC RDW Lymph % (Auto) Lymph # [place] # Seg Neutrophils % Seg Neutrophils # POC ABG pH POC ABG pCO2 46.9 H POC ABG pO2 107 H Chloride Carbon Dioxide BUN Creatinine Glucose POC Glucose 139 H 180 H Hemoglobin A1c Lactic Acid Calcium Total Creatine Kinase CK-MB (CK-2) Troponin T NT-Pro-B Natriuret Pep TSH Urine pH Salicylates 10/18/17 10/18/17 10/18/17 05:46 10:17 10:39 WBC 14.5 H RBC 5.13 H Hgb 15.7 H Hct MCHC 35 H RDW Lymph % (Auto) 8.0 L Lymph # [place] # Seg Neutrophils % 86.5 H Seg Neutrophils # 12.6 H POC ABG pH POC ABG pCO2 POC ABG pO2 Chloride Carbon Dioxide BUN Creatinine Glucose POC Glucose 157 H 128 H Hemoglobin A1c Lactic Acid Calcium Total Creatine Kinase CK-MB (CK-2) Troponin T NT-Pro-B Natriuret Pep TSH Urine pH Salicylates 10/18/17 10/18/17 10/18/17 14:32 15:58 17:47 WBC RBC Hgb Hct MCHC RDW Lymph % (Auto) Lymph # [place] # Seg Neutrophils % Seg Neutrophils # POC ABG pH POC ABG pCO2 POC ABG pO2 Chloride Carbon Dioxide BUN Creatinine Glucose POC Glucose 122 H 156 H Hemoglobin A1c Lactic Acid Calcium Total Creatine Kinase CK-MB (CK-2) Troponin T NT-Pro-B Natriuret Pep TSH 0.105 L Urine pH Salicylates 10/18/17 10/19/17 10/19/17 22:34 02:57 04:34 WBC RBC Hgb Hct MCHC RDW Lymph % (Auto) Lymph # [place] # Seg Neutrophils % Seg Neutrophils # POC ABG pH 7.329 L POC ABG pCO2 56.9 H POC ABG pO2 163 H Chloride Carbon Dioxide BUN Creatinine Glucose POC Glucose 154 H 155 H Hemoglobin A1c Lactic Acid Calcium Total Creatine Kinase CK-MB (CK-2) Troponin T NT-Pro-B Natriuret Pep TSH Urine pH Salicylates 10/19/17 10/19/17 10/19/17 06:51 06:51 06:55 WBC 15.7 H RBC 5.14 H Hgb 15.4 H Hct MCHC RDW Lymph % (Auto) Lymph # [place] # Seg Neutrophils % Seg Neutrophils # POC ABG pH POC ABG pCO2 POC ABG pO2 Chloride Carbon Dioxide BUN 28 H Creatinine 1.9 H D Glucose 182 H POC Glucose 155 H Hemoglobin A1c Lactic Acid Calcium Total Creatine Kinase CK-MB (CK-2) Troponin T NT-Pro-B Natriuret Pep TSH Urine pH Salicylates 10/19/17 10/19/17 10/19/17 10:19 12:26 17:15 WBC RBC Hgb Hct MCHC RDW Lymph % (Auto) Lymph # [place] # Seg Neutrophils % Seg Neutrophils # POC ABG pH POC ABG pCO2 POC ABG pO2 Chloride Carbon Dioxide BUN Creatinine Glucose POC Glucose 169 H 172 H 132 H Hemoglobin A1c Lactic Acid Calcium Total Creatine Kinase CK-MB (CK-2) Troponin T NT-Pro-B Natriuret Pep TSH Urine pH Salicylates 10/20/17 10/20/17 10/20/17 00:03 03:39 04:17 WBC 13.2 H RBC Hgb Hct MCHC RDW Lymph % (Auto) Lymph # [place] # Seg Neutrophils % Seg Neutrophils # POC ABG pH POC ABG pCO2 48.3 H POC ABG pO2 Chloride Carbon Dioxide BUN Creatinine Glucose POC Glucose 238 H Hemoglobin A1c Lactic Acid Calcium Total Creatine Kinase CK-MB (CK-2) Troponin T NT-Pro-B Natriuret Pep TSH Urine pH Salicylates 10/20/17 10/20/17 10/20/17 04:17 04:18 05:36 WBC RBC Hgb Hct MCHC RDW Lymph % (Auto) Lymph # [place] # Seg Neutrophils % Seg Neutrophils # POC ABG pH POC ABG pCO2 POC ABG pO2 Chloride Carbon Dioxide BUN 34 H Creatinine Glucose 230 H POC Glucose 243 H Hemoglobin A1c 6.4 H Lactic Acid Calcium Total Creatine Kinase CK-MB (CK-2) Troponin T NT-Pro-B Natriuret Pep TSH Urine pH Salicylates 10/20/17 10/20/17 10/21/17 11:44 18:35 00:08 WBC RBC Hgb Hct MCHC RDW Lymph % (Auto) Lymph # [place] # Seg Neutrophils % Seg Neutrophils # POC ABG pH POC ABG pCO2 POC ABG pO2 Chloride Carbon Dioxide BUN Creatinine Glucose POC Glucose 215 H 217 H 215 H Hemoglobin A1c Lactic Acid Calcium Total Creatine Kinase CK-MB (CK-2) Troponin T NT-Pro-B Natriuret Pep TSH Urine pH Salicylates 10/21/17 10/21/17 10/21/17 03:36 04:15 04:15 WBC 15.1 H RBC Hgb Hct MCHC RDW 13.0 L Lymph % (Auto) Lymph # [place] # Seg Neutrophils % Seg Neutrophils # POC ABG pH 7.458 H POC ABG pCO2 POC ABG pO2 62 L Chloride Carbon Dioxide BUN 38 H Creatinine Glucose 248 H POC Glucose Hemoglobin A1c Lactic Acid Calcium Total Creatine Kinase CK-MB (CK-2) Troponin T NT-Pro-B Natriuret Pep TSH Urine pH Salicylates 10/21/17 10/21/17 10/21/17 06:22 12:16 17:39 WBC RBC Hgb Hct MCHC RDW Lymph % (Auto) Lymph # [place] # Seg Neutrophils % Seg Neutrophils # POC ABG pH POC ABG pCO2 POC ABG pO2 Chloride Carbon Dioxide BUN Creatinine Glucose POC Glucose 225 H 237 H 268 H Hemoglobin A1c Lactic Acid Calcium Total Creatine Kinase CK-MB (CK-2) Troponin T NT-Pro-B Natriuret Pep TSH Urine pH Salicylates 10/21/17 10/22/17 10/22/17 17:51 00:13 05:20 WBC RBC Hgb Hct MCHC RDW Lymph % (Auto) Lymph # [place] # Seg Neutrophils % Seg Neutrophils # POC ABG pH POC ABG pCO2 POC ABG pO2 Chloride Carbon Dioxide BUN Creatinine Glucose POC Glucose 263 H 257 H 334 H Hemoglobin A1c Lactic Acid Calcium Total Creatine Kinase CK-MB (CK-2) Troponin T NT-Pro-B Natriuret Pep TSH Urine pH Salicylates 10/22/17 10/22/17 10/22/17 07:18 07:18 11:58 WBC 12.6 H RBC 5.20 H Hgb 15.5 H Hct 46.2 H MCHC RDW 13.0 L Lymph % (Auto) Lymph # [place] # Seg Neutrophils % Seg Neutrophils # POC ABG pH POC ABG pCO2 POC ABG pO2 Chloride Carbon Dioxide BUN 39 H Creatinine Glucose 308 H POC Glucose 281 H Hemoglobin A1c Lactic Acid Calcium Total Creatine Kinase CK-MB (CK-2) Troponin T NT-Pro-B Natriuret Pep TSH Urine pH Salicylates 10/22/17 10/22/17 10/22/17 15:30 17:45 23:57 WBC RBC Hgb Hct MCHC RDW Lymph % (Auto) Lymph # [place] # Seg Neutrophils % Seg Neutrophils # POC ABG pH 7.487 H POC ABG pCO2 46.2 H POC ABG pO2 136 H Chloride Carbon Dioxide BUN Creatinine Glucose POC Glucose 236 H 249 H Hemoglobin A1c Lactic Acid Calcium Total Creatine Kinase CK-MB (CK-2) Troponin T NT-Pro-B Natriuret Pep TSH Urine pH Salicylates 10/23/17 10/23/17 10/23/17 03:31 03:31 03:47 WBC 13.9 H RBC 5.07 H Hgb Hct MCHC RDW 13.1 L Lymph % (Auto) Lymph # [place] # Seg Neutrophils % Seg Neutrophils # POC ABG pH 7.486 H POC ABG pCO2 POC ABG pO2 164 H Chloride Carbon Dioxide BUN 39 H Creatinine Glucose 218 H POC Glucose Hemoglobin A1c Lactic Acid Calcium Total Creatine Kinase CK-MB (CK-2) Troponin T NT-Pro-B Natriuret Pep TSH Urine pH Salicylates 10/23/17 10/23/17 10/23/17 06:01 08:54 11:46 WBC RBC Hgb Hct MCHC RDW Lymph % (Auto) Lymph # [place] # Seg Neutrophils % Seg Neutrophils # POC ABG pH POC ABG pCO2 48.0 H POC ABG pO2 73 L Chloride Carbon Dioxide BUN Creatinine Glucose POC Glucose 291 H 213 H Hemoglobin A1c Lactic Acid Calcium Total Creatine Kinase CK-MB (CK-2) Troponin T NT-Pro-B Natriuret Pep TSH Urine pH Salicylates 10/23/17 10/23/17 10/23/17 12:43 12:56 17:52 WBC RBC Hgb Hct MCHC RDW Lymph % (Auto) Lymph # [place] # Seg Neutrophils % Seg Neutrophils # POC ABG pH POC ABG pCO2 POC ABG pO2 Chloride Carbon Dioxide BUN Creatinine Glucose POC Glucose 210 H 237 H 185 H Hemoglobin A1c Lactic Acid Calcium Total Creatine Kinase CK-MB (CK-2) Troponin T NT-Pro-B Natriuret Pep TSH Urine pH Salicylates 10/23/17 10/24/17 10/24/17 23:51 06:02 08:51 WBC RBC Hgb Hct MCHC RDW Lymph % (Auto) Lymph # [place] # Seg Neutrophils % Seg Neutrophils # POC ABG pH POC ABG pCO2 POC ABG pO2 Chloride Carbon Dioxide BUN 33 H Creatinine Glucose POC Glucose 161 H 142 H Hemoglobin A1c Lactic Acid Calcium Total Creatine Kinase CK-MB (CK-2) Troponin T NT-Pro-B Natriuret Pep TSH Urine pH Salicylates 10/24/17 10/24/17 10/24/17 12:58 13:20 17:54 WBC 14.9 H RBC 5.44 H Hgb 16.3 H Hct 47.8 H MCHC RDW 12.8 L Lymph % (Auto) Lymph # [place] # Seg Neutrophils % Seg Neutrophils # POC ABG pH POC ABG pCO2 POC ABG pO2 Chloride Carbon Dioxide BUN Creatinine Glucose POC Glucose 185 H 141 H Hemoglobin A1c Lactic Acid Calcium Total Creatine Kinase CK-MB (CK-2) Troponin T NT-Pro-B Natriuret Pep TSH Urine pH Salicylates 10/25/17 10/25/17 10/25/17 00:59 01:21 01:21 WBC 12.7 H RBC 5.35 H Hgb 15.9 H Hct 47.6 H MCHC RDW 13.1 L Lymph % (Auto) Lymph # [place] # Seg Neutrophils % Seg Neutrophils # POC ABG pH POC ABG pCO2 POC ABG pO2 Chloride Carbon Dioxide BUN 43 H Creatinine Glucose 201 H POC Glucose 181 H Hemoglobin A1c Lactic Acid Calcium Total Creatine Kinase CK-MB (CK-2) Troponin T NT-Pro-B Natriuret Pep TSH Urine pH Salicylates 10/25/17 10/25/17 10/25/17 06:21 11:33 17:28 WBC RBC Hgb Hct MCHC RDW Lymph % (Auto) Lymph # [place] # Seg Neutrophils % Seg Neutrophils # POC ABG pH POC ABG pCO2 POC ABG pO2 Chloride Carbon Dioxide BUN Creatinine Glucose POC Glucose 194 H 178 H 180 H Hemoglobin A1c Lactic Acid Calcium Total Creatine Kinase CK-MB (CK-2) Troponin T NT-Pro-B Natriuret Pep TSH Urine pH Salicylates 10/26/17 10/26/17 10/26/17 01:18 05:09 05:09 WBC 16.9 H RBC 5.55 H Hgb 16.4 H Hct 49.8 H MCHC RDW 13.0 L Lymph % (Auto) 9.5 L Lymph # [place] # 1.0 H Seg Neutrophils % 82.2 H Seg Neutrophils # 13.9 H POC ABG pH POC ABG pCO2 POC ABG pO2 Chloride 97.4 L Carbon Dioxide 31 H BUN 45 H Creatinine Glucose 162 H POC Glucose 134 H Hemoglobin A1c Lactic Acid Calcium Total Creatine Kinase CK-MB (CK-2) Troponin T NT-Pro-B Natriuret Pep TSH Urine pH Salicylates 10/26/17 10/26/17 10/27/17 06:11 14:09 00:02 WBC RBC Hgb Hct MCHC RDW Lymph % (Auto) Lymph # [place] # Seg Neutrophils % Seg Neutrophils # POC ABG pH POC ABG pCO2 POC ABG pO2 Chloride Carbon Dioxide BUN Creatinine Glucose POC Glucose 181 H 185 H 173 H Hemoglobin A1c Lactic Acid Calcium Total Creatine Kinase CK-MB (CK-2) Troponin T NT-Pro-B Natriuret Pep TSH Urine pH Salicylates 10/27/17 10/27/17 10/27/17 06:29 10:13 11:54 WBC 22.7 H RBC 5.72 H Hgb 17.3 H Hct 50.5 H MCHC RDW 12.7 L Lymph % (Auto) Lymph # [place] # Seg Neutrophils % Seg Neutrophils # POC ABG pH POC ABG pCO2 POC ABG pO2 Chloride Carbon Dioxide BUN Creatinine Glucose POC Glucose 141 H 158 H Hemoglobin A1c Lactic Acid Calcium Total Creatine Kinase CK-MB (CK-2) Troponin T NT-Pro-B Natriuret Pep TSH Urine pH Salicylates 10/27/17 10/27/17 10/28/17 18:58 23:05 06:53 WBC 17.3 H RBC 5.47 H Hgb 16.4 H Hct 48.3 H MCHC RDW 12.5 L Lymph % (Auto) 11.5 L Lymph # [place] # 1.1 H Seg Neutrophils % 80.8 H Seg Neutrophils # 14.0 H POC ABG pH POC ABG pCO2 POC ABG pO2 Chloride Carbon Dioxide BUN Creatinine Glucose POC Glucose 177 H 157 H Hemoglobin A1c Lactic Acid Calcium Total Creatine Kinase CK-MB (CK-2) Troponin T NT-Pro-B Natriuret Pep TSH Urine pH Salicylates 10/28/17 10/28/1710/28/18 06:53 07:44 12:11 WBC RBC Hgb Hct MCHC RDW Lymph % (Auto) Lymph # [place] # Seg Neutrophils % Seg Neutrophils # POC ABG pH POC ABG pCO2 POC ABG pO2 Chloride 96.8 L Carbon Dioxide BUN 40 H Creatinine Glucose 174 H POC Glucose 169 H 152 H Hemoglobin A1c Lactic Acid Calcium Total Creatine Kinase CK-MB (CK-2) Troponin T NT-Pro-B Natriuret Pep TSH Urine pH Salicylates 10/29/17 10/29/17 10/29/17 00:22 07:03 11:59 WBC RBC Hgb Hct MCHC RDW Lymph % (Auto) Lymph # [place] # Seg Neutrophils % Seg Neutrophils # POC ABG pH POC ABG pCO2 POC ABG pO2 Chloride Carbon Dioxide BUN Creatinine Glucose POC Glucose 262 H 163 H 189 H Hemoglobin A1c Lactic Acid Calcium Total Creatine Kinase CK-MB (CK-2) Troponin T NT-Pro-B Natriuret Pep TSH Urine pH Salicylates 10/29/17 17:10 WBC RBC Hgb Hct MCHC RDW Lymph % (Auto) Lymph # [place] # Seg Neutrophils % Seg Neutrophils # POC ABG pH POC ABG pCO2 POC ABG pO2 Chloride Carbon Dioxide BUN Creatinine Glucose POC Glucose 123 H Hemoglobin A1c Lactic Acid Calcium Total Creatine Kinase CK-MB (CK-2) Troponin T NT-Pro-B Natriuret Pep TSH Urine pH Salicylates
[2017-10-29] MEDS: ASPIRIN PO SCH (22:52)
[2017-10-30 06:13] LABS: Basophils # (Auto) 0.1 K/mm3 (0.0-0.1); Basophils % (Auto) 0.3 % (0.0-1.8); Eosinophils # (Auto) 0.2 K/mm3 (0.0-0.4); Eosinophils % (Auto) 1.3 % (0.0-4.3); Hematocrit 46.5 % (35.5-45.6); Hemoglobin 15.8 gm/dl (11.8-15.2); Lymphocytes # (Auto) 2.3 K/mm3 (1.2-5.4); Mean Corpuscular HGB Conc 34 % (32-34); Mean Corpuscular Hemoglobin 29 pg (28-32); Mean Corpuscular Volume 87 fl (84-94); Monocytes % (Auto) 5.9 % (0.0-7.3); Platelet Count 385 K/mm3 (140-440); Red Blood Count 5.36 M/mm3 (3.65-5.03); Red Cell Distribution Width 12.5 % (13.2-15.2)
[2017-10-30] MEDS: HumuLIN R SUB-Q SCH ×4 (06:55→18:09)
[2017-10-30] MEDS: PULMICORT IH SCH ×2 (08:55→19:32)
[2017-10-30] MEDS: BROVANA NEBU IH SCH ×2 (08:55→19:32)
[2017-10-30] MEDS: PROVENTIL IH SCH ×4 (08:56→19:32)
--- NOTE | 2017-10-30 09:21 | Progress Note ---
Assessment and Plan Assessment and plan: Patient is a 42-year-old man with a history of hypertension, noncompliance with medication over the last 1 month who presented to ER with right-sided weakness and slurred speech. His last well-known time was 11:30, he woke up at 2:30 to use the bathroom, he fell to the floor a few times with several attempts. He was admitted with stroke protocol. Later on intubated on the day of admission for increase effort of breathing. He was weaned off from the vent on 10/18 and was extubated but required to reintubate later in the evening. He is now weaned off from vent and extubated again 10/23/17. Failed swallow eval following extubation, PT recommended acute rehab. * CT head: Cranial CT scan within normal limits. No change is demonstrated. * CTA head/neck: Normal CT angiogram of the arteries in the neck and head * MRI brain: 1.3 cm area of subacute ischemia in the right medulla oblongata as described. 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 Neuro following. Need rehab per PT but pt unfunded /Dysphagia, due to recent CVA failed repeat speech eval, cont NGT/TF for now plan for MBS tomorrow, may need PEG tube /Acute respiratory failure, likely from acute CVA, resolved Patient was extubated 10/18 but re-Intubated later in evening. Pulmonology following s/p extubation 10/23 cont O2 n/c and as needed nebs /GI bleed. GI following, H/H stable Conservative management for now. /Acute kidney injury, vasomotor nephropathy, poa Improved, Cr stable /Prediabetes a1c 6.4. cont on Novolin 70/30 /Fever, low grade, 100.6 on 10/21 Repeat blood cultures drawn, to date negative /Elevated troponin. Cardiology following. Normal LVEF by echocardiogram Conservative cardiac management. /Acute Encephalopathy, likely from acute CVA. Now alert,follows commands Full code status Need Rehab, failed swallow study. Patient is unfunded. d/c planning when can tolerate po otherwise may need PEG tube. History Interval history: Patient was seen and examined. Follow-up on current diagnosis of right sided weakness, improved overall. Overnight uneventful. Patient denies any chest pain , shortness breath, nausea/vomiting or severe headaches. Imaging, nursing note, chart, labs and old chart reviewed. Discussed with patient. Hospitalist Physical - Physical exam Narrative exam: GEN: WDWN, NAD, Awake, Alert, Orientated HEENT: NCAT, EOMI, PERRL, OP NGT in place NECK: supple, no adenopathy, no thyromegaly, no JVD CVS/HEART: RRR, normal S1S2, pulses present bilaterally CHEST/LUNGS: CTA B, Symmetrical chest expansion, good air entry bilaterally GI/Abdomen: soft, NTND, good bowel sounds, no guarding or rebound /Bladder: no suprapubic tenderness, no CVA or paraspinal tenderness EXT/Skin: no c/c/e, no obvious rash MSK: FROM x 4, mild weakness on right, ptosis Neuro: CN 2-12 grossly intact, no new focal deficits Psych: calm - Constitutional Vitals: Temp Pulse Resp BP Pulse Ox 98.2 F 66 17 128/82 98 10/30/17 08:04 10/30/17 08:04 10/30/17 08:04 10/30/17 08:04 10/30/17 08:04 General appearance: Present: other (intubated on the vent) Results - Labs CBC & Chem 7: 10/30/17 05:02 10/28/17 06:53 Labs: Laboratory Last Values WBC 16.5 K/mm3 (4.5-11.0) H 10/30/17 05:02 RBC 5.36 M/mm3 (3.65-5.03) H 10/30/17 05:02 Hgb 15.8 gm/dl (11.8-15.2) H 10/30/17 05:02 Hct 46.5 % (35.5-45.6) H 10/30/17 05:02 MCV 87 fl (84-94) 10/30/17 05:02 MCH 29 pg (28-32) 10/30/17 05:02 MCHC 34 % (32-34) 10/30/17 05:02 RDW 12.5 % (13.2-15.2) L 10/30/17 05:02 Plt Count 385 K/mm3 (140-440) 10/30/17 05:02 Lymph % (Auto) 14.0 % (13.4-35.0) 10/30/17 05:02 [place]eller % (Auto) 5.9 % (0.0-7.3) 10/30/17 05:02 Eos % (Auto) 1.3 % (0.0-4.3) 10/30/17 05:02 Baso % (Auto) 0.3 % (0.0-1.8) 10/30/17 05:02 Lymph # 2.3 K/mm3 (1.2-5.4) 10/30/17 05:02 Teller # 1.0 K/mm3 (0.0-0.8) H 10/30/17 05:02 Eos # 0.2 K/mm3 (0.0-0.4) 10/30/17 05:02 Baso # 0.1 K/mm3 (0.0-0.1) 10/30/17 05:02 Add Manual Diff TNR 10/17/17 15:01 Seg Neutrophils % 78.5 % (40.0-70.0) H 10/30/17 05:02 Seg Neutrophils # 12.9 K/mm3 (1.8-7.7) H 10/30/17 05:02 PT 13.1 Sec. (12.2-14.9) 10/17/17 04:06 INR 0.95 (0.87-1.13) 10/17/17 04:06 APTT 27.7 Sec. (24.2-36.6) 10/17/17 04:06 Thrombin Time 17.0 Sec. (15.1-19.6) 10/17/17 04:06 POC ABG pH 7.446 (7.35-7.45) 10/23/17 11:46 POC ABG pCO2 48.0 (35-45) H 10/23/17 11:46 POC ABG pO2 73 (80-105) L 10/23/17 11:46 POC ABG HCO3 33.0 10/23/17 11:46 POC ABG Total CO2 34 10/23/17 11:46 POC ABG O2 Sat 95 10/23/17 11:46 POC ABG Base Excess 9 10/23/17 11:46 FiO2 25 % 10/23/17 11:46 Sodium 143 mmol/L (137-145) 10/28/17 06:53 Potassium 4.6 mmol/L (3.6-5.0) D 10/28/17 06:53 Chloride 96.8 mmol/L (98-107) L 10/28/17 06:53 Carbon Dioxide 30 mmol/L (22-30) 10/28/17 06:53 Anion Gap 21 mmol/L 10/28/17 06:53 BUN 40 mg/dL (9-20) H 10/28/17 06:53 Creatinine 1.2 mg/dL (0.8-1.5) 10/28/17 06:53 Estimated GFR > 60 ml/min 10/28/17 06:53 BUN/Creatinine Ratio 33 % 10/28/17 06:53 Glucose 174 mg/dL (75-100) H 10/28/17 06:53 POC Glucose 123 (70-105) H 10/30/17 06:37 Hemoglobin A1c 6.4 % (4-6) H 10/20/17 04:18 Lactic Acid 1.70 mmol/L (0.7-2.0) 10/17/17 22:43 Calcium 9.3 mg/dL (8.4-10.2) 10/28/17 06:53 Total Creatine Kinase 464 units/L (55-170) H 10/17/17 15:01 CK-MB (CK-2) 6.8 ng/mL (0.0-4.0) H 10/17/17 15:01 CK-MB (CK-2) Rel Index 1.4 (0-4) 10/17/17 15:01 Troponin T < 0.010 ng/mL (0.00-0.029) 10/17/17 22:43 NT-Pro-B Natriuret Pep 604.7 pg/mL (0-450) H 10/17/17 15:01 Triglycerides 57 mg/dL (2-149) 10/17/17 15:01 Cholesterol 132 mg/dL (50-199) 10/17/17 15:01 LDL Cholesterol Direct 84 mg/dL (50-130) 10/17/17 15:01 HDL Cholesterol 47 mg/dL (40-59) 10/17/17 15:01 Cholesterol/HDL Ratio 2.80 % 10/17/17 15:01 TSH 0.105 mlU/mL (0.270-4.200) L 10/18/17 15:58 Free T4 1.10 ng/dL (0.76-1.46) 10/18/17 15:58 Urine Color Yellow (Yellow) 10/17/17 04:35 Urine Turbidity Clear (Clear) 10/17/17 04:35 Urine pH 8.0 (5.0-7.0) H 10/17/17 04:35 Ur Specific [place] 1.013 (1.003-1.030) 10/17/17 04:35 Urine Protein <15 mg/dl mg/dL (Negative) 10/17/17 04:35 Urine Glucose (UA) 50 mg/dL (Negative) 10/17/17 04:35 Urine Ketones Neg mg/dL (Negative) 10/17/17 04:35 Urine Blood Neg (Negative) 10/17/17 04:35 Urine Nitrite Neg (Negative) 10/17/17 04:35 Urine Bilirubin Neg (Negative) 10/17/17 04:35 Urine Urobilinogen < 2.0 mg/dL (<2.0) 10/17/17 04:35 Ur Leukocyte Esterase Neg (Negative) 10/17/17 04:35 Urine WBC (Auto) 3.0 /HPF (0.0-6.0) 10/17/17 04:35 Urine RBC (Auto) < 1.0 /HPF (0.0-6.0) 10/17/17 04:35 U Epithel Cells (Auto) 1.0 /HPF (0-13.0) 10/17/17 04:35 Urine Bacteria (Auto) 1+ /HPF (Negative) 10/17/17 04:35 Salicylates < 0.3 mg/dL (2.8-20.0) L 10/17/17 04:23 Urine Opiates Screen Presumptive negative 10/17/17 04:35 Urine Methadone Screen Presumptive negative 10/17/17 04:35 Ur Barbiturates Screen Presumptive negative 10/17/17 04:35 Ur Phencyclidine Scrn Presumptive negative 10/17/17 04:35 Ur Amphetamines Screen Presumptive negative 10/17/17 04:35 U Benzodiazepines Scrn Presumptive negative 10/17/17 04:35 Urine Cocaine Screen Presumptive negative 10/17/17 04:35 U Marijuana (THC) Screen Presumptive negative 10/17/17 04:35 Drugs of Abuse Note Disclamer 10/17/17 04:35 Plasma/Serum Alcohol < 0.01 % (0-0.07) 10/17/17 04:23
[2017-10-30] MEDS: HCTZ PO SCH (10:03)
[2017-10-30] MEDS: NORMODYNE PO SCH ×2 (10:04→22:46)
[2017-10-30] MEDS: PEPCID PO SCH ×2 (10:05→22:00)
[2017-10-30] MEDS: TRANSDERM-SCOP TD SCH (10:48)
[2017-10-30] MEDS: HEPARIN SUB-Q SCH ×2 (10:49→22:46)
--- NOTE | 2017-10-30 15:24 | Fluoroscopy Report ---
MODIFIED BARIUM SWALLOW History: dysphagia. Findings: Video radiography was provided by the radiologist for speech therapy to assess the swallowing mechanism. 1 fluoroscopic image was captured. Impression: Successful modified barium swallow.
[2017-10-30] MEDS: ASPIRIN PO SCH (22:47)
[2017-10-31 05:30] LABS: Hematocrit 48.8 % (35.5-45.6); Hemoglobin 16.6 gm/dl (11.8-15.2); Mean Corpuscular HGB Conc 34 % (32-34); Mean Corpuscular Hemoglobin 30 pg (28-32); Mean Corpuscular Volume 89 fl (84-94); Platelet Count 364 K/mm3 (140-440); Red Blood Count 5.52 M/mm3 (3.65-5.03); Red Cell Distribution Width 12.7 % (13.2-15.2)
[2017-10-31 05:55] LABS: Alanine Aminotransferase 40 units/L (7-56); Albumin 3.6 g/dL (3.9-5); BUN/Creatinine Ratio 35; Blood Urea Nitrogen 39 mg/dL (9-20); Calcium 9.8 mg/dL (8.4-10.2); Hemolysis Index 6
[2017-10-31] MEDS: HumuLIN R SUB-Q SCH ×4 (06:04→18:20)
[2017-10-31] MEDS: BROVANA NEBU IH SCH ×2 (08:22→20:15)
[2017-10-31] MEDS: PULMICORT IH SCH ×2 (08:22→20:15)
[2017-10-31] MEDS: PROVENTIL IH SCH ×4 (08:22→20:15)
[2017-10-31] MEDS: HCTZ PO SCH (09:50)
[2017-10-31] MEDS: NORMODYNE PO SCH ×2 (09:50→21:17)
[2017-10-31] MEDS: PEPCID PO SCH ×2 (09:50→21:17)
[2017-10-31] MEDS: HEPARIN SUB-Q SCH ×2 (09:51→21:17)
[2017-10-31] MEDS: SODIUM CHLORIDE FLUSH SYRINGE 10 ML IV PRN (09:55)
--- NOTE | 2017-10-31 15:40 | Progress Note ---
Assessment and Plan Assessment and plan: Patient is a 42-year-old man with a history of hypertension, noncompliance with medication over the last 1 month who presented to ER with right-sided weakness and slurred speech. His last well-known time was 11:30, he woke up at 2:30 to use the bathroom, he fell to the floor a few times with several attempts. He was admitted with stroke protocol. Later on intubated on the day of admission for increase effort of breathing. He was weaned off from the vent on 10/18 and was extubated but required to reintubate later in the evening. He is now weaned off from vent and extubated again 10/23/17. Failed swallow eval following extubation, PT recommended acute rehab. * CT head: Cranial CT scan within normal limits. No change is demonstrated. * CTA head/neck: Normal CT angiogram of the arteries in the neck and head * MRI brain: 1.3 cm area of subacute ischemia in the right medulla oblongata as described. 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 Neuro following. Need rehab per PT but pt unfunded /Dysphagia, due to recent CVA failed repeat speech eval, cont NGT/TF for now plan for MBS tomorrow, may need PEG tube /Acute respiratory failure, likely from acute CVA, resolved Patient was extubated 10/18 but re-Intubated later in evening. Pulmonology following s/p extubation 10/23 cont O2 n/c and as needed nebs /GI bleed. GI following, H/H stable Conservative management for now. /Acute kidney injury, vasomotor nephropathy, poa Improved, Cr stable /Prediabetes a1c 6.4. cont on Novolin 70/30 /Fever, low grade, 100.6 on 10/21 Repeat blood cultures drawn, to date negative /Elevated troponin. Cardiology following. Normal LVEF by echocardiogram Conservative cardiac management. /Acute Encephalopathy, likely from acute CVA. Now alert,follows commands Full code status Consulted GI for PEG tube evaluation History Interval history: Patient was seen and examined. Follow-up on current diagnosis of right sided weakness, improved overall. Overnight uneventful. Patient denies any chest pain , shortness breath, nausea/vomiting or severe headaches. Imaging, nursing note, chart, labs and old chart reviewed. Discussed with patient. Hospitalist Physical - Physical exam Narrative exam: GEN: WDWN, NAD, Awake, Alert, Orientated HEENT: NCAT, EOMI, PERRL, OP NGT in place NECK: supple, no adenopathy, no thyromegaly, no JVD CVS/HEART: RRR, normal S1S2, pulses present bilaterally CHEST/LUNGS: CTA B, Symmetrical chest expansion, good air entry bilaterally GI/Abdomen: soft, NTND, good bowel sounds, no guarding or rebound /Bladder: no suprapubic tenderness, no CVA or paraspinal tenderness EXT/Skin: no c/c/e, no obvious rash MSK: FROM x 4, mild weakness on right, ptosis Neuro: CN 2-12 grossly intact, no new focal deficits Psych: calm - Constitutional Vitals: Temp Pulse Resp BP Pulse Ox 98.4 F 65 18 125/84 95 10/31/17 11:49 10/31/17 13:14 10/31/17 13:14 10/31/17 11:49 10/31/17 11:49 General appearance: Present: other (intubated on the vent) Results - Labs CBC & Chem 7: 10/31/17 05:01 10/31/17 05:01 Labs: Laboratory Last Values WBC 14.9 K/mm3 (4.5-11.0) H 10/31/17 05:01 RBC 5.52 M/mm3 (3.65-5.03) H 10/31/17 05:01 Hgb 16.6 gm/dl (11.8-15.2) H 10/31/17 05:01 Hct 48.8 % (35.5-45.6) H 10/31/17 05:01 MCV 89 fl (84-94) 10/31/17 05:01 MCH 30 pg (28-32) 10/31/17 05:01 MCHC 34 % (32-34) 10/31/17 05:01 RDW 12.7 % (13.2-15.2) L 10/31/17 05:01 Plt Count 364 K/mm3 (140-440) 10/31/17 05:01 Lymph % (Auto) 14.0 % (13.4-35.0) 10/30/17 05:02 [place] % (Auto) 5.9 % (0.0-7.3) 10/30/17 05:02 Eos % (Auto) 1.3 % (0.0-4.3) 10/30/17 05:02 Baso % (Auto) 0.3 % (0.0-1.8) 10/30/17 05:02 Lymph # 2.3 K/mm3 (1.2-5.4) 10/30/17 05:02 [place] # 1.0 K/mm3 (0.0-0.8) H 10/30/17 05:02 Eos # 0.2 K/mm3 (0.0-0.4) 10/30/17 05:02 Baso # 0.1 K/mm3 (0.0-0.1) 10/30/17 05:02 Add Manual Diff TNR 10/17/17 15:01 Seg Neutrophils % 78.5 % (40.0-70.0) H 10/30/17 05:02 Seg Neutrophils # 12.9 K/mm3 (1.8-7.7) H 10/30/17 05:02 PT 13.1 Sec. (12.2-14.9) 10/17/17 04:06 INR 0.95 (0.87-1.13) 10/17/17 04:06 APTT 27.7 Sec. (24.2-36.6) 10/17/17 04:06 Thrombin Time 17.0 Sec. (15.1-19.6) 10/17/17 04:06 POC ABG pH 7.446 (7.35-7.45) 10/23/17 11:46 POC ABG pCO2 48.0 (35-45) H 10/23/17 11:46 POC ABG pO2 73 (80-105) L 10/23/17 11:46 POC ABG HCO3 33.0 10/23/17 11:46 POC ABG Total CO2 34 10/23/17 11:46 POC ABG O2 Sat 95 10/23/17 11:46 POC ABG Base Excess 9 10/23/17 11:46 FiO2 25 % 10/23/17 11:46 Sodium 139 mmol/L (137-145) 10/31/17 05:01 Potassium 4.2 mmol/L (3.6-5.0) 10/31/17 05:01 Chloride 94.2 mmol/L (98-107) L 10/31/17 05:01 Carbon Dioxide 28 mmol/L (22-30) 10/31/17 05:01 Anion Gap 21 mmol/L 10/31/17 05:01 BUN 39 mg/dL (9-20) H 10/31/17 05:01 Creatinine 1.1 mg/dL (0.8-1.5) 10/31/17 05:01 Estimated GFR > 60 ml/min 10/31/17 05:01 BUN/Creatinine Ratio 35 % 10/31/17 05:01 Glucose 128 mg/dL (75-100) H 10/31/17 05:01 POC Glucose 140 (70-105) H 10/31/17 11:58 Hemoglobin A1c 6.4 % (4-6) H 10/20/17 04:18 Lactic Acid 1.70 mmol/L (0.7-2.0) 10/17/17 22:43 Calcium 9.8 mg/dL (8.4-10.2) 10/31/17 05:01 Total Bilirubin 0.60 mg/dL (0.1-1.2) 10/31/17 05:01 AST 22 units/L (5-40) 10/31/17 05:01 ALT 40 units/L (7-56) 10/31/17 05:01 Alkaline Phosphatase 67 units/L (35-129) 10/31/17 05:01 Total Creatine Kinase 464 units/L (55-170) H 10/17/17 15:01 CK-MB (CK-2) 6.8 ng/mL (0.0-4.0) H 10/17/17 15:01 CK-MB (CK-2) Rel Index 1.4 (0-4) 10/17/17 15:01 Troponin T < 0.010 ng/mL (0.00-0.029) 10/17/17 22:43 NT-Pro-B Natriuret Pep 604.7 pg/mL (0-450) H 10/17/17 15:01 Total Protein 8.2 g/dL (6.3-8.2) 10/31/17 05:01 Albumin 3.6 g/dL (3.9-5) L 10/31/17 05:01 Albumin/Globulin Ratio 0.8 % 10/31/17 05:01 Triglycerides 57 mg/dL (2-149) 10/17/17 15:01 Cholesterol 132 mg/dL (50-199) 10/17/17 15:01 LDL Cholesterol Direct 84 mg/dL (50-130) 10/17/17 15:01 HDL Cholesterol 47 mg/dL (40-59) 10/17/17 15:01 Cholesterol/HDL Ratio 2.80 % 10/17/17 15:01 TSH 0.105 mlU/mL (0.270-4.200) L 10/18/17 15:58 Free T4 1.10 ng/dL (0.76-1.46) 10/18/17 15:58 Urine Color Yellow (Yellow) 10/17/17 04:35 Urine Turbidity Clear (Clear) 10/17/17 04:35 Urine pH 8.0 (5.0-7.0) H 10/17/17 04:35 Ur Specific [place] 1.013 (1.003-1.030) 10/17/17 04:35 Urine Protein <15 mg/dl mg/dL (Negative) 10/17/17 04:35 Urine Glucose (UA) 50 mg/dL (Negative) 10/17/17 04:35 Urine Ketones Neg mg/dL (Negative) 10/17/17 04:35 Urine Blood Neg (Negative) 10/17/17 04:35 Urine Nitrite Neg (Negative) 10/17/17 04:35 Urine Bilirubin Neg (Negative) 10/17/17 04:35 Urine Urobilinogen < 2.0 mg/dL (<2.0) 10/17/17 04:35 Ur Leukocyte Esterase Neg (Negative) 10/17/17 04:35 Urine WBC (Auto) 3.0 /HPF (0.0-6.0) 10/17/17 04:35 Urine RBC (Auto) < 1.0 /HPF (0.0-6.0) 10/17/17 04:35 U Epithel Cells (Auto) 1.0 /HPF (0-13.0) 10/17/17 04:35 Urine Bacteria (Auto) 1+ /HPF (Negative) 10/17/17 04:35 Salicylates < 0.3 mg/dL (2.8-20.0) L 10/17/17 04:23 Urine Opiates Screen Presumptive negative 10/17/17 04:35 Urine Methadone Screen Presumptive negative 10/17/17 04:35 Ur Barbiturates Screen Presumptive negative 10/17/17 04:35 Ur Phencyclidine Scrn Presumptive negative 10/17/17 04:35 Ur Amphetamines Screen Presumptive negative 10/17/17 04:35 U Benzodiazepines Scrn Presumptive negative 10/17/17 04:35 Urine Cocaine Screen Presumptive negative 10/17/17 04:35 U Marijuana (THC) Screen Presumptive negative 10/17/17 04:35 Drugs of Abuse Note Disclamer 10/17/17 04:35 Plasma/Serum Alcohol < 0.01 % (0-0.07) 10/17/17 04:23
[2017-10-31] MEDS: ASPIRIN PO SCH (21:16)
[2017-11-01] MEDS: HumuLIN R SUB-Q SCH ×3 (00:04→12:00)
[2017-11-01] MEDS: BROVANA NEBU IH SCH ×2 (08:15→20:14)
[2017-11-01] MEDS: PULMICORT IH SCH ×2 (08:15→20:03)
[2017-11-01] MEDS: PROVENTIL IH SCH ×4 (08:15→20:02)
[2017-11-01] MEDS: PEPCID PO SCH ×2 (10:03→21:22)
[2017-11-01] MEDS: HCTZ PO SCH (10:03)
[2017-11-01] MEDS: HEPARIN SUB-Q SCH ×2 (10:03→21:23)
[2017-11-01] MEDS: NORMODYNE PO SCH ×2 (10:03→21:22)
[2017-11-01] MEDS: ASPIRIN PO SCH (21:21)
[2017-11-02] MEDS: HumuLIN R SUB-Q SCH ×5 (01:15→18:16)
--- NOTE | 2017-11-02 07:10 | Progress Note ---
Assessment and Plan Assessment and plan: Patient is a 42-year-old man with a history of hypertension, noncompliance with medication over the last 1 month who presented to ER with right-sided weakness and slurred speech. His last well-known time was 11:30, he woke up at 2:30 to use the bathroom, he fell to the floor a few times with several attempts. He was admitted with stroke protocol. Later on intubated on the day of admission for increase effort of breathing. He was weaned off from the vent on 10/18 and was extubated but required to reintubate later in the evening. He is now weaned off from vent and extubated again 10/23/17. Failed swallow eval following extubation, PT recommended acute rehab. * CT head: Cranial CT scan within normal limits. No change is demonstrated. * CTA head/neck: Normal CT angiogram of the arteries in the neck and head * MRI brain: 1.3 cm area of subacute ischemia in the right medulla oblongata as described. 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 Neuro following. Need rehab per PT but pt unfunded /Dysphagia, due to recent CVA failed repeat speech eval, cont NGT/TF for now /Acute respiratory failure, likely from acute CVA, resolved Patient was extubated 10/18 but re-Intubated later in evening. Pulmonology following s/p extubation 10/23/17 cont O2 n/c and as needed nebs /GI bleed. GI following, H/H stable Conservative management for now. /Acute kidney injury, vasomotor nephropathy, poa Improved, Cr stable /Prediabetes a1c 6.4. cont on Novolin 70/30 /Fever, low grade, 100.6 on 10/21 Repeat blood cultures drawn, to date negative /Elevated troponin. Cardiology following. Normal LVEF by echocardiogram Conservative cardiac management. /Acute Encephalopathy, likely from acute CVA. Now alert,follows commands Full code status Consulted GI and d/w GI yesterday for PEG tube evaluation History Interval history: Patient was seen and examined. Follow-up on current diagnosis of right sided weakness, improved overall. Overnight uneventful. Patient denies any chest pain , shortness breath, nausea/vomiting or severe headaches. Imaging, nursing note, chart, labs and old chart reviewed. Discussed with patient. Hospitalist Physical - Physical exam Narrative exam: GEN: WDWN, NAD, Awake, Alert, Orientated HEENT: NCAT, EOMI, PERRL, OP NGT in place NECK: supple, no adenopathy, no thyromegaly, no JVD CVS/HEART: RRR, normal S1S2, pulses present bilaterally CHEST/LUNGS: CTA B, Symmetrical chest expansion, good air entry bilaterally GI/Abdomen: soft, NTND, good bowel sounds, no guarding or rebound /Bladder: no suprapubic tenderness, no CVA or paraspinal tenderness EXT/Skin: no c/c/e, no obvious rash MSK: FROM x 4, mild weakness on right, ptosis Neuro: CN 2-12 grossly intact, no new focal deficits Psych: calm - Constitutional Vitals: Temp Pulse Resp BP Pulse Ox 97.8 F 85 20 115/83 100 11/02/17 05:14 11/02/17 05:14 11/02/17 05:14 11/02/17 05:14 11/02/17 05:14 General appearance: Present: other (intubated on the vent) Results - Labs CBC & Chem 7: 10/31/17 05:01 10/31/17 05:01 Labs: Laboratory Last Values WBC 14.9 K/mm3 (4.5-11.0) H 10/31/17 05:01 RBC 5.52 M/mm3 (3.65-5.03) H 10/31/17 05:01 Hgb 16.6 gm/dl (11.8-15.2) H 10/31/17 05:01 Hct 48.8 % (35.5-45.6) H 10/31/17 05:01 MCV 89 fl (84-94) 10/31/17 05:01 MCH 30 pg (28-32) 10/31/17 05:01 MCHC 34 % (32-34) 10/31/17 05:01 RDW 12.7 % (13.2-15.2) L 10/31/17 05:01 Plt Count 364 K/mm3 (140-440) 10/31/17 05:01 Lymph % (Auto) 14.0 % (13.4-35.0) 10/30/17 05:02 [place] % (Auto) 5.9 % (0.0-7.3) 10/30/17 05:02 Eos % (Auto) 1.3 % (0.0-4.3) 10/30/17 05:02 Baso % (Auto) 0.3 % (0.0-1.8) 10/30/17 05:02 Lymph # 2.3 K/mm3 (1.2-5.4) 10/30/17 05:02 [place] # 1.0 K/mm3 (0.0-0.8) H 10/30/17 05:02 Eos # 0.2 K/mm3 (0.0-0.4) 10/30/17 05:02 Baso # 0.1 K/mm3 (0.0-0.1) 10/30/17 05:02 Add Manual Diff TNR 10/17/17 15:01 Seg Neutrophils % 78.5 % (40.0-70.0) H 10/30/17 05:02 Seg Neutrophils # 12.9 K/mm3 (1.8-7.7) H 10/30/17 05:02 PT 13.1 Sec. (12.2-14.9) 10/17/17 04:06 INR 0.95 (0.87-1.13) 10/17/17 04:06 APTT 27.7 Sec. (24.2-36.6) 10/17/17 04:06 Thrombin Time 17.0 Sec. (15.1-19.6) 10/17/17 04:06 POC ABG pH 7.446 (7.35-7.45) 10/23/17 11:46 POC ABG pCO2 48.0 (35-45) H 10/23/17 11:46 POC ABG pO2 73 (80-105) L 10/23/17 11:46 POC ABG HCO3 33.0 10/23/17 11:46 POC ABG Total CO2 34 10/23/17 11:46 POC ABG O2 Sat 95 10/23/17 11:46 POC ABG Base Excess 9 10/23/17 11:46 FiO2 25 % 10/23/17 11:46 Sodium 139 mmol/L (137-145) 10/31/17 05:01 Potassium 4.2 mmol/L (3.6-5.0) 10/31/17 05:01 Chloride 94.2 mmol/L (98-107) L 10/31/17 05:01 Carbon Dioxide 28 mmol/L (22-30) 10/31/17 05:01 Anion Gap 21 mmol/L 10/31/17 05:01 BUN 39 mg/dL (9-20) H 10/31/17 05:01 Creatinine 1.1 mg/dL (0.8-1.5) 10/31/17 05:01 Estimated GFR > 60 ml/min 10/31/17 05:01 BUN/Creatinine Ratio 35 % 10/31/17 05:01 Glucose 128 mg/dL (75-100) H 10/31/17 05:01 POC Glucose 151 (70-105) H 11/02/17 05:49 Hemoglobin A1c 6.4 % (4-6) H 10/20/17 04:18 Lactic Acid 1.70 mmol/L (0.7-2.0) 10/17/17 22:43 Calcium 9.8 mg/dL (8.4-10.2) 10/31/17 05:01 Total Bilirubin 0.60 mg/dL (0.1-1.2) 10/31/17 05:01 AST 22 units/L (5-40) 10/31/17 05:01 ALT 40 units/L (7-56) 10/31/17 05:01 Alkaline Phosphatase 67 units/L (35-129) 10/31/17 05:01 Total Creatine Kinase 464 units/L (55-170) H 10/17/17 15:01 CK-MB (CK-2) 6.8 ng/mL (0.0-4.0) H 10/17/17 15:01 CK-MB (CK-2) Rel Index 1.4 (0-4) 10/17/17 15:01 Troponin T < 0.010 ng/mL (0.00-0.029) 10/17/17 22:43 NT-Pro-B Natriuret Pep 604.7 pg/mL (0-450) H 10/17/17 15:01 Total Protein 8.2 g/dL (6.3-8.2) 10/31/17 05:01 Albumin 3.6 g/dL (3.9-5) L 10/31/17 05:01 Albumin/Globulin Ratio 0.8 % 10/31/17 05:01 Triglycerides 57 mg/dL (2-149) 10/17/17 15:01 Cholesterol 132 mg/dL (50-199) 10/17/17 15:01 LDL Cholesterol Direct 84 mg/dL (50-130) 10/17/17 15:01 HDL Cholesterol 47 mg/dL (40-59) 10/17/17 15:01 Cholesterol/HDL Ratio 2.80 % 10/17/17 15:01 TSH 0.105 mlU/mL (0.270-4.200) L 10/18/17 15:58 Free T4 1.10 ng/dL (0.76-1.46) 10/18/17 15:58 Urine Color Yellow (Yellow) 10/17/17 04:35 Urine Turbidity Clear (Clear) 10/17/17 04:35 Urine pH 8.0 (5.0-7.0) H 10/17/17 04:35 Ur Specific [place] 1.013 (1.003-1.030) 10/17/17 04:35 Urine Protein <15 mg/dl mg/dL (Negative) 10/17/17 04:35 Urine Glucose (UA) 50 mg/dL (Negative) 10/17/17 04:35 Urine Ketones Neg mg/dL (Negative) 10/17/17 04:35 Urine Blood Neg (Negative) 10/17/17 04:35 Urine Nitrite Neg (Negative) 10/17/17 04:35 Urine Bilirubin Neg (Negative) 10/17/17 04:35 Urine Urobilinogen < 2.0 mg/dL (<2.0) 10/17/17 04:35 Ur Leukocyte Esterase Neg (Negative) 10/17/17 04:35 Urine WBC (Auto) 3.0 /HPF (0.0-6.0) 10/17/17 04:35 Urine RBC (Auto) < 1.0 /HPF (0.0-6.0) 10/17/17 04:35 U Epithel Cells (Auto) 1.0 /HPF (0-13.0) 10/17/17 04:35 Urine Bacteria (Auto) 1+ /HPF (Negative) 10/17/17 04:35 Salicylates < 0.3 mg/dL (2.8-20.0) L 10/17/17 04:23 Urine Opiates Screen Presumptive negative 10/17/17 04:35 Urine Methadone Screen Presumptive negative 10/17/17 04:35 Ur Barbiturates Screen Presumptive negative 10/17/17 04:35 Ur Phencyclidine Scrn Presumptive negative 10/17/17 04:35 Ur Amphetamines Screen Presumptive negative 10/17/17 04:35 U Benzodiazepines Scrn Presumptive negative 10/17/17 04:35 Urine Cocaine Screen Presumptive negative 10/17/17 04:35 U Marijuana (THC) Screen Presumptive negative 10/17/17 04:35 Drugs of Abuse Note Disclamer 10/17/17 04:35 Plasma/Serum Alcohol < 0.01 % (0-0.07) 10/17/17 04:23
[2017-11-02] MEDS: BROVANA NEBU IH SCH ×2 (08:52→19:20)
[2017-11-02] MEDS: PULMICORT IH SCH ×2 (08:52→19:20)
[2017-11-02] MEDS: PROVENTIL IH SCH ×3 (08:53→19:38)
[2017-11-02] MEDS: HCTZ PO SCH (09:15)
[2017-11-02] MEDS: NORMODYNE PO SCH ×2 (09:15→21:39)
[2017-11-02] MEDS: HEPARIN SUB-Q SCH ×2 (09:15→21:40)
[2017-11-02] MEDS: PEPCID PO SCH ×2 (09:15→21:39)
--- NOTE | 2017-11-02 10:01 | Gastroenterology Progress Note ---
<ASHLIE URIBE - Last Filed: 11/02/17 10:13> Assessment and Plan 1.PEG placement -patient s/p CVA now with dysphagia -HEAD CHARGER eval 10/30 with MBS showed severe pharyngeal phase dysphagia with premature spillage, valleculae/pyriform sinus residue and silent aspiration with all consistencies and delayed cough with PEG tube placement recommended -Stop TFs now -INR stat -keep NPO for possible EGD with PEG placement today -continue supportive care -will follow Subjective Date of service: 11/02/17 Principal diagnosis: PEG placement Interval history: GI has been re-consulted on patient for PEG placement. He is s/p CVA with now dysphagia and failed HEAD CHARGER eval on 10/30 with recommendations for PEG placement. This morning patient was resting in bed w/o acute distress. Denies abd, N/V or signs of bleeding. Tolerating TFs via [place]. Discussed PEG placement with patient to including nature of procedure, details of technique, benefits, purpose, and risks including perforation, bleeding, infection, and independent risk of anesthesia with patient agreeable to proceed with procedure. Objective - Constitutional Vitals: Temp Pulse Resp BP Pulse Ox 98.1 F 82 20 124/67 95 11/02/17 07:32 11/02/17 09:13 11/02/17 09:13 11/02/17 07:32 11/02/17 08:57 General appearance: no acute distress - Respiratory Respiratory: bilateral: diminished - Cardiovascular Rhythm: regular Heart Sounds: Present: S1 & S2 - Gastrointestinal General gastrointestinal: Present: soft, non-tender, non-distended, normal bowel sounds - Neurologic Neurological: alert and oriented x3, right side weakness - Labs CBC & Chem 7: 10/31/17 05:01 10/31/17 05:01 Labs: Laboratory Results - last 24 hr 11/02/17 11/02/17 01:07 05:49 POC Glucose 153 H 151 H <BRENDON RONQUILLO - Last Filed: 11/02/17 16:07> Assessment and Plan Pt alert. Discussed PEG placement, and he understands and agrees. Cannot do today due to timing of TF stoppage, so will do in AM. Objective - Constitutional Vitals: Temp Pulse Resp BP Pulse Ox 97.7 F 80 20 116/84 96 11/02/17 15:48 11/02/17 15:48 11/02/17 15:48 11/02/17 15:48 11/02/17 15:48 - Labs CBC & Chem 7: 10/31/17 05:01 10/31/17 05:01 Labs: Laboratory Results - last 24 hr 11/02/17 11/02/17 11/02/17 01:07 05:49 10:58 PT 13.0 INR 0.94 POC Glucose 153 H 151 H 11/02/17 12:16 PT INR POC Glucose 117 H
[2017-11-02] MEDS: TRANSDERM-SCOP TD SCH (11:01)
[2017-11-02 11:56] LABS: INR 0.94 (0.87-1.13)
[2017-11-02] MEDS ORDERED: ANCEF/STERILE WATER 2 GM/20 ML 2 GM/20 ML SYRINGE IV NR (12:00)
[2017-11-02] MEDS ORDERED: NACL 0.9% 1000 ML 1,000 ML IV SCH (12:00)
[2017-11-02] MEDS ORDERED: DULCOLAX PR ONE (13:49)
[2017-11-02] MEDS: ASPIRIN PO SCH (21:39)
[2017-11-03] MEDS: HumuLIN R SUB-Q SCH ×4 (01:24→19:59)
[2017-11-03] MEDS ORDERED: XYLOCAINE 2% INFILTRATI ONE (07:13)
[2017-11-03] MEDS ORDERED: DIPRIVAN 10 MG/ML IV ONE ×2 (07:14)
[2017-11-03] MEDS ORDERED: WATER FOR IRRIG STERILE IR ONE (07:19)
[2017-11-03] MEDS ORDERED: NACL 0.9% 1000 ML 1,000 ML ONE (07:21)
[2017-11-03] MEDS ORDERED: ANCEF/STERILE WATER 2 GM/20 ML 2 GM/20 ML SYRINGE IV ONE (07:24)
[2017-11-03] MEDS: PULMICORT IH SCH ×2 (08:00→19:24)
[2017-11-03] MEDS ORDERED: NACL 0.9% 1000 ML 1,000 ML IV SCH (08:00)
[2017-11-03] MEDS ORDERED: ceFAZolin 2 GM in NACL 0.9% 100 ML IV ONE (08:00)
[2017-11-03] MEDS: PROVENTIL IH SCH ×3 (08:00→19:24)
[2017-11-03] MEDS ORDERED: ANCEF/STERILE WATER 2 GM/20 ML 2 GM/20 ML SYRINGE IV NR (08:00)
[2017-11-03] MEDS: BROVANA NEBU IH SCH ×2 (08:00→19:24)
[2017-11-03] MEDS ORDERED: PROAIR IH ONE (08:08)
--- NOTE | 2017-11-03 08:45 | Post Operative Note ---
Pre-op diagnosis: dysphagia Post-op diagnosis: same Findings: EGD: gastritis - negative other - 20 F pull peg placed w/o complication - bumper at 3 1/2 cm Procedure: egd/peg Anesthesia: MAC Surgeon: LYNSEY PICHARDO Estimated blood loss: none Pathology: list Specimen disposition: to lab Condition: stable Disposition: floor
[2017-11-03] MEDS ORDERED: TRIPLE ANTIBIOTIC TP ONE (08:47)
--- NOTE | 2017-11-03 09:07 | Anesthesia Day of Surgery ---
Anesthesia Day of Surgery - Day of Surgery Patient Examined: Yes Patient H&P Reviewed: Yes Patient is NPO: Yes
--- NOTE | 2017-11-03 09:07 | Anesthesia Consultation ---
Anesthesia Consult and Med Hx Date of service: 11/03/17 - Airway Anesthetic Teeth Evaluation: Good ROM Head & Neck: Adequate Mental/Hyoid Distance: Adequate Mallampati Class: Class II Intubation Access Assessment: Probably Good - Pulmonary Exam CTA: Yes - Cardiac Exam Cardiac Exam: RRR - Pre-Operative Health Status ASA Pre-Surgery Classification: ASA4 Proposed Anesthetic Plan: MAC - Pulmonary Hx Smoking: No Hx Asthma: No - Cardiovascular System Hx Hypertension: Yes - Central Nervous System CVA: Yes - Endocrine Hx Non-Insulin Dependent Diabetes: Yes - Hematic Hx Anemia: Yes
--- NOTE | 2017-11-03 10:07 | Operative Report ---
PROCEDURE: EGD with PEG tube placement. INDICATION: 1. Dysphagia. 2. Weight loss. MEDICATIONS: Propofol per [employer]. COMPLICATIONS: None. DESCRIPTION OF PROCEDURE: The patient was brought to the procedure suite. The patient had the procedure discussed with him at length. All risks, complications, and benefits were discussed after which the patient signed for the procedure to be performed. The patient was placed in left lateral decubitus position. Mouth block was placed in the patient's oral cavity. After adequate sedation medication as above, endoscope placed in the mouth and brought to the level of the second portion of duodenum. Retroflexion views performed. The patient's vital signs remained stable throughout the procedure. It should be noted that the patient was placed in the supine position, not in the left lateral decubitus position. FINDINGS: There was noted to be a medium hiatal hernia at GE junction 30 cm from the gums. The esophagus otherwise appeared to be normal. There was mild gastritis noted in the stomach. The stomach otherwise appeared to be normal. The duodenum appeared to be normal. Retroflexion view performed in the stomach showed no other pathology other than noted above. After this, especially using standard technique and transillumination, the area for adequate placement of PEG tube was found. A 20-Tamazight pull PEG was then placed. Bump was noted to be at 3.5 cm. Post-procedure, the patient was satisfactory. The patient tolerated the procedure well. No complications during the procedure. IMPRESSION: 1. Hiatal hernia. 2. Gastritis. 3. Otherwise, normal esophagogastroduodenoscopy. 4. PEG tube placed without obvious complications. RECOMMENDATIONS: 1. Standard PEG tube orders, see chart. 2. Watch for signs of bleeding or infection. 3. Okay to use PEG in 6 hours. 4. We will follow up in a.m. JOB# [id number] CAB/NTS
[2017-11-03] MEDS: REGLAN IV PRN (10:27)
[2017-11-03] MEDS: HCTZ PO SCH (10:43)
[2017-11-03] MEDS: NORMODYNE PO SCH ×2 (10:44→22:11)
[2017-11-03] MEDS: PEPCID PO SCH ×2 (10:46→22:11)
[2017-11-03] MEDS: HEPARIN SUB-Q SCH ×2 (10:57→22:11)
--- NOTE | 2017-11-03 16:11 | Progress Note ---
Assessment and Plan Assessment and plan: Patient is a 42-year-old man with a history of hypertension, noncompliance with medication over the last 1 month who presented to ER with right-sided weakness and slurred speech. His last well-known time was 11:30, he woke up at 2:30 to use the bathroom, he fell to the floor a few times with several attempts. He was admitted with stroke protocol. Later on intubated on the day of admission for increase effort of breathing. He was weaned off from the vent on 10/18 and was extubated but required to reintubate later in the evening. He is now weaned off from vent and extubated again 10/23/17. Failed swallow eval following extubation, PT recommended acute rehab. * CT head: Cranial CT scan within normal limits. No change is demonstrated. * CTA head/neck: Normal CT angiogram of the arteries in the neck and head * MRI brain: 1.3 cm area of subacute ischemia in the right medulla oblongata as described. 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 Neuro following. Need rehab per PT but pt unfunded /Dysphagia, due to recent CVA failed repeat speech eval, cont NGT/TF for now /Acute respiratory failure, likely from acute CVA, resolved Patient was extubated 10/18 but re-Intubated later in evening. Pulmonology following s/p extubation 10/23/17 cont O2 n/c and as needed nebs /GI bleed. GI following, H/H stable Conservative management for now. /Acute kidney injury, vasomotor nephropathy, poa Improved, Cr stable /Prediabetes a1c 6.4. cont on Novolin 70/30 /Fever, low grade, 100.6 on 10/21 Repeat blood cultures drawn, to date negative /Elevated troponin. Cardiology following. Normal LVEF by echocardiogram Conservative cardiac management. /Acute Encephalopathy, likely from acute CVA. Now alert,follows commands Full code status Tube feeding restartred at 1300, jevity 1.2 infusing at 45 ml /hr via peg tube, being tolerated well. Disposition: awaiting case management for home health setup, also O2 measurement , pt still on O2 History Interval history: Patient was seen and examined. Follow-up on current diagnosis of right sided weakness, improved overall. Overnight uneventful. Patient denies any chest pain , shortness breath, nausea/vomiting or severe headaches. Imaging, nursing note, chart, labs and old chart reviewed. Discussed with patient. Hospitalist Physical - Physical exam Narrative exam: GEN: WDWN, NAD, Awake, Alert, Orientated HEENT: NCAT, EOMI, PERRL, OP NGT in place NECK: supple, no adenopathy, no thyromegaly, no JVD CVS/HEART: RRR, normal S1S2, pulses present bilaterally CHEST/LUNGS: CTA B, Symmetrical chest expansion, good air entry bilaterally GI/Abdomen: soft, NTND, good bowel sounds, no guarding or rebound /Bladder: no suprapubic tenderness, no CVA or paraspinal tenderness EXT/Skin: no c/c/e, no obvious rash MSK: FROM x 4, mild weakness on right, ptosis Neuro: CN 2-12 grossly intact, no new focal deficits Psych: calm - Constitutional Vitals: Temp Pulse Resp BP Pulse Ox 98.4 F 115 H 20 115/81 98 11/03/17 08:44 11/03/17 15:33 11/03/17 15:33 11/03/17 10:44 11/03/17 15:25 General appearance: Present: other (intubated on the vent) Results - Labs CBC & Chem 7: 10/31/17 05:01 10/31/17 05:01 Labs: Laboratory Last Values WBC 14.9 K/mm3 (4.5-11.0) H 10/31/17 05:01 RBC 5.52 M/mm3 (3.65-5.03) H 10/31/17 05:01 Hgb 16.6 gm/dl (11.8-15.2) H 10/31/17 05:01 Hct 48.8 % (35.5-45.6) H 10/31/17 05:01 MCV 89 fl (84-94) 10/31/17 05:01 MCH 30 pg (28-32) 10/31/17 05:01 MCHC 34 % (32-34) 10/31/17 05:01 RDW 12.7 % (13.2-15.2) L 10/31/17 05:01 Plt Count 364 K/mm3 (140-440) 10/31/17 05:01 Lymph % (Auto) 14.0 % (13.4-35.0) 10/30/17 05:02 [place] % (Auto) 5.9 % (0.0-7.3) 10/30/17 05:02 Eos % (Auto) 1.3 % (0.0-4.3) 10/30/17 05:02 Baso % (Auto) 0.3 % (0.0-1.8) 10/30/17 05:02 Lymph # 2.3 K/mm3 (1.2-5.4) 10/30/17 05:02 [place] # 1.0 K/mm3 (0.0-0.8) H 10/30/17 05:02 Eos # 0.2 K/mm3 (0.0-0.4) 10/30/17 05:02 Baso # 0.1 K/mm3 (0.0-0.1) 10/30/17 05:02 Add Manual Diff TNR 10/17/17 15:01 Seg Neutrophils % 78.5 % (40.0-70.0) H 10/30/17 05:02 Seg Neutrophils # 12.9 K/mm3 (1.8-7.7) H 10/30/17 05:02 PT 13.0 Sec. (12.2-14.9) 11/02/17 10:58 INR 0.94 (0.87-1.13) 11/02/17 10:58 APTT 27.7 Sec. (24.2-36.6) 10/17/17 04:06 Thrombin Time 17.0 Sec. (15.1-19.6) 10/17/17 04:06 POC ABG pH 7.446 (7.35-7.45) 10/23/17 11:46 POC ABG pCO2 48.0 (35-45) H 10/23/17 11:46 POC ABG pO2 73 (80-105) L 10/23/17 11:46 POC ABG HCO3 33.0 10/23/17 11:46 POC ABG Total CO2 34 10/23/17 11:46 POC ABG O2 Sat 95 10/23/17 11:46 POC ABG Base Excess 9 10/23/17 11:46 FiO2 25 % 10/23/17 11:46 Sodium 139 mmol/L (137-145) 10/31/17 05:01 Potassium 4.2 mmol/L (3.6-5.0) 10/31/17 05:01 Chloride 94.2 mmol/L (98-107) L 10/31/17 05:01 Carbon Dioxide 28 mmol/L (22-30) 10/31/17 05:01 Anion Gap 21 mmol/L 10/31/17 05:01 BUN 39 mg/dL (9-20) H 10/31/17 05:01 Creatinine 1.1 mg/dL (0.8-1.5) 10/31/17 05:01 Estimated GFR > 60 ml/min 10/31/17 05:01 BUN/Creatinine Ratio 35 % 10/31/17 05:01 Glucose 128 mg/dL (75-100) H 10/31/17 05:01 POC Glucose 148 (70-105) H 11/03/17 10:41 Hemoglobin A1c 6.4 % (4-6) H 10/20/17 04:18 Lactic Acid 1.70 mmol/L (0.7-2.0) 10/17/17 22:43 Calcium 9.8 mg/dL (8.4-10.2) 10/31/17 05:01 Total Bilirubin 0.60 mg/dL (0.1-1.2) 10/31/17 05:01 AST 22 units/L (5-40) 10/31/17 05:01 ALT 40 units/L (7-56) 10/31/17 05:01 Alkaline Phosphatase 67 units/L (35-129) 10/31/17 05:01 Total Creatine Kinase 464 units/L (55-170) H 10/17/17 15:01 CK-MB (CK-2) 6.8 ng/mL (0.0-4.0) H 10/17/17 15:01 CK-MB (CK-2) Rel Index 1.4 (0-4) 10/17/17 15:01 Troponin T < 0.010 ng/mL (0.00-0.029) 10/17/17 22:43 NT-Pro-B Natriuret Pep 604.7 pg/mL (0-450) H 10/17/17 15:01 Total Protein 8.2 g/dL (6.3-8.2) 10/31/17 05:01 Albumin 3.6 g/dL (3.9-5) L 10/31/17 05:01 Albumin/Globulin Ratio 0.8 % 10/31/17 05:01 Triglycerides 57 mg/dL (2-149) 10/17/17 15:01 Cholesterol 132 mg/dL (50-199) 10/17/17 15:01 LDL Cholesterol Direct 84 mg/dL (50-130) 10/17/17 15:01 HDL Cholesterol 47 mg/dL (40-59) 10/17/17 15:01 Cholesterol/HDL Ratio 2.80 % 10/17/17 15:01 TSH 0.105 mlU/mL (0.270-4.200) L 10/18/17 15:58 Free T4 1.10 ng/dL (0.76-1.46) 10/18/17 15:58 Urine Color Yellow (Yellow) 10/17/17 04:35 Urine Turbidity Clear (Clear) 10/17/17 04:35 Urine pH 8.0 (5.0-7.0) H 10/17/17 04:35 Ur Specific [place] 1.013 (1.003-1.030) 10/17/17 04:35 Urine Protein <15 mg/dl mg/dL (Negative) 10/17/17 04:35 Urine Glucose (UA) 50 mg/dL (Negative) 10/17/17 04:35 Urine Ketones Neg mg/dL (Negative) 10/17/17 04:35 Urine Blood Neg (Negative) 10/17/17 04:35 Urine Nitrite Neg (Negative) 10/17/17 04:35 Urine Bilirubin Neg (Negative) 10/17/17 04:35 Urine Urobilinogen < 2.0 mg/dL (<2.0) 10/17/17 04:35 Ur Leukocyte Esterase Neg (Negative) 10/17/17 04:35 Urine WBC (Auto) 3.0 /HPF (0.0-6.0) 10/17/17 04:35 Urine RBC (Auto) < 1.0 /HPF (0.0-6.0) 10/17/17 04:35 U Epithel Cells (Auto) 1.0 /HPF (0-13.0) 10/17/17 04:35 Urine Bacteria (Auto) 1+ /HPF (Negative) 10/17/17 04:35 Salicylates < 0.3 mg/dL (2.8-20.0) L 10/17/17 04:23 Urine Opiates Screen Presumptive negative 10/17/17 04:35 Urine Methadone Screen Presumptive negative 10/17/17 04:35 Ur Barbiturates Screen Presumptive negative 10/17/17 04:35 Ur Phencyclidine Scrn Presumptive negative 10/17/17 04:35 Ur Amphetamines Screen Presumptive negative 10/17/17 04:35 U Benzodiazepines Scrn Presumptive negative 10/17/17 04:35 Urine Cocaine Screen Presumptive negative 10/17/17 04:35 U Marijuana (THC) Screen Presumptive negative 10/17/17 04:35 Drugs of Abuse Note Disclamer 10/17/17 04:35 Plasma/Serum Alcohol < 0.01 % (0-0.07) 10/17/17 04:23
[2017-11-03] MEDS: ASPIRIN PO SCH (22:10)
[2017-11-04] MEDS: HumuLIN R SUB-Q SCH ×4 (01:46→17:31)
[2017-11-04] MEDS: PROVENTIL IH SCH ×3 (07:56→22:16)
[2017-11-04] MEDS: PULMICORT IH SCH ×2 (07:56→21:00)
[2017-11-04] MEDS: BROVANA NEBU IH SCH ×2 (07:56→21:00)
[2017-11-04] MEDS: NORMODYNE PO SCH ×2 (09:59→21:29)
[2017-11-04] MEDS: HEPARIN SUB-Q SCH ×2 (09:59→21:30)
[2017-11-04] MEDS: HCTZ PO SCH (09:59)
[2017-11-04] MEDS: PEPCID PO SCH ×2 (10:00→21:28)
--- NOTE | 2017-11-04 11:22 | Gastroenterology Progress Note ---
Assessment and Plan GI: s/p peg w/o complications - ok to use as needed - will sign off, call if needed Subjective Date of service: 11/04/17 Principal diagnosis: PEG placement Interval history: -no problems overnight per staff Objective - Constitutional Vitals: Temp Pulse Resp BP Pulse Ox 98.4 F 90 17 121/83 95 11/04/17 07:48 11/04/17 09:59 11/04/17 10:00 11/04/17 09:59 11/04/17 07:55 General appearance: no acute distress - EENT Eyes: PERRL - Respiratory Respiratory: bilateral: CTA - Cardiovascular Rhythm: regular Heart Sounds: Present: S1 & S2 - Gastrointestinal General gastrointestinal: Present: soft, non-tender, non-distended (peg site intact) - Labs CBC & Chem 7: 10/31/17 05:01 10/31/17 05:01 Labs: Laboratory Results - last 24 hr 11/03/17 11/04/17 11/04/17 18:13 01:38 07:06 POC Glucose 160 H 128 H 189 H
--- NOTE | 2017-11-04 13:01 | Progress Note ---
Assessment and Plan Assessment and plan: Patient is a 42-year-old man with a history of hypertension, noncompliance with medication over the last 1 month who presented to ER with right-sided weakness and slurred speech. His last well-known time was 11:30, he woke up at 2:30 to use the bathroom, he fell to the floor a few times with several attempts. He was admitted with stroke protocol. Later on intubated on the day of admission for increase effort of breathing. He was weaned off from the vent on 10/18 and was extubated but required to reintubate later in the evening. He is now weaned off from vent and extubated again 10/23/17. Failed swallow eval following extubation, PT recommended acute rehab. * CT head: Cranial CT scan within normal limits. No change is demonstrated. * CTA head/neck: Normal CT angiogram of the arteries in the neck and head * MRI brain: 1.3 cm area of subacute ischemia in the right medulla oblongata as described. 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 Neuro following. Need rehab per PT but pt unfunded /Dysphagia, due to recent CVA failed repeat speech eval, cont NGT/TF for now /Acute respiratory failure, likely from acute CVA, resolved Patient was extubated 10/18 but re-Intubated later in evening. Pulmonology following s/p extubation 10/23/17 cont O2 n/c and as needed nebs /GI bleed. GI following, H/H stable Conservative management for now. /Acute kidney injury, vasomotor nephropathy, poa Improved, Cr stable /Prediabetes a1c 6.4. cont on Novolin 70/30 /Fever, low grade, 100.6 on 10/21 Repeat blood cultures drawn, to date negative /Elevated troponin. Cardiology following. Normal LVEF by echocardiogram Conservative cardiac management. /Acute Encephalopathy, likely from acute CVA. Now alert,follows commands Full code status Tube feeding restartred at 1300, jevity 1.2 infusing at 45 ml /hr via peg tube, being tolerated well. Disposition: awaiting case management for home health setup, pt weaned off O2 11/03/17 History Interval history: Patient was seen and examined. Follow-up on current diagnosis of right sided weakness, improved overall. Overnight uneventful. Patient denies any chest pain , shortness breath, nausea/vomiting or severe headaches. Imaging, nursing note, chart, labs and old chart reviewed. Discussed with patient. Hospitalist Physical - Physical exam Narrative exam: GEN: WDWN, NAD, Awake, Alert, Orientated HEENT: NCAT, EOMI, PERRL, OP NGT in place NECK: supple, no adenopathy, no thyromegaly, no JVD CVS/HEART: RRR, normal S1S2, pulses present bilaterally CHEST/LUNGS: CTA B, Symmetrical chest expansion, good air entry bilaterally GI/Abdomen: soft, NTND, good bowel sounds, no guarding or rebound /Bladder: no suprapubic tenderness, no CVA or paraspinal tenderness EXT/Skin: no c/c/e, no obvious rash MSK: FROM x 4, mild weakness on right, ptosis Neuro: CN 2-12 grossly intact, no new focal deficits Psych: calm - Constitutional Vitals: Temp Pulse Resp BP Pulse Ox 98.4 F 89 17 121/83 95 11/04/17 07:48 11/04/17 11:55 11/04/17 10:00 11/04/17 09:59 11/04/17 07:55 General appearance: Present: other (intubated on the vent) Results - Labs CBC & Chem 7: 10/31/17 05:01 10/31/17 05:01 Labs: Laboratory Last Values WBC 14.9 K/mm3 (4.5-11.0) H 10/31/17 05:01 RBC 5.52 M/mm3 (3.65-5.03) H 10/31/17 05:01 Hgb 16.6 gm/dl (11.8-15.2) H 10/31/17 05:01 Hct 48.8 % (35.5-45.6) H 10/31/17 05:01 MCV 89 fl (84-94) 10/31/17 05:01 MCH 30 pg (28-32) 10/31/17 05:01 MCHC 34 % (32-34) 10/31/17 05:01 RDW 12.7 % (13.2-15.2) L 10/31/17 05:01 Plt Count 364 K/mm3 (140-440) 10/31/17 05:01 Lymph % (Auto) 14.0 % (13.4-35.0) 10/30/17 05:02 [place] % (Auto) 5.9 % (0.0-7.3) 10/30/17 05:02 Eos % (Auto) 1.3 % (0.0-4.3) 10/30/17 05:02 Baso % (Auto) 0.3 % (0.0-1.8) 10/30/17 05:02 Lymph # 2.3 K/mm3 (1.2-5.4) 10/30/17 05:02 Drew # 1.0 K/mm3 (0.0-0.8) H 10/30/17 05:02 Eos # 0.2 K/mm3 (0.0-0.4) 10/30/17 05:02 Baso # 0.1 K/mm3 (0.0-0.1) 10/30/17 05:02 Add Manual Diff TNR 10/17/17 15:01 Seg Neutrophils % 78.5 % (40.0-70.0) H 10/30/17 05:02 Seg Neutrophils # 12.9 K/mm3 (1.8-7.7) H 10/30/17 05:02 PT 13.0 Sec. (12.2-14.9) 11/02/17 10:58 INR 0.94 (0.87-1.13) 11/02/17 10:58 APTT 27.7 Sec. (24.2-36.6) 10/17/17 04:06 Thrombin Time 17.0 Sec. (15.1-19.6) 10/17/17 04:06 POC ABG pH 7.446 (7.35-7.45) 10/23/17 11:46 POC ABG pCO2 48.0 (35-45) H 10/23/17 11:46 POC ABG pO2 73 (80-105) L 10/23/17 11:46 POC ABG HCO3 33.0 10/23/17 11:46 POC ABG Total CO2 34 10/23/17 11:46 POC ABG O2 Sat 95 10/23/17 11:46 POC ABG Base Excess 9 10/23/17 11:46 FiO2 25 % 10/23/17 11:46 Sodium 139 mmol/L (137-145) 10/31/17 05:01 Potassium 4.2 mmol/L (3.6-5.0) 10/31/17 05:01 Chloride 94.2 mmol/L (98-107) L 10/31/17 05:01 Carbon Dioxide 28 mmol/L (22-30) 10/31/17 05:01 Anion Gap 21 mmol/L 10/31/17 05:01 BUN 39 mg/dL (9-20) H 10/31/17 05:01 Creatinine 1.1 mg/dL (0.8-1.5) 10/31/17 05:01 Estimated GFR > 60 ml/min 10/31/17 05:01 BUN/Creatinine Ratio 35 % 10/31/17 05:01 Glucose 128 mg/dL (75-100) H 10/31/17 05:01 POC Glucose 200 (70-105) H 11/04/17 11:54 Hemoglobin A1c 6.4 % (4-6) H 10/20/17 04:18 Lactic Acid 1.70 mmol/L (0.7-2.0) 10/17/17 22:43 Calcium 9.8 mg/dL (8.4-10.2) 10/31/17 05:01 Total Bilirubin 0.60 mg/dL (0.1-1.2) 10/31/17 05:01 AST 22 units/L (5-40) 10/31/17 05:01 ALT 40 units/L (7-56) 10/31/17 05:01 Alkaline Phosphatase 67 units/L (35-129) 10/31/17 05:01 Total Creatine Kinase 464 units/L (55-170) H 10/17/17 15:01 CK-MB (CK-2) 6.8 ng/mL (0.0-4.0) H 10/17/17 15:01 CK-MB (CK-2) Rel Index 1.4 (0-4) 10/17/17 15:01 Troponin T < 0.010 ng/mL (0.00-0.029) 10/17/17 22:43 NT-Pro-B Natriuret Pep 604.7 pg/mL (0-450) H 10/17/17 15:01 Total Protein 8.2 g/dL (6.3-8.2) 10/31/17 05:01 Albumin 3.6 g/dL (3.9-5) L 10/31/17 05:01 Albumin/Globulin Ratio 0.8 % 10/31/17 05:01 Triglycerides 57 mg/dL (2-149) 10/17/17 15:01 Cholesterol 132 mg/dL (50-199) 10/17/17 15:01 LDL Cholesterol Direct 84 mg/dL (50-130) 10/17/17 15:01 HDL Cholesterol 47 mg/dL (40-59) 10/17/17 15:01 Cholesterol/HDL Ratio 2.80 % 10/17/17 15:01 TSH 0.105 mlU/mL (0.270-4.200) L 10/18/17 15:58 Free T4 1.10 ng/dL (0.76-1.46) 10/18/17 15:58 Urine Color Yellow (Yellow) 10/17/17 04:35 Urine Turbidity Clear (Clear) 10/17/17 04:35 Urine pH 8.0 (5.0-7.0) H 10/17/17 04:35 Ur Specific [place] 1.013 (1.003-1.030) 10/17/17 04:35 Urine Protein <15 mg/dl mg/dL (Negative) 10/17/17 04:35 Urine Glucose (UA) 50 mg/dL (Negative) 10/17/17 04:35 Urine Ketones Neg mg/dL (Negative) 10/17/17 04:35 Urine Blood Neg (Negative) 10/17/17 04:35 Urine Nitrite Neg (Negative) 10/17/17 04:35 Urine Bilirubin Neg (Negative) 10/17/17 04:35 Urine Urobilinogen < 2.0 mg/dL (<2.0) 10/17/17 04:35 Ur Leukocyte Esterase Neg (Negative) 10/17/17 04:35 Urine WBC (Auto) 3.0 /HPF (0.0-6.0) 10/17/17 04:35 Urine RBC (Auto) < 1.0 /HPF (0.0-6.0) 10/17/17 04:35 U Epithel Cells (Auto) 1.0 /HPF (0-13.0) 10/17/17 04:35 Urine Bacteria (Auto) 1+ /HPF (Negative) 10/17/17 04:35 Salicylates < 0.3 mg/dL (2.8-20.0) L 10/17/17 04:23 Urine Opiates Screen Presumptive negative 10/17/17 04:35 Urine Methadone Screen Presumptive negative 10/17/17 04:35 Ur Barbiturates Screen Presumptive negative 10/17/17 04:35 Ur Phencyclidine Scrn Presumptive negative 10/17/17 04:35 Ur Amphetamines Screen Presumptive negative 10/17/17 04:35 U Benzodiazepines Scrn Presumptive negative 10/17/17 04:35 Urine Cocaine Screen Presumptive negative 10/17/17 04:35 U Marijuana (THC) Screen Presumptive negative 10/17/17 04:35 Drugs of Abuse Note Disclamer 10/17/17 04:35 Plasma/Serum Alcohol < 0.01 % (0-0.07) 10/17/17 04:23
--- NOTE | 2017-11-04 13:09 | Discharge Summary ---
Providers - Providers Date of Admission: 10/17/17 06:03 Date of discharge: 11/05/17 Attending physician: MISSAEL ROYAL 10/17/17 Consult to Physician [CONS] Routine Comment: Consulting Provider: JOHN HANSON Physician Instructions: Reason For Exam: ugib 10/17/17 04:11 Speech Therapy Evaluation and Treat [CONS] Routine Reason For Exam: stroke protocol/difficulty swallowing 10/17/17 06:03 Occupational Therapy Evaluate and Treat [CONS] Routine Comment: Reason For Exam: Neuro deficits Physical Therapy Evaluation and Treat [CONS] Routine Comment: Reason For Exam: Neuro deficits 10/17/17 06:21 Consult to Physician [CONS] Routine Comment: Consulting Provider: JEANETTE VIGIL Physician Instructions: Reason For Exam: cva 10/17/17 10:23 Consult to Dietitian/Nutrition [CONS] Routine Physician Instructions: Reason For Exam: Reason for Consult: Write/Manage Tube Feeding 10/24/17 09:04 Speech Therapy Evaluation and Treat [CONS] Routine Reason For Exam: failed bedside swallowing screen 10/26/17 15:03 Speech Therapy Evaluation and Treat [CONS] Routine Reason For Exam: aspiration 10/28/17 16:22 Consult to Dietitian/Nutrition [CONS] Routine Physician Instructions: Assess nutrtn needs, initiate, modify, manage TF Reason For Exam: NEED CLARIFICATION ORDER ON TF FORMULA AND FLUSHS Reason for Consult: Write/Manage Tube Feeding Reason for Consult: Write/Manage Tube Feeding 10/31/17 15:39 Consult to Physician [CONS] Routine Comment: Consulting Provider: LYNSEY PICHARDO Physician Instructions: Reason For Exam: 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, post CVA 11/03/17 08:45 Consult to Dietitian/Nutrition [CONS] Routine Physician Instructions: Reason For Exam: Reason for Consult: peg placed Primary care physician: BINDER FIXER Hospitalization Condition: Stable Hospital course: Patient is a 42-year-old man with a history of hypertension, noncompliance with medication over the last 1 month who presented to ER with right-sided weakness and slurred speech. His last well-known time was 11:30, he woke up at 2:30 to use the bathroom, he fell to the floor a few times with several attempts. He was admitted with stroke protocol. Later on intubated on the day of admission for increase effort of breathing. He was weaned off from the vent on 10/18 and was extubated but required to reintubate later in the evening. He is now weaned off from vent and extubated again 10/23/17. Failed swallow eval following extubation, PT recommended acute rehab. * CT head: Cranial CT scan within normal limits. No change is demonstrated. * CTA head/neck: Normal CT angiogram of the arteries in the neck and head * MRI brain: 1.3 cm area of subacute ischemia in the right medulla oblongata as described. 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 Neuro following. Need rehab per PT but pt unfunded /Dysphagia, due to recent CVA failed repeat speech eval, cont NGT/TF for now /Acute respiratory failure, likely from acute CVA, resolved Patient was extubated 10/18 but re-Intubated later in evening. Pulmonology following s/p extubation 10/23/17 cont O2 n/c and as needed nebs /GI bleed. GI following, H/H stable Conservative management for now. /Acute kidney injury, vasomotor nephropathy, poa Improved, Cr stable /Prediabetes a1c 6.4. cont on Novolin 70/30 /Fever, low grade, 100.6 on 10/21 Repeat blood cultures drawn, to date negative /Elevated troponin. Cardiology following. Normal LVEF by echocardiogram Conservative cardiac management. /Acute Encephalopathy, likely from acute CVA. Now alert,follows commands Full code status Tube feeding jevity 1.2 infusing at 45 ml /hr via peg tube, being tolerated well. Disposition: awaiting on case management for home health setup/tube feeding supplies, oxygen weaned off on 11/03/17 Disposition: DC-01 TO HOME OR SELFCARE Time spent for discharge: 34 minutes Core Measure Documentation - Palliative Care Palliative Care/ Comfort Measures: Not Applicable - Core Measures Any of the following diagnoses?: stroke - VTE Discharge Requirements Deep Vein Thrombosis/Pulmonary Embolism Present on Admission: No Has pt received <5 days of overlap therapy or INR<2.0: No Anticoagulant overlap therapy prescribed at discharge: No Contraindication No Overlap Therapy order at DC: Not Indicated - Stroke Discharge Requirements Statin for LDL = or >70 mg/dl on DC: Yes Anticoag for atrial fib/atrial flutter: Not Applicable Reason for no anticoag for AF/F on DC: Not Indicated Antithrombotic for ischemic stroke: Yes Exam - Physical Exam Narrative exam: GEN: WDWN, NAD, Awake, Alert, Orientated HEENT: NCAT, EOMI, PERRL, OP clear NECK: supple, no adenopathy, no thyromegaly, no JVD CVS/HEART: RRR, normal S1S2, pulses present bilaterally CHEST/LUNGS: CTA B, Symmetrical chest expansion, good air entry bilaterally GI/Abdomen: soft, NTND,peg in place good bowel sounds, no guarding or rebound /Bladder: no suprapubic tenderness, no CVA or paraspinal tenderness EXT/Skin: no c/c/e, no obvious rash MSK: FROM x 4, mild weakness on right, Neuro: CN 2-12 grossly intact, no new focal deficits Psych: calm - Constitutional Vitals: Temp Pulse Resp BP Pulse Ox 98.4 F 89 17 121/83 95 11/04/17 07:48 11/04/17 11:55 11/04/17 10:00 11/04/17 09:59 11/04/17 07:55 Plan Activity: up only with assistance, fall precautions, other (no strenous activity ) Diet: per dietitian instruction Special Instructions: physical therapy Follow up with: PRIMARY CARE, [Primary Care Provider] - 3-5 Days Prescriptions: AtorvaSTATin [Lipitor] 40 mg FEEDTUBE QHS #30 tablet ALBUTEROL Inhaler [ProAir HFA Inhaler] 2 puff IH QID PRN #1 unit PRN Reason: Shortness Of Breath Aspirin [Aspirin TAB] 325 mg FEEDTUBE QDAY #30 tablet Budesonide/Formoterol Fumarate [Symbicort 160-4.5 Mcg Inhaler] 1 dose IH BID #1 unit Hydrochlorothiazide [HCTZ] 12.5 mg PO QDAY #30 capsule Insulin NPH/Regular [NovoLIN 70/30] 15 unit SUB-Q BIDDIAB #100 units Insulin Regular, Human [HumuLIN R] 1 dose SUB-Q Q6HR PRN #100 units PRN Reason: Hyperglycemia Labetalol [Normodyne TAB] 100 mg PO BID #60 tablet Lipase/Protease/Amylase [Ang Dr 10,500 Unit] 1 each FEEDTUBE PRN PRN #30 capsule PRN Reason: For Clogged Feeding Tube Scopolamine [Transderm-Scop] 1 each TD Q3D 30 Days patch Simple Syrup 30 ml FEEDTUBE PRN PRN 30 Days oral.liqd PRN Reason: Hypoglycemia Sodium Bicarbonate 325 mg FEEDTUBE PRN PRN #30 tablet PRN Reason: For Clogged Feeding Tube
[2017-11-04] MEDS: ASPIRIN PO SCH (21:27)
[2017-11-04] MEDS ORDERED: MORPHINE IV ONE (22:49)
[2017-11-05] MEDS: HumuLIN R SUB-Q SCH ×4 (00:49→18:32)
[2017-11-05] MEDS: BROVANA NEBU IH SCH ×2 (08:10→19:28)
[2017-11-05] MEDS: PULMICORT IH SCH ×2 (08:10→19:28)
[2017-11-05] MEDS: PROVENTIL IH SCH ×2 (08:36→13:51)
[2017-11-05] MEDS: HEPARIN SUB-Q SCH ×2 (09:31→22:09)
[2017-11-05] MEDS: HCTZ PO SCH (09:31)
[2017-11-05] MEDS: NORMODYNE PO SCH ×2 (09:31→22:09)
[2017-11-05] MEDS: PEPCID PO SCH ×2 (09:31→22:09)
[2017-11-05] MEDS: TRANSDERM-SCOP TD SCH (12:35)
[2017-11-05] MEDS: ASPIRIN PO SCH (22:09)
[2017-11-06] MEDS: HumuLIN R SUB-Q SCH ×3 (03:19→14:45)
[2017-11-06] MEDS: PROVENTIL IH SCH ×3 (06:02→14:00)
--- NOTE | 2017-11-06 07:28 | Progress Note ---
Assessment and Plan Assessment and plan: Patient is a 42-year-old man with a history of hypertension, noncompliance with medication over the last 1 month who presented to ER with right-sided weakness and slurred speech. His last well-known time was 11:30, he woke up at 2:30 to use the bathroom, he fell to the floor a few times with several attempts. He was admitted with stroke protocol. Later on intubated on the day of admission for increase effort of breathing. He was weaned off from the vent on 10/18 and was extubated but required to reintubate later in the evening. He is now weaned off from vent and extubated again 10/23/17. Failed swallow eval following extubation, PT recommended acute rehab. * CT head: Cranial CT scan within normal limits. No change is demonstrated. * CTA head/neck: Normal CT angiogram of the arteries in the neck and head * MRI brain: 1.3 cm area of subacute ischemia in the right medulla oblongata as described. 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 Neuro following. Need rehab per PT but pt unfunded /Dysphagia, due to recent CVA failed repeat speech eval, cont NGT/TF for now /Acute respiratory failure, likely from acute CVA, resolved Patient was extubated 10/18 but re-Intubated later in evening. Pulmonology following s/p extubation 10/23/17 cont O2 n/c and as needed nebs /GI bleed. GI following, H/H stable Conservative management for now. /Acute kidney injury, vasomotor nephropathy, poa Improved, Cr stable /Prediabetes a1c 6.4. cont on Novolin 70/30 /Fever, low grade, 100.6 on 10/21 Repeat blood cultures drawn, to date negative /Elevated troponin. Cardiology following. Normal LVEF by echocardiogram Conservative cardiac management. /Acute Encephalopathy, likely from acute CVA. Now alert,follows commands Full code status Tube feeding restartred at 1300, jevity 1.2 infusing at 45 ml /hr via peg tube, being tolerated well. Disposition: awaiting case management to setup home health/tube feeding, pt weaned off O2 on 11/03/17 History Interval history: Patient was seen and examined. Follow-up on current diagnosis of right sided weakness, improved overall. Overnight uneventful. Patient denies any chest pain , shortness breath, nausea/vomiting or severe headaches. Imaging, nursing note, chart, labs and old chart reviewed. Discussed with patient. Hospitalist Physical - Physical exam Narrative exam: GEN: WDWN, NAD, Awake, Alert, Orientated HEENT: NCAT, EOMI, PERRL, OP clear NECK: supple, no adenopathy, no thyromegaly, no JVD CVS/HEART: RRR, normal S1S2, pulses present bilaterally CHEST/LUNGS: CTA B, Symmetrical chest expansion, good air entry bilaterally GI/Abdomen: soft, NTND,peg in place good bowel sounds, no guarding or rebound /Bladder: no suprapubic tenderness, no CVA or paraspinal tenderness EXT/Skin: no c/c/e, no obvious rash MSK: FROM x 4, mild weakness on right, Neuro: CN 2-12 grossly intact, no new focal deficits Psych: calm - Constitutional Vitals: Temp Pulse Resp BP Pulse Ox 98.9 F 71 20 100/61 100 11/06/17 00:48 11/06/17 06:52 11/06/17 00:48 11/06/17 00:48 11/06/17 00:48 General appearance: Present: other (intubated on the vent) Results - Labs CBC & Chem 7: 10/31/17 05:01 10/31/17 05:01 Labs: Laboratory Last Values WBC 14.9 K/mm3 (4.5-11.0) H 10/31/17 05:01 RBC 5.52 M/mm3 (3.65-5.03) H 10/31/17 05:01 Hgb 16.6 gm/dl (11.8-15.2) H 10/31/17 05:01 Hct 48.8 % (35.5-45.6) H 10/31/17 05:01 MCV 89 fl (84-94) 10/31/17 05:01 MCH 30 pg (28-32) 10/31/17 05:01 MCHC 34 % (32-34) 10/31/17 05:01 RDW 12.7 % (13.2-15.2) L 10/31/17 05:01 Plt Count 364 K/mm3 (140-440) 10/31/17 05:01 Lymph % (Auto) 14.0 % (13.4-35.0) 10/30/17 05:02 [place] % (Auto) 5.9 % (0.0-7.3) 10/30/17 05:02 Eos % (Auto) 1.3 % (0.0-4.3) 10/30/17 05:02 Baso % (Auto) 0.3 % (0.0-1.8) 10/30/17 05:02 Lymph # 2.3 K/mm3 (1.2-5.4) 10/30/17 05:02 [place] # 1.0 K/mm3 (0.0-0.8) H 10/30/17 05:02 Eos # 0.2 K/mm3 (0.0-0.4) 10/30/17 05:02 Baso # 0.1 K/mm3 (0.0-0.1) 10/30/17 05:02 Add Manual Diff TNR 10/17/17 15:01 Seg Neutrophils % 78.5 % (40.0-70.0) H 10/30/17 05:02 Seg Neutrophils # 12.9 K/mm3 (1.8-7.7) H 10/30/17 05:02 PT 13.0 Sec. (12.2-14.9) 11/02/17 10:58 INR 0.94 (0.87-1.13) 11/02/17 10:58 APTT 27.7 Sec. (24.2-36.6) 10/17/17 04:06 Thrombin Time 17.0 Sec. (15.1-19.6) 10/17/17 04:06 POC ABG pH 7.446 (7.35-7.45) 10/23/17 11:46 POC ABG pCO2 48.0 (35-45) H 10/23/17 11:46 POC ABG pO2 73 (80-105) L 10/23/17 11:46 POC ABG HCO3 33.0 10/23/17 11:46 POC ABG Total CO2 34 10/23/17 11:46 POC ABG O2 Sat 95 10/23/17 11:46 POC ABG Base Excess 9 10/23/17 11:46 FiO2 25 % 10/23/17 11:46 Sodium 139 mmol/L (137-145) 10/31/17 05:01 Potassium 4.2 mmol/L (3.6-5.0) 10/31/17 05:01 Chloride 94.2 mmol/L (98-107) L 10/31/17 05:01 Carbon Dioxide 28 mmol/L (22-30) 10/31/17 05:01 Anion Gap 21 mmol/L 10/31/17 05:01 BUN 39 mg/dL (9-20) H 10/31/17 05:01 Creatinine 1.1 mg/dL (0.8-1.5) 10/31/17 05:01 Estimated GFR > 60 ml/min 10/31/17 05:01 BUN/Creatinine Ratio 35 % 10/31/17 05:01 Glucose 128 mg/dL (75-100) H 10/31/17 05:01 POC Glucose 168 (70-105) H 11/06/17 06:07 Hemoglobin A1c 6.4 % (4-6) H 10/20/17 04:18 Lactic Acid 1.70 mmol/L (0.7-2.0) 10/17/17 22:43 Calcium 9.8 mg/dL (8.4-10.2) 10/31/17 05:01 Total Bilirubin 0.60 mg/dL (0.1-1.2) 10/31/17 05:01 AST 22 units/L (5-40) 10/31/17 05:01 ALT 40 units/L (7-56) 10/31/17 05:01 Alkaline Phosphatase 67 units/L (35-129) 10/31/17 05:01 Total Creatine Kinase 464 units/L (55-170) H 10/17/17 15:01 CK-MB (CK-2) 6.8 ng/mL (0.0-4.0) H 10/17/17 15:01 CK-MB (CK-2) Rel Index 1.4 (0-4) 10/17/17 15:01 Troponin T < 0.010 ng/mL (0.00-0.029) 10/17/17 22:43 NT-Pro-B Natriuret Pep 604.7 pg/mL (0-450) H 10/17/17 15:01 Total Protein 8.2 g/dL (6.3-8.2) 10/31/17 05:01 Albumin 3.6 g/dL (3.9-5) L 10/31/17 05:01 Albumin/Globulin Ratio 0.8 % 10/31/17 05:01 Triglycerides 57 mg/dL (2-149) 10/17/17 15:01 Cholesterol 132 mg/dL (50-199) 10/17/17 15:01 LDL Cholesterol Direct 84 mg/dL (50-130) 10/17/17 15:01 HDL Cholesterol 47 mg/dL (40-59) 10/17/17 15:01 Cholesterol/HDL Ratio 2.80 % 10/17/17 15:01 TSH 0.105 mlU/mL (0.270-4.200) L 10/18/17 15:58 Free T4 1.10 ng/dL (0.76-1.46) 10/18/17 15:58 Urine Color Yellow (Yellow) 10/17/17 04:35 Urine Turbidity Clear (Clear) 10/17/17 04:35 Urine pH 8.0 (5.0-7.0) H 10/17/17 04:35 Ur Specific [place] 1.013 (1.003-1.030) 10/17/17 04:35 Urine Protein <15 mg/dl mg/dL (Negative) 10/17/17 04:35 Urine Glucose (UA) 50 mg/dL (Negative) 10/17/17 04:35 Urine Ketones Neg mg/dL (Negative) 10/17/17 04:35 Urine Blood Neg (Negative) 10/17/17 04:35 Urine Nitrite Neg (Negative) 10/17/17 04:35 Urine Bilirubin Neg (Negative) 10/17/17 04:35 Urine Urobilinogen < 2.0 mg/dL (<2.0) 10/17/17 04:35 Ur Leukocyte Esterase Neg (Negative) 10/17/17 04:35 Urine WBC (Auto) 3.0 /HPF (0.0-6.0) 10/17/17 04:35 Urine RBC (Auto) < 1.0 /HPF (0.0-6.0) 10/17/17 04:35 U Epithel Cells (Auto) 1.0 /HPF (0-13.0) 10/17/17 04:35 Urine Bacteria (Auto) 1+ /HPF (Negative) 10/17/17 04:35 Salicylates < 0.3 mg/dL (2.8-20.0) L 10/17/17 04:23 Urine Opiates Screen Presumptive negative 10/17/17 04:35 Urine Methadone Screen Presumptive negative 10/17/17 04:35 Ur Barbiturates Screen Presumptive negative 10/17/17 04:35 Ur Phencyclidine Scrn Presumptive negative 10/17/17 04:35 Ur Amphetamines Screen Presumptive negative 10/17/17 04:35 U Benzodiazepines Scrn Presumptive negative 10/17/17 04:35 Urine Cocaine Screen Presumptive negative 10/17/17 04:35 U Marijuana (THC) Screen Presumptive negative 10/17/17 04:35 Drugs of Abuse Note Disclamer 10/17/17 04:35 Plasma/Serum Alcohol < 0.01 % (0-0.07) 10/17/17 04:23
[2017-11-06] MEDS: BROVANA NEBU IH SCH ×2 (08:47→20:05)
[2017-11-06] MEDS: PULMICORT IH SCH ×2 (08:47→20:05)
[2017-11-06] MEDS: NORMODYNE PO SCH ×2 (10:09→22:42)
[2017-11-06] MEDS: HCTZ PO SCH (10:10)
[2017-11-06] MEDS: HEPARIN SUB-Q SCH ×2 (10:10→22:44)
[2017-11-06] MEDS: PEPCID PO SCH ×2 (10:10→22:42)
--- NOTE | 2017-11-06 10:44 | Progress Note ---
Assessment and Plan Assessment and plan: Patient is a 42-year-old man with a history of hypertension, noncompliance with medication over the last 1 month who presented to ER with right-sided weakness and slurred speech. His last well-known time was 11:30, he woke up at 2:30 to use the bathroom, he fell to the floor a few times with several attempts. He was admitted with stroke protocol. Later on intubated on the day of admission for increase effort of breathing. He was weaned off from the vent on 10/18 and was extubated but required to reintubate later in the evening. He is now weaned off from vent and extubated again 10/23/17. Failed swallow eval following extubation, PT recommended acute rehab. * CT head: Cranial CT scan within normal limits. No change is demonstrated. * CTA head/neck: Normal CT angiogram of the arteries in the neck and head * MRI brain: 1.3 cm area of subacute ischemia in the right medulla oblongata as described. 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 Neuro following. Need rehab per PT but pt unfunded /Dysphagia, due to recent CVA failed repeat speech eval, cont NGT/TF for now /Acute respiratory failure, likely from acute CVA, resolved Patient was extubated 10/18 but re-Intubated later in evening. Pulmonology following s/p extubation 10/23/17 cont O2 n/c and as needed nebs /GI bleed. GI following, H/H stable Conservative management for now. /Acute kidney injury, vasomotor nephropathy, poa Improved, Cr stable /Prediabetes a1c 6.4. cont on Novolin 70/30 /Fever, low grade, 100.6 on 10/21 Repeat blood cultures drawn, to date negative /Elevated troponin. Cardiology following. Normal LVEF by echocardiogram Conservative cardiac management. /Acute Encephalopathy, likely from acute CVA. Now alert,follows commands Full code status Tube feeding restartred at 1300, jevity 1.2 infusing at 45 ml /hr via peg tube, being tolerated well. Disposition: awaiting case management to setup home health/tube feeding, pt weaned off O2 on 11/03/17 Hospitalist Physical - Constitutional Vitals: Temp Pulse Resp BP Pulse Ox 98.1 F 75 18 127/89 94 11/06/17 08:00 11/06/17 10:09 11/06/17 08:57 11/06/17 08:00 11/06/17 08:00 General appearance: Present: other (intubated on the vent) Results - Labs CBC & Chem 7: 10/31/17 05:01 10/31/17 05:01 Labs: Laboratory Last Values WBC 14.9 K/mm3 (4.5-11.0) H 10/31/17 05:01 RBC 5.52 M/mm3 (3.65-5.03) H 10/31/17 05:01 Hgb 16.6 gm/dl (11.8-15.2) H 10/31/17 05:01 Hct 48.8 % (35.5-45.6) H 10/31/17 05:01 MCV 89 fl (84-94) 10/31/17 05:01 MCH 30 pg (28-32) 10/31/17 05:01 MCHC 34 % (32-34) 10/31/17 05:01 RDW 12.7 % (13.2-15.2) L 10/31/17 05:01 Plt Count 364 K/mm3 (140-440) 10/31/17 05:01 Lymph % (Auto) 14.0 % (13.4-35.0) 10/30/17 05:02 [place] % (Auto) 5.9 % (0.0-7.3) 10/30/17 05:02 Eos % (Auto) 1.3 % (0.0-4.3) 10/30/17 05:02 Baso % (Auto) 0.3 % (0.0-1.8) 10/30/17 05:02 Lymph # 2.3 K/mm3 (1.2-5.4) 10/30/17 05:02 [place] # 1.0 K/mm3 (0.0-0.8) H 10/30/17 05:02 Eos # 0.2 K/mm3 (0.0-0.4) 10/30/17 05:02 Baso # 0.1 K/mm3 (0.0-0.1) 10/30/17 05:02 Add Manual Diff TNR 10/17/17 15:01 Seg Neutrophils % 78.5 % (40.0-70.0) H 10/30/17 05:02 Seg Neutrophils # 12.9 K/mm3 (1.8-7.7) H 10/30/17 05:02 PT 13.0 Sec. (12.2-14.9) 11/02/17 10:58 INR 0.94 (0.87-1.13) 11/02/17 10:58 APTT 27.7 Sec. (24.2-36.6) 10/17/17 04:06 Thrombin Time 17.0 Sec. (15.1-19.6) 10/17/17 04:06 POC ABG pH 7.446 (7.35-7.45) 10/23/17 11:46 POC ABG pCO2 48.0 (35-45) H 10/23/17 11:46 POC ABG pO2 73 (80-105) L 10/23/17 11:46 POC ABG HCO3 33.0 10/23/17 11:46 POC ABG Total CO2 34 10/23/17 11:46 POC ABG O2 Sat 95 10/23/17 11:46 POC ABG Base Excess 9 10/23/17 11:46 FiO2 25 % 10/23/17 11:46 Sodium 139 mmol/L (137-145) 10/31/17 05:01 Potassium 4.2 mmol/L (3.6-5.0) 10/31/17 05:01 Chloride 94.2 mmol/L (98-107) L 10/31/17 05:01 Carbon Dioxide 28 mmol/L (22-30) 10/31/17 05:01 Anion Gap 21 mmol/L 10/31/17 05:01 BUN 39 mg/dL (9-20) H 10/31/17 05:01 Creatinine 1.1 mg/dL (0.8-1.5) 10/31/17 05:01 Estimated GFR > 60 ml/min 10/31/17 05:01 BUN/Creatinine Ratio 35 % 10/31/17 05:01 Glucose 128 mg/dL (75-100) H 10/31/17 05:01 POC Glucose 168 (70-105) H 11/06/17 06:07 Hemoglobin A1c 6.4 % (4-6) H 10/20/17 04:18 Lactic Acid 1.70 mmol/L (0.7-2.0) 10/17/17 22:43 Calcium 9.8 mg/dL (8.4-10.2) 10/31/17 05:01 Total Bilirubin 0.60 mg/dL (0.1-1.2) 10/31/17 05:01 AST 22 units/L (5-40) 10/31/17 05:01 ALT 40 units/L (7-56) 10/31/17 05:01 Alkaline Phosphatase 67 units/L (35-129) 10/31/17 05:01 Total Creatine Kinase 464 units/L (55-170) H 10/17/17 15:01 CK-MB (CK-2) 6.8 ng/mL (0.0-4.0) H 10/17/17 15:01 CK-MB (CK-2) Rel Index 1.4 (0-4) 10/17/17 15:01 Troponin T < 0.010 ng/mL (0.00-0.029) 10/17/17 22:43 NT-Pro-B Natriuret Pep 604.7 pg/mL (0-450) H 10/17/17 15:01 Total Protein 8.2 g/dL (6.3-8.2) 10/31/17 05:01 Albumin 3.6 g/dL (3.9-5) L 10/31/17 05:01 Albumin/Globulin Ratio 0.8 % 10/31/17 05:01 Triglycerides 57 mg/dL (2-149) 10/17/17 15:01 Cholesterol 132 mg/dL (50-199) 10/17/17 15:01 LDL Cholesterol Direct 84 mg/dL (50-130) 10/17/17 15:01 HDL Cholesterol 47 mg/dL (40-59) 10/17/17 15:01 Cholesterol/HDL Ratio 2.80 % 10/17/17 15:01 TSH 0.105 mlU/mL (0.270-4.200) L 10/18/17 15:58 Free T4 1.10 ng/dL (0.76-1.46) 10/18/17 15:58 Urine Color Yellow (Yellow) 10/17/17 04:35 Urine Turbidity Clear (Clear) 10/17/17 04:35 Urine pH 8.0 (5.0-7.0) H 10/17/17 04:35 Ur Specific [place] 1.013 (1.003-1.030) 10/17/17 04:35 Urine Protein <15 mg/dl mg/dL (Negative) 10/17/17 04:35 Urine Glucose (UA) 50 mg/dL (Negative) 10/17/17 04:35 Urine Ketones Neg mg/dL (Negative) 10/17/17 04:35 Urine Blood Neg (Negative) 10/17/17 04:35 Urine Nitrite Neg (Negative) 10/17/17 04:35 Urine Bilirubin Neg (Negative) 10/17/17 04:35 Urine Urobilinogen < 2.0 mg/dL (<2.0) 10/17/17 04:35 Ur Leukocyte Esterase Neg (Negative) 10/17/17 04:35 Urine WBC (Auto) 3.0 /HPF (0.0-6.0) 10/17/17 04:35 Urine RBC (Auto) < 1.0 /HPF (0.0-6.0) 10/17/17 04:35 U Epithel Cells (Auto) 1.0 /HPF (0-13.0) 10/17/17 04:35 Urine Bacteria (Auto) 1+ /HPF (Negative) 10/17/17 04:35 Salicylates < 0.3 mg/dL (2.8-20.0) L 10/17/17 04:23 Urine Opiates Screen Presumptive negative 10/17/17 04:35 Urine Methadone Screen Presumptive negative 10/17/17 04:35 Ur Barbiturates Screen Presumptive negative 10/17/17 04:35 Ur Phencyclidine Scrn Presumptive negative 10/17/17 04:35 Ur Amphetamines Screen Presumptive negative 10/17/17 04:35 U Benzodiazepines Scrn Presumptive negative 10/17/17 04:35 Urine Cocaine Screen Presumptive negative 10/17/17 04:35 U Marijuana (THC) Screen Presumptive negative 10/17/17 04:35 Drugs of Abuse Note Disclamer 10/17/17 04:35 Plasma/Serum Alcohol < 0.01 % (0-0.07) 10/17/17 04:23
[2017-11-06] MEDS ORDERED: MORPHINE IV ONE (16:01)
[2017-11-06] MEDS: ASPIRIN PO SCH (22:43)
[2017-11-07] MEDS: HumuLIN R SUB-Q SCH ×5 (08:08→18:30)
[2017-11-07] MEDS: PULMICORT IH SCH (08:10)
[2017-11-07] MEDS: BROVANA NEBU IH SCH (08:10)
[2017-11-07] MEDS: PROVENTIL IH SCH ×3 (08:11→14:00)
[2017-11-07] MEDS: NORMODYNE PO SCH ×2 (11:41→21:22)
[2017-11-07] MEDS: HCTZ PO SCH (11:41)
[2017-11-07] MEDS: PEPCID PO SCH ×2 (11:41→21:20)
[2017-11-07] MEDS: HEPARIN SUB-Q SCH ×2 (12:19→21:24)
[2017-11-07] MEDS ORDERED: SODIUM BICARBONATE FEEDTUBE PRN (13:50)
[2017-11-07] MEDS ORDERED: SIMPLE SYRUP FEEDTUBE PRN ×2 (13:50)
[2017-11-07] MEDS ORDERED: PANCREAZE DR 10,500 UNIT FEEDTUBE PRN (13:50)
[2017-11-07] MEDS: ASPIRIN PO SCH (21:20)
[2017-11-08] MEDS: HumuLIN R SUB-Q SCH ×4 (00:05→18:38)
[2017-11-08] MEDS: PROVENTIL IH SCH ×3 (08:35→20:05)
[2017-11-08] MEDS: BROVANA NEBU IH SCH ×2 (08:35→20:04)
[2017-11-08] MEDS: PULMICORT IH SCH ×2 (08:35→20:04)
--- NOTE | 2017-11-08 12:30 | XRay Report ---
AP ABDOMEN: HISTORY: Abdominal pain, PEG tube. A peg tube is been inserted in the left upper quadrant since 10/28/17. The feeding tube has been removed. The abdominal gas pattern is unremarkable. No masses or organomegaly is identified and there is no gross evidence of free air or fluid. No significant soft tissue calcifications are noted. IMPRESSION: Unremarkable abdomen. Normal appearance of the PEG tube.
[2017-11-08] MEDS: ZOFRAN IV PRN (12:50)
[2017-11-08] MEDS: NORMODYNE PO SCH ×2 (13:39→23:18)
[2017-11-08] MEDS: HCTZ PO SCH (13:39)
[2017-11-08] MEDS: HEPARIN SUB-Q SCH ×2 (13:39→23:19)
[2017-11-08] MEDS: REGLAN IV PRN (13:40)
[2017-11-08] MEDS: PEPCID PO SCH ×2 (13:40→23:19)
[2017-11-08] MEDS: TRANSDERM-SCOP TD SCH (13:40)
[2017-11-08] MEDS ORDERED: ALUM-MAG HYDROX-SIMETH 200-200-20MG/5ML FEEDTUBE PRN (16:38)
--- NOTE | 2017-11-08 16:38 | Progress Note ---
Hospitalist Physical - Constitutional Vitals: Temp Pulse Resp BP Pulse Ox 98.0 F 71 18 120/85 97 11/08/17 11:36 11/08/17 13:46 11/08/17 13:46 11/08/17 11:36 11/08/17 11:36 General appearance: Present: other (intubated on the vent) Results - Labs CBC & Chem 7: 10/31/17 05:01 10/31/17 05:01 Labs: Laboratory Last Values WBC 14.9 K/mm3 (4.5-11.0) H 10/31/17 05:01 RBC 5.52 M/mm3 (3.65-5.03) H 10/31/17 05:01 Hgb 16.6 gm/dl (11.8-15.2) H 10/31/17 05:01 Hct 48.8 % (35.5-45.6) H 10/31/17 05:01 MCV 89 fl (84-94) 10/31/17 05:01 MCH 30 pg (28-32) 10/31/17 05:01 MCHC 34 % (32-34) 10/31/17 05:01 RDW 12.7 % (13.2-15.2) L 10/31/17 05:01 Plt Count 364 K/mm3 (140-440) 10/31/17 05:01 Lymph % (Auto) 14.0 % (13.4-35.0) 10/30/17 05:02 [place] % (Auto) 5.9 % (0.0-7.3) 10/30/17 05:02 Eos % (Auto) 1.3 % (0.0-4.3) 10/30/17 05:02 Baso % (Auto) 0.3 % (0.0-1.8) 10/30/17 05:02 Lymph # 2.3 K/mm3 (1.2-5.4) 10/30/17 05:02 [place] # 1.0 K/mm3 (0.0-0.8) H 10/30/17 05:02 Eos # 0.2 K/mm3 (0.0-0.4) 10/30/17 05:02 Baso # 0.1 K/mm3 (0.0-0.1) 10/30/17 05:02 Add Manual Diff TNR 10/17/17 15:01 Seg Neutrophils % 78.5 % (40.0-70.0) H 10/30/17 05:02 Seg Neutrophils # 12.9 K/mm3 (1.8-7.7) H 10/30/17 05:02 PT 13.0 Sec. (12.2-14.9) 11/02/17 10:58 INR 0.94 (0.87-1.13) 11/02/17 10:58 APTT 27.7 Sec. (24.2-36.6) 10/17/17 04:06 Thrombin Time 17.0 Sec. (15.1-19.6) 10/17/17 04:06 POC ABG pH 7.446 (7.35-7.45) 10/23/17 11:46 POC ABG pCO2 48.0 (35-45) H 10/23/17 11:46 POC ABG pO2 73 (80-105) L 10/23/17 11:46 POC ABG HCO3 33.0 10/23/17 11:46 POC ABG Total CO2 34 10/23/17 11:46 POC ABG O2 Sat 95 10/23/17 11:46 POC ABG Base Excess 9 10/23/17 11:46 FiO2 25 % 10/23/17 11:46 Sodium 139 mmol/L (137-145) 10/31/17 05:01 Potassium 4.2 mmol/L (3.6-5.0) 10/31/17 05:01 Chloride 94.2 mmol/L (98-107) L 10/31/17 05:01 Carbon Dioxide 28 mmol/L (22-30) 10/31/17 05:01 Anion Gap 21 mmol/L 10/31/17 05:01 BUN 39 mg/dL (9-20) H 10/31/17 05:01 Creatinine 1.1 mg/dL (0.8-1.5) 10/31/17 05:01 Estimated GFR > 60 ml/min 10/31/17 05:01 BUN/Creatinine Ratio 35 % 10/31/17 05:01 Glucose 128 mg/dL (75-100) H 10/31/17 05:01 POC Glucose 156 (70-105) H 11/08/17 11:10 Hemoglobin A1c 6.4 % (4-6) H 10/20/17 04:18 Lactic Acid 1.70 mmol/L (0.7-2.0) 10/17/17 22:43 Calcium 9.8 mg/dL (8.4-10.2) 10/31/17 05:01 Total Bilirubin 0.60 mg/dL (0.1-1.2) 10/31/17 05:01 AST 22 units/L (5-40) 10/31/17 05:01 ALT 40 units/L (7-56) 10/31/17 05:01 Alkaline Phosphatase 67 units/L (35-129) 10/31/17 05:01 Total Creatine Kinase 464 units/L (55-170) H 10/17/17 15:01 CK-MB (CK-2) 6.8 ng/mL (0.0-4.0) H 10/17/17 15:01 CK-MB (CK-2) Rel Index 1.4 (0-4) 10/17/17 15:01 Troponin T < 0.010 ng/mL (0.00-0.029) 10/17/17 22:43 NT-Pro-B Natriuret Pep 604.7 pg/mL (0-450) H 10/17/17 15:01 Total Protein 8.2 g/dL (6.3-8.2) 10/31/17 05:01 Albumin 3.6 g/dL (3.9-5) L 10/31/17 05:01 Albumin/Globulin Ratio 0.8 % 10/31/17 05:01 Triglycerides 57 mg/dL (2-149) 10/17/17 15:01 Cholesterol 132 mg/dL (50-199) 10/17/17 15:01 LDL Cholesterol Direct 84 mg/dL (50-130) 10/17/17 15:01 HDL Cholesterol 47 mg/dL (40-59) 10/17/17 15:01 Cholesterol/HDL Ratio 2.80 % 10/17/17 15:01 TSH 0.105 mlU/mL (0.270-4.200) L 10/18/17 15:58 Free T4 1.10 ng/dL (0.76-1.46) 10/18/17 15:58 Urine Color Yellow (Yellow) 10/17/17 04:35 Urine Turbidity Clear (Clear) 10/17/17 04:35 Urine pH 8.0 (5.0-7.0) H 10/17/17 04:35 Ur Specific [place] 1.013 (1.003-1.030) 10/17/17 04:35 Urine Protein <15 mg/dl mg/dL (Negative) 10/17/17 04:35 Urine Glucose (UA) 50 mg/dL (Negative) 10/17/17 04:35 Urine Ketones Neg mg/dL (Negative) 10/17/17 04:35 Urine Blood Neg (Negative) 10/17/17 04:35 Urine Nitrite Neg (Negative) 10/17/17 04:35 Urine Bilirubin Neg (Negative) 10/17/17 04:35 Urine Urobilinogen < 2.0 mg/dL (<2.0) 10/17/17 04:35 Ur Leukocyte Esterase Neg (Negative) 10/17/17 04:35 Urine WBC (Auto) 3.0 /HPF (0.0-6.0) 10/17/17 04:35 Urine RBC (Auto) < 1.0 /HPF (0.0-6.0) 10/17/17 04:35 U Epithel Cells (Auto) 1.0 /HPF (0-13.0) 10/17/17 04:35 Urine Bacteria (Auto) 1+ /HPF (Negative) 10/17/17 04:35 Salicylates < 0.3 mg/dL (2.8-20.0) L 10/17/17 04:23 Urine Opiates Screen Presumptive negative 10/17/17 04:35 Urine Methadone Screen Presumptive negative 10/17/17 04:35 Ur Barbiturates Screen Presumptive negative 10/17/17 04:35 Ur Phencyclidine Scrn Presumptive negative 10/17/17 04:35 Ur Amphetamines Screen Presumptive negative 10/17/17 04:35 U Benzodiazepines Scrn Presumptive negative 10/17/17 04:35 Urine Cocaine Screen Presumptive negative 10/17/17 04:35 U Marijuana (THC) Screen Presumptive negative 10/17/17 04:35 Drugs of Abuse Note Disclamer 10/17/17 04:35 Plasma/Serum Alcohol < 0.01 % (0-0.07) 10/17/17 04:23
[2017-11-08] MEDS: ASPIRIN PO SCH (23:19)
[2017-11-09] MEDS: HumuLIN R SUB-Q SCH ×2 (01:29→09:07)
[2017-11-09 06:54] VITALS: BP 120/82
[2017-11-09] MEDS: PULMICORT IH SCH ×2 (07:32→09:07)
[2017-11-09] MEDS: PROVENTIL IH SCH ×2 (07:33→09:07)
[2017-11-09] MEDS: BROVANA NEBU IH SCH (07:33)
--- NOTE | 2017-11-09 07:34 | Discharge Summary ---
Providers - Providers Date of Admission: 10/17/17 06:03 Attending physician: VALERY LANDERS MD 10/17/17 Consult to Physician [CONS] Routine Comment: Consulting Provider: JOHN HANSON Physician Instructions: Reason For Exam: [id number] 10/17/17 04:11 Speech Therapy Evaluation and Treat [CONS] Routine Reason For Exam: stroke protocol/difficulty swallowing 10/17/17 06:03 Occupational Therapy Evaluate and Treat [CONS] Routine Comment: Reason For Exam: Neuro deficits Physical Therapy Evaluation and Treat [CONS] Routine Comment: Reason For Exam: Neuro deficits 10/17/17 06:21 Consult to Physician [CONS] Routine Comment: Consulting Provider: JEANETTE VIGIL Physician Instructions: Reason For Exam: cva 10/17/17 10:23 Consult to Dietitian/Nutrition [CONS] Routine Physician Instructions: Reason For Exam: Reason for Consult: Write/Manage Tube Feeding 10/24/17 09:04 Speech Therapy Evaluation and Treat [CONS] Routine Reason For Exam: failed bedside swallowing screen 10/26/17 15:03 Speech Therapy Evaluation and Treat [CONS] Routine Reason For Exam: aspiration 10/28/17 16:22 Consult to Dietitian/Nutrition [CONS] Routine Physician Instructions: Assess nutrtn needs, initiate, modify, manage TF Reason For Exam: NEED CLARIFICATION ORDER ON TF FORMULA AND FLUSHS Reason for Consult: Write/Manage Tube Feeding Reason for Consult: Write/Manage Tube Feeding 10/31/17 15:39 Consult to Physician [CONS] Routine Comment: Consulting Provider: LYNSEY PICHARDO Physician Instructions: Reason For Exam: 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, post CVA 11/03/17 08:45 Consult to Dietitian/Nutrition [CONS] Routine Physician Instructions: Reason For Exam: Reason for Consult: peg placed Primary care physician: [facility] Hospitalization Condition: Stable Disposition: DC-01 TO HOME OR SELFCARE Core Measure Documentation - Palliative Care Palliative Care/ Comfort Measures: Not Applicable Exam - Constitutional Vitals: Temp Pulse Resp BP Pulse Ox 98.8 F 70 24 120/82 97 11/09/17 05:58 11/09/17 05:58 11/09/17 05:58 11/09/17 05:58 11/09/17 05:58 Plan Follow up with: PRIMARY CARE, [Primary Care Provider] - 3-5 Days Prescriptions: AtorvaSTATin [Lipitor] 40 mg FEEDTUBE QHS #30 tablet ALBUTEROL Inhaler [ProAir HFA Inhaler] 2 puff IH QID PRN #1 unit PRN Reason: Shortness Of Breath Aspirin [Aspirin TAB] 325 mg FEEDTUBE QDAY #30 tablet Budesonide/Formoterol Fumarate [Symbicort 160-4.5 Mcg Inhaler] 1 dose IH BID #1 unit Hydrochlorothiazide [HCTZ] 12.5 mg PO QDAY #30 capsule Insulin NPH/Regular [NovoLIN 70/30] 15 unit SUB-Q BIDDIAB #100 units Insulin Regular, Human [HumuLIN R] 1 dose SUB-Q Q6HR PRN #100 units PRN Reason: Hyperglycemia Labetalol [Normodyne TAB] 100 mg PO BID #60 tablet Lipase/Protease/Amylase [Pancreaze Dr 10,500 Unit] 1 each FEEDTUBE PRN PRN #30 capsule PRN Reason: For Clogged Feeding Tube Scopolamine [Transderm-Scop] 1 each TD Q3D 30 Days patch Simple Syrup 30 ml FEEDTUBE PRN PRN 30 Days oral.liqd PRN Reason: Hypoglycemia Sodium Bicarbonate 325 mg FEEDTUBE PRN PRN #30 tablet PRN Reason: For Clogged Feeding Tube Other Discharge Orders: Occupational Therapy (Amb) Location: None Selected Physicial Therapy (Amb) Location: None Selected Speech Therapy (Amb) Location: None Selected
[2017-11-09] MEDS: HCTZ PO SCH (10:00)
[2017-11-09] MEDS: HEPARIN SUB-Q SCH (10:00)
[2017-11-09] MEDS: NORMODYNE PO SCH (10:00)
[2017-11-09] MEDS: PEPCID PO SCH (10:02)
== END 2017-11-09 11:00 | disposition home or self-care (01) | DRG 207 ==
LOC: ED 03:52 → SUATTDRO 03:52 → 4A 06:03 → CC1 20:04 → 4A 10-24 19:15 → 3A 11-06 14:01
PROVIDERS: ADMIT Internal Medicine; ATTEND Internal Medicine
PROC: 4A033R1 Measurement of Arterial Saturation, Peripheral, Percutaneous Approach (ICD-10-PCS; 2017-10-17)
PROC: 5A1945Z Respiratory Ventilation, 24-96 Consecutive Hours (ICD-10-PCS; 2017-10-17)
PROC: 0BH17EZ Insertion of Endotracheal Airway into Trachea, Via Natural or Artificial Opening (ICD-10-PCS; 2017-10-17)
PROC: 5A1955Z Respiratory Ventilation, Greater than 96 Consecutive Hours (ICD-10-PCS; principal; 2017-10-18)
PROC: 0BH17EZ Insertion of Endotracheal Airway into Trachea, Via Natural or Artificial Opening (ICD-10-PCS; 2017-10-18)
PROC: 5A09357 Assistance with Respiratory Ventilation, Less than 24 Consecutive Hours, Continuous Positive Airway Pressure (ICD-10-PCS; 2017-10-18)
PROC: 0DH63UZ Insertion of Feeding Device into Stomach, Percutaneous Approach (ICD-10-PCS; 2017-11-03)
DX: J96.02 Acute respiratory failure with hypercapnia (principal); I63.9 Cerebral infarction, unspecified; G93.40 Encephalopathy, unspecified; N17.0 Acute kidney failure with tubular necrosis; K29.71 Gastritis, unspecified, with bleeding; E87.2 Acidosis; G81.91 Hemiplegia, unspecified affecting right dominant side; I10 Essential (primary) hypertension; Z91.14 Patient's other noncompliance with medication regimen; Z82.49 Family history of ischemic heart disease and other diseases of the circulatory system; Z83.3 Family history of diabetes mellitus; Z79.899 Other long term (current) drug therapy; E86.0 Dehydration; F17.200 Nicotine dependence, unspecified, uncomplicated; E11.9 Type 2 diabetes mellitus without complications; G90.2 Horner's syndrome; R13.10 Dysphagia, unspecified; R47.81 Slurred speech; D72.829 Elevated white blood cell count, unspecified; K44.9 Diaphragmatic hernia without obstruction or gangrene
CPT/HCPCS: 36415; 36600; 70450; 70496; 70498; 70549; 70551; 71045; 74018; 74230; 80048; 80053; 80061; 80307; 80320; 81001; 82140; 82550; 82553; 82803; 82962; 83036; 83880; 84439; 84443; 84484; 84520; 85014; 85018; 85025; 85027; 85610; 85670; 85730; 87040; 87070; 87086; 87205; 93005; 93010; 93306; 94002; 94003; 94640; 94660; 94667; 94668; 94760; 99406; A6250; A9270-GY; A9577; C9113; G0480; J0330; J0360; J0690; J1644; J1815; J1940; J2270; J2405; J2543; J2704; J2765; J2930; J3370; J7030; J7040; J7042; Q9967

== ENCOUNTER 2018-11-19 16:15 | Emergency (ER) | payer MEDICAID ==
[2018-11-19] MEDS ORDERED: NACL 0.9% 1000 ML 1,000 ML IV ONE (16:33)
[2018-11-19] MEDS ORDERED: ZOFRAN IV ONE (16:33)
[2018-11-19 16:54] LABS: Basophils % (Auto) 0.7 % (0.0-1.8); Eosinophils # (Auto) 0.1 K/mm3 (0.0-0.4); Eosinophils % (Auto) 2.3 % (0.0-4.3); Hematocrit 40.7 % (35.5-45.6); Hemoglobin 14.1 gm/dl (11.8-15.2); Lymphocytes # (Auto) 1.9 K/mm3 (1.2-5.4); Lymphocytes % (Auto) 28.1 % (13.4-35.0); Mean Corpuscular HGB Conc 35 % (32-34); Mean Corpuscular Volume 86 fl (84-94); Monocytes # (Auto) 0.5 K/mm3 (0.0-0.8); Platelet Count 240 K/mm3 (140-440); Red Blood Count 4.74 M/mm3 (3.65-5.03); Red Cell Distribution Width 12.8 % (13.2-15.2)
--- NOTE | 2018-11-19 17:05 | Emergency Department Report ---
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 Patient has been walking outside in 95 humid weather from 9:45 AM to 3 PM. He had very little to drink and eat. He denies muscle cramps, chest pain, shortness of breath, new focal weakness or numbness. Mild left-sided headache reported. - Related Data Previous Rx's Medication Instructions Recorded Last Taken Type ALBUTEROL Inhaler (OR & NICU) 2 puff IH QID PRN #1 unit 11/04/17 Unknown Rx [ProAir HFA Inhaler] Acetaminophen [Acetaminophen TAB] 650 mg PO Q4H PRN #30 tablet 11/04/17 Unknown Rx Aspirin 325 mg FEEDTUBE QDAY #30 tablet 11/04/17 Unknown Rx AtorvaSTATin [Lipitor] 40 mg FEEDTUBE QHS #30 tablet 11/04/17 Unknown Rx Budesonide/Formoterol Fumarate 1 dose IH BID #1 unit 11/04/17 Unknown Rx [Symbicort 160-4.5 Mcg Inhaler] Insulin NPH/Regular [NovoLIN 70/30] 15 unit SUB-Q BIDDIAB #100 units 11/04/17 Unknown Rx Insulin Regular, Human [HumuLIN R] 1 dose SUB-Q Q6HR PRN #100 units 11/04/17 Unknown Rx Labetalol [Labetalol 100mg TAB] 100 mg PO BID #60 tablet 11/04/17 Unknown Rx Lipase/Protease/Amylase [Pancreaze 1 each FEEDTUBE PRN PRN #30 capsule 11/04/17 Unknown Rx 10,500 Unit] Scopolamine [Transderm-Scop] 1 each TD Q3D 30 Days patch 11/04/17 Unknown Rx Simple Syrup 30 ml FEEDTUBE PRN PRN 30 Days 11/04/17 Unknown Rx oral.liqd Sodium Bicarbonate 325 mg FEEDTUBE PRN PRN #30 tablet 11/04/17 Unknown Rx hydroCHLOROthiazide [HCTZ] 12.5 mg PO QDAY #30 capsule 11/04/17 Unknown Rx Allergies Allergy/AdvReac Type Severity Reaction Status Date / Time No Known Allergies Allergy Unverified 03/27/17 14:25 ED Review of Systems ROS: Stated complaint: DIZZINESS Other details as noted in HPI Comment: All other systems reviewed and negative ED Past Medical Hx - Past Medical History Previous Medical History?: Yes Hx Hypertension: Yes Hx CVA: Yes (right sided numbness) Hx Diabetes: Yes Hx Asthma: No - Surgical History Past Surgical History?: Yes Additional Surgical History: feeding tube after stroke - Social History Smoking Status: Current Every Day Smoker Substance Use Type: None - Medications Home Medications: Home Medications Medication Instructions Recorded Confirmed Last Taken Type ALBUTEROL Inhaler (OR & NICU) 2 puff IH QID PRN #1 unit 11/04/17 Unknown Rx [ProAir HFA Inhaler] Acetaminophen [Acetaminophen TAB] 650 mg PO Q4H PRN #30 tablet 11/04/17 Unknown Rx Aspirin 325 mg FEEDTUBE QDAY #30 tablet 11/04/17 Unknown Rx AtorvaSTATin [Lipitor] 40 mg FEEDTUBE QHS #30 tablet 11/04/17 Unknown Rx Budesonide/Formoterol Fumarate 1 dose IH BID #1 unit 11/04/17 Unknown Rx [Symbicort 160-4.5 Mcg Inhaler] Insulin NPH/Regular [NovoLIN 70/30] 15 unit SUB-Q BIDDIAB #100 units 11/04/17 Unknown Rx Insulin Regular, Human [HumuLIN R] 1 dose SUB-Q Q6HR PRN #100 units 11/04/17 Unknown Rx Labetalol [Labetalol 100mg TAB] 100 mg PO BID #60 tablet 11/04/17 Unknown Rx Lipase/Protease/Amylase [Pancreaze 1 each FEEDTUBE PRN PRN #30 capsule 11/04/[address] 10,500 Unit] Scopolamine [Transderm-Scop] 1 each TD Q3D 30 Days patch 11/04/17 Unknown Rx Simple Syrup 30 ml FEEDTUBE PRN PRN 30 Days 11/04/17 Unknown Rx oral.liqd Sodium Bicarbonate 325 mg FEEDTUBE PRN PRN #30 tablet 11/04/17 Unknown Rx hydroCHLOROthiazide [HCTZ] 12.5 mg PO QDAY #30 capsule 11/04/17 Unknown Rx ED Physical Exam - General Limitations: No Limitations - Other Other exam information: General: No acute distress Head: Atraumatic normocephalic Eyes: Normal appearance, pupils equal reactive to light, extraocular movements intact ENT: Normal oropharynx Neck: Normal appearance, no C-spine tenderness, no meningismus Chest: Clear to auscultation bilaterally, no wheezes, rales, or crackles Cardiovascular: Regular rate and rhythm Abdomen: Soft, nondistended, nontender, no rebound or guarding, normal bowel sounds Back: Normal inspection, nontender Extremity: Normal inspection, no deformity, full range of motion Neuro: Alert and oriented 3, speech clear, no gross motor, mild right-sided numbness, no significant function intact Psychiatric: Normal affect Skin: No rash, warmth, or erythema ED Course Vital Signs 11/19/18 11/19/18 11/19/18 16:31 17:00 18:20 Temperature 98.2 F Pulse Rate 64 68 Respiratory 16 18 18 Rate Blood Pressure 128/78 134/77 [Left] O2 Sat by Pulse 98 98 Oximetry 11/19/18 19:20 Temperature 98.3 F Pulse Rate 71 Respiratory 12 Rate Blood Pressure 150/81 [Left] O2 Sat by Pulse 95 Oximetry ED Medical Decision Making - Lab Data Result diagrams: 11/19/18 16:40 11/19/18 16:40 Lab Results 11/19/18 11/19/18 11/19/18 Range/Units 16:40 16:40 16:54 WBC 6.6 (4.5-11.0) K/mm3 RBC 4.74 (3.65-5.03) M/mm3 Hgb 14.1 (11.8-15.2) gm/dl Hct 40.7 (35.5-45.6) % MCV 86 (84-94) fl MCH 30 (28-32) pg MCHC 35 H (32-34) % RDW 12.8 L (13.2-15.2) % Plt Count 240 (140-440) K/mm3 Lymph % (Auto) 28.1 (13.4-35.0) % [place] % (Auto) 8.0 H (0.0-7.3) % Eos % (Auto) 2.3 (0.0-4.3) % Baso % (Auto) 0.7 (0.0-1.8) % Lymph # 1.9 (1.2-5.4) K/mm3 [place] # 0.5 (0.0-0.8) K/mm3 Eos # 0.1 (0.0-0.4) K/mm3 Baso # 0.0 (0.0-0.1) K/mm3 Seg Neutrophils % 60.9 (40.0-70.0) % Seg Neutrophils # 4.0 (1.8-7.7) K/mm3 Sodium 144 (137-145) mmol/L Potassium 3.6 (3.6-5.0) mmol/L Chloride 106.0 (98-107) mmol/L Carbon Dioxide 25 (22-30) mmol/L Anion Gap 17 mmol/L BUN 15 (9-20) mg/dL Creatinine 1.5 (0.8-1.5) mg/dL Estimated GFR > 60 ml/min BUN/Creatinine Ratio 10 % Glucose 99 (75-100) mg/dL POC Glucose 84 (70-105) Calcium 9.5 (8.4-10.2) mg/dL Magnesium 2.30 (1.7-2.3) mg/dL - EKG Data -: EKG Interpreted by Mi EKG shows normal: sinus rhythm, axis (qrs -21), QRS complexes (qrsd 91), ST-T waves (no stemi) Rate: normal (69) - EKG Data When compared to previous EKG there are: no significant change - Medical Decision Making pt feeling better with IVF and food tray gait steady, dizziness resolved Diagnoses dehydration and heat exposure. - Differential Diagnosis heat exhaustion, dehydration, anemia, arrhythmia Critical Care Time: No Critical care attestation.: If time is entered above; I have spent that time in minutes in the direct care of this critically ill patient, excluding procedure time. ED Disposition Clinical Impression: Heat effects of, Dehydration, Lightheaded Disposition: DC-01 TO HOME OR SELFCARE Is pt being admited?: No Does the pt Need Aspirin: No Condition: Stable Instructions: Heat Exhaustion (ED), Dehydration (ED) Additional Instructions: Follow-up with your doctor or with a doctor/clinic provided. Return is symptoms worsen as indicated by the discharge instructions. Referrals: DENNISE CAMARGO MD [Primary Care Provider] - 3-5 Days Time of Disposition: 19:55
[2018-11-19 17:17] LABS: BUN/Creatinine Ratio 10; Blood Urea Nitrogen 15 mg/dL (9-20); Calcium 9.5 mg/dL (8.4-10.2); Hemolysis Index 17
[2018-11-19] MEDS ORDERED: TYLENOL PO ONE (18:14)
[2018-11-19 19:31] VITALS: BP 150/81
== END 2018-11-19 20:10 | disposition home or self-care (01) ==
LOC: ED 16:15
DX: T67.9XXA Effect of heat and light, unspecified, initial encounter (principal); E86.0 Dehydration; I10 Essential (primary) hypertension; R42 Dizziness and giddiness; F17.200 Nicotine dependence, unspecified, uncomplicated; E11.9 Type 2 diabetes mellitus without complications; Z79.4 Long term (current) use of insulin; Z79.82 Long term (current) use of aspirin; Z86.73 Personal history of transient ischemic attack (TIA), and cerebral infarction without residual deficits; X58.XXXA Exposure to other specified factors, initial encounter
CPT/HCPCS: 36415; 80048; 82962; 83735; 85025; 93005; 93010; 96360; 99284; J7030

== ENCOUNTER 2018-12-05 11:53 | Emergency (ER) | payer MEDICAID ==
[2018-12-05] MEDS ORDERED: NACL 0.9% 1000 ML 1,000 ML IV ONE (12:13)
[2018-12-05 12:34] LABS: Basophils # (Auto) 0.1 K/mm3 (0.0-0.1); Basophils % (Auto) 0.9 % (0.0-1.8); Eosinophils # (Auto) 0.2 K/mm3 (0.0-0.4); Eosinophils % (Auto) 3.6 % (0.0-4.3); Lymphocytes # (Auto) 1.8 K/mm3 (1.2-5.4); Lymphocytes % (Auto) 26.4 % (13.4-35.0); Mean Corpuscular HGB Conc 34 % (32-34); Mean Corpuscular Volume 86 fl (84-94); Monocytes # (Auto) 0.6 K/mm3 (0.0-0.8); Monocytes % (Auto) 9.2 % (0.0-7.3); Platelet Count 233 K/mm3 (140-440); Red Blood Count 4.79 M/mm3 (3.65-5.03)
[2018-12-05 12:58] LABS: BUN/Creatinine Ratio 8; Blood Urea Nitrogen 10 mg/dL (9-20); Hemolysis Index 6
--- NOTE | 2018-12-05 15:30 | Emergency Department Report ---
ED N/V/D HPI - General Chief complaint: Nausea/Vomiting/Diarrhea Stated complaint: VOMITING Time Seen by Provider: 12/05/18 12:05 Source: patient, EMS Mode of arrival: Stretcher Limitations: Physical Limitation - History of Present Illness Initial comments: Mr. Dickerson is a very pleasant 43-year-old male with history of hypertension, CVA with persistent dysphagia, chronic hiccups insulin-dependent diabetes who presents with nausea and vomiting since midnight. Unknown inciting factor. Denies associated fever, abdominal pain, diarrhea. Has eaten his normal variety of food. No other sick contacts. I reviewed electronic medical record. I reviewed discharge summary from 2018. MD complaint: nausea, vomiting -: Gradual Description of Vomiting: food contents, watery Associated Abdominal Pain: No Severity: mild Consistency: now resolved Improves with: none Worsens with: none Associated Symptoms: denies other symptoms - Related Data Previous Rx's Medication Instructions Recorded Last Taken Type ALBUTEROL Inhaler (OR & NICU) 2 puff IH QID PRN #1 unit 11/04/17 Unknown Rx [ProAir HFA Inhaler] Acetaminophen [Acetaminophen TAB] 650 mg PO Q4H PRN #30 tablet 11/04/17 Unknown Rx Aspirin 325 mg FEEDTUBE QDAY #30 tablet 11/04/17 Unknown Rx AtorvaSTATin [Lipitor] 40 mg FEEDTUBE QHS #30 tablet 11/04/17 Unknown Rx Budesonide/Formoterol Fumarate 1 dose IH BID #1 unit 11/04/17 Unknown Rx [Symbicort 160-4.5 Mcg Inhaler] Insulin NPH/Regular [NovoLIN 70/30] 15 unit SUB-Q BIDDIAB #100 units 11/04/17 Unknown Rx Insulin Regular, Human [HumuLIN R] 1 dose SUB-Q Q6HR PRN #100 units 11/04/17 Unknown Rx Labetalol [Labetalol 100mg TAB] 100 mg PO BID #60 tablet 11/04/17 Unknown Rx Lipase/Protease/Amylase [Pancreaze 1 each FEEDTUBE PRN PRN #30 capsule 11/04/[address] 10,500 Unit] Scopolamine [Transderm-Scop] 1 each TD Q3D 30 Days patch 11/04/17 Unknown Rx Simple Syrup 30 ml FEEDTUBE PRN PRN 30 Days 11/04/17 Unknown Rx oral.liqd Sodium Bicarbonate 325 mg FEEDTUBE PRN PRN #30 tablet 11/04/17 Unknown Rx hydroCHLOROthiazide [HCTZ] 12.5 mg PO QDAY #30 capsule 11/04/17 Unknown Rx Promethazine [Phenergan] 25 mg PO Q6HR PRN #10 tab 12/05/18 Unknown Rx Allergies Allergy/AdvReac Type Severity Reaction Status Date / Time No Known Allergies Allergy Unverified 03/27/17 14:25 ED Review of Systems ROS: Stated complaint: VOMITING Other details as noted in HPI Comment: All other systems reviewed and negative Constitutional: denies: fever, malaise Gastrointestinal: nausea, vomiting. denies: abdominal pain, diarrhea ED Past Medical Hx - Past Medical History Previous Medical History?: Yes Hx Hypertension: Yes Hx CVA: Yes (right sided numbness) Hx Diabetes: Yes Hx Asthma: No - Surgical History Additional Surgical History: feeding tube after stroke Had FT removed 4 months ago - Social History Smoking Status: Current Every Day Smoker Substance Use Type: None - Medications Home Medications: Home Medications Medication Instructions Recorded Confirmed Last Taken Type ALBUTEROL Inhaler (OR & NICU) 2 puff IH QID PRN #1 unit 11/04/17 Unknown Rx [ProAir HFA Inhaler] Acetaminophen [Acetaminophen TAB] 650 mg PO Q4H PRN #30 tablet 11/04/17 Unknown Rx Aspirin 325 mg FEEDTUBE QDAY #30 tablet 11/04/17 Unknown Rx AtorvaSTATin [Lipitor] 40 mg FEEDTUBE QHS #30 tablet 11/04/17 Unknown Rx Budesonide/Formoterol Fumarate 1 dose IH BID #1 unit 11/04/17 Unknown Rx [Symbicort 160-4.5 Mcg Inhaler] Insulin NPH/Regular [NovoLIN 70/30] 15 unit SUB-Q BIDDIAB #100 units 11/04/17 Unknown Rx Insulin Regular, Human [HumuLIN R] 1 dose SUB-Q Q6HR PRN #100 units 11/04/17 Unknown Rx Labetalol [Labetalol 100mg TAB] 100 mg PO BID #60 tablet 11/04/17 Unknown Rx Lipase/Protease/Amylase [Pancreaze 1 each FEEDTUBE PRN PRN #30 capsule 11/04/[address] 10,500 Unit] Scopolamine [Transderm-Scop] 1 each TD Q3D 30 Days patch 11/04/17 Unknown Rx Simple Syrup 30 ml FEEDTUBE PRN PRN 30 Days 11/04/17 Unknown Rx oral.liqd Sodium Bicarbonate 325 mg FEEDTUBE PRN PRN #30 tablet 11/04/17 Unknown Rx hydroCHLOROthiazide [HCTZ] 12.5 mg PO QDAY #30 capsule 11/04/17 Unknown Rx Promethazine [Phenergan] 25 mg PO Q6HR PRN #10 tab 12/05/18 Unknown Rx ED Physical Exam - General Limitations: Physical Limitation General appearance: alert, in no apparent distress - Head Head exam: Present: atraumatic, normocephalic - Eye Eye exam: Present: normal appearance - ENT ENT exam: Present: mucous membranes moist - Neck Neck exam: Present: normal inspection, full ROM - Respiratory Respiratory exam: Present: normal lung sounds bilaterally. Absent: respiratory distress, wheezes, rales, rhonchi - Cardiovascular Cardiovascular Exam: Present: regular rate, normal rhythm, normal heart sounds. Absent: systolic murmur, diastolic murmur, rubs, gallop - GI/Abdominal GI/Abdominal exam: Present: soft, normal bowel sounds. Absent: distended, tenderness, guarding, rebound - Rectal Rectal exam: Present: deferred - Extremities Exam Extremities exam: Present: normal inspection - Back Exam Back exam: Present: normal inspection - Neurological Exam Neurological exam: Present: alert, oriented X3 - Psychiatric Psychiatric exam: Present: normal affect, normal mood - Skin Skin exam: Present: warm, dry, intact, normal color. Absent: rash ED Course Vital Signs 12/05/18 12:08 Temperature 99.0 F Pulse Rate 66 Respiratory 12 Rate Blood Pressure 146/92 O2 Sat by Pulse 99 Oximetry ED Medical Decision Making - Lab Data Result diagrams: 12/05/18 12:20 12/05/18 12:20 - Medical Decision Making Mr. Dickerson is a 43-year-old male who presents with 10 episodes of vomiting. Normal blood sugar. CBC within normal limits. No evidence of infection or peritonitis. Mr. Dickerson appears well. I do not suspect obstruction or cardiac process. Discharged home. Critical care attestation.: If time is entered above; I have spent that time in minutes in the direct care of this critically ill patient, excluding procedure time. ED Disposition Clinical Impression: Vomiting, History of diabetes mellitus Disposition: DC- TO HOME OR SELFCARE Is pt being admited?: No Does the pt Need Aspirin: No Condition: Stable Instructions: Acute Nausea and Vomiting (ED) Prescriptions: Promethazine [Phenergan] 25 mg PO Q6HR PRN #10 tab PRN Reason: Nausea Referrals: AMANDA ALEJANDRA MD [Primary Care Provider] - 3-5 Days Forms: Work/School Release Form(ED)
[2018-12-05 15:32] VITALS: BP 143/98
== END 2018-12-05 15:39 | disposition home or self-care (01) ==
LOC: ED 11:53
DX: R11.2 Nausea with vomiting, unspecified (principal); E11.9 Type 2 diabetes mellitus without complications; I10 Essential (primary) hypertension; Z86.73 Personal history of transient ischemic attack (TIA), and cerebral infarction without residual deficits; Z79.899 Other long term (current) drug therapy
CPT/HCPCS: 36415; 80048; 85025; 96360; 99284; J7030